=== PATIENT | female | born 1955 | race Caucasian/White ===

== ENCOUNTER 2016-10-17 04:49 | Observation (INO) | payer BC, MEDICAID ==
--- NOTE | 2016-10-17 05:04 | ED ---
Neurological HPI - HPI Summary HPI Summary: Patient presents for delayed evaluation of TIA like symptoms. Patient was dancing at a green party this evening and around 11:30 pm felt lightheaded. Checked her POCT glucose at home and found it to be 42. Ate half a spoonful of peanut butter and boiled some eggs. Having eaten both, her repeat POCT glucose was around 145 at 12:30am. She crawled to her and had some slurred speech and weakness of the left arm and leg. Went to [facility] for evaluation. Has had some intermittent resolution of the symptoms, but new numbness of the left arm and leg. PA at [facility] called for ED evaluation here as well as Neurology consult. - History of Current Complaint Chief Complaint: EDNeurologicalDeficit Stated Complaint: LT ARM NUMBNESS Time Seen by Provider: 10/17/16 04:59 Hx Obtained From: Patient, EMS, Medical Records Onset/Duration: Sudden Onset Timing: Intermittent Episodes Lasting: Pain Intensity: 0 - Allergy/Home Medications Allergies/Adverse Reactions: Allergies Allergy/AdvReac Type Severity Reaction Status Date / Time Aspirin Allergy Hives/Diff. Verified 10/17/16 05:06 Breathing/I tching Penicillins Allergy Hives/Diff. Verified 10/17/16 05:06 Breathing/I tching Tomato Allergy Hives Verified 10/17/16 05:06 PMH/Surg Hx/FS Hx/Imm Hx Infectious Disease History: No Infectious Disease History: Denies: Traveled Outside the [place] in Last 30 Days Review of Systems Negative: Fever, Chills Negative: Diplopia Cardiovascular: Negative Negative: Palpitations, Chest Pain Positive: Weakness, Numbness, Slurred Speech. Negative: Headache, Paresthesia All Other Systems Reviewed And Are Negative: Yes Physical Exam Triage Information Reviewed: Yes Vital Signs On Initial Exam: Initial Vitals Temp Pulse Resp BP Pulse Ox 98.6 F 87 12 166/85 98 10/17/16 04:50 10/17/16 04:50 10/17/16 04:50 10/17/16 04:50 10/17/16 04:50 Vital Signs Reviewed: Yes Appearance: Positive: Well-Appearing, No Pain Distress, Well-Nourished Skin: Positive: Warm, Skin Color Reflects Adequate Perfusion, Dry Head/Face: Positive: Normal Head/Face Inspection Eyes: Positive: Normal, EOMI, JIM ENT: Positive: Normal ENT inspection, Hearing grossly normal, Pharynx normal Neck: Positive: Supple Respiratory/Lung Sounds: Positive: Clear to Auscultation, Breath Sounds Present Cardiovascular: Positive: Normal, RRR, Pulses are Symmetrical in both Upper and Lower Extremities Abdomen Description: Positive: Nontender, No Organomegaly, Soft Musculoskeletal: Positive: Strength/ROM Intact Neurological: Positive: Alert, Oriented to Person Place, Time, CN Intact II-III , Reflexes Intact, Normal Gait, Heel to Toe, Finger to Nose, Facial Symmetry, Speech Normal, Other - L arm from shoulder to fingertip and L leg from hip to toes with diminished sensation.. Negative: Babinski Bilateral, Cerebellar Dysfunction, Facial Droop, Slurred Speech, Dysphagia, Dysarthric Aphasia, Pronator Drift Present Diagnostics - Vital Signs Vital Signs Temp Pulse Resp BP Pulse Ox 10/17/16 04:50 98.6 F 87 12 166/85 98 - Laboratory Lab Statement: Any lab studies that have been ordered have been reviewed, and results considered in the medical decision making process. 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 Non-Paretic Hand: Both Correctly Best Gaze (Only Horizontal Eye Movement): Normal Visual Field Testing: No Visual Loss Facial Paresis-Pt to Smile & Close Eyes or Grimace Symmetry: Normal/Symmetrical Motor Function - Right Arm: No Drift-Holds 10 Seconds Motor Function - Left Arm: No Drift-Holds 10 Seconds Motor Function - Right Leg: No Drift-Holds 10 Seconds Motor Function - Left Leg: No Drift-Holds 10 Seconds Limb Ataxia-Must be out of Proportion to Weakness Present: Absent Sensory (Use Pinprick to Test Arms/Legs/Trunk/Face): Pinprick Less on Affected Best Language (Describe Picture, Name Items): No Aphasia Dysarthria (Read Several Words): Normal Extinction and Inattention: No Abnormality Total Score: 1 Course/Dx - Differential Dx Differential Diagnoses Neuro: Positive: Cerebrovascular Accident, Hypoglycemia, Metabolic Abnormality, Transient Ischemic Attack, Other - Primary concern for stuttering TIA with facial droop, slurred speech, limb weakness, and sensory deficit at different times since around 12:30 to 1:30 am. Needs admission for further evaluation. - Diagnoses Provider Diagnoses: TIA (transient ischemic attack) - Physician Notifications Discussed Care of Patient With: Dr. Booker asked for CTA head and neck with vispaque due to GFR. Discharge - Discharge Plan Condition: Stable Disposition: ADMITTED TO [facility]
[2016-10-17] MEDS ORDERED: Acetaminophen TAB* 325 MG PO ONE (11:48)
[2016-10-17] MEDS ORDERED: Acetaminophen TAB* 325 MG PO PRN (11:48)
[2016-10-17] MEDS ORDERED: Dextrose 50% Syringe 50 ML* 25 GM/50 ML SYRINGE IV PUSH PRN (11:55)
[2016-10-17] MEDS ORDERED: Clopidogrel TAB* 75 MG PO ONE ×2 (11:56)
[2016-10-17] MEDS ORDERED: Docusate CAP* 100 MG PO PRN (12:02)
[2016-10-17] MEDS ORDERED: Polyethylene Glycol 3350* 17 GM PACKET PO ONE ×2 (12:30)
[2016-10-17 13:19] LABS: Hematocrit 39 % (35-47); Hemoglobin 12.8 g/dl (12.0-16.0); Mean Corpuscular HGB Conc 33 g/dl (31-36); Mean Corpuscular Hemoglobin 27 pg (27-31); Mean Corpuscular Volume 80 fL (80-97); Mean Platelet Volume 8 um3 (7.4-10.4); Red Blood Count 4.82 10^6/ul (4.0-5.4); Red Cell Distribution Width 13 % (10.5-15); White Blood Count 6.7 10^3/ul (3.5-10.8)
[2016-10-17 13:33] LABS: BUN/Creatinine Ratio 22.2 (8-20); Calcium 9.5 mg/dL (8.6-10.3); EGFR African American 41.7 (>60); EGFR Non-African American 32.4 (>60); Potassium 5.4 mmol/L (3.5-5.0)
[2016-10-17] MEDS ORDERED: Insulin LISPRO* 1 UNITS UNIT SUBCUT ONE (13:47)
--- NOTE | 2016-10-17 16:34 | RAD ---
HISTORY: Left-sided numbness and weakness COMPARISONS: Same day noncontrast CT of the brain TECHNIQUE: The following sequences were obtained of the head: Sagittal T1-weighted images, axial T2-weighted images, axial FLAIR images, axial susceptibility weighted images, axial T1-weighted images. Additionally, axial diffusion-weighted images were obtained with calculated apparent diffusion coefficients.. FINDINGS: HEMORRHAGE/INFARCT: There is no hemorrhage or acute infarct. MASSES/SHIFT: There is no mass or shift. EXTRA-AXIAL SPACES/MENINGES: There are no extra-axial fluid collections. SULCI AND VENTRICLES: The sulci and ventricles are normal in size and position for the patient's stated age. CEREBRUM: On the T2-weighted images there are multifocal periventricular and subcortical foci of increased intensity, the largest at the left anterior frontal lobe measuring 1 cm in diameter. There is no corresponding increased signal on the diffusion-weighted imaging to indicate that these are acute ischemic foci. The hensley-white matter differentiation and appropriate signal is maintained otherwise. BRAINSTEM: There are no focal parenchymal abnormalities. CEREBELLUM: There are no focal parenchymal abnormalities. The cerebellar tonsils are normal in size and position. SELLA: The sella is normal. PINEAL: There is a 4 mm fluid density cyst located within the pineal gland (sagittal image 14 and axial image 15 of 30). CP ANGLE/TEMPORAL BONES: The labyrinthine structures are grossly normal. VESSELS: Normal flow-voids are noted within the visualized vertebral vasculature. DIFFUSION ABNORMALITIES: There are no diffusion abnormalities. PARANASAL SINUSES/MASTOIDS: The paranasal sinuses are clear. ORBITS: The orbits are unremarkable. BONES AND SOFT TISSUE: No bone or soft tissue abnormalities are noted. IMPRESSION: 1. THESE MRI FINDINGS ARE MOST CONSISTENT WITH CHRONIC MICROVASCULAR DISEASE WITH DEMYELINATING DISEASE CONSIDERED LESS LIKELY. IF THE LATTER IS CLINICALLY SUSPECTED THEN FURTHER CHARACTERIZATION CAN BE MADE WITH CONTRAST ENHANCED MRI OF THE BRAIN. 2. THERE IS A 4 MM PINEAL GLAND CYST OF DOUBTFUL CLINICAL CONCERN.
[2016-10-17] MEDS ORDERED: Atorvastatin* 40 MG TAB PO SCH ×2 (17:00)
--- NOTE | 2016-10-17 17:05 | RAD ---
CPT II Codes: 3100F INDICATION: Cerebrovascular accident COMPARISON: MRI and CT of the brain from the same day TECHNIQUE: Multiple clarke scale, color and doppler tracings of the common, internal and external carotid and vertebral arteries were obtained. Stenosis estimations reflect velocity criteria that have been correlated to angiographic stenosis calculations based on the distal internal carotid diameter. Right carotid: The peak systolic velocity in the proximal right internal carotid artery is 68 cm/s and the maximum end-diastolic velocity is 21 cm/s. The peak systolic velocity in the distal common carotid artery is 79 cm/s and the maximum end-diastolic velocity is 19 cm/s. The internal to common carotid ratio is 1.17. This would be consistent with a 150% stenosis. Left carotid: The peak systolic velocity in the proximal right internal carotid artery is 80 cm/s and the maximum end-diastolic velocity is 20 cm/s. The peak systolic velocity in the distal common carotid artery is 91 cm/s and the maximum end-diastolic velocity is 22 cm/s. The internal to common carotid ratio is 0.87. This would be consistent with a less than 50% stenosis. Vertebrals: There is antegrade flow in both vertebral arteries. IMPRESSION: There is no sonographic evidence of hemodynamically significant stenosis in the bilateral carotid arteries.
--- NOTE | 2016-10-17 17:12 | PN ---
Hospitalist Progress Note HOSPITALIST ADDENDUM Case reviewed and d/w Otis SOLARES. Mrs. Fonseca is a 61yo F with PMH of DM who was transferred from [facility] with c/o left side numbness. Labs and MRI brain reviewed. Agree with current management.
[2016-10-17] MEDS: Insulin LISPRO* 1 UNITS UNIT SUBCUT SCH (17:24)
--- NOTE | 2016-10-17 19:35 | HP ---
ADMISSION HISTORY AND PHYSICAL: DATE OF ADMISSION: 10/16/16 PRIMARY CARE PROVIDER: Dr. Duncan. ADMITTING PROVIDER: BECK Loya SUPERVISING PHYSICIAN: Aga Cobb MD * (DICTATED BY BECK LOYA) CHIEF COMPLAINT: Transferred from [facility] with concern for TIA with slurred speech and left-sided weakness. HISTORY OF PRESENT ILLNESS: This is a 61-year-old female with poorly controlled insulin-dependent diabetes, chronic kidney disease, hyperlipidemia, and diabetic retinopathy and neuropathy who presented to [place] [facility] overnight last night with difficulty speaking and left-sided weakness. The patient states that she was with her earlier in the evening and she felt slightly dizzy, but no acute weakness at that time. She had not been consuming any alcohol and when she returned home, she took her Levemir and then checked her glucose which was noted to be in the 40s. She subsequently fixed herself something to eat, but was feeling worse and noted left-sided weakness and she began to drop things that she was holding in her left hand. She looked in the mirror and noted a notable left- sided facial droop. She was unable to ambulate and tripped and fell and crawled to the bedroom to alert her that she was not feeling well. According to notes from [facility], when she arrived there, she was unable to smile and was having significant difficulty speaking. Seeing as the onset of symptoms were as approximately 6 hours prior to her presentation in the emergency department, TPA was not given and she was subsequently transferred to [facility] for further evaluation and appropriate treatment. The patient states that she has no history of similar symptoms. She feels that her symptoms of difficulty speaking and weakness are coming and going intermittently since she has arrived in our hospital. At this time, there is no notable speech difficulty. She is complaining of some pain in her legs, which she states is chronic and related to her neuropathy. The patient states that her diabetes is very poorly controlled. She has what sounds to be diabetic retinopathy and had a retinal laser procedure completed last week and is receiving injections into her left eye. The patient also notes that she has been significantly constipated recently and believes it has been almost 10 days since she has had a bowel movement. The patient otherwise denies any chest pain. She states that she had some mild difficulty breathing with initial onset of her symptoms but that seems to have since resolved. PAST MEDICAL HISTORY: 1. Insulin-dependent diabetes which is reportedly poorly controlled. 2. Hyperlipidemia. 3. Diabetic neuropathy and retinopathy. 4. Chronic kidney disease. PAST SURGICAL HISTORY: Retinal laser procedure for proliferative retinopathy. HOME MEDICATIONS: (Per patient's recall): 1. Atorvastatin 10 mg p.o. at bedtime. 2. Gabapentin 300 mg p.o. at bedtime. 3. Levemir 50 units subcu at bedtime. 4. Humalog 50 units subcu with each meal. ALLERGIES: ASPIRIN - the patient reports hives and difficulty breathing with aspirin. FAMILY HISTORY: Mother had a history of CVA and of ovarian cancer. Her father had coronary artery disease and CHF. SOCIAL HISTORY: The patient lives at home with her , daughter and grand daughter. She smokes occasionally, unsure of her exact pack year history. Reports occasional alcohol consumption. PHYSICAL EXAMINATION GENERAL: This is a pleasant 61-year-old female who appears older than her stated age, but is in no acute distress. VITAL SIGNS: Most recent vitals; temperature 98 degrees Fahrenheit, pulse 84 beats per minute, respiratory rate 16 per minute, oxygen saturation 97% on room air, and blood pressure 139/71 mmHg. HEENT: Head is normocephalic, atraumatic. Mucous membranes are pink and moist. The patient is edentulous. NECK: Supple and free of lymphadenopathy. RESPIRATORY: Lungs are clear to auscultation without wheezes, crackles or rhonchi. CARDIOVASCULAR: Heart has regular rate and rhythm without murmurs, rubs, or gallops. ABDOMEN: Soft, slightly distended and nontender to palpation. EXTREMITIES: No lower extremity edema. NEUROLOGIC: The patient has a mild strength deficit in the left upper and left lower extremities estimated at 4/5 with the right side being 5/5. The patient describes a difference in sensation between the left and right side. Gait was not specifically assessed. Cranial nerves II through XII are intact. Romberg is negative. [id number] testing is normal. LABORATORY DATA: Review of labs from [facility] shows an essentially normal CBC with white blood cell count of 8000, hemoglobin 13.9 g/dL, and platelet count of 293,000. Comprehensive metabolic panel shows sodium of 138 mmol/L, potassium 4.6 mmol/L, BUN 37, creatinine of 2.1 with an estimated GFR of 26. Random glucose is 208 mg/dL. INR normal at 0.93. No transaminitis or elevated total bilirubin. ASSESSMENT AND PLAN: This is a 61-year-old female with poorly controlled insulin- dependent diabetes, hyperlipidemia, diabetic retinopathy and neuropathy and chronic kidney disease who was transferred from [facility] with concerns for transient ischemic attack versus cerebrovascular accident. 1. Cerebrovascular accident - the patient still has some residual deficits based on presentation, this appears to be consistent with an acute cerebrovascular accident. The patient has a listed allergy to ASPIRIN and has not received any antiplatelet agents. We will give Plavix at this time and initiate statin therapy. Her symptoms do appear to be self resolving but still somewhat persistent. Due to her poor renal function, we will avoid CTA. We will obtain carotid ultrasound to evaluate for stenosis and an MRI of the brain. We will place her on continuous telemetry monitoring to evaluate for dysrhythmia and obtain an echocardiogram with bubble study. 2. Insulin-dependent diabetes - the patient reports this is poorly controlled. We will obtain a hemoglobin A1c. We will start with continuing her insulin glargine at 50 units daily and placed on a sliding scale for mealtime. Unsure if her additional 50 units of Humalog with each meal is accurate and would like to avoid hypoglycemia. 3. Hyperlipidemia - we will increase atorvastatin to 40 mg daily in the setting of acute neurologic deficits and check a fasting lipid panel in the morning. 4. Diabetic complications including retinopathy and neuropathy. 5. Chronic kidney disease - based on labs from [place], she is at stage 4 but unsure of what her past labs represent. We will avoid all nephrotoxic agents and monitor renal function closely. 6. Code status. The patient is full code. 7. Healthcare proxy is her . 8. DVT prophylaxis. The patient will be placed on SCDs. We will avoid chemical prophylaxis in the setting of concern for acute cerebrovascular accident. 9. Disposition: The patient is being admitted to the hospital under observation status for concern of transient ischemic attack versus cerebrovascular accident. Pending Neurology consultation and further workup. BECK LOYA CC: Dr. Duncan* [id number]/[facility] #: [id number] [facility]
--- NOTE | 2016-10-17 20:50 | CONS ---
NEUROLOGY CONSULTATION: DATE OF CONSULT: 10/17/16 REQUESTING PROVIDER: BECK Nelson REASON FOR CONSULT: Possible stroke. HISTORY OF PRESENT ILLNESS: Yue Fonseca is a 61-year-old woman with a history of poorly controlled diabetes as well as hypertension and hyperlipidemia , who was in her usual state of health yesterday evening when she was out dancing and developed some dizziness and lightheadedness. She took her insulin while she was out and upon arriving home 1 to 2 hours later, she took a fingerstick glucose which she reports was 42. Sometime after this, she noticed some weakness of her left hand as she was trying to remove her earrings, but did not think much of it. She ate a spoonful of peanut butter and prepared some eggs for herself, but before she was able to eat the eggs, she fell to the ground due to apparent left-sided weakness. She does mention that she rechecked her blood sugar prior to falling and it was in the 240s. She was able to crawl in to where her was and says that she tried to call the hospital for advice on whether she might be having a stroke and then call a friend or a family member and was advised to go to the hospital, but she had her drive her. She went to [facility] and at that time apparently had a very weak left side and very garbled speech. She was significantly improving while she was in the ER at [place], but arrangements were made for her transfer here to [facility]. At the time of my evaluation, which is approximately 17 hours after the onset of her symptoms, she is essentially back to baseline. She denies any past history of stroke. She does have poorly controlled diabetes and complications including neuropathy and retinal disease. PAST MEDICAL HISTORY: 1. Type 2 diabetes, on insulin. 2. Hypertension. 3. Hyperlipidemia. 4. Complications of diabetes including neuropathy and retinal disease. 5. Single kidney which the patient states is congenital. HOME MEDICATIONS: 1. Humalog at meal time. 2. Gabapentin 300 mg at bedtime. 3. Lipitor 10 mg at bedtime. 4. Levemir 50 units at night. ALLERGIES: 1. ASPIRIN causes hives and difficulty breathing. 2. PENICILLIN caused hive and difficulty breathing. 3. TOMATOES cause hives. FAMILY HISTORY: Extensive history of diabetes in the family and she reports 3 brothers have passed from complications. One brother also had a stroke and cancer of unknown type. Her mother had ovarian cancer. SOCIAL HISTORY: She reports recently taking smoking back up, but says she smokes 1 cigarette per day. She denies significant alcohol use. 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 REVIEW OF SYSTEMS: She had laser surgery on her eye approximately 5 days ago. She has a history of carpal tunnel, status post release and some residual symptoms there. PHYSICAL EXAM: Vital Signs: Temperature 98, blood pressure 139/71, heart rate 84, and oxygen saturation 97% on room air. When she arrived in the ED here this morning at 4:50, her blood pressure was 166/85. On general examination, she appears older than her stated age. She is edentulous. Heart revealed a regular rate and rhythm with no murmurs, rubs, or gallops. Lungs are clear to auscultation bilaterally. There were no carotid bruits. On neurologic examination, she is fully awake, alert, and oriented. Speech is full without dysarthria or aphasia. Pupils were equal, round, and reactive from 3 to 2 mm bilaterally. She winced at the light. Versions were full without nystagmus. Visual lay were full to confrontation. Facial sensation and musculature is full and symmetric. The tongue protrudes in the midline and the palate elevates symmetrically. On motor examination, she has normal bulk and tone in the upper and lower extremities. Strength is full proximally and distally and there is no pronator drift. Sensation is intact in the upper and lower extremities. Reflexes are 2 + in the upper, 2+ at the knees, and 1+ at the ankles. Toes are downgoing. Finger-to- nose was intact without ataxia. Romberg is negative. Her gait is narrow based and stable. DIAGNOSTIC STUDIES/LAB DATA: Reviewed, includes a BMP which is notable for a potassium of 5.4, BUN of 36, and creatinine of 1.62 with a GFR of 32.4. Her glucose was 320 at 1308. Hemoglobin A1c is 9.2%. CBC is unremarkable. CT of the brain was performed at [place] and showed no evidence of a hemorrhage or early signs of ischemic stroke. MRI of the brain was performed here and personally reviewed and shows no evidence of acute ischemic injury. There is evidence of small vessel ischemic disease in the bilateral cerebral hemispheres. Carotid Doppler study has been performed and the report is pending. IMPRESSION: Yue Fonseca is a 61-year-old woman with poorly controlled diabetes, hypertension, and hyperlipidemia, who was transferred to [facility] for a stroke/transient ischemic attack workup after she presented with left- sided weakness and garbled speech. Her symptoms are resolved at this time. She is unable to take aspirin and has been placed on Plavix. Her labs show that her diabetes is very poorly controlled and this was discussed with her as a very important risk factor that she needs to work on bringing under better control in order to help prevent further transient ischemic attacks. She should also have a lipid panel done, should remain on telemetry for detection of any signs of atrial fibrillation and she will undergo echocardiogram with bubble study. Pending the outstanding testing, she will likely be stable for discharge tomorrow. She was counseled that should she experience stroke symptoms in the future, such as sudden weakness, numbness, difficulty speaking, etc, she should call 911 immediately. She was also counseled to quit smoking. Thank you for this consultation. [id number]/[facility] #: [id number] MANDI
[2016-10-17] MEDS ORDERED: Gabapentin CAP(*) 300 MG PO SCH (21:00)
[2016-10-17] MEDS ORDERED: Gabapentin CAP(*) 300 MG PO ONE (21:00)
[2016-10-17] MEDS ORDERED: Insulin GLARGINE(*) 1 UNITS UNIT SUBCUT SCH (21:00)
[2016-10-18 05:53] LABS: Hematocrit 37 % (35-47); Hemoglobin 12.6 g/dl (12.0-16.0); Mean Corpuscular HGB Conc 34 g/dl (31-36); Mean Corpuscular Hemoglobin 27 pg (27-31); Mean Corpuscular Volume 80 fL (80-97); Mean Platelet Volume 8 um3 (7.4-10.4); Red Blood Count 4.64 10^6/ul (4.0-5.4); Red Cell Distribution Width 13 % (10.5-15); White Blood Count 6.2 10^3/ul (3.5-10.8)
[2016-10-18 06:05] LABS: BUN/Creatinine Ratio 27.5 (8-20); Calcium 9.4 mg/dL (8.6-10.3); EGFR African American 50.2 (>60); Potassium 4.6 mmol/L (3.5-5.0)
[2016-10-18] MEDS: Insulin LISPRO* 1 UNITS UNIT SUBCUT SCH ×2 (08:52→12:33)
[2016-10-18] MEDS ORDERED: Clopidogrel TAB* 75 MG PO ONE (09:00)
[2016-10-18] MEDS ORDERED: Clopidogrel TAB* 75 MG PO SCH (09:00)
[2016-10-18 11:28] VITALS: BP 121/62
--- NOTE | 2016-10-18 15:02 | ECHO ---
Patient: NASIR LI [facility] Rec#: [id number] : 1955 Date: 10/18/2016 Age: 61y Height: 154 cm / 60.6 in Weight: 78 kg / 171.9 lbs Sex: F BSA: 1.76 Room#: 443 Admit Date#: 10/17/2016 Type: Inpatient Referring: Otis Braun Reading: Skip Delaney MD Media Relations Coordinator: Toi Kaplan RDCS Transthoracic Echocardiogram Indication: TIA BP: /106 HR: 65 Rhythm: NSR Findings History: TIA DM,HLD,CKD Technical Comments: The study quality is fair. Completed 1435 Left Ventricle: The left ventricular chamber size is normal. Mild concentric left ventricular hypertrophy is observed. Global left ventricular wall motion and contractility are within normal limits. There is normal left ventricular systolic function. The estimated ejection fraction is 55-60%. Abnormal left ventricular diastolic filling is observed, consistent with impaired relaxation. Left Atrium: The left atrial chamber size is normal. Right Ventricle: The right ventricular cavity size is normal. The right ventricular global systolic function is normal. Right Atrium: The right atrial cavity size is normal. Interatrial septum appears intact without evidence of shunting. The bubble study is negative. Aortic Valve: The aortic valve is trileaflet. There is no evidence of aortic regurgitation. There is no evidence of aortic stenosis. Mitral Valve: The mitral valve leaflets appear normal. There is no evidence of mitral regurgitation. There is no evidence of mitral stenosis. Tricuspid Valve: The tricuspid valve appears normal in structure and function. There is no evidence of tricuspid valve regurgitation. Pulmonic Valve: The pulmonic valve appears normal. There is no evidence of pulmonic regurgitation. There is no pulmonic stenosis. Pericardium: There is no pericardial effusion. Aorta: There is no dilatation of the ascending aorta. There is no dilatation of the aortic arch. There is no dilation of the aortic root. Pulmonary Artery: The main pulmonary artery appears normal. Venous: The inferior vena cava appears normal in size. There is a greater than 50% respiratory change in the inferior vena cava dimension. Contrast: Normal saline was used as contrast for the bubble study. Intravenous contrast was used to help determine presence of intracardiac shunting.IMAGE 64 Conclusions Mild concentric left ventricular hypertrophy is observed. Global left ventricular wall motion and contractility are within normal limits. The estimated ejection fraction is 55-60%. There is normal left ventricular systolic function. Interatrial septum appears intact without evidence of shunting. The bubble study is negative. The right ventricular global systolic function is normal. There is no evidence of aortic stenosis. There is no evidence of mitral regurgitation. There is no pericardial effusion. Measurements Name Value Normal Range RVIDd (AP) 2D 11.7 cm (0.9 - 2.6) RVDdMajor (2D) 2.1 cm (2.2 - 4.4) RAd ISD 4CH 3.5 cm (3.4 - 4.9) RA (A4C)W 2.8 cm (2.9 - 4.6) IVSd (2D) 1.2 cm (0.6 - 1) LVPWd (2D) 1.4 cm (0.6 - 1) LVIDd (2D) 3.4 cm (3.6 - 5.4) LVIDs (2D) 2.3 cm - LV FS (2D) 30 % (25 - 45) Aortic Annulus 1.9 cm (1.4 - 2.6) Ao root diameter (2D) 2.1 cm (2.1 - 3.5) Ascending Ao 3 cm (2.1 - 3.4) Aortic arch 2.5 cm (1.8 - 3.4) LA dimension (AP) 2D 2.6 cm (2.3 - 3.8) LAd ISD 4CH 4.9 cm (2.9 - 5.3) LA ISD 4CH W 3 cm (2.5 - 4.5) Name Value Normal Range LA ESV SP 4CH (A/L) 51 ml - LA ESV SP 2CH (A/L) 74 ml - LA ESV BP (A/L) 62 ml - LA ESV BP (A/L) index 34.89 ml/m2 - LA ESV SP 4CH (MOD) 46 ml - LA ESV SP 2CH (MOD) 70 ml - Name Value Normal Range MV E-wave Vmax 0.68 m/sec - MV deceleration time 217 msec - MV A-wave Vmax 0.94 m/sec - MV E:A ratio 0.73 ratio - LV septal e' Vmax 0.04 m/sec - LV lateral e' Vmax 0.03 m/sec - LV E:e' septal ratio 17 ratio - LV E:e' lateral ratio 22.6 ratio - Name Value Normal Range LVOT diameter 1.7 cm - LVOT Vmax 0.8 m/sec - Name Value Normal Range IVC diameter 1.01 cm - Name Value Normal Range PV Vmax 0.83 m/sec -
--- NOTE | 2016-10-19 03:20 | DS ---
DISCHARGE SUMMARY: DATE OF ADMISSION: 10/17/16 DATE OF DISCHARGE: 10/18/16 PRIMARY CARE PHYSICIAN: Dr. Duncan. DISCHARGE DIAGNOSIS: Transient ischemic attack. SECONDARY DIAGNOSES: 1. Insulin-dependent diabetes. 2. Lipidemia. 3. Diabetic neuropathy and retinopathy. 4. History of chronic kidney disease, stage 3 due to diabetes. MEDICATIONS AT DISCHARGE: Include: 1. Plavix 75 mg daily. 2. Lipitor 40 mg daily. 3. Gabapentin 300 mg at bedtime. 4. Insulin detemir 50 units subcutaneously daily at night. 5. Insulin Lispro 17 units with each meal 3 times a day. LABORATORY DATA AND STUDIES PERFORMED DURING THE HOSPITAL STAY: Included: On , lipid profile showed triglycerides of 228, cholesterol of 418, LDL of 131, and HDL of 41. The patient's hemoglobin A1c was 9.2. CBC on 10/18/16, white blood cell count 6.2, hemoglobin 12.6, hematocrit 37, and platelets 228. Transthoracic echocardiogram obtained on 10/17/16 showed a negative bubble study. EF of 55% to 60%. Global left ventricular wall motion contractility within normal limits. Carotid Doppler study, impression: "There is no sonographic evidence of hemodynamically significant stenosis in bilateral carotid arteries." Brain MRI on 10/17/16, impression: "These MRI findings are most consistent with chronic microvascular disease with demyelinating disease considered less likely. If the latter is clinically suspected, then further characterization can be made with contrast-enhanced MRI of the brain. There is a 4 mm pineal gland cyst of doubtful clinical concern." CONSULTATIONS DURING THE HOSPITAL STAY: Included Dr. Poonam Rossi from Neurology. HOSPITALIZATION COURSE: Yue Fonseca is a 61-year-old female with history of diabetes who presented to our hospital as transfer from [facility] with transient slurred speech and left-sided weakness that resolved on the day of admission. The patient was observed on telemetry monitored bed with the diagnosis of TIA. She had no arrhythmias noted. Dr. Rossi saw the patient in consultation. As recommended, MRI studies were obtained and the report is as above. The patient also had a carotid Doppler study that was unremarkable and negative for stenosis. Transthoracic echocardiogram showed a negative bubble study. The patient's lipid profile showed triglycerides of 224 and LDL of 131. Due to that, the patient's Lipitor dose was increased from 10 mg to 40 mg daily. The patient has history of allergy to ASPIRIN that manifest in hives and problems with breathing. For that, the patient was started on Plavix. The patient also was seen by our social security specialist in regards of problems with insurance. She is advised to call insurance navigator, Beba Alonso, to discuss Medicaid eligibility after discharge. PHYSICAL EXAM AT DISCHARGE: Blood pressure of 121/62, heart rate of 82 and regular, respiratory rate 18, oxygen saturation 100% on room air, temperature 98.2. General: The patient is a pleasant 61-year-old female, who is in no acute distress. Alert, awake, and oriented x3. HEENT: Head: Atraumatic, normocephalic. Eyes: Pupils are equal and reactive to light and accommodation. Oropharynx clear. Mucosa moist. Neck: Supple. No JVD. No bruit bilaterally. Cardiovascular: Regular rate and rhythm. No murmur. Respiratory: Clear to auscultation bilaterally. Abdomen: Soft, nontender, bowel sounds present in all 4 quadrants. Extremities: There is no edema. Pulses +2 bilaterally. No clubbing or cyanosis. Neuro Evaluation: Speech clear. Cranial nerves II through XII grossly intact. Motor strength is 5/5 bilaterally. At discharge, the patient is recommended to followup with Dr. Duncan in approximately 4 to 7 days. Please note that this is a short summary of the patient's hospital visit. Please refer to further medical records for details. TIME SPENT: Approximately 35 minutes were spent on the patient's discharge. CC: Dr. Duncan; Dr. Rossi* [id number]/CPS #: [id number] MTDD
== END 2016-10-18 16:45 | disposition home or self-care (01) ==
LOC: ED 04:49 → MEDTELE 06:59
PROVIDERS: ADMIT Internal Medicine; ATTEND Internal Medicine
DX: G45.9 Transient cerebral ischemic attack, unspecified (principal); E11.40 Type 2 diabetes mellitus with diabetic neuropathy, unspecified; E11.319 Type 2 diabetes mellitus with unspecified diabetic retinopathy without macular edema; Z79.4 Long term (current) use of insulin; E78.5 Hyperlipidemia, unspecified; I12.9 Hypertensive chronic kidney disease with stage 1 through stage 4 chronic kidney disease, or unspecified chronic kidney disease; N18.4 Chronic kidney disease, stage 4 (severe); K59.00 Constipation, unspecified; Q60.0 Renal agenesis, unilateral; G93.0 Cerebral cysts; I51.7 Cardiomegaly; Z79.02 Long term (current) use of antithrombotics/antiplatelets; Z79.899 Other long term (current) drug therapy; Z88.6 Allergy status to analgesic agent; Z88.0 Allergy status to penicillin
CPT/HCPCS: 36415; 70551; 80048; 80061; 83036; 85025; 93005; 93306; 93880; 99283; A9270-GY; G0378

== ENCOUNTER 2016-10-26 21:49 | Emergency (ER) | payer MEDICAID ==
[2016-10-26] MEDS ORDERED: Albuterol/Ipratropium NEB.SOL* Albuterol 2.5 MG/Ipratropium 0.5 MG 3 ML INH ONE (22:21)
[2016-10-26] MEDS ORDERED: methylPREDNISolone 125 MG* 2 ML VIAL IV ONE ×2 (22:22)
[2016-10-26] MEDS ORDERED: Albuterol/Ipratropium NEB.SOL* Albuterol 2.5 MG/Ipratropium 0.5 MG 3 ML ONE ×2 (22:24)
[2016-10-26 22:46] LABS: Hematocrit 37 % (35-47); Hemoglobin 12.4 g/dl (12.0-16.0); Mean Corpuscular HGB Conc 33 g/dl (31-36); Mean Corpuscular Hemoglobin 26 pg (27-31); Mean Corpuscular Volume 79 fL (80-97); Mean Platelet Volume 9 um3 (7.4-10.4); Red Blood Count 4.72 10^6/ul (4.0-5.4); Red Cell Distribution Width 13 % (10.5-15); White Blood Count 11.8 10^3/ul (3.5-10.8)
[2016-10-26 23:07] LABS: ALT 16 U/L (7-52); Albumin 3.6 g/dL (3.2-5.2); Alkaline Phosphatase 92 U/L (34-104); BUN/Creatinine Ratio 22.2 (8-20); Blood Urea Nitrogen 39 mg/dL (6-24); C Reactive Protein 86.52 mg/L (< 5.00); CO2 Carbon Dioxide 27 mmol/L (22-32); Calcium 9.6 mg/dL (8.6-10.3); Chloride 102 mmol/L (101-111); EGFR African American 37.9 (>60); EGFR Non-African American 29.5 (>60); Globulin 3.9 g/dL (2-4); Glucose 135 mg/dL (70-100); Lipase < 10 U/L (11.0-82.0); Sodium 134 mmol/L (133-145); Total Protein 7.5 g/dL (6.4-8.9)
[2016-10-26] MEDS ORDERED: Morphine INJ* 4 MG/ML 1 ML CARPUJECT IV ONE ×2 (23:38)
[2016-10-27 01:03] LABS: Urine Bacteria Absent (Absent); Urine Bilirubin Negative (Negative); Urine Glucose Negative (Negative); Urine Nitrite Negative (Negative)
[2016-10-27] MEDS ORDERED: Levofloxacin TAB* 500 MG PO ONE ×2 (01:21)
--- NOTE | 2016-10-27 01:44 | ED ---
hilda Retana Timothy, scribed for Zeinab Brumfielduel on 10/26/16 at 2218 . Shortness of Breath - HPI Summary HPI Summary: Yue Fonseca is a 61 yo female presenting to [facility] with SOB since 10/19/16 and syncope 2x, yesterday and today. She also has non-productive cough She states she has pain from the left side of her chest through the right side of her abdomen for the past 4 days. She states she also has had diarrhea. She had a TIA over 1 week ago. Her MHx includes DM, diabetic ulcer right toe, HLD, HTN, stage 1 kidney disease. She is a former smoker. - History of Current Complaint Chief Complaint: EDGeneral Time Seen by Provider: 10/26/16 21:55 Hx Obtained From: Patient Onset/Duration: Gradual Onset, Lasting Days, Still Present Timing: Constant Current Severity: Moderate Dyspnea At: Rest Associated Signs & Symptoms: Cough (Nonproductive), Chest Pain Unrelated to Cough - Allergy/Home Medications Allergies/Adverse Reactions: Allergies Allergy/AdvReac Type Severity Reaction Status Date / Time Aspirin Allergy Hives/Diff. Verified 10/17/16 05:06 Breathing/I tching Penicillins Allergy Hives/Diff. Verified 10/17/16 05:06 Breathing/I tching Tomato Allergy Hives Verified 10/17/16 05:06 PMH/Surg Hx/FS Hx/Imm Hx Endocrine/Hematology History: Denies: Hx Diabetes Cardiovascular History: Reports: Hx Hypertension Denies: Hx Pacemaker/ICD Sensory History: Reports: Other Sensory Impairments - neuropathy Denies: Hx Hearing Aid Opthamlomology History: Reports: Other Sensory Impairments - neuropathy Psychiatric History: Denies: Hx Panic Disorder - Surgical History Surgery Procedure, Year, and Place: ROTATOR CUFF REPAIR,T&A,CARPAL TUNNEL X 2, C -SECTION,LASER EYE SURGERY - Immunization History Date of Tetanus Vaccine: utd Date of Influenza Vaccine: none Infectious Disease History: No Infectious Disease History: Denies: Traveled Outside the [place] in Last 30 Days - Family History Known Family History: Positive: Hypertension, Diabetes Negative: Cardiac Disease - Social History Alcohol Use: Occasionally Substance Use Type: Reports: None Smoking Status (MU): Former Smoker Review of Systems Constitutional: Negative Eyes: Negative ENT: Negative Positive: Chest Pain Positive: Shortness Of Breath, Cough Positive: Abdominal Pain Genitourinary: Negative Musculoskeletal: Negative Skin: Negative Neurological: Negative Psychological: Normal All Other Systems Reviewed And Are Negative: Yes Physical Exam Triage Information Reviewed: Yes Vital Signs On Initial Exam: Initial Vitals Temp Pulse Resp BP Pulse Ox 99.4 F 88 18 113/49 98 10/26/16 21:53 10/26/16 21:53 10/26/16 21:53 10/26/16 21:53 10/26/16 21:53 Vital Signs Reviewed: Yes Appearance: Positive: No Pain Distress, Ill-Appearing Skin: Positive: Warm, Skin Color Reflects Adequate Perfusion, Dry Head/Face: Positive: Normal Head/Face Inspection Eyes: Positive: EOMI, JIM ENT: Positive: Hearing grossly normal Neck: Positive: Supple, Nontender Respiratory/Lung Sounds: Positive: Breath Sounds Present, Rales, Wheezes - occasional wheeze Cardiovascular: Positive: RRR, Pulses are Symmetrical in both Upper and Lower Extremities Abdomen Description: Positive: Soft. Negative: Nontender - RUQ tenderness Bowel Sounds: Positive: Present Musculoskeletal: Positive: Normal, Strength/ROM Intact Neurological: Positive: Normal, Sensory/Motor Intact, Alert, Oriented to Person Place, Time Psychiatric: Positive: Normal Diagnostics - Vital Signs Vital Signs Temp Pulse Resp BP Pulse Ox 10/26/16 21:53 99.4 F 88 18 113/49 98 - Laboratory Result Diagrams: 10/26/16 22:33 10/26/16 23:34 Lab Statement: Any lab studies that have been ordered have been reviewed, and results considered in the medical decision making process. - Radiology CXR Xray Interpretation: No Acute Changes - No acute disease Radiology Interpretation Completed By: ED Physician - CT A/P CT Interpretation: Positive (See Comments) - 6.7 cm cyst upper pole left kidney. Left renal cortical scarring and small calcifications. Atrophic right kidney with small cortical/capsular calcifications. No ureterolithiasis or obstructive uropathy. No bladder calculi. Unremarkable pancreas and gallbladder. No bowel obstruction, colitis, diverticulitis, free fluid or free air. Normal appendix. Tiny umbilical hernia containing fat. CAD. CT Interpretation Completed By: Radiologist - Ultrasound No standard instances Ultrasound Interpretation: No Acute Changes - Unremarkable gallbladder, liver, and visualized aorta and pancreas. Right kidney not seen. No biliary dilation. Exam limited by patient's shortness of breath, coughing, and inability to hold a deep breath. Ultrasound Interpretation Completed By: Radiologist - Gallbladder - EKG 4616 Cardiac Rate: Tachycardia EKG Interpretation: Sinus tachycardia @ 104 BPM Re-Evaluation - Re-Evaluation First Eval Re-Evaluation Time: 01:21 Change: Unchanged Comment: Pt is informed of imaging and lab results. She is agreeable to being discharged. Course/Dx - Course Assessment/Plan: Yue Fonseca is a 61 yo female presenting to [facility] with SOB and syncope. After review of her imaging and lab studies, she will be discharged with UTI. - Diagnoses Provider Diagnoses: UTI (urinary tract infection) Discharge - Discharge Plan Condition: Stable Disposition: HOME Patient Education Materials: Urinary Tract Infection in Women (ED) Referrals: Jorge Duncan DO [Primary Care Provider] - 2 Days Additional Instructions: Please follow up with your primary care physician regarding your visit to the emergency department today. Return to the emergency department with any new or recurring symptoms. The documentation as recorded by the hilda kuo Timothy accurately reflects the service I personally performed and the decisions made by , Luigi Brumfield.
[2016-10-27 05:53] VITALS: BP 98/60
--- NOTE | 2016-10-27 07:30 | RAD ---
INDICATION: Chest and abdominal pain COMPARISON: None TECHNIQUE: An AP portable view obtained at 20 to 39 hours is submitted. FINDINGS: Bones/Soft Tissues: There are no acute bony findings. Cardiomediastinal: The cardiomediastinal silhouette is normal. Lungs: There are no infiltrates. Pleura: There are no pleural effusions. Other: None IMPRESSION: NO ACTIVE DISEASE.
--- NOTE | 2016-10-27 07:43 | RAD ---
INDICATION: Cholecystitis COMPARISON: October 26, 2016 TECHNIQUE: Longitudinal and transverse scans of the right upper quadrant were obtained. Doppler interrogation of the hepatic and portal venous system was performed. Examination is limited due to shortness of breath FINDINGS: Liver: The liver is echogenic compatible with hepatic steatosis. There are no focal masses. The liver measures 16 cm in cephalocaudal dimension. Vessels: There is normal hepatic and portal venous flow. Bile ducts: There is no evidence of intrahepatic or extrahepatic ductal dilatation. The common duct measures 0.6 cm. Gallbladder: The sonographic appearance of the gallbladder is normal. There is no evidence of cholelithiasis, thickening of the gallbladder wall, or pericholecystic fluid. Pancreas: The visualized pancreas appears normal Right kidney: The right kidney is not identified. Earlier CT imaging shows a markedly atrophic nonfunctioning right kidney. . IVC and aorta: The aorta and superior vena cava appear normal. Fluid: There is no ascites. Other: None. IMPRESSION: MILDLY LIMITED EXAMINATION. HEPATIC STEATOSIS. NORMAL GALLBLADDER
--- NOTE | 2016-10-27 07:47 | RAD ---
CLINICAL HISTORY: Right flank pain COMPARISON: None TECHNIQUE: Multiple contiguous axial CT scans were obtained of the abdomen and pelvis, without intravenous contrast enhancement. Coronal and sagittal multiplanar reformations are submitted for review. Oral contrast was not administered. FINDINGS: The study is limited by the lack of intravenous contrast. This limits evaluation of the solid organs and vasculature. LUNG BASES: There is a calcified granuloma of the right lower lobe LIVER: The liver is normal in shape, size, contour, and attenuation. BILE DUCTS: There is no intrahepatic or extrahepatic biliary dilatation. GALLBLADDER: Multiple gallstones are noted. There is no pericholecystic inflammatory change. PANCREAS: The pancreas is normal, without mass or ductal dilatation. SPLEEN: Normal in size and appearance. UPPER GI TRACT: Evaluation of the gastrointestinal tract is limited by incomplete gastric distention. The upper GI tract is unremarkable. SMALL BOWEL AND MESENTERY: The small bowel is normal in contour, course, and caliber. There is no obstruction or dilatation. COLON: The colon is normal in contour, course, caliber. There is no pericolonic inflammatory change. There is a tubular, vermiform, hollow viscus that is blind ending, and originates from the cecum, consistent with a normal appendix. There is no periappendiceal inflammatory change. This is best seen on axial images 106 through 117 ADRENALS: Normal bilaterally. KIDNEYS: The right kidney is atrophic/hypoplastic. There is compensatory hypertrophy of the left kidney with persistent lobulation. There is a 0.3 cm calculus of the lower pole of left kidney. A simple renal cyst is noted of the upper pole measuring 6 cm. There is no appreciable hydronephrosis BLADDER: The bladder is incompletely distended but is grossly normal. PELVIC ORGANS: The uterus and adnexa are grossly normal for technique. AORTA: The aorta is normal. IVC: Unremarkable LYMPH NODES: There is no lymphadenopathy by size criteria. ABDOMINAL WALL: There is no evidence for abdominal wall hernia. BONES AND SOFT TISSUES: Degenerative changes are noted of the spine OTHER: None IMPRESSION: 1. ATROPHIC/HYPOPLASTIC RIGHT KIDNEY. 2. NONOBSTRUCTING LEFT RENAL STONES. 3. CHOLELITHIASIS. 4. NO ACUTE CT PATHOLOGY OF THE VISUALIZED ABDOMEN AND PELVIS.
== END 2016-10-27 02:40 | disposition home or self-care (01) ==
LOC: ED 21:49
DX: N39.0 Urinary tract infection, site not specified (principal); R05 Cough; R07.9 Chest pain, unspecified; R06.02 Shortness of breath; R10.9 Unspecified abdominal pain
CPT/HCPCS: 36415; 71010; 74176; 76705; 80053; 81003; 81015; 83690; 83880; 84484; 85025; 85610; 86140; 87086; 87502; 93005; 96374; 96375; 99284; A9270-GY; J2270; J2930

== ENCOUNTER 2017-03-31 15:13 | Emergency (ER) | payer OTHER ==
[2017-03-31] MEDS ORDERED: NS 0.9% 1000 ML* 1,000 ML IV ONE (15:32)
--- NOTE | 2017-03-31 15:58 | RAD ---
INDICATION: Code hensley neurologic changes. COMPARISON: Correlation is made with a prior CT and MRI of the brain from October 17, 2016. TECHNIQUE: Contiguous axial sections of the brain were obtained from the skull base to the vertex without contrast. FINDINGS: The ventricles, cisterns and sulci are within normal limits. There are small areas of decreased density in the subcortical and periventricular white matter suggestive of mild chronic small vessel ischemic changes. There is mild increased density within the lentiform nuclei present on both sides which is unchanged from the prior examination most consistent with faint calcification. No other focal abnormalities or mass effect are seen. There is no evidence for hemorrhage. No significant focal osseous abnormality is seen. The visualized portion of the paranasal sinuses and mastoid air cells appear clear. The results of this exam were called to the referring clinicians nurse at 1547 hours. IMPRESSION: 1. NO EVIDENCE FOR GROSS ACUTE INFARCT, MASS EFFECT OR HEMORRHAGE. 2. FINDINGS SUGGESTIVE OF MILD CHRONIC SMALL VESSEL ISCHEMIC CHANGES.
[2017-03-31 16:02] LABS: Hematocrit 39 % (35-47); Hemoglobin 12.8 g/dl (12.0-16.0); Mean Corpuscular HGB Conc 33 g/dl (31-36); Mean Corpuscular Hemoglobin 26 pg (27-31); Mean Corpuscular Volume 79 fL (80-97); Mean Platelet Volume 8 um3 (7.4-10.4); Red Cell Distribution Width 14 % (10.5-15); White Blood Count 7.9 10^3/ul (3.5-10.8)
[2017-03-31] MEDS ORDERED: Dextrose 50% Syringe 50 ML* 25 GM/50 ML SYRINGE IV PUSH ONE (16:07)
[2017-03-31] MEDS ORDERED: Dextrose 50% Syringe 50 ML* 25 GM/50 ML SYRINGE ONE (16:08)
[2017-03-31 16:18] LABS: Albumin 3.7 g/dL (3.2-5.2); BUN/Creatinine Ratio 15.7 (8-20); Calcium 9.6 mg/dL (8.6-10.3); EGFR Non-African American 42.8 (>60); Globulin 3.7 g/dL (2-4); Potassium 4.1 mmol/L (3.5-5.0); Total Bilirubin 0.7 mg/dL (0.2-1.0); Total Protein 7.4 g/dL (6.4-8.9)
--- NOTE | 2017-03-31 16:44 | RAD ---
Indication: Neurologic changes. Code hensley. Former tobacco use. Comparison: October 26, 2016 CT abdomen and chest radiograph. Technique: Upright AP 1620 hours Report: Clear lungs and pleural spaces. Negative for pneumothorax. The heart, pulmonary vasculature, and mediastinal contours are unremarkable. RIGHT humeral head surgical anchors noted. IMPRESSION: No evidence for acute intrathoracic disease.
--- NOTE | 2017-03-31 17:22 | RAD ---
Indication: Loss of vision both eyes earlier today. Additional visual changes. Comparison: March 31, 2017 CT brain and October 17, 2016 MRI. Technique: Noncontrast MRI brain. [email or web address] 1.5 Su [id number] with GEM suite. Report: Diffusion series is negative for acute or subacute ischemia. Susceptibility series is negative for stigmata of hemosiderin deposition to indicate previous hemorrhage. Unremarkable cerebral sulci, ventricles, and basal cisterns. Foci of increased signal in the periventricular and subcortical white matter of the frontal and parietal lobes unchanged compared with the October 17, 2016 exam without associated mass effect. No new intra-axial lesions evident. Preserved major intracranial flow-voids. Unremarkable orbital contents. Clear paranasal sinuses and mastoid air spaces. No suspicious calvarial or skull base lesion evident. IMPRESSION: 1. Unchanged finding of nonspecific bilateral frontal and parietal lobe periventricular and subcortical white matter hyperintensities without mass effect most suspicious for chronic small vessel ischemic disease however the differential includes demyelinating disease as well as sequela of previous inflammation. 2. No evidence for acute or subacute ischemia.
[2017-03-31 19:10] VITALS: BP 147/70
--- NOTE | 2017-03-31 22:04 | CONS ---
CC: Dr. Gonzalez * NEUROLOGY CONSULTATION: DATE OF FOLLOWUP: 03/31/17 - EMERGENCY DEPT REFERRING PHYSICIAN: Dr. Ko. LOCATION: She is in the emergency room. CHIEF COMPLAINT: Blindness. HISTORY OF PRESENT ILLNESS: Yue Fonseca is a 62-year-old right-handed woman who was referred to the emergency room from Dr. Gonzalez's office because of the change in her vision. She says that she was seated at home at about 11 or 11:30 this morning, looking at her electronic pad and then she lost vision. She states she cannot see anything. With additional questions, she states she can see "shadows." She states she can see some movement, but she cannot make out any details of anything. She just had Avastin injection in the right eye yesterday. She saw Dr. Gonzalez in the office and his office note is here. She was noted to have severe constriction of bilateral visual lay consistent with a central nervous system process. She was noted to have attenuation of funduscopic vessels bilaterally and an epiretinal membrane, left eye. She has a history of poorly controlled diabetes, diabetic neuropathy, and was here in the hospital in October with left-sided weakness such that she could not walk and garbled speech. She went to [facility] and was transferred to our hospital and Dr. Poonam Rossi saw her in evaluation. Her symptoms were resolved by the time she was evaluated in [facility]. She had an MRI of the brain, which revealed changes consistent with chronic ischemic disease, but no acute infarctions. She had an echocardiogram, which was fairly unremarkable. MEDICATIONS: Medications at home consist of: 1. Plavix 75 mg p.o. daily. 2. Atorvastatin 40 mg p.o. daily. 3. Gabapentin 300 mg p.o. q.h.s. 4. Insulin. 5. Omeprazole 40 mg p.o. daily. REVIEW OF SYSTEMS: Negative for headaches or eye pain. She has pain in her feet chronically and that is unchanged. She has not had any falls recently. PHYSICAL EXAM: She is obese and well hydrated. Blood pressure 135/75, heart rate 70 and sinus on the monitor, respirations are 16, oxygen saturation 98% on room air. Heart is in a regular rate and rhythm without murmurs heard. Carotid pulses are weakly felt and there are no bruits. Oral mucosa is moist and atraumatic. Neurologic exam, pupils are dilated and react weakly to light from about 8 down to about 7 mm. Funduscopic exam revealed sharp discs bilaterally. There is no ptosis. Eye movements are full. She denies or count figures, but responds to visual threat reliably on both sides from both temporal regions as well as centrally. Facial sensation is symmetric to light touch. Facial musculature is symmetric. Palate and tongue appear normal and speech is clear. Hearing is intact. Motor exam reveals pretty good strength proximally and distally in upper and lower extremities other than ankle dorsiflexion and intrinsic hand muscle weakness. She has stalking loss of sensation to light touch and vibrations. Reflexes are trace at the knees and biceps and otherwise absent. Plantars are flexor bilaterally. She is alert and awake. She was able to provide a fair history, but seems to have poor memory. Fund of knowledge is questionable as well. DIAGNOSTIC STUDIES/LAB DATA: Included the CT of the brain done here today, which I reviewed and which looks normal. There is some hypodensity consistent with chronic ischemic changes, however. Other laboratory data is notable for hemoglobin A1c of 10.7% back on 02/19/17. Fingerstick glucose here in the emergency room was 59, creatinine 1.27. CBC is notable for an MCV of 79 and otherwise unremarkable. IMPRESSION AND PLAN: Impression is that of possible bilateral occipital infarctions or possible psychogenic visual loss. She also has diabetic retinopathy, diabetic neuropathy and poorly controlled diabetes. We will go ahead and arrange for an MRI scan of the brain. If it is normal, then I think we can be confident that this is psychogenic. If she does have bilateral occipital infarctions, then of course she will need admission and further evaluation. She is already on antiplatelet therapy. [id number]/[facility] #: [id number] [facility]
== END 2017-03-31 19:30 | disposition home or self-care (01) ==
LOC: ED 15:13
DX: H54.0 Blindness, both eyes (principal); E11.9 Type 2 diabetes mellitus without complications
CPT/HCPCS: 36415; 70450; 70551; 71010; 80053; 80061; 83605; 84484; 85025; 85610; 85730; 86850; 86900; 86901; 99285

== ENCOUNTER 2017-07-18 12:21 | Day surgery (SDC) | payer OTHER ==
[~2017-07-18 12:21] MED LIST: Acetaminophen TAB* 325 MG PO PRN; Buffered Lidocaine 0.9% SYRIN* 5 ML/SYR SYRINGE INTRADERM ONE
[2017-07-18] MEDS ORDERED: fentaNYL* 50 MCG/ML 2 ML VIAL (100 MCG VIAL) ONE (13:54)
[2017-07-18] MEDS ORDERED: Midazolam* 1 MG/ML 5 ML VIAL (5 MG) ONE (13:59)
[2017-07-18 15:56] VITALS: BP 124/65
--- NOTE | 2017-07-19 05:47 | OP ---
DATE OF OPERATION: 07/18/17 - [facility] DATE OF : 57 SURGEON: Albino Gonzalez MD ANESTHESIOLOGIST: Jaiden Jones MD ANESTHESIA: Monitored anesthesia care. PRE-OP DIAGNOSIS: Cataract, right eye with traction retinal detachment. POST-OP DIAGNOSIS: Cataract, right eye with traction retinal detachment. OPERATIVE PROCEDURE: Cataract surgery, right eye. IMPLANTS: SN60WF 20.0 diopter lens to the right eye. COMPLICATIONS: None. DESCRIPTION OF PROCEDURE: The patient was given phenylephrine 2.5% and cyclopentolate 1% eye drops to the operative eye in the preoperative area. The patient was brought to the operating room where a time-out was taken to identify the correct patient, site, and side of the surgery. The patient's right eye was prepped and draped in the usual sterile fashion with 5% Betadine. A second time- out was taken to verify the correct patient, site and side of the surgery, and correct lens selection. A lid speculum was placed to the right eye. A 1-mm paracentesis blade was used to make a clear corneal incision in the superotemporal position. Preservative-free 1% lidocaine was injected into the anterior chamber. DisCoVisc was then injected into the anterior chamber. A 2.75-mm keratome blade was used to make a triplanar incision at the inferotemporal position. A cystotome initiated a capsulorrhexis, which was completed with Utrata forceps in a continuous and curvilinear manner. Hydrodissection of the lens was performed with BSS on a cannula. The lens could be spun in the capsular bag. The phacoemulsification handpiece was used with a [id number] technique to remove the nucleus in its entirety with 18.77 CDE. The I/A handpiece then removed the residual cortical lens material. DisCoVisc was injected to inflate the capsular bag. The planned SN60WF 20.0 Diopter lens was injected into the capsular bag. The residual DisCoVisc was removed from the eye with the I/A handpiece. The corneal incisions were hydrated and no leaks occurred at physiologic pressure around 20 mmHg per palpation. The lid speculum was removed and drapes removed. Maxitrol ointment was placed to the surface of the operative eye. An adhesive patch and shield was placed on the operative eye. The patient was taken to the postoperative area in stable condition. [id number]/[facility] #: [id number] [facility]
== END 2017-07-18 14:20 | disposition home or self-care (01) ==
LOC: OREAST 12:21
PROVIDERS: ATTEND Student in an Organized Health Care Education/Training Program
DX: H25.11 Age-related nuclear cataract, right eye (principal); E11.3511 Type 2 diabetes mellitus with proliferative diabetic retinopathy with macular edema, right eye; Z79.4 Long term (current) use of insulin; H33.41 Traction detachment of retina, right eye; H53.469 Homonymous bilateral field defects, unspecified side; I10 Essential (primary) hypertension; Z86.73 Personal history of transient ischemic attack (TIA), and cerebral infarction without residual deficits; Z87.891 Personal history of nicotine dependence
CPT/HCPCS: J2250; J3010; V2632

== ENCOUNTER 2017-12-14 06:29 | Day surgery (SDC) | payer OTHER ==
[~2017-12-14 06:29] MED LIST changes: -Acetaminophen TAB* 325 MG PO PRN; +Proparacaine 0.5% OPHTH.SOL* 15 ML BTL ONE
[2017-12-14] MEDS ORDERED: Lidocaine 2% PF* 10 ML AMP ONE (07:06)
[2017-12-14] MEDS ORDERED: Triamcinolone Acetonide* 40 MG/ML 1 ML VIAL ONE (07:06)
[2017-12-14] MEDS ORDERED: Acetylcholine 1:100 OPTH* OPHTH.SOLN ONE (07:07)
[2017-12-14] MEDS ORDERED: BSS OPTH.SOL* BTL ONE (07:07)
[2017-12-14] MEDS ORDERED: Lidocaine 2% EPI 1:200000 MPF*10-20 ML VIAL ONE (07:07)
[2017-12-14] MEDS ORDERED: Neomycin/Polymy/Dex OPTH.SUSP* MAXITROL 0.1% 5 ML ONE (07:08)
[2017-12-14] MEDS ORDERED: Povidone Iodine 5% OPTH* 30 ML BTL ONE (07:08)
[2017-12-14] MEDS ORDERED: Hyaluronidase OVINE* 200 UNIT/ML ML SUBCUT ONE (07:08)
[2017-12-14] MEDS ORDERED: Sodium Bicarbonate 8.4% IV* 50 ML VIAL ONE (07:09)
[2017-12-14] MEDS ORDERED: Atropine 1% OPHTH.SOL* 2 ML BOT - 2 ML ONE (07:10)
[2017-12-14] MEDS ORDERED: Insulin LISPRO* 1 UNITS UNIT SUBCUT ONE (07:27)
[2017-12-14] MEDS ORDERED: Midazolam* 1 MG/ML 2 ML VIAL (2 MG) ONE (07:34)
[2017-12-14] MEDS ORDERED: fentaNYL* 50 MCG/ML 2 ML VIAL (100 MCG VIAL) ONE (07:34)
[2017-12-14] MEDS ORDERED: Naloxone* 0.4 MG/ML 1 ML VIAL IV PRN (08:11)
[2017-12-14 09:15] VITALS: BP 139/65
--- NOTE | 2017-12-14 11:02 | OP ---
OPERATIVE REPORT: DATE OF OPERATION: 12/14/17 DATE OF : 57 SURGEON: Jaiden Haney MD ANESTHESIA: Local with MAC. PRE-OP DIAGNOSIS: Uncontrolled glaucoma, right eye. POST-OP DIAGNOSIS: Uncontrolled glaucoma, right eye. OPERATIVE PROCEDURE: Ahmed valve, right. COMPLICATIONS: None. DESCRIPTION OF PROCEDURE: The patient was given retrobulbar anesthesia in the operating room, 50:50 mixture of 0.75% Marcaine and 2% lidocaine with epinephrine 4 cc was given in the muscle cone without difficulty. The right eye was prepped and draped in the usual sterile fashion. Lid speculum placed . 6-0 silk traction suture placed through superior limbus. The eye rotated inferiorly. A paracente sis was made at the 4 o'clock position with the No. 75 blade. A fornix-based conjunctival peritomy p erformed from the 9 o'clock to 12 o'clock position with the Ericka scissors. 2% lidocaine with epi nephrine infused subconjunctivally. An Ahmed valve FP7 was primed with balanced salt solution and mathews tured to the bare sclera 10 mm posterior to the limbus at the 10 o'clock position. The anterior meghann rosemarie was entered using the 27-gauge needle. Miochol instilled into the anterior chamber, some DisCoVi sc through the needle track. A tube was trimmed to the appropriate length and inserted into the ante rior chamber. Then, it was sutured down to the bare sclera using two 9-0 Prolene sutures. The footp lates of the Ahmed valve plate were sutured with the same Prolene sutures prior to insertion of the t ube. Donor sclera was cut, covered the tube, sutured down with four 10-0 nylon interrupted sutures. Then, the conjunctiva was closed at the limbus using 10-0 nylon running locking suture and the rest of the closure done using a 9-0 Vicryl running locking suture. Topical atropine and Maxitrol were gi renetta. The eye was patched. [id number]/[facility] #: [id number]
== END 2017-12-14 09:26 | disposition home or self-care (01) ==
LOC: OREAST 06:29
PROVIDERS: ATTEND Specialist
DX: H40.51X3 Glaucoma secondary to other eye disorders, right eye, severe stage (principal); B00.52 Herpesviral keratitis; E11.3513 Type 2 diabetes mellitus with proliferative diabetic retinopathy with macular edema, bilateral; G45.8 Other transient cerebral ischemic attacks and related syndromes; Z96.1 Presence of intraocular lens; H44.19 Other endophthalmitis; Z79.4 Long term (current) use of insulin; Z87.891 Personal history of nicotine dependence; Z79.01 Long term (current) use of anticoagulants; E78.5 Hyperlipidemia, unspecified; K21.9 Gastro-esophageal reflux disease without esophagitis; Q60.0 Renal agenesis, unilateral
CPT/HCPCS: A9270-GY; C1783; J2001; J2250; J3010; J3301; J3471

== ENCOUNTER 2018-01-04 09:43 | Day surgery (SDC) | payer OTHER ==
[~2018-01-04 09:43] MED LIST changes: +Acetaminophen TAB* 325 MG PO PRN; +Cyclopentolate 1% OPTH.SOL* 2 ML BTL ONE; +Ketorolac 0.5% OPHTH (NF) 0.5 % 5 ML BTL ONE; +Lidocaine 1% MPF* 2 ML VIAL ONE; +Lidocaine 2% EPI 1:200000 MPF*10-20 ML VIAL ONE; +Neomycin/Polymy/Dex OPTH.SUSP* MAXITROL 0.1% 5 ML ONE; +Phenylephrine 2.5% OPTH.SOL* 2 ML BTL ONE; +Povidone Iodine 5% OPTH* 30 ML BTL ONE; +acetaZOLAMIDE TAB* 250 MG ONE
[2018-01-04] MEDS ORDERED: Midazolam* 1 MG/ML 2 ML VIAL (2 MG) ONE ×2 (11:52→12:12)
--- NOTE | 2018-01-04 12:33 | OP ---
DATE OF OPERATION: 01/04/2018. DATE OF : 1955. SURGEON: Jaiden Haney M.D. PREOPERATIVE DIAGNOSIS: Cataract left eye. POSTOPERATIVE DIAGNOSIS: Cataract left eye. OPERATIVE PROCEDURE: Extracapsular cataract extraction with intraocular lens implant left eye. PROCEDURE: The patient was brought to the operating room after being given 1/2% Alcaine with epineph rine drops in the preoperative area. The eye was prepped and draped in the usual sterile fashion. S terile drape and eyelid speculum were placed. Again, topical 1/2% Alcaine with epinephrine was given . A paracentesis incision was made at the 3 o'clock position with the No.75 blade. Clear cornea inc ision 2.2 x 2.2-mm was created at the 6 o'clock position starting at the anterior limbus using the 2. 2-mm keratome. The anterior chamber was irrigated with 0.4 mL of 1% non-preservative intracameral li docaine and filled with DisCoVisc. A capsulorrhexis was completed using the cystotome and the Utrata forceps. Hydrodissection was performed with balanced salt solution. The lens nucleus was removed wi th the Phacoemulsification handpiece without incident. Cortex was removed with the irrigation-aspira tion handpiece. The capsular bag was re-inflated using DisCoVisc and an SN60WF 20 implant was insert ed with the shooter. The irrigation-aspiration handpiece was used to remove all residual DisCoVisc. The eye was refilled with balanced salt solution and the wound checked and found to be watertight. Topical Maxitrol drops were given. [id number]/[facility] #: [id number]
[2018-01-04 12:52] VITALS: BP 145/79
== END 2018-01-04 13:01 | disposition home or self-care (01) ==
LOC: OREAST 09:43
PROVIDERS: ATTEND Specialist
DX: H25.12 Age-related nuclear cataract, left eye (principal); H40.51X3 Glaucoma secondary to other eye disorders, right eye, severe stage; B00.52 Herpesviral keratitis; H43.13 Vitreous hemorrhage, bilateral; E11.3513 Type 2 diabetes mellitus with proliferative diabetic retinopathy with macular edema, bilateral; Z79.4 Long term (current) use of insulin; I10 Essential (primary) hypertension; E78.5 Hyperlipidemia, unspecified; N18.1 Chronic kidney disease, stage 1; Q60.0 Renal agenesis, unilateral
CPT/HCPCS: A9270-GY; J2250; V2632

== ENCOUNTER 2018-11-17 07:16 | Emergency (ER) | payer OTHER ==
[2018-11-17] MEDS ORDERED: Oseltamivir CAP* 75 MG CAP PO ONE (07:57)
--- NOTE | 2018-11-17 07:57 | ED ---
Influenza-Like Illness - HPI Summary HPI Summary: A 63 y/o female presents to [facility] with a chief complaint of flu like symptoms since one day ago. She reports that her was admitted to [facility] with influenza this week. At triage she rated her pain as a 0/10 in severity. 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 She took 100mg Tylenol POISON INFORMATION SPECIALIST and in the ED her temperature was recorded at 99.2. She denies any congestion. She denies a Hx of COPD. Vital signs while in room HR: 99bpm, O2 Sat: 98, BP: 129/69. - History of Current Complaint Chief Complaint: EDFluSymptoms Time Seen by Provider: 11/17/18 07:19 Hx Obtained From: Patient Onset/Duration: Sudden Onset, Lasting Days, Still Present Severity: Mild Associated Signs & Symptoms: Fever, Sore Throat, Vomiting - Allergy/Home Medications Allergies/Adverse Reactions: Allergies Allergy/AdvReac Type Severity Reaction Status Date / Time aspirin Allergy Severe Hives/Diff. Verified 11/17/18 07:25 Breathing/I tching Penicillins Allergy Severe Hives/Diff. Verified 11/17/18 07:25 Breathing/I tching tomato Allergy Severe Hives/Diff. Verified 11/17/18 07:25 Breathing/I tching PMH/Surg Hx/FS Hx/Imm Hx Endocrine/Hematology History: Reports: Hx Diabetes - type 2 Cardiovascular History: Reports: Hx Hypertension, Other Cardiovascular Problems/ Disorders - dyslipidemia Denies: Hx Pacemaker/ICD Respiratory History: Reports: Hx Sleep Apnea - diagnosed but no machine (pt can' t afford) Denies: Other Respiratory Problems/Disorders GI History: Reports: Hx Gastroesophageal Reflux Disease - no meds Denies: Other GI Disorders History: Reports: Hx Kidney Infection - reports x12 - last one 4 months ago, Hx Renal Disease Denies: Hx Kidney Stones, Other Problems/Disorders Musculoskeletal History: Reports: Hx Arthritis Denies: Other Musculoskeletal History Sensory History: Reports: Hx Cataracts - bilateral, left not fixed yet, Hx Contacts or Glasses - readers, Hx Glaucoma - right eye, Other Sensory Impairments - neuropathy Denies: Hx Hearing Aid Opthamlomology History: Reports: Hx Cataracts - bilateral, left not fixed yet, Hx Contacts or Glasses - readers, Hx Glaucoma - right eye, Other Sensory Impairments - neuropathy Neurological History: Reports: Hx Nerve Disease - DM neuropathy Denies: Other Neuro Impairments/Disorders Psychiatric History: Reports: Hx Anxiety - panic attacks Denies: Hx Panic Disorder - Cancer History Hx Chemotherapy: No - Surgical History Surgery Procedure, Year, and Place: right rotator cuff repair 2012. tonsillectomy and adenoidectomy at age 19 - [facility]. bilateral carpal tunnel release - [facility]. 1977. laser eye surgery x3, 2 on right eye and 2 left eye in [place] [facility]. tubal ligation 1977 Hx Anesthesia Reactions: No - Immunization History Date of Tetanus Vaccine: utd Date of Influenza Vaccine: none Infectious Disease History: No Infectious Disease History: Denies: Traveled Outside the [place] in Last 30 Days - Family History Known Family History: Positive: Hypertension, Diabetes Negative: Cardiac Disease - Social History Alcohol Use: Rare Hx Substance Use: No Substance Use Type: Reports: None Hx Tobacco Use: Yes Smoking Status (MU): Former Smoker Amount Used/How Often: 1 pack every 2 weeks for only 1 year Review of Systems Positive: Fever - 103 POISON INFORMATION SPECIALIST, 99.2 in ED ENT: Negative - congestion Positive: Sore Throat, Ear Ache Positive: Vomiting, Nausea All Other Systems Reviewed And Are Negative: Yes Physical Exam - Summary Physical Exam Summary: Appearance: The patient is well-nourished in no acute distress and in no acute pain. Skin: The skin is warm and dry and skin color reflects adequate perfusion. HEENT: The head is normocephalic and atraumatic. The pupils are equal and reactive. The conjunctivae are clear and without drainage. Nares are patent and without drainage. Mouth reveals moist mucous membranes and the throat is without erythema and exudate. The external ears are intact. The ear canals are patent and without drainage. The tympanic membranes are intact. Neck: The neck is supple with full range of motion and non-tender. There are no carotid bruits. There is no neck vein distension. Respiratory: Chest is non-tender. Lungs are clear to auscultation and breath sounds are symmetrical and equal. Cardiovascular: Heart is regular rate and rhythm. There is no murmur or rub auscultated. There is no peripheral edema and pulses are symmetrical and equal. Abdomen: The abdomen is soft and non-tender. There are normal bowel sounds heard in all four quadrants and there is no organomegaly palpated. Musculoskeletal: There is no back tenderness noted. Extremities are non-tender with full range of motion. There is good capillary refill. There is no peripheral edema or calf tenderness elicited. Neurological: Patient is alert and oriented to person, place and time. The patient has symmetrical motor strength in all four extremities. Cranial nerves are grossly intact. Deep tendon reflexes are symmetrical and equal in all four extremities. Psychiatric: The patient has an appropriate affect and does not exhibit any anxiety or depression. Triage Information Reviewed: Yes Vital Signs On Initial Exam: Initial Vitals Temp Pulse Resp BP Pulse Ox 99.2 F 95 18 117/62 96 11/17/18 07:21 11/17/18 07:21 11/17/18 07:21 11/17/18 07:21 11/17/18 07:21 Vital Signs Reviewed: Yes Diagnostics - Vital Signs Vital Signs Temp Pulse Resp BP Pulse Ox 11/17/18 07:33 99.8 F 18 11/17/18 07:32 94 11/17/18 07:31 129/69 94 11/17/18 07:21 99.2 F 95 18 117/62 96 - Laboratory Lab Statement: Any lab studies that have been ordered have been reviewed, and results considered in the medical decision making process. Flu Symptom Course/Dx - Course Course Of Treatment: Ms. Fonseca presents with flulike symptoms consisting of sore throat, nausea and vomiting and generalized malaise and aches and pains. It started yesterday. Her who has a history of COPD was diagnosed with influenza a and is admitted to the hospital at this point. She was nontoxic in appearance with stable vital signs and given the history I will treat her directly with Tamiflu. - Diagnoses Provider Diagnoses: Influenza A Discharge - Sign-Out/Discharge Documenting (check all that apply): Patient Departure - DC Patient Received Moderate/Deep Sedation with Procedure: No - Discharge Plan Condition: Stable Disposition: HOME Prescriptions: Oseltamivir CAP* [Tamiflu CAP*] 75 mg PO BID #10 cap Patient Education Materials: Influenza (DC) Referrals: Jorge Duncan DO [Primary Care Provider] - (2-3 days) Additional Instructions: Return to the ED if you experience any new or worsening symptoms. - Billing Disposition and Condition Condition: STABLE Disposition: Home - Attestation Statements Document Initiated by Scribe: Yes Documenting Scribe: Chalo Roth Provider For Whom Scribe is Documenting (Include Credential): Gene Braswell MD Scribe Attestation: I, Chalo Roth, scribed for Gene Braswell MD on 11/17/18 at 0810. Scribe Documentation Reviewed: Yes Provider Attestation: The documentation as recorded by the denvereChalo accurately reflects the service I personally performed and the decisions made by me, Gene Braswell MD Status of Scribe Document: Viewed
[2018-11-17 08:05] VITALS: BP 115/76
== END 2018-11-17 08:04 | disposition home or self-care (01) ==
LOC: ED 07:16
DX: J11.1 Influenza due to unidentified influenza virus with other respiratory manifestations (principal); R50.9 Fever, unspecified; J02.9 Acute pharyngitis, unspecified; R11.10 Vomiting, unspecified; Z88.6 Allergy status to analgesic agent; Z88.0 Allergy status to penicillin; Z87.891 Personal history of nicotine dependence; R42 Dizziness and giddiness
CPT/HCPCS: 99282; A9270-GY

== ENCOUNTER 2019-03-09 17:40 | Inpatient (IN) | payer MEDICARE, MEDICAID, OTHER ==
[2019-03-09 19:43] LABS: ABS Basophils 0.1 10^3/ul (0-0.2); ABS Eosinophils 0.2 10^3/ul (0-0.6); ABS Lymphocytes 2.1 10^3/ul (1.0-4.8); ABS Monocytes 0.9 10^3/ul (0-0.8); Eosinophil % 1.5 %; Hematocrit 33 % (35-47); Hemoglobin 10.8 g/dL (12.0-16.0); Lymphocyte % 20.5 %; Mean Corpuscular HGB Conc 33 g/dL (31-36); Mean Corpuscular Hemoglobin 26 pg (27-31); Mean Corpuscular Volume 78 fL (80-97); Mean Platelet Volume 7.8 fL (7.4-10.4); Platelet Count 263 10^3/uL (150-450); Red Blood Count 4.18 10^6 /uL (3.70-4.87); Red Cell Distribution Width 14 % (10-15); White Blood Count 10.3 10^3/uL (3.5-10.8)
[2019-03-09 19:52] LABS: Activated Partial Thrombo Time 36.6 seconds (26.0-38.0); INR 1.03 (0.82-1.09)
[2019-03-09 20:03] LABS: Albumin 3.4 g/dL (3.2-5.2); Albumin/Globulin Ratio 0.9 (1-3); BUN/Creatinine Ratio 16.2 (8-20); Calcium 9.5 mg/dL (8.6-10.3); EGFR African American 24.6 (>60); EGFR Non-African American 20.3 (>60); Globulin 3.6 g/dL (2-4); Magnesium 1.8 mg/dL (1.9-2.7); Total Bilirubin 0.7 mg/dL (0.2-1.0)
[2019-03-09] MEDS ORDERED: NS 0.9% 1000 ML** 1,000 ML IV ONE (21:08)
[2019-03-09 23:31] LABS: Urine Appearance Turbid; Urine Bacteria 1+ (Absent); Urine Bilirubin Negative (Negative); Urine Blood 1+ (Negative); Urine Color Yellow; Urine Glucose Negative (Negative); Urine Ketones Negative (Negative); Urine Nitrite Negative (Negative); Urine Protein 2+(100 mg/dL) (Negative); Urine Red Blood Cell 3+(>10/hpf) (Absent); Urine Specific Gravity 1.009 (1.010-1.030); Urine Squamous Epithelial Cell Present (Absent); Urine Urobilinogen Negative (Negative); Urine White Blood Cell 3+(>20/hpf) (Absent)
--- NOTE | 2019-03-10 00:45 | ED ---
Complex/Multi-Sys Presentation - HPI Summary HPI Summary: Patient with history of blindness and DM complains of right rib pain and right ankle pain after fall out of bed 6 days ago. Also complains of wound to the dorsal surface of bilateral feet first noticed 5 days ago, lightheadedness and dizziness 2 days, burning with urination 1 week. Denies known trauma, fever, cough, sore throat, CP, SOB, N/V/D, abdominal pain, change in BM, vaginal symptoms. Medical history is only 1 kidney, HTN, anemia, CVA 2. Patient on Plavix. Nonsmoker. - History Of Current Complaint Chief Complaint: EDGeneral Time Seen by Provider: 03/09/19 20:54 Hx Obtained From: Patient Onset/Duration: Gradual Onset, Lasting Days Timing: Constant Severity Currently: Moderate Severity Initially: Moderate Character: Dull, Throbbing, Pressure Associated Signs And Symptoms: Positive: Dizziness, Dysuria, Anticoagulation Therapy - Allergies/Home Medications Allergies/Adverse Reactions: Allergies Allergy/AdvReac Type Severity Reaction Status Date / Time aspirin Allergy Severe Hives/Diff. Verified 11/17/18 07:25 Breathing/I tching Penicillins Allergy Severe Hives/Diff. Verified 11/17/18 07:25 Breathing/I tching tomato Allergy Severe Hives/Diff. Verified 11/17/18 07:25 Breathing/I tching Home Medications: Home Medications Brimonidine Tartrate 1 drop RIGHT EYE TID 03/10/19 [History Confirmed 03/10/19] Chlorthalidone 25 mg PO DAILY 03/10/19 [History Confirmed 03/10/19] Dorzolamide HCl/Pf [Dorzolamide 2% Eye Drop] 1 drop RIGHT EYE TID 03/10/19 [ History Confirmed 03/10/19] Insulin Glargine,Hum.rec.anlog [Tyleragldouglas Saleh U-100] 10 units SUBCUT BEDTIME 03/10/19 [History Confirmed 03/10/19] Latanoprost 0.005%* [Xalatan 0.005%*] 1 drop RIGHT EYE 1700 03/10/19 [History Confirmed 03/10/19] Liraglutide (NF) [Victoza (NF)] 1.8 mg SUBCUT DAILY 03/10/19 [History Confirmed 03/10/19] Pantoprazole TAB * [Protonix TAB*] 40 mg PO DAILY 03/10/19 [History Confirmed ] Timolol 0.5% OPTH.LEIA* [Timoptic 0.5% Opth*] 1 drop BOTH EYES BID 03/10/19 [ History Confirmed 03/10/19] PMH/Surg Hx/FS Hx/Imm Hx Endocrine/Hematology History: Reports: Hx Diabetes - type 2 Cardiovascular History: Reports: Hx Hypertension, Other Cardiovascular Problems/ Disorders - dyslipidemia Denies: Hx Pacemaker/ICD Respiratory History: Reports: Hx Sleep Apnea - diagnosed but no machine (pt can' t afford) Denies: Other Respiratory Problems/Disorders GI History: Reports: Hx Gastroesophageal Reflux Disease - no meds Denies: Other GI Disorders History: Reports: Hx Kidney Infection - reports x12 - last one 4 months ago, Hx Renal Disease Denies: Hx Kidney Stones, Other Problems/Disorders Musculoskeletal History: Reports: Hx Arthritis Denies: Other Musculoskeletal History Sensory History: Reports: Hx Cataracts - bilateral, left not fixed yet, Hx Contacts or Glasses - readers, Hx Glaucoma - right eye, Other Sensory Impairments - neuropathy Denies: Hx Hearing Aid Opthamlomology History: Reports: Hx Cataracts - bilateral, left not fixed yet, Hx Contacts or Glasses - readers, Hx Glaucoma - right eye, Other Sensory Impairments - neuropathy Neurological History: Reports: Hx Nerve Disease - DM neuropathy Denies: Other Neuro Impairments/Disorders Psychiatric History: Reports: Hx Anxiety - panic attacks Denies: Hx Panic Disorder - Cancer History Hx Chemotherapy: No - Surgical History Surgery Procedure, Year, and Place: right rotator cuff repair 2012 -[facility]. tonsillectomy and adenoidectomy at age 19 - [facility]. bilateral carpal tunnel release - [facility]. 1977 [facility]. laser eye surgery x3, 2 on right eye and 2 left eye in [facility]. tubal ligation 1977 [facility] Hx Anesthesia Reactions: No - Immunization History Date of Tetanus Vaccine: utd Date of Influenza Vaccine: none Infectious Disease History: No Infectious Disease History: Denies: Traveled Outside the [place] in Last 30 Days - Family History Known Family History: Positive: Hypertension, Diabetes Negative: Cardiac Disease - Social History Alcohol Use: Rare Hx Substance Use: No Substance Use Type: Reports: None Hx Tobacco Use: Yes Smoking Status (MU): Former Smoker Amount Used/How Often: 1 pack every 2 weeks for only 1 year Review of Systems Constitutional: Negative Eyes: Negative ENT: Negative Cardiovascular: Negative Respiratory: Negative Gastrointestinal: Negative Positive: burning Musculoskeletal: Other Skin: Other Neurological: Negative Psychological: Normal All Other Systems Reviewed And Are Negative: Yes Physical Exam - Summary Physical Exam Summary: 5cm by 5 cm wound to dorsal surface of bilateral feet. Localized erythema bilaterally. Pulses intact. Mild swelling to right ankle. Tenderness to palpation with right lateral chest wall. Lung sounds clear to auscultation bilaterally. No ecchymosis, erythema, deformity, swelling noted to right side chest wall, back, mouth, face, head. Full range of motion of jaw and neck. No pain with palpation of chest or abdomen. Mild pain with palpation of right ankle. Neuro exam normal. Triage Information Reviewed: Yes Vital Signs On Initial Exam: Initial Vitals Temp Pulse Resp BP Pulse Ox 99 F 96 18 110/63 96 03/09/19 17:41 03/09/19 17:41 03/09/19 17:41 03/09/19 17:41 03/09/19 17:41 Vital Signs Reviewed: Yes Appearance: Positive: Well-Appearing Skin: Positive: Warm Head/Face: Positive: Normal Head/Face Inspection Eyes: Positive: Normal ENT: Positive: Normal ENT inspection Dental: Negative: Dental Fracture @, Bleeding Neck: Positive: Supple Respiratory/Lung Sounds: Positive: Clear to Auscultation Cardiovascular: Positive: Normal Abdomen Description: Positive: Nontender Musculoskeletal: Positive: Normal Neurological: Positive: Normal Psychiatric: Positive: Normal AVPU Assessment: Alert - [place] Coma Scale Best Eye Response: 4 - Spontaneous Best Motor Response: 6 - Obeys Commands Best Verbal Response: 5 - Oriented Coma Scale Total: 15 Diagnostics - Vital Signs Vital Signs Temp Pulse Resp BP Pulse Ox 03/10/19 00:12 91 127/56 96 03/10/19 00:00 90 95 03/09/19 23:42 90 125/62 94 03/09/19 23:12 101 130/69 98 03/09/19 23:00 95 98 03/09/19 22:42 95 118/62 97 03/09/19 22:12 97 143/76 97 03/09/19 22:00 94 97 03/09/19 21:12 98 127/84 98 07/05/19 19:35 99.2 F 96 16 138/64 98 03/09/19 17:41 99 F 96 18 110/63 96 - Laboratory Lab Results: Lab Results 03/09/19 03/09/19 03/09/19 Range/Units 19:36 19:36 19:36 WBC 10.3 (3.5-10.8) 10^3/uL RBC 4.18 (3.70-4.87) 10^6 /uL Hgb 10.8 L (12.0-16.0) g/dL Hct 33 L (35-47) % MCV 78 L (80-97) fL MCH 26 L (27-31) pg MCHC 33 (31-36) g/dL RDW 14 (10-15) % Plt Count 263 (150-450) 10^3/uL MPV 7.8 (7.4-10.4) fL Neut % (Auto) 68.2 % Lymph % (Auto) 20.5 % Harris % (Auto) 8.9 % Eos % (Auto) 1.5 % Baso % (Auto) 0.9 % Absolute Neuts (auto) 7.0 (1.5-7.7) 10^3/ul Absolute Lymphs (auto) 2.1 (1.0-4.8) 10^3/ul Absolute Monos (auto) 0.9 H (0-0.8) 10^3/ul Absolute Eos (auto) 0.2 (0-0.6) 10^3/ul Absolute Basos (auto) 0.1 (0-0.2) 10^3/ul Absolute Nucleated RBC 0.0 10^3/ul Nucleated RBC % 0.0 INR (Anticoag Therapy) 1.03 (0.82-1.09) APTT 36.6 (26.0-38.0) seconds Sodium 139 (135-145) mmol/L Potassium 5.0 (3.5-5.0) mmol/L Chloride 106 (101-111) mmol/L Carbon Dioxide 25 (22-32) mmol/L Anion Gap 8 (2-11) mmol/L BUN 39 H (6-24) mg/dL Creatinine 2.41 H (0.51-0.95) mg/dL Est GFR ( Amer) 24.6 (>60) Est GFR (Non-Af Amer) 20.3 (>60) BUN/Creatinine Ratio 16.2 (8-20) Glucose 143 H (70-100) mg/dL Lactic Acid (0.5-2.0) mmol/L Calcium 9.5 (8.6-10.3) mg/dL Magnesium 1.8 L (1.9-2.7) mg/dL Total Bilirubin 0.70 (0.2-1.0) mg/dL AST 20 (13-39) U/L ALT 15 (7-52) U/L Alkaline Phosphatase 94 (34-104) U/L Total Creatine Kinase 146 (10-223) U/L Troponin I 0.00 (<0.04) ng/mL B-Natriuretic Peptide (<=100) pg/mL Total Protein 7.0 (6.4-8.9) g/dL Albumin 3.4 (3.2-5.2) g/dL Globulin 3.6 (2-4) g/dL Albumin/Globulin Ratio 0.9 L (1-3) Urine Color Urine Appearance Urine pH (5-9) Ur Specific [place] (1.010-1.030) Urine Protein (Negative) Urine Ketones (Negative) Urine Blood (Negative) Urine Nitrate (Negative) Urine Bilirubin (Negative) Urine Urobilinogen (Negative) Ur Leukocyte Esterase (Negative) Urine WBC (Auto) (Absent) Urine RBC (Auto) (Absent) Ur Squamous Epith Cells (Absent) Urine Bacteria (Absent) Urine Yeast (Absent) Urine Glucose (Negative) 03/09/19 03/09/19 03/09/19 Range/Units 19:36 19:36 23:17 WBC (3.5-10.8) 10^3/uL RBC (3.70-4.87) 10^6 /uL Hgb (12.0-16.0) g/dL Hct (35-47) % MCV (80-97) fL MCH (27-31) pg MCHC (31-36) g/dL RDW (10-15) % Plt Count (150-450) 10^3/uL MPV (7.4-10.4) fL Neut % (Auto) % Lymph % (Auto) % Harris % (Auto) % Eos % (Auto) % Baso % (Auto) % Absolute Neuts (auto) (1.5-7.7) 10^3/ul Absolute Lymphs (auto) (1.0-4.8) 10^3/ul Absolute Monos (auto) (0-0.8) 10^3/ul Absolute Eos (auto) (0-0.6) 10^3/ul Absolute Basos (auto) (0-0.2) 10^3/ul Absolute Nucleated RBC 10^3/ul Nucleated RBC % INR (Anticoag Therapy) (0.82-1.09) APTT (26.0-38.0) seconds Sodium (135-145) mmol/L Potassium (3.5-5.0) mmol/L Chloride (101-111) mmol/L Carbon Dioxide (22-32) mmol/L Anion Gap (2-11) mmol/L BUN (6-24) mg/dL Creatinine (0.51-0.95) mg/dL Est GFR ( Amer) (>60) Est GFR (Non-Af Amer) (>60) BUN/Creatinine Ratio (8-20) Glucose (70-100) mg/dL Lactic Acid 1.1 (0.5-2.0) mmol/L Calcium (8.6-10.3) mg/dL Magnesium (1.9-2.7) mg/dL Total Bilirubin (0.2-1.0) mg/dL AST (13-39) U/L ALT (7-52) U/L Alkaline Phosphatase (34-104) U/L Total Creatine Kinase (10-223) U/L Troponin I (<0.04) ng/mL B-Natriuretic Peptide 26 (<=100) pg/mL Total Protein (6.4-8.9) g/dL Albumin (3.2-5.2) g/dL Globulin (2-4) g/dL Albumin/Globulin Ratio (1-3) Urine Color Yellow Urine Appearance Turbid Urine pH 5.0 (5-9) Ur Specific [place] 1.009 L (1.010-1.030) Urine Protein 2+(100 mg/dl) A (Negative) Urine Ketones Negative (Negative) Urine Blood 1+ A (Negative) Urine Nitrate Negative (Negative) Urine Bilirubin Negative (Negative) Urine Urobilinogen Negative (Negative) Ur Leukocyte Esterase 3+ A (Negative) Urine WBC (Auto) 3+(>20/hpf) A (Absent) Urine RBC (Auto) 3+(>10/hpf) A (Absent) Ur Squamous Epith Cells Present A (Absent) Urine Bacteria 1+ A (Absent) Urine Yeast Present A (Absent) Urine Glucose Negative (Negative) Result Diagrams: 03/09/19 19:36 03/09/19 19:36 Lab Statement: Any lab studies that have been ordered have been reviewed, and results considered in the medical decision making process. Complex Multi-Symp Course/Dx Course Of Treatment: Patient with history of blindness and DM complains of right rib pain and right ankle pain after fall out of bed 6 days ago. Also complains of wound to the dorsal surface of bilateral feet first noticed 5 days ago, lightheadedness and dizziness 2 days, burning with urination 1 week. Denies known trauma, fever, cough, sore throat, CP, SOB, N/V/D, abdominal pain, change in BM, vaginal symptoms. Medical history is only 1 kidney, HTN, anemia, CVA 2. Patient on Plavix. Nonsmoker. Vital signs within normal limits. Labs are patient baseline. Chest x-ray negative for acute process. Rib x-ray negative. Ankle x-ray negative. Feet x-ray negative bilaterally. UA positive for UTI and candiduria. Patient started on vancomycin IV for diabetic foot ulcerations. Given Bactrim for UTI. Admitted to hospitalist. - Diagnoses Provider Diagnoses: Cellulitis, UTI (urinary tract infection), Fall Discharge - Sign-Out/Discharge Documenting (check all that apply): Patient Departure Patient Received Moderate/Deep Sedation with Procedure: No - Discharge Plan Condition: Stable Disposition: ADMITTED TO [facility] Referrals: Jorge Duncan DO [Primary Care Provider] - - Billing Disposition and Condition Condition: STABLE Disposition: Admitted to [facility]
[2019-03-10] MEDS ORDERED: Vancomycin(*) 1,000 MG in NS 0.9% 250 ML* 250 ML IVPB ONE (01:18)
[2019-03-10] MEDS ORDERED: Sulfamethox/Trimethoprim DS 800/160* TAB PO ONE (01:22)
--- NOTE | 2019-03-10 01:57 | ED ---
Progress - Progress Note Progress Note: BECK Ramos, requested that I obtain a physical exam on the patient. PE: Constitutional: Well-developed, Well-nourished, Alert. (-) Distressed Skin: Erythema and warmth on both feet, Ulcers and scars on both feet, the right foot has a few ulcers on the toes. Warm, Dry HENT: Normocephalic; Atraumatic Eyes: Conjunctiva normal Neck: Musculoskeletal ROM normal neck. (-) JVD, (-) Stridor, (-) Tracheal deviation Cardio: Rhythm regular, rate normal, Heart sounds normal; Intact distal pulses; The pedal pulses are 2+ and symmetric. Radial pulses are 2+ and symmetric. (-) Murmur Pulmonary/Chest wall: Effort normal. (-) Respiratory distress, (-) Wheezes, (-) Rales Abd: Soft, (-) tenderness, (-) Distension, (-) Guarding, (-) Rebound Musculoskeletal: Decreased dorsalis pedis pulse on right compared to left but present in both feet. (-) Edema Lymph: (-) Cervical adenopathy Neuro: Alert, Oriented x3 Psych: Mood and affect Normal I agree with admission of the patient. Course/Dx - Course Course Of Treatment: BECK Ramos, requested that I obtain a physical exam on the patient. Upon physical exam, the patient exhibits BECK Ramos, requested that I obtain a physical exam on the patient. Upon physical exam, the patient exhibits erythema and warmth on both feet, ulcers and scars on both feet , the right foot has a few ulcers on the toes, and decreased dorsalis pedalis pulse on right compared to left but present in both feet. I agree with admission of the patient. - Diagnoses Provider Diagnoses: Cellulitis, UTI (urinary tract infection), Fall Is Visit Related: No Discharge - Sign-Out/Discharge Documenting (check all that apply): Patient Departure - Patient will be admitted to [facility]. Patient Received Moderate/Deep Sedation with Procedure: No - Discharge Plan Condition: Stable Disposition: ADMITTED TO [facility] - Billing Disposition and Condition Condition: STABLE Disposition: Admitted to [facility] - Attestation Statements Document Initiated by Scribe: Yes Documenting Scribe: Vita Johnson Provider For Whom Dashawnibe is Documenting (Include Credential): MD Boom Hubbard Attestation: I, Vita Johnson, scribed for Dr. Candida Fischer MD on 03/10/19 at 0929. Scribe Documentation Reviewed: Yes Provider Attestation: The documentation as recorded by the scribe, Vita Johnson accurately reflects the service I personally performed and the decisions made by me, Dr. Candida Fischer MD Status of Scribe Document: Viewed
--- NOTE | 2019-03-10 03:02 | HP ---
History of Present Illness - History of Present Illness Reason for Visit: Foot pain and dizziness. History of Present Illness: This is a 64-year-old female with insulin-dependent diabetes, chronic kidney disease, hyperlipidemia, and diabetic retinopathy w/ legally blind and neuropathy who presented to [facility] due to pain in both feet and dizziness. She fell a week ago Tuesday out of bed. She doesn't know how she fell but she woke once she fell. She had bumped her head on the floor but it was carpeted so it didn't hurt much. But her right arm, leg and ankle were hurting. She said initially it didn't hurt much but it got worse. And also had more dizziness now and has developed some burning with urination. She also has multiple bruising on the dorsal aspect of the feet from running into things. Had chills but no fevers. No Nausae/Vomiting. No other chest pain or shortness of breath. PAST MEDICAL HISTORY: 1. Insulin-dependent diabetes which is reportedly poorly controlled A1c 9.3 in November 2018. 2. Hyperlipidemia. 3. Diabetic neuropathy and proliferative retinopathy now with legal blindness. 4. Chronic kidney disease. 5. HTN 6. Glaucoma-right eye 7. TIA twice once it was vision problem the other was Left arm weakness and numbness that completely resolved in 20 minutes. 8. Allergies 9. Sleep Apnea - diagnosed but no machine (pt can't afford) 10. Hx Arthritis PAST SURGICAL HISTORY: 1. Retinal laser procedure for proliferative retinopathy. 2. Right rotator cuff repair 2012 -lanie. 3. Tonsillectomy and adenoidectomy at age 19 - marcos winter. 4. Bilateral carpal tunnel release - lanie. 5. /Tubal Ligation 1977. 6. Laser eye surgery x4 for proliferative retinopathy, 2 on right eye and 2 left eye. 7. Cataract surgeries both eyes. 8. Glaucoma drain on right eye FAMILY HISTORY: Mother at age 35 of ovarian cancer had a stroke a week before she . Her father at 48 with heart attack, CHF and emphysema with 3pack a day smoker. SOCIAL HISTORY: The patient lives at home with her , daughter and grand daughter. Quit smoking at age 22. Reports occasional alcohol consumption. Denies any drug use. 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 Review of Systems - Measurements Intake and Output: Intake and Output Last 24 Hours 03/07/19 03/08/19 03/09/19 03/10/19 06:59 06:59 06:59 06:59 Intake Total 1000 Balance 1000 Weight 192 lb Intake: IV Fluids 1000 - Review of Systems Constitutional Symptoms: Positive: Unexplained Falls Negative: Fever Dermatology: Positive: Skin Lesions Cardiology: Positive: Faintness Negative: Chest Pain, Shortness of Breath, Palpitations Gastroenterology: Negative: Abdominal Pain, Nausea, Vomiting Genital - Urinary: Positive: Dysuria Neurology: Positive: Dizziness, Numbness\Paresthesiae Objective Vital Signs - 8 hr 03/09/19 03/09/19 03/09/19 19:35 21:12 22:00 Temperature 99.2 F Pulse Rate 96 98 94 Respiratory 16 Rate Blood Pressure 138/64 127/84 (mmHg) O2 Sat by Pulse 98 98 97 Oximetry 03/09/19 03/09/19 03/09/19 22:12 22:42 23:00 Temperature Pulse Rate 97 95 95 Respiratory Rate Blood Pressure 143/76 118/62 (mmHg) O2 Sat by Pulse 97 97 98 Oximetry 03/09/19 03/09/19 03/10/19 23:12 23:42 00:00 Temperature Pulse Rate 101 90 90 Respiratory Rate Blood Pressure 130/69 125/62 (mmHg) O2 Sat by Pulse 98 94 95 Oximetry 03/10/19 00:12 Temperature Pulse Rate 91 Respiratory Rate Blood Pressure 127/56 (mmHg) O2 Sat by Pulse 96 Oximetry Oxygen Devices in Use Now: None Eyes: No Scleral Icterus Ears/Nose/Mouth/Throat: NL Teeth, Lips, Gums, Clear Oropharnyx, Mucous Membranes Moist Neck: NL Appearance and Movements; NL JVP Respiratory: Clear to Auscultation Cardiovascular: NL Sounds; No Murmurs; No JVD, RRR Abdominal: NL Sounds; No Tenderness; No Distention, No Hepatosplenomegaly Extremities: - - Dorsal aspect of both feet had multiple wounds. With erythema surrounding the wound. No purulent discharge noted. Neurological: Alert and Oriented x 3, NL Muscle Strength and Tone Result Diagrams: 03/09/19 19:36 03/09/19 19:36 Additional Lab and Data: Lab Results 03/09/19 03/09/19 03/09/19 Range/Units 19:36 19:36 19:36 WBC 10.3 (3.5-10.8) 10^3/uL RBC 4.18 (3.70-4.87) 10^6 /uL Hgb 10.8 L (12.0-16.0) g/dL Hct 33 L (35-47) % MCV 78 L (80-97) fL MCH 26 L (27-31) pg MCHC 33 (31-36) g/dL RDW 14 (10-15) % Plt Count 263 (150-450) 10^3/uL MPV 7.8 (7.4-10.4) fL Neut % (Auto) 68.2 % Lymph % (Auto) 20.5 % Edmunds % (Auto) 8.9 % Eos % (Auto) 1.5 % Baso % (Auto) 0.9 % Absolute Neuts (auto) 7.0 (1.5-7.7) 10^3/ul Absolute Lymphs (auto) 2.1 (1.0-4.8) 10^3/ul Absolute Monos (auto) 0.9 H (0-0.8) 10^3/ul Absolute Eos (auto) 0.2 (0-0.6) 10^3/ul Absolute Basos (auto) 0.1 (0-0.2) 10^3/ul Absolute Nucleated RBC 0.0 10^3/ul Nucleated RBC % 0.0 INR (Anticoag Therapy) 1.03 (0.82-1.09) APTT 36.6 (26.0-38.0) seconds Sodium 139 (135-145) mmol/L Potassium 5.0 (3.5-5.0) mmol/L Chloride 106 (101-111) mmol/L Carbon Dioxide 25 (22-32) mmol/L Anion Gap 8 (2-11) mmol/L BUN 39 H (6-24) mg/dL Creatinine 2.41 H (0.51-0.95) mg/dL Est GFR ( Amer) 24.6 (>60) Est GFR (Non-Af Amer) 20.3 (>60) BUN/Creatinine Ratio 16.2 (8-20) Glucose 143 H (70-100) mg/dL Lactic Acid (0.5-2.0) mmol/L Calcium 9.5 (8.6-10.3) mg/dL Magnesium 1.8 L (1.9-2.7) mg/dL Total Bilirubin 0.70 (0.2-1.0) mg/dL AST 20 (13-39) U/L ALT 15 (7-52) U/L Alkaline Phosphatase 94 (34-104) U/L Total Creatine Kinase 146 (10-223) U/L Troponin I 0.00 (<0.04) ng/mL B-Natriuretic Peptide (<=100) pg/mL Total Protein 7.0 (6.4-8.9) g/dL Albumin 3.4 (3.2-5.2) g/dL Globulin 3.6 (2-4) g/dL Albumin/Globulin Ratio 0.9 L (1-3) Urine Color Urine Appearance Urine pH (5-9) Ur Specific [place] (1.010-1.030) Urine Protein (Negative) Urine Ketones (Negative) Urine Blood (Negative) Urine Nitrate (Negative) Urine Bilirubin (Negative) Urine Urobilinogen (Negative) Ur Leukocyte Esterase (Negative) Urine WBC (Auto) (Absent) Urine RBC (Auto) (Absent) Ur Squamous Epith Cells (Absent) Urine Bacteria (Absent) Urine Yeast (Absent) Urine Glucose (Negative) 03/09/19 03/09/19 03/09/19 Range/Units 19:36 19:36 23:17 WBC (3.5-10.8) 10^3/uL RBC (3.70-4.87) 10^6 /uL Hgb (12.0-16.0) g/dL Hct (35-47) % MCV (80-97) fL MCH (27-31) pg MCHC (31-36) g/dL RDW (10-15) % Plt Count (150-450) 10^3/uL MPV (7.4-10.4) fL Neut % (Auto) % Lymph % (Auto) % Edmunds % (Auto) % Eos % (Auto) % Baso % (Auto) % Absolute Neuts (auto) (1.5-7.7) 10^3/ul Absolute Lymphs (auto) (1.0-4.8) 10^3/ul Absolute Monos (auto) (0-0.8) 10^3/ul Absolute Eos (auto) (0-0.6) 10^3/ul Absolute Basos (auto) (0-0.2) 10^3/ul Absolute Nucleated RBC 10^3/ul Nucleated RBC % INR (Anticoag Therapy) (0.82-1.09) APTT (26.0-38.0) seconds Sodium (135-145) mmol/L Potassium (3.5-5.0) mmol/L Chloride (101-111) mmol/L Carbon Dioxide (22-32) mmol/L Anion Gap (2-11) mmol/L BUN (6-24) mg/dL Creatinine (0.51-0.95) mg/dL Est GFR ( Amer) (>60) Est GFR (Non-Af Amer) (>60) BUN/Creatinine Ratio (8-20) Glucose (70-100) mg/dL Lactic Acid 1.1 (0.5-2.0) mmol/L Calcium (8.6-10.3) mg/dL Magnesium (1.9-2.7) mg/dL Total Bilirubin (0.2-1.0) mg/dL AST (13-39) U/L ALT (7-52) U/L Alkaline Phosphatase (34-104) U/L Total Creatine Kinase (10-223) U/L Troponin I (<0.04) ng/mL B-Natriuretic Peptide 26 (<=100) pg/mL Total Protein (6.4-8.9) g/dL Albumin (3.2-5.2) g/dL Globulin (2-4) g/dL Albumin/Globulin Ratio (1-3) Urine Color Yellow Urine Appearance Turbid Urine pH 5.0 (5-9) Ur Specific [place] 1.009 L (1.010-1.030) Urine Protein 2+(100 mg/dl) A (Negative) Urine Ketones Negative (Negative) Urine Blood 1+ A (Negative) Urine Nitrate Negative (Negative) Urine Bilirubin Negative (Negative) Urine Urobilinogen Negative (Negative) Ur Leukocyte Esterase 3+ A (Negative) Urine WBC (Auto) 3+(>20/hpf) A (Absent) Urine RBC (Auto) 3+(>10/hpf) A (Absent) Ur Squamous Epith Cells Present A (Absent) Urine Bacteria 1+ A (Absent) Urine Yeast Present A (Absent) Urine Glucose Negative (Negative) Diagnostic Imaging: Official Radiologist read is still pending on all the images. R Ankle X-ray No obvious fractures. R Foot X-ray No obvious fractures. L Foot X-ray No obvious fractures. Ribs/Chest X-ray. No obvious rib fractures. Normal pulmonary vasculature. EKG Data: Normal sinus at 92BPM. Previously noted ST changes from Oct 2016 EKG have resolved. Assess/Plan/Problems-Billing Assessment: 64-year-old female with insulin-dependent diabetes, chronic kidney disease, hyperlipidemia, and diabetic retinopathy w/ legally blind and neuropathy admitted for MILVIA, Possible UTI vs Cellulitis. - Patient Problems (1) MILVIA (acute kidney injury) Current Visit: Yes Status: Acute Code(s): N17.9 - ACUTE KIDNEY FAILURE, UNSPECIFIED SNOMED Code(s): 79596912 Comment: Creatinine worse than baseline. Monitor Labs. Start bernardo hydration. (2) Cellulitis and abscess of foot Current Visit: Yes Status: Acute Code(s): L03.119 - CELLULITIS OF UNSPECIFIED PART OF LIMB; L02.619 - CUTANEOUS ABSCESS OF UNSPECIFIED FOOT SNOMED Code(s): 440394999 Comment: Continue Vanco/aztreonam. Will get input from wound care. Follow up cultures. (3) UTI (urinary tract infection) Current Visit: Yes Status: Acute Comment: Continue aztreonam. (4) Dizziness Current Visit: Yes Status: Acute Code(s): R42 - DIZZINESS AND GIDDINESS SNOMED Code(s): 944992633 Comment: Possible dehydration. Continue with bernardo hydration. Check orthostatic vital signs. (5) Diabetes Current Visit: Yes Status: Acute Code(s): E11.9 - TYPE 2 DIABETES MELLITUS WITHOUT COMPLICATIONS SNOMED Code(s): 20952024 Comment: Restart home meds. Start Insulin sliding scale AC and HS. (6) HTN (hypertension) Current Visit: Yes Status: Acute Code(s): I10 - ESSENTIAL (PRIMARY) HYPERTENSION SNOMED Code(s): 73215252 Comment: Continue lisinopril but hold chlorthalidone given MILVIA. (7) DVT prophylaxis Current Visit: Yes Status: Acute Code(s): Z29.9 - ENCOUNTER FOR PROPHYLACTIC MEASURES, UNSPECIFIED SNOMED Code(s): 343617489 Comment: SQ Heparin. Allergies/Medications Medication: Clopidogrel TAB* [Plavix TAB*] 75 mg PO QAM 03/31/17 [History Confirmed 03/10/19 ] Insulin Lispro [Humalog Kwikpen] 17 unit SUBCUT QAM 03/31/17 [History Confirmed 03/10/19] Lisinopril TAB* [Prinivil TAB*] 40 mg PO QAM 03/31/17 [History Confirmed ] Gabapentin CAP(*) [Neurontin 300 CAP(*)] 300 mg PO BID 05/17/17 [History Confirmed 03/10/19] Acetaminophen TAB* [Tylenol TAB*] 650 mg PO QAM PRN 12/12/17 [History Confirmed 03/10/19] Insulin LISPRO* [HumaLOG*] 17 units SUBCUT 1200 12/12/17 [History Confirmed 02/21] Insulin Lispro [Humalog Kwikpen] 25 unit SUBCUT SEE INSTRUCTIONS 01/02/18 [ History Confirmed 03/10/19] Montelukast Sodium TAB* [Singulair TAB*] 10 mg PO BEDTIME 01/02/18 [History Confirmed 03/10/19] Brimonidine Tartrate 1 drop RIGHT EYE TID 03/10/19 [History Confirmed 03/10/19] Chlorthalidone 25 mg PO DAILY 03/10/19 [History Confirmed 03/10/19] Dorzolamide HCl/Pf [Dorzolamide 2% Eye Drop] 1 drop RIGHT EYE TID 03/10/19 [ History Confirmed 03/10/19] Insulin Glargine,Hum.rec.anlog [Basaglar Kwikpen U-100] 10 units SUBCUT BEDTIME 03/10/19 [History Confirmed 03/10/19] Latanoprost 0.005%* [Xalatan 0.005%*] 1 drop RIGHT EYE 1700 03/10/19 [History Confirmed 03/10/19] Liraglutide (NF) [Victoza (NF)] 1.8 mg SUBCUT DAILY 03/10/19 [History Confirmed 03/10/19] Pantoprazole TAB * [Protonix TAB*] 40 mg PO DAILY 03/10/19 [History Confirmed ] Timolol 0.5% OPTH.LEIA* [Timoptic 0.5% Opth*] 1 drop BOTH EYES BID 03/10/19 [ History Confirmed 03/10/19] Allergies/Adverse Reactions: Allergies Allergy/AdvReac Type Severity Reaction Status Date / Time aspirin Allergy Severe Hives/Diff. Verified 11/17/18 07:25 Breathing/I tching Penicillins Allergy Severe Hives/Diff. Verified 11/17/18 07:25 Breathing/I tching tomato Allergy Severe Hives/Diff. Verified 11/17/18 07:25 Breathing/I tching
[2019-03-10] MEDS ORDERED: NS 0.9% 1000 ML** 1,000 ML IV SCH (03:45)
[2019-03-10] MEDS ORDERED: Vancomycin per Pharmacy* NOTE FOLLOW UP SCH (05:00)
[2019-03-10] MEDS ORDERED: Vancomycin(*) 1,250 MG IV x ONCE IVPB ONE ×2 (05:30)
[2019-03-10] MEDS ORDERED: Vancomycin 1500 MG IV - x ONCE IVPB ONE ×2 (05:30)
[2019-03-10] MEDS: Aztreonam (*) 1 GM in NS 0.9% 50 ML* 50 ML IVPB SCH ×3 (05:40→19:57)
[2019-03-10] MEDS: Heparin VIAL(*) 5000 UNITS/ML VIAL (FIVE THOUSAND) SUBCUT SCH ×3 (05:40→22:25)
[2019-03-10 07:12] LABS: ABS Eosinophils 0.1 10^3/ul (0-0.6); ABS Lymphocytes 2.3 10^3/ul (1.0-4.8); ABS Monocytes 0.7 10^3/ul (0-0.8); ABS Neutrophils 4.7 10^3/ul (1.5-7.7); Eosinophil % 1.9 %; Hematocrit 28 % (35-47); Hemoglobin 9.4 g/dL (12.0-16.0); Lymphocyte % 29.5 %; Mean Corpuscular HGB Conc 34 g/dL (31-36); Mean Corpuscular Hemoglobin 26 pg (27-31); Mean Corpuscular Volume 77 fL (80-97); Mean Platelet Volume 8.2 fL (7.4-10.4); Platelet Count 236 10^3/uL (150-450); Red Blood Count 3.64 10^6 /uL (3.70-4.87); Red Cell Distribution Width 14 % (10-15); White Blood Count 7.8 10^3/uL (3.5-10.8)
[2019-03-10 07:23] LABS: BUN/Creatinine Ratio 20.6 (8-20); Calcium 8.8 mg/dL (8.6-10.3); EGFR African American 36.7 (>60); EGFR Non-African American 30.4 (>60); Potassium 4.5 mmol/L (3.5-5.0)
[2019-03-10] MEDS: Gabapentin CAP(*) 300 MG PO SCH ×2 (08:57→22:19)
[2019-03-10] MEDS: Clopidogrel TAB* 75 MG PO SCH (08:57)
[2019-03-10] MEDS: Lisinopril TAB* 10 MG PO SCH (08:58)
[2019-03-10] MEDS: Insulin LISPRO* 1 UNITS UNIT SUBCUT SCH ×4 (08:58→20:02)
[2019-03-10] MEDS: Timolol 0.5% OPTH.SOL* BTL BOTH EYES SCH ×2 (08:59→22:21)
[2019-03-10] MEDS ORDERED: LIRAGLUTIDE 18 MG/3 ML SUBCUT SCH (09:00)
[2019-03-10] MEDS ORDERED: DORZOLAMIDE 2% RIGHT EYE SCH (09:00)
--- NOTE | 2019-03-10 12:47 | PN ---
Subjective Date of Service: 03/10/19 Interval History: Ms. Fonseca is feeling better today. She denies pain. She reports the wounds on bilat feet appeared on Tuesday and her reports they became erythematous on . She thinks she may have scratched her feet with her toenails while sleeping. No other known injury. Still having some dyuria, but improved. C/o left lower back pain. Reports anaphylaxis to pencillins, confirmed with skin testing in the past. 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 Denies CP, SOB, N/V. No concerns from nursing. Family History: Unchanged from Admission Social History: Unchanged from Admission Past Medical History: Unchanged from Admission Objective Active Medications: Brimonidine Tartrate (Alphagan 0.2%) 1 drop RIGHT EYE TID KIET Clopidogrel Bisulfate (Plavix Tab*) 75 mg PO QAM KIET Dorzolamide HCl (Trusopt 2% Opth (Nf)) 1 drop RIGHT EYE TID KIET Gabapentin (Neurontin Cap(*)) 300 mg PO BID KIET Heparin Sodium (Porcine) (Heparin Vial(*)) 5,000 units SUBCUT Q8HR KIET Sodium Chloride (Ns 0.9% 1000 Ml) 1,000 mls @ 75 mls/hr IV PER RATE KIET Aztreonam 1 gm/ Sodium (Chloride) 50 mls @ 200 mls/hr IVPB Q8H KIET Vancomycin HCl 1,250 mg/ (Sodium Chloride) 250 mls @ 166.667 mls/hr IVPB Q24H KIET Insulin Glargine (Lantus(*)) 8 units SUBCUT BEDTIME KIET Insulin Human Lispro (Humalog*) 0 units SUBCUT ACHS KIET; Protocol Latanoprost (Xalatan 0.005%*) 1 drop RIGHT EYE 1700 KIET Liraglutide (Victoza (Nf)) 1.8 mg SUBCUT DAILY KIET Lisinopril (Prinivil Tab*) 40 mg PO QAM KIET Montelukast Sodium (Singulair Tab*) 10 mg PO BEDTIME KIET Timolol Maleate (Timoptic 0.5% Opth*) 1 drop BOTH EYES BID KIET Vital Signs - 8 hr 03/10/19 03/10/19 03/10/19 04:43 05:00 05:13 Temperature Pulse Rate 89 93 89 Respiratory Rate Blood Pressure 119/89 129/71 (mmHg) O2 Sat by Pulse 96 99 98 Oximetry 03/10/19 03/10/19 03/10/19 05:34 05:56 07:15 Temperature 99.2 F 97.6 F 98 F Pulse Rate 91 89 89 Respiratory 18 18 18 Rate Blood Pressure 130/64 126/88 135/84 (mmHg) O2 Sat by Pulse 98 98 100 Oximetry Oxygen Devices in Use Now: None Appearance: Middle-aged female sitting in bed in NAD Eyes: No Scleral Icterus Ears/Nose/Mouth/Throat: Mucous Membranes Moist Neck: NL Appearance and Movements; NL JVP, Trachea Midline Respiratory: Symmetrical Chest Expansion and Respiratory Effort, Clear to Auscultation Cardiovascular: NL Sounds; No Murmurs; No JVD Abdominal: NL Sounds; No Tenderness; No Distention, - - Postive CVA tenderness Extremities: No Edema Skin: - - Open superficial wounds to bilat dorsal feet with surrounding erythema Neurological: Alert and Oriented x 3 Lines/Tubes/Other Access: Clean, Dry and Intact Peripheral IV Nutrition: Taking PO's Result Diagrams: 03/10/19 06:53 03/10/19 06:53 Assess/Plan/Problems-Billing Assessment: Ms. Fonseca is a 64 yo F with PMH of insulin-dependent DM, CKD, HLD, diabetic retinopathy (legally blind), and peripheral neuropathy; who presented to the ED with c/o new bilateral foot wounds and was found to have cellutlitis and UTI. - Patient Problems (1) Cellulitis of foot Code(s): L03.119 - CELLULITIS OF UNSPECIFIED PART OF LIMB Comment: - Wounds on bilat dorsal feet x5 days - Open superficial wounds with surrounding erythema, demarcated today by nursing - No obvious purulent drainage or site to obtain culture - Appreciate wound care consult - Continue vanco, aztreonam (2) UTI (urinary tract infection) Comment: - Urine culture pending - Suspect mild pyelonephritis d/t left sided CVA tenderness - CT unremarkable for any acute abnormalities - Continue aztreonam (3) MILVIA (acute kidney injury) Code(s): N17.9 - ACUTE KIDNEY FAILURE, UNSPECIFIED Comment: - Resolved, back to baseline CKD stage 3 - Present on admission, secondary to dehydration (4) Diabetes Code(s): E11.9 - TYPE 2 DIABETES MELLITUS WITHOUT COMPLICATIONS Comment: - Poor control, A1c 9.3% in November - Continue Victoza, Lantus, Lispro SS (5) HTN (hypertension) Code(s): I10 - ESSENTIAL (PRIMARY) HYPERTENSION Comment: - Normotensive, SBP 120-130s - Continue lisinopril; resume chlorthalidone (6) Diabetic neuropathy Code(s): E11.40 - TYPE 2 DIABETES MELLITUS WITH DIABETIC NEUROPATHY, UNSP Comment: - Continue gabapentin (7) History of TIA (transient ischemic attack) Code(s): Z86.73 - PRSNL HX OF TIA (TIA), AND CEREB INFRC W/O RESID DEFICITS Comment: - Continue Plavix (8) DVT prophylaxis Code(s): Z29.9 - ENCOUNTER FOR PROPHYLACTIC MEASURES, UNSPECIFIED Comment: - Heparin SQ (9) Full code status Code(s): Z78.9 - OTHER SPECIFIED HEALTH STATUS Comment: Status and Disposition: Inpatient. Anticipate d/c home when medically stable. Attending: Karan Long
[2019-03-10] MEDS: PTO: Dorzolamide 2% OPTH (NF) 10 ML BTL RIGHT EYE SCH ×2 (14:50→22:20)
[2019-03-10] MEDS: Latanoprost 0.005%* 2.5 ml BTL RIGHT EYE SCH (17:24)
[2019-03-10] MEDS: Montelukast Sodium TAB* 10 MG PO SCH (22:20)
[2019-03-10] MEDS: Insulin GLARGINE(*) 1 UNITS UNIT SUBCUT SCH (22:23)
[2019-03-11] MEDS: Aztreonam (*) 1 GM in NS 0.9% 50 ML* 50 ML IVPB SCH ×2 (04:40→17:40)
[2019-03-11] MEDS: Heparin VIAL(*) 5000 UNITS/ML VIAL (FIVE THOUSAND) SUBCUT SCH ×3 (06:14→21:13)
[2019-03-11 06:24] LABS: ABS Eosinophils 0.2 10^3/ul (0-0.6); ABS Lymphocytes 1.8 10^3/ul (1.0-4.8); ABS Monocytes 0.5 10^3/ul (0-0.8); ABS Neutrophils 3.5 10^3/ul (1.5-7.7); Eosinophil % 2.9 %; Hematocrit 29 % (35-47); Hemoglobin 9.4 g/dL (12.0-16.0); Lymphocyte % 29.6 %; Mean Corpuscular HGB Conc 33 g/dL (31-36); Mean Corpuscular Hemoglobin 26 pg (27-31); Mean Corpuscular Volume 78 fL (80-97); Mean Platelet Volume 7.7 fL (7.4-10.4); Platelet Count 234 10^3/uL (150-450); Red Blood Count 3.66 10^6 /uL (3.70-4.87); Red Cell Distribution Width 14 % (10-15)
[2019-03-11 06:37] LABS: BUN/Creatinine Ratio 16.1 (8-20); Blood Urea Nitrogen 31 mg/dL (6-24); CO2 Carbon Dioxide 21 mmol/L (22-32); Calcium 8.9 mg/dL (8.6-10.3); EGFR African American 31.7 (>60); EGFR Non-African American 26.2 (>60); Glucose 140 mg/dL (70-100); Potassium 4.8 mmol/L (3.5-5.0); Sodium 141 mmol/L (135-145)
[2019-03-11] MEDS ORDERED: Acetaminophen TAB* 325 MG ONE (06:46)
[2019-03-11 06:47] LABS: Anion Gap 6 mmol/L (2-11); Chloride 114 mmol/L (101-111)
[2019-03-11] MEDS: Vancomycin(*) 1,250 MG in NS 0.9% 250 ML* 250 ML IVPB SCH (07:01)
[2019-03-11] MEDS: Insulin LISPRO* 1 UNITS UNIT SUBCUT SCH ×4 (08:43→21:03)
[2019-03-11] MEDS: Chlorthalidone TAB* 50 MG PO SCH (10:37)
[2019-03-11] MEDS: Clopidogrel TAB* 75 MG PO SCH (10:38)
[2019-03-11] MEDS: Lisinopril TAB* 10 MG PO SCH (10:38)
[2019-03-11] MEDS: Gabapentin CAP(*) 300 MG PO SCH ×2 (10:39→21:11)
[2019-03-11] MEDS: PTO: Dorzolamide 2% OPTH (NF) 10 ML BTL RIGHT EYE SCH ×3 (10:40→21:15)
[2019-03-11] MEDS: PTO: Liraglutide (NF) 18 MG/3 ML SUBCUT SCH (10:41)
[2019-03-11] MEDS: Timolol 0.5% OPTH.SOL* BTL BOTH EYES SCH ×2 (10:41→21:15)
[2019-03-11] MEDS ORDERED: Levofloxacin 750 MG IVPREMIX(* 750 MG/150 ML BAG IVPB SCH (13:00)
[2019-03-11 13:05] LABS: Magnesium 1.7 mg/dL (1.9-2.7)
--- NOTE | 2019-03-11 13:08 | PN ---
Subjective Date of Service: 03/11/19 Interval History: Ms. Fonseca is feeling okay this morning. Generally, she is feeling better. She is upset that no one work her when her breakfast came and when she realized it was there it was cold. Back pain has resolved. Denies CP, SOB, N/V. No concerns from nursing. Family History: Unchanged from Admission Social History: Unchanged from Admission Past Medical History: Unchanged from Admission Objective Active Medications: Brimonidine Tartrate (Alphagan 0.2%) 1 drop RIGHT EYE TID KIET Chlorthalidone (Hygroton Tab*) 25 mg PO DAILY KIET Clopidogrel Bisulfate (Plavix Tab*) 75 mg PO QAM KIET Dorzolamide HCl (Trusopt 2% Opth (Nf)) 1 drop RIGHT EYE TID KIET Gabapentin (Neurontin Cap(*)) 300 mg PO BID KIET Heparin Sodium (Porcine) (Heparin Vial(*)) 5,000 units SUBCUT Q8HR KIET Vancomycin HCl 1,250 mg/ (Sodium Chloride) 250 mls @ 166.667 mls/hr IVPB Q24H KIET Insulin Glargine (Lantus(*)) 8 units SUBCUT BEDTIME KIET Insulin Human Lispro (Humalog*) 0 units SUBCUT ACHS KIET; Protocol Latanoprost (Xalatan 0.005%*) 1 drop RIGHT EYE 1700 KIET Liraglutide (Victoza (Nf)) 1.8 mg SUBCUT DAILY KIET Lisinopril (Prinivil Tab*) 40 mg PO QAM KIET Montelukast Sodium (Singulair Tab*) 10 mg PO BEDTIME KIET Timolol Maleate (Timoptic 0.5% Opth*) 1 drop BOTH EYES BID KIET Vital Signs - 8 hr 03/11/19 03/11/19 03/11/19 07:30 08:00 10:39 Temperature 98 F Pulse Rate 86 Respiratory 17 18 16 Rate Blood Pressure 115/50 (mmHg) O2 Sat by Pulse 96 Oximetry 03/11/19 11:15 Temperature 97.4 F Pulse Rate 73 Respiratory 16 Rate Blood Pressure 127/68 (mmHg) O2 Sat by Pulse 97 Oximetry Oxygen Devices in Use Now: None Appearance: Middle-aged female sitting in bed in NAD Eyes: No Scleral Icterus Ears/Nose/Mouth/Throat: Mucous Membranes Moist Neck: NL Appearance and Movements; NL JVP, Trachea Midline Respiratory: Symmetrical Chest Expansion and Respiratory Effort, Clear to Auscultation Cardiovascular: NL Sounds; No Murmurs; No JVD, RRR Abdominal: NL Sounds; No Tenderness; No Distention Extremities: - - Open wounds to bilat dorsal feet with surrouding erythema Neurological: Alert and Oriented x 3 Lines/Tubes/Other Access: Clean, Dry and Intact Peripheral IV Nutrition: Taking PO's Result Diagrams: 03/11/19 06:12 03/11/19 06:12 Assess/Plan/Problems-Billing Assessment: Ms. Fonseca is a 64 yo F with PMH of insulin-dependent DM, CKD, HLD, diabetic retinopathy (legally blind), and peripheral neuropathy; who presented to the ED with c/o new bilateral foot wounds and was found to have cellutlitis and UTI. - Patient Problems (1) Cellulitis of foot Code(s): L03.119 - CELLULITIS OF UNSPECIFIED PART OF LIMB Comment: - Wounds on bilat dorsal feet x5 days prior to admission - Open superficial wounds with surrounding erythema; very minimal improvement in erythema - No obvious purulent drainage or site to obtain culture - Right ankle xray shows atherosclerosis of the infrapopliteal arteries, suggestive of arterial insufficiency - Appreciate wound care consult - Continue vanco; change from aztreonam to Levaquin (renal dosing, CrCl 31) (2) UTI (urinary tract infection) Comment: - Urine culture pending - Suspect mild pyelonephritis d/t left sided CVA tenderness - CT unremarkable for any acute abnormalities - Continue Levaquin (3) Anemia Code(s): D64.9 - ANEMIA, UNSPECIFIED Comment: - Unclear etiology, but Hgb has dropped about 2 points since November - Microcytic and hypochromic, suggestive of iron deficiency, but there is likely also some component of kidney disease - Pending iron studies and stool occult (4) MILVIA (acute kidney injury) Code(s): N17.9 - ACUTE KIDNEY FAILURE, UNSPECIFIED Comment: - Resolved, back to baseline CKD stage 3 - Present on admission, secondary to dehydration (5) Diabetes Code(s): E11.9 - TYPE 2 DIABETES MELLITUS WITHOUT COMPLICATIONS Comment: - Poor control, A1c 9.3% in November - Continue Victoza, Lantus, Lispro SS (6) HTN (hypertension) Code(s): I10 - ESSENTIAL (PRIMARY) HYPERTENSION Comment: - Normotensive, SBP 110-120s - Continue lisinopril; resume chlorthalidone (7) Diabetic neuropathy Code(s): E11.40 - TYPE 2 DIABETES MELLITUS WITH DIABETIC NEUROPATHY, UNSP Comment: - Continue gabapentin (8) History of TIA (transient ischemic attack) Code(s): Z86.73 - PRSNL HX OF TIA (TIA), AND CEREB INFRC W/O RESID DEFICITS Comment: - Continue Plavix (9) DVT prophylaxis Code(s): Z29.9 - ENCOUNTER FOR PROPHYLACTIC MEASURES, UNSPECIFIED Comment: - Heparin SQ (10) Full code status Code(s): Z78.9 - OTHER SPECIFIED HEALTH STATUS Comment: Status and Disposition: Inpatient. Anticipate d/c home when medically stable. Attending: Maria Del Carmen Beard
[2019-03-11] MEDS ORDERED: Magnesium Sulfate IV* 3 GM in NS 0.9% 100 ML* 100 ML IVPB ONE (13:09)
[2019-03-11 14:02] LABS: % Iron Saturation 10 % (15-55); Iron 27 ug/dL (50-212); Total Iron Binding Capacity 266 mcg/dL (250-450); Transferrin 190 mg/dL (203-362)
[2019-03-11] MEDS ORDERED: diPHENhydraMINE PO* 25 MG PO PRN (14:16)
[2019-03-11] MEDS ORDERED: diPHENhydraMINE PO* 25 MG ONE (14:18)
[2019-03-11 14:23] LABS: Ferritin 88.4 ng/mL (11-307)
[2019-03-11] MEDS ORDERED: LORazepam INJ* 2 MG/ML 1 ML VIAL IV PUSH ONE (14:48)
[2019-03-11] MEDS ORDERED: Lorazepam PYXIS KEY PRN (14:48)
[2019-03-11] MEDS ORDERED: diPHENhydraMINE IV* 50 MG/ML 1 ml VIAL (BENADRYL) IV ONE (14:49)
[2019-03-11] MEDS ORDERED: Aztreonam (*) 1 GM in NS 0.9% 50 ML* 50 ML IVPB SCH (16:00)
[2019-03-11] MEDS: Latanoprost 0.005%* 2.5 ml BTL RIGHT EYE SCH (17:41)
[2019-03-11] MEDS: Montelukast Sodium TAB* 10 MG PO SCH (21:12)
[2019-03-11] MEDS: Insulin GLARGINE(*) 1 UNITS UNIT SUBCUT SCH (21:14)
[2019-03-12] MEDS: Aztreonam (*) 1 GM in NS 0.9% 50 ML* 50 ML IVPB SCH ×3 (01:59→17:11)
[2019-03-12] MEDS: Heparin VIAL(*) 5000 UNITS/ML VIAL (FIVE THOUSAND) SUBCUT SCH ×3 (06:33→21:41)
[2019-03-12] MEDS: Vancomycin(*) 1,250 MG in NS 0.9% 250 ML* 250 ML IVPB SCH (06:33)
[2019-03-12] MEDS: Insulin LISPRO* 1 UNITS UNIT SUBCUT SCH ×4 (08:22→21:22)
[2019-03-12] MEDS: PTO: Liraglutide (NF) 18 MG/3 ML SUBCUT SCH (08:45)
[2019-03-12] MEDS: Lisinopril TAB* 10 MG PO SCH (08:45)
[2019-03-12] MEDS: Timolol 0.5% OPTH.SOL* BTL BOTH EYES SCH ×2 (08:45→21:37)
[2019-03-12] MEDS: Gabapentin CAP(*) 300 MG PO SCH ×2 (08:46→21:34)
[2019-03-12] MEDS: Clopidogrel TAB* 75 MG PO SCH (08:46)
[2019-03-12] MEDS: PTO: Dorzolamide 2% OPTH (NF) 10 ML BTL RIGHT EYE SCH ×3 (08:50→21:35)
[2019-03-12] MEDS: Chlorthalidone TAB* 50 MG PO SCH (08:50)
[2019-03-12 08:59] LABS: ABS Eosinophils 0.1 10^3/ul (0-0.6); ABS Lymphocytes 1.4 10^3/ul (1.0-4.8); ABS Monocytes 0.5 10^3/ul (0-0.8); ABS Neutrophils 3.4 10^3/ul (1.5-7.7); Eosinophil % 2.6 %; Hematocrit 29 % (35-47); Hemoglobin 9.7 g/dL (12.0-16.0); Lymphocyte % 25.6 %; Mean Corpuscular HGB Conc 33 g/dL (31-36); Mean Corpuscular Hemoglobin 26 pg (27-31); Mean Corpuscular Volume 77 fL (80-97); Mean Platelet Volume 7.6 fL (7.4-10.4); Platelet Count 254 10^3/uL (150-450); Red Blood Count 3.75 10^6 /uL (3.70-4.87); Red Cell Distribution Width 14 % (10-15); White Blood Count 5.5 10^3/uL (3.5-10.8)
[2019-03-12 09:10] LABS: BUN/Creatinine Ratio 13.3 (8-20); Calcium 9.1 mg/dL (8.6-10.3); EGFR African American 31.4 (>60); EGFR Non-African American 25.9 (>60); Magnesium 2.1 mg/dL (1.9-2.7)
[2019-03-12 09:12] LABS: Potassium 5.4 mmol/L (3.5-5.0)
[2019-03-12] MEDS ORDERED: Patiromer POWDER* 8.4 GM PAK PO ONE (09:27)
--- NOTE | 2019-03-12 14:56 | PN ---
Subjective Date of Service: 03/12/19 Interval History: Ms. Fonseca is feeling a little worse today. Her back is bothering her, but she reports this happens occasionally. She thinks her feet "look" better, but it is not clear how she is able to determine this. She denies CP, SOB, N/V. No further allergy symptoms after receiving Benadryl yesterday. No concerns from nursing. Family History: Unchanged from Admission Social History: Unchanged from Admission Past Medical History: Unchanged from Admission Objective Active Medications: Brimonidine Tartrate (Alphagan 0.2%) 1 drop RIGHT EYE TID KIET Chlorthalidone (Hygroton Tab*) 25 mg PO DAILY KIET Clopidogrel Bisulfate (Plavix Tab*) 75 mg PO QAM KIET Diphenhydramine HCl (Benadryl Po*) 25 mg PO Q6H PRN ITCHING Dorzolamide HCl (Trusopt 2% Opth (Nf)) 1 drop RIGHT EYE TID KIET Gabapentin (Neurontin Cap(*)) 300 mg PO BID KIET Heparin Sodium (Porcine) (Heparin Vial(*)) 5,000 units SUBCUT Q8HR KIET Vancomycin HCl 1,250 mg/ (Sodium Chloride) 250 mls @ 166.667 mls/hr IVPB Q24H KIET Aztreonam 1 gm/ Sodium (Chloride) 50 mls @ 200 mls/hr IVPB Q8H KIET Insulin Glargine (Lantus(*)) 8 units SUBCUT BEDTIME KIET Insulin Human Lispro (Humalog*) 0 units SUBCUT ACHS KIET; Protocol Latanoprost (Xalatan 0.005%*) 1 drop RIGHT EYE 1700 KIET Liraglutide (Victoza (Nf)) 1.8 mg SUBCUT DAILY KIET Lisinopril (Prinivil Tab*) 40 mg PO QAM KIET Montelukast Sodium (Singulair Tab*) 10 mg PO BEDTIME KIET Timolol Maleate (Timoptic 0.5% Opth*) 1 drop BOTH EYES BID KIET Vital Signs - 8 hr 03/12/19 03/12/19 03/12/19 07:15 08:00 08:46 Temperature 98.3 F Pulse Rate 81 Respiratory 18 18 18 Rate Blood Pressure 145/65 (mmHg) O2 Sat by Pulse 100 Oximetry 03/12/19 03/12/19 11:15 11:54 Temperature 97.7 F Pulse Rate 83 Respiratory 18 18 Rate Blood Pressure 141/82 (mmHg) O2 Sat by Pulse 100 Oximetry Oxygen Devices in Use Now: None Appearance: Middle-aged female laying in bed in NAD Eyes: No Scleral Icterus Ears/Nose/Mouth/Throat: Mucous Membranes Moist Neck: NL Appearance and Movements; NL JVP, Trachea Midline Respiratory: Symmetrical Chest Expansion and Respiratory Effort, Clear to Auscultation Cardiovascular: NL Sounds; No Murmurs; No JVD, RRR Abdominal: NL Sounds; No Tenderness; No Distention Extremities: - - No significant improvement in erythema on bilat feet Neurological: Alert and Oriented x 3 Lines/Tubes/Other Access: Clean, Dry and Intact Peripheral IV Nutrition: Taking PO's Result Diagrams: 03/12/19 08:30 03/12/19 08:30 Assess/Plan/Problems-Billing Assessment: Ms. Fonseca is a 64 yo F with PMH of insulin-dependent DM, CKD, HLD, diabetic retinopathy (legally blind), and peripheral neuropathy; who presented to the ED with c/o new bilateral foot wounds and was found to have cellutlitis and UTI. - Patient Problems (1) Cellulitis of foot Code(s): L03.119 - CELLULITIS OF UNSPECIFIED PART OF LIMB Comment: - Wounds on bilat dorsal feet x5 days prior to admission - Open superficial wounds with surrounding erythema; very minimal improvement in erythema since admission - No obvious purulent drainage or site to obtain culture - Right ankle xray shows atherosclerosis of the infrapopliteal arteries, suggestive of arterial insufficiency - Wound care consult tomorrow - Continue vanco, aztreonam (2) UTI (urinary tract infection) Comment: - Urine culture pending, but verbal report from micro lab was that culture was growing Gardnerella - Suspect mild pyelonephritis d/t left sided CVA tenderness - CT unremarkable for any acute abnormalities - Start Flagyl (day 09/11) (3) Anemia Code(s): D64.9 - ANEMIA, UNSPECIFIED Comment: - Unclear etiology, but Hgb has dropped about 2 points since November - Microcytic and hypochromic, suggestive of iron deficiency, but there is likely also some component of kidney disease - Pending stool occult - No evidence of iron deficiency (4) MILVIA (acute kidney injury) Code(s): N17.9 - ACUTE KIDNEY FAILURE, UNSPECIFIED Comment: - Resolved, back to baseline CKD stage 3 - Present on admission, secondary to dehydration (5) Diabetes Code(s): E11.9 - TYPE 2 DIABETES MELLITUS WITHOUT COMPLICATIONS Comment: - Poor control, A1c 9.3% in November - Continue Victoza, Lantus, Lispro SS (6) HTN (hypertension) Code(s): I10 - ESSENTIAL (PRIMARY) HYPERTENSION Comment: - Slightly hypertensive, SBP 140s - Continue lisinopril, chlorthalidone (7) Diabetic neuropathy Code(s): E11.40 - TYPE 2 DIABETES MELLITUS WITH DIABETIC NEUROPATHY, UNSP Comment: - Continue gabapentin (8) History of TIA (transient ischemic attack) Code(s): Z86.73 - PRSNL HX OF TIA (TIA), AND CEREB INFRC W/O RESID DEFICITS Comment: - Continue Plavix (9) DVT prophylaxis Code(s): Z29.9 - ENCOUNTER FOR PROPHYLACTIC MEASURES, UNSPECIFIED Comment: - Heparin SQ (10) Full code status Code(s): Z78.9 - OTHER SPECIFIED HEALTH STATUS Comment: Status and Disposition: Inpatient. Anticipate d/c home when medically stable. Attending: Maria Del Carmen Beard
[2019-03-12 16:41] LABS: Calcium 9.7 mg/dL (8.6-10.3); EGFR African American 28.9 (>60); EGFR Non-African American 23.9 (>60)
[2019-03-12 16:44] LABS: Potassium 5.4 mmol/L (3.5-5.0)
[2019-03-12] MEDS: Latanoprost 0.005%* 2.5 ml BTL RIGHT EYE SCH (17:12)
[2019-03-12] MEDS ORDERED: NS 0.9% 1000 ML** 1,000 ML IV SCH (17:30)
[2019-03-12] MEDS ORDERED: Calcium Carbonate CHEW TAB* 500 MG (TUMS) PO PRN (17:56)
[2019-03-12] MEDS: metroNIDAZOLE TAB* 250 MG PO SCH (21:34)
[2019-03-12] MEDS: Insulin GLARGINE(*) 1 UNITS UNIT SUBCUT SCH (21:40)
[2019-03-12] MEDS: Montelukast Sodium TAB* 10 MG PO SCH (21:46)
[2019-03-13] MEDS: Aztreonam (*) 1 GM in NS 0.9% 50 ML* 50 ML IVPB SCH ×2 (01:26→10:11)
[2019-03-13] MEDS ORDERED: Vancomycin Trough Check NOTE FOLLOW UP ONE (06:00)
[2019-03-13 06:44] LABS: BUN/Creatinine Ratio 16.4 (8-20); Calcium 9.4 mg/dL (8.6-10.3); EGFR African American 36.5 (>60); EGFR Non-African American 30.2 (>60)
[2019-03-13 06:49] LABS: Potassium 5.1 mmol/L (3.5-5.0)
[2019-03-13 07:03] LABS: Vancomycin Trough 18.9 mcg/mL
[2019-03-13] MEDS: Heparin VIAL(*) 5000 UNITS/ML VIAL (FIVE THOUSAND) SUBCUT SCH ×2 (08:31→14:08)
[2019-03-13] MEDS: Vancomycin(*) 1,250 MG in NS 0.9% 250 ML* 250 ML IVPB SCH (08:31)
[2019-03-13] MEDS: Insulin LISPRO* 1 UNITS UNIT SUBCUT SCH ×3 (08:56→13:06)
[2019-03-13] MEDS: metroNIDAZOLE TAB* 250 MG PO SCH (09:12)
[2019-03-13] MEDS: Gabapentin CAP(*) 300 MG PO SCH (09:12)
[2019-03-13] MEDS: Lisinopril TAB* 10 MG PO SCH (09:13)
[2019-03-13] MEDS: Clopidogrel TAB* 75 MG PO SCH (09:13)
[2019-03-13] MEDS: PTO: Dorzolamide 2% OPTH (NF) 10 ML BTL RIGHT EYE SCH ×2 (09:14→14:08)
[2019-03-13] MEDS: PTO: Liraglutide (NF) 18 MG/3 ML SUBCUT SCH (09:14)
[2019-03-13] MEDS: Timolol 0.5% OPTH.SOL* BTL BOTH EYES SCH (09:15)
[2019-03-13] MEDS: Chlorthalidone TAB* 50 MG PO SCH (09:19)
[2019-03-13] MEDS ORDERED: Patiromer POWDER* 8.4 GM PAK PO ONE ×2 (09:54→17:29)
[2019-03-13] MEDS ORDERED: Collagenase 250 UNITS/GM OINT* 1 APPLIC OINT TOPICAL SCH (14:30)
[2019-03-13 15:29] VITALS: BP 157/70
--- NOTE | 2019-03-13 17:41 | CONSULT ---
Subjective Date of Service: 03/13/19 Family History: Unchanged from Admission Social History: Unchanged from Admission Past Medical History: Unchanged from Admission Review of Systems - Measurements Intake and Output: Intake and Output Last 24 Hours 03/11/19 03/12/19 03/13/19 03/14/19 06:59 06:59 06:59 06:59 Intake Total 4278 233 5736 1540 Balance 1507 399 6438 1540 Intake: IV Fluids 775 93 80 400 ABX - AZTREONAM 50 200 NS (0.9%) 775 93 30 200 IVPB 50 381 128 200 ABX - AZTREONAM 50 116 108 200 NS (0.9%) 265 20 Oral 1020 240 860 940 Other: Estimated Void Large Medium Large Date of Last Bowel unknown Movement # Bowel Movements 1 0 0 1 Estimated Stool Amount Medium Medium # Voids 0 0 2 Objective Vital Signs - 8 hr 03/13/19 03/13/19 03/13/19 11:15 11:41 15:15 Temperature 98.8 F 97.4 F Pulse Rate 78 79 Respiratory 18 18 Rate Blood Pressure 136/55 157/70 (mmHg) O2 Sat by Pulse 99 99 Oximetry Oxygen Devices in Use Now: None Result Diagrams: 03/12/19 08:30 03/13/19 06:16 Additional Lab and Data: Lab Results 03/09/19 03/09/19 03/09/19 Range/Units 19:36 19:36 19:36 WBC 10.3 (3.5-10.8) 10^3/uL RBC 4.18 (3.70-4.87) 10^6 /uL Hgb 10.8 L (12.0-16.0) g/dL Hct 33 L (35-47) % MCV 78 L (80-97) fL MCH 26 L (27-31) pg MCHC 33 (31-36) g/dL RDW 14 (10-15) % Plt Count 263 (150-450) 10^3/uL MPV 7.8 (7.4-10.4) fL Neut % (Auto) 68.2 % Lymph % (Auto) 20.5 % Morton % (Auto) 8.9 % Eos % (Auto) 1.5 % Baso % (Auto) 0.9 % Absolute Neuts (auto) 7.0 (1.5-7.7) 10^3/ul Absolute Lymphs (auto) 2.1 (1.0-4.8) 10^3/ul Absolute Monos (auto) 0.9 H (0-0.8) 10^3/ul Absolute Eos (auto) 0.2 (0-0.6) 10^3/ul Absolute Basos (auto) 0.1 (0-0.2) 10^3/ul Absolute Nucleated RBC 0.0 10^3/ul Nucleated RBC % 0.0 INR (Anticoag Therapy) 1.03 (0.82-1.09) APTT 36.6 (26.0-38.0) seconds Sodium 139 (135-145) mmol/L Potassium 5.0 (3.5-5.0) mmol/L Chloride 106 (101-111) mmol/L Carbon Dioxide 25 (22-32) mmol/L Anion Gap 8 (2-11) mmol/L BUN 39 H (6-24) mg/dL Creatinine 2.41 H (0.51-0.95) mg/dL Est GFR ( Amer) 24.6 (>60) Est GFR (Non-Af Amer) 20.3 (>60) BUN/Creatinine Ratio 16.2 (8-20) Glucose 143 H (70-100) mg/dL Lactic Acid (0.5-2.0) mmol/L Calcium 9.5 (8.6-10.3) mg/dL Magnesium 1.8 L (1.9-2.7) mg/dL Total Bilirubin 0.70 (0.2-1.0) mg/dL AST 20 (13-39) U/L ALT 15 (7-52) U/L Alkaline Phosphatase 94 (34-104) U/L Total Creatine Kinase 146 (10-223) U/L Troponin I 0.00 (<0.04) ng/mL B-Natriuretic Peptide (<=100) pg/mL Total Protein 7.0 (6.4-8.9) g/dL Albumin 3.4 (3.2-5.2) g/dL Globulin 3.6 (2-4) g/dL Albumin/Globulin Ratio 0.9 L (1-3) Urine Color Urine Appearance Urine pH (5-9) Ur Specific [address] (1.010-1.030) Urine Protein (Negative) Urine Ketones (Negative) Urine Blood (Negative) Urine Nitrate (Negative) Urine Bilirubin (Negative) Urine Urobilinogen (Negative) Ur Leukocyte Esterase (Negative) Urine WBC (Auto) (Absent) Urine RBC (Auto) (Absent) Ur Squamous Epith Cells (Absent) Urine Bacteria (Absent) Urine Yeast (Absent) Urine Glucose (Negative) 03/09/19 03/09/19 03/09/19 Range/Units 19:36 19:36 23:17 WBC (3.5-10.8) 10^3/uL RBC (3.70-4.87) 10^6 /uL Hgb (12.0-16.0) g/dL Hct (35-47) % MCV (80-97) fL MCH (27-31) pg MCHC (31-36) g/dL RDW (10-15) % Plt Count (150-450) 10^3/uL MPV (7.4-10.4) fL Neut % (Auto) % Lymph % (Auto) % Morton % (Auto) % Eos % (Auto) % Baso % (Auto) % Absolute Neuts (auto) (1.5-7.7) 10^3/ul Absolute Lymphs (auto) (1.0-4.8) 10^3/ul Absolute Monos (auto) (0-0.8) 10^3/ul Absolute Eos (auto) (0-0.6) 10^3/ul Absolute Basos (auto) (0-0.2) 10^3/ul Absolute Nucleated RBC 10^3/ul Nucleated RBC % INR (Anticoag Therapy) (0.82-1.09) APTT (26.0-38.0) seconds Sodium (135-145) mmol/L Potassium (3.5-5.0) mmol/L Chloride (101-111) mmol/L Carbon Dioxide (22-32) mmol/L Anion Gap (2-11) mmol/L BUN (6-24) mg/dL Creatinine (0.51-0.95) mg/dL Est GFR ( Amer) (>60) Est GFR (Non-Af Amer) (>60) BUN/Creatinine Ratio (8-20) Glucose (70-100) mg/dL Lactic Acid 1.1 (0.5-2.0) mmol/L Calcium (8.6-10.3) mg/dL Magnesium (1.9-2.7) mg/dL Total Bilirubin (0.2-1.0) mg/dL AST (13-39) U/L ALT (7-52) U/L Alkaline Phosphatase (34-104) U/L Total Creatine Kinase (10-223) U/L Troponin I (<0.04) ng/mL B-Natriuretic Peptide 26 (<=100) pg/mL Total Protein (6.4-8.9) g/dL Albumin (3.2-5.2) g/dL Globulin (2-4) g/dL Albumin/Globulin Ratio (1-3) Urine Color Yellow Urine Appearance Turbid Urine pH 5.0 (5-9) Ur Specific [address] 1.009 L (1.010-1.030) Urine Protein 2+(100 mg/dl) A (Negative) Urine Ketones Negative (Negative) Urine Blood 1+ A (Negative) Urine Nitrate Negative (Negative) Urine Bilirubin Negative (Negative) Urine Urobilinogen Negative (Negative) Ur Leukocyte Esterase 3+ A (Negative) Urine WBC (Auto) 3+(>20/hpf) A (Absent) Urine RBC (Auto) 3+(>10/hpf) A (Absent) Ur Squamous Epith Cells Present A (Absent) Urine Bacteria 1+ A (Absent) Urine Yeast Present A (Absent) Urine Glucose Negative (Negative) Microbiology and Other Data: Microbiology 03/10/19 06:53 Aerobic Blood Culture - Preliminary Blood Venous No Growth Day 2 Anaerobic Blood Culture - Preliminary No Growth Day 2 03/10/19 06:53 Aerobic Blood Culture - Preliminary Blood Venous No Growth Day 2 Diagnostic Imaging: Official Radiologist read is still pending on all the images. R Ankle X-ray No obvious fractures. R Foot X-ray No obvious fractures. L Foot X-ray No obvious fractures. Ribs/Chest X-ray. No obvious rib fractures. Normal pulmonary vasculature. EKG Data: Normal sinus at 92BPM. Previously noted ST changes from Oct 2016 EKG have resolved. Skin Deviation Note - Skin Deviation Findings Left dorsal foot - Right dorsal foot - Recommend apply Santyl to the wounds, and changing the dressing daily. Referral to wound clinic at discharge. Wound Problem/Plan Assessment: Status and Disposition: Inpatient. Anticipate d/c home when medically stable.
--- NOTE | 2019-03-13 20:03 | DS ---
CC: Dr. Jorge Duncan * DISCHARGE SUMMARY: DATE OF ADMISSION: 03/10/19 DATE OF DISCHARGE: 03/13/19 PRIMARY CARE PROVIDER: Dr. Jorge Duncan. ATTENDING PHYSICIAN: Dr. Jasmyn Bolivar * (dictated by Kyleigh Arteaga NP). PRIMARY DIAGNOSES: 1. Bilateral foot cellulitis. 2. Urinary tract infection, Gardnerella. 3. Acute kidney injury superimposed on chronic kidney disease stage 3. 4. Hyperkalemia. 5. Microcytic anemia. SECONDARY DIAGNOSES: 1. Diabetes mellitus type 2. 2. Hypertension. 3. Diabetic neuropathy. 4. Diabetic retinopathy. 5. Glaucoma. 6. History of transient ischemic attack. STUDIES WHILE IN THE HOSPITAL: 1. EKG on 03/09/19 shows normal sinus rhythm with a rate of 92, QTc 416, very small Q waves in the inferior leads. This EKG is consistent with previous EKG on file. 2. Right ankle x-ray on 03/09/19 reads as no radiographically apparent acute fracture or dislocation involving the right foot or ankle. Incidentally noted is coarsely calcified atherosclerosis of the visualized infrapopliteal arteries. Please correlate to signs or symptoms of lower extremity arterial insufficiency. 3. Left foot x-ray on 03/09/19 reads as no radiographically apparent acute fracture or dislocation. 4. Right foot x-ray on 03/09/19 reads as no radiographically apparent acute fracture or dislocation involving the right foot or ankle. Incidentally noted is coarsely calcified atherosclerosis of the visualized infrapopliteal arteries. Please correlate to signs or symptoms of lower extremity arterial insufficiency. 5. Bilateral rib x-ray on 03/09/19 reads as no radiographically apparent displaced rib fracture or pneumothorax. 6. Abdomen and pelvis CT on 03/10/19 reads as congenitally atrophic right kidney, unchanged from the prior CT examination. There are no acute abnormalities or acute changes of the left kidney relative to the prior CT examination. Additional chronic and degenerative changes are noted in the body of the report. HISTORY OF PRESENT ILLNESS AND HOSPITAL COURSE: Ms. Fonseca is a 64-year-old female with past medical history of uncontrolled diabetes, chronic kidney disease, TIA, and diabetic neuropathy who presented to the emergency room on 02/21 with complaints of foot pain and dizziness. Please see the history and physical by Dr. Bolivar for a complete summary of the events leading up to this hospitalization. In short, the patient reportedly fell out of bed approximately 1 week prior to presenting to the emergency room. Subsequently, she had some right arm and leg pain. She did note some dizziness and dysuria. In the emergency room, she had lab work which was remarkable for a microcytic hypochromic anemia with an H and H of 10.8 and 33, acute kidney injury with a creatinine of 2.41, and a urinalysis suggestive of a urinary tract infection. The patient has had normal vital signs, not meeting sepsis criteria. She had imaging as noted above, which was unremarkable. On exam, she was noted to have bilateral dorsal foot wounds with concern for cellulitis and because of all these findings, she was admitted by the hospitalist service. The patient was started on vancomycin and aztreonam as she does have an allergy to PENICILLINS, which is reportedly hives and difficulty breathing. She was given gentle IV hydration, which did resolve her acute kidney injury and at this point, her creatinine is back to baseline. The bilateral foot wounds were nonpurulent, so we were unable to obtain any cultures of the wounds, though there was significant erythema surrounding both wounds. The patient was not sure how she got those wounds, though noted that they had only been present for 1 week prior to admission. This is somewhat difficult to believe due to the size of the wounds, though they do appear pretty superficial. Ultimately, urine culture grew greater than 100,000 colonies of Gardnerella vaginalis and the patient was started on Flagyl. There was some concern for pyelonephritis due to the presence of left CVA tenderness, though it is unclear if this left CVA tenderness was truly CVA tenderness or simply related to back pain as the CT did not show any findings of pyelonephritis and the patient's presentation was not particularly convincing for pyelo. On 03/11/19, I did take the patient off aztreonam and I put her on Levaquin. During the patient's first infusion of Levaquin, she was noted to have full body itching as well as a rash on her palm. Subsequently, Levaquin was added as an allergy and the patient was placed back on aztreonam. I did discuss the case with infectious disease, though a consultation was not necessary at this point, though because of her allergies, I felt that a discussion was warranted to determine outpatient antibiotic choices. At this point, the patient's urinary symptoms have resolved. The bilateral foot wounds do not appear to be significantly improved, though the erythema is improved to some degree. The patient was seen by Monica Porter NP, from wound care today who felt as though these wounds were highly suggestive of arterial insufficiency and made dressing change recommendations. Regarding the patient's anemia, again, on admission her H and H were 10.8 and 33. 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 The patient did have a hemoglobin of 11 back in 2018, so it is not clear why she has dropped since that time. I did check iron studies and they are not particularly convincing for an iron deficiency anemia as ferritin was 88, though she did have a low serum iron and a low transferrin. At this point, she is asymptomatic. She was noted to have some hyperkalemia while here in the hospital beginning on 03/12/19; potassium was noted to be 5.4. She did receive 2 doses of patiromer and as of this morning, 03/13/19, potassium was 5.1. She did receive an additional dose of patiromer this morning. As of today, the patient reports feeling well. She offers no complaints and is anxious to return home. On exam, she has no focal neurological deficits, though is legally blind at baseline. Her heart has a regular rate and rhythm without murmurs, rubs, or gallops. Her lungs are clear to auscultation without any rhonchi, wheezes, or rubs. There is no peripheral edema. Wounds to bilateral dorsal feet have surrounding erythema, which is somewhat receded from the demarcated line. Again, the patient was seen by wound care today and so exact measurements and pictures of these wounds will be documented in her chart, though as of the time of this dictation are not available to me. Ms. Fonseca is stable for discharge today. Vital signs are as follows: Temp 97.4 , heart rate 79, respiratory rate 18, oxygen saturation 99% on room air, blood pressure 157/70. DISCHARGE MEDICATIONS: New Medications: 1. Santyl 1 application topically daily. 2. Doxycycline 100 mg p.o. b.i.d. x6 days. 3. Metronidazole 500 mg p.o. b.i.d. x4 days. Continued Medications: 1. Brimonidine 1 drop to right eye t.i.d. 2. Chlorthalidone 25 mg p.o. daily. 3. Clopidogrel 75 mg p.o. daily. 4. Dorzolamide 1 drop to right eye t.i.d. 5. Gabapentin 300 mg p.o. b.i.d. 6. Insulin glargine 10 units subcu at bedtime. 7. Latanoprost 1 drop to right eye daily. 8. Victoza 1.8 mg subcu daily. 9. Lisinopril 40 mg p.o. daily. 10. Singulair 10 mg p.o. at bedtime. 11. Timolol 1 drop to both eyes b.i.d. 12. Acetaminophen 650 mg p.o. daily p.r.n. for pain. 13. Insulin lispro 17 units subcu at breakfast and lunch. 14. Insulin lispro 25 units subcu at dinner. 15. Pantoprazole 40 mg p.o. daily. DISCHARGE PLAN: Ms. Fonseca will be discharged home. Activity will be as tolerated. Diet will be diabetic. Medications are noted above. The patient has been prescribed 6 days of doxycycline to complete a total of 10 days of antibiotic therapy for her bilateral foot cellulitis. She has been prescribed 4 days of Flagyl to complete a total of 5 days of antibiotic therapy for her Gardnerella urinary tract infection. There is some concern that this Gardnerella may have been a contaminant, though in any case that would indicate that the patient had bacterial vaginosis and the same treatment would be appropriate. She can continue her other usual medications. Per the wound care nurse practitioner, the patient will need daily dressing changes to bilateral feet with Santyl, Telfa, and rolled gauze. I did send in a prescription for Santyl for the patient. She has been referred to [facility], who can perform dressing changes and further teaching. She will need a followup BMP to recheck her potassium and I have ordered a repeat BMP to be done in 3 days with results to go to her PCP. The patient additionally has been referred to the [facility] per instructions from our wound care [employer]. She will need to follow up with her primary care provider in the next 4 to 7 days. Due to the concern for arterial insufficiency and the findings of calcification of the infrapopliteal arteries, I would recommend that the patient have a further workup for arterial insufficiency as she may ultimately need intervention if these wounds become chronic. The patient has been advised to return to the emergency room or nearest hospital for any worsening of symptoms, shortness of breath, lightheadedness, dizziness, chest discomfort, high fevers, chills, night sweats, loss of consciousness, or any other worrisome signs or symptoms. DISCHARGE CONDITION: Stable. DISCHARGE DISPOSITION: Home. This is a summarized report of a complex medical history and hospital stay. For further details, please see the entire medical record. TIME SPENT: Approximately 50 minutes were spent on this discharge. KYLEIGH ARTEAGA NP [id number]/CPS #: [id number] MANDI
[2019-03-16] MEDS ORDERED: Vancomycin Trough Check NOTE FOLLOW UP ONE (06:00)
== END 2019-03-13 16:00 | disposition home health service (06) | DRG 603 ==
LOC: ED 17:40 → MED 03-10 03:35
PROVIDERS: ADMIT Internal Medicine; ATTEND Internal Medicine
DX: L03.116 Cellulitis of left lower limb (principal); N17.9 Acute kidney failure, unspecified; N39.0 Urinary tract infection, site not specified; L02.612 Cutaneous abscess of left foot; L02.611 Cutaneous abscess of right foot; L03.115 Cellulitis of right lower limb; E11.42 Type 2 diabetes mellitus with diabetic polyneuropathy; E11.22 Type 2 diabetes mellitus with diabetic chronic kidney disease; E11.319 Type 2 diabetes mellitus with unspecified diabetic retinopathy without macular edema; E87.5 Hyperkalemia; N18.3 Chronic kidney disease, stage 3 (moderate); B96.89 Other specified bacterial agents as the cause of diseases classified elsewhere; E86.0 Dehydration; L29.8 Other pruritus; T36.8X5A Adverse effect of other systemic antibiotics, initial encounter; Y92.230 Patient room in hospital as the place of occurrence of the external cause; I12.9 Hypertensive chronic kidney disease with stage 1 through stage 4 chronic kidney disease, or unspecified chronic kidney disease; D50.9 Iron deficiency anemia, unspecified; H40.9 Unspecified glaucoma; H54.8 Legal blindness, as defined in USA; G47.30 Sleep apnea, unspecified; K21.9 Gastro-esophageal reflux disease without esophagitis; Z86.73 Personal history of transient ischemic attack (TIA), and cerebral infarction without residual deficits; Z82.3 Family history of stroke; Z80.41 Family history of malignant neoplasm of ovary; Z82.49 Family history of ischemic heart disease and other diseases of the circulatory system; Z82.5 Family history of asthma and other chronic lower respiratory diseases; Z87.891 Personal history of nicotine dependence; Z79.1 Long term (current) use of non-steroidal anti-inflammatories (NSAID); Z79.4 Long term (current) use of insulin; Z79.899 Other long term (current) drug therapy; Z88.6 Allergy status to analgesic agent; Z88.0 Allergy status to penicillin; Z91.018 Allergy to other foods
CPT/HCPCS: 36415; 71111; 74176; 80048; 80053; 80202; 81003; 81015; 82550; 82728; 83540; 83550; 83605; 83735; 83880; 84484; 85025; 85610; 85730; 87040; 87086; 93005; 99285; A9270-GY; J1200; J1644; J3370; J3475

== ENCOUNTER 2019-03-17 11:09 | Emergency (ER) | payer MEDICARE, MEDICAID, OTHER ==
--- NOTE | 2019-03-17 11:42 | ED ---
Lower Extremity - HPI Summary HPI Summary: Patient is a 64-year-old female who presents emergency department for reevaluation of diabetic ulcers to bilateral feet. [place] [facility] [place] ulcers and cellulitis. Patient states she is taking doxycycline for infection and Flagyl for UTI, urine culture grew out Gardnerella. Patient states that a new home health nurse saw her today and thought she should be reevaluated. Patient states that she has macular degeneration and does not see well this was unsure of how wounds are looking. Symptoms are moderate in severity. No current modifying factors. Patient denies fever, chills, nausea, vomiting. Pt. also notes she has developed pain and whiteness to her tongue since antibiotics. - History of Current Complaint Chief Complaint: EDExtremityLower Stated Complaint: "BILATERAL FOOT INFECTION PER PT" Time Seen by Provider: 03/17/19 11:28 Hx Obtained From: Patient Hx Last Menstrual Period: N/A Pain Intensity: 0 - Allergies/Home Medications Allergies/Adverse Reactions: Allergies Allergy/AdvReac Type Severity Reaction Status Date / Time aspirin Allergy Severe Hives/Diff. Verified 03/17/19 11:24 Breathing/I tching Penicillins Allergy Severe Hives/Diff. Verified 03/17/19 11:24 Breathing/I tching tomato Allergy Severe Hives/Diff. Verified 03/17/19 11:24 Breathing/I tching levofloxacin [From Levaquin] Allergy Intermediate Itching Verified 03/17/19 11: 24 PMH/Surg Hx/FS Hx/Imm Hx Previously Healthy: Yes Endocrine/Hematology History: Reports: Hx Diabetes - type 2 Cardiovascular History: Reports: Hx Hypertension, Other Cardiovascular Problems/ Disorders - dyslipidemia Denies: Hx Pacemaker/ICD Respiratory History: Reports: Hx Sleep Apnea - diagnosed but no machine (pt can' t afford) Denies: Other Respiratory Problems/Disorders GI History: Reports: Hx Gastroesophageal Reflux Disease - no meds Denies: Other GI Disorders History: Reports: Hx Kidney Infection - reports x12 - last one 4 months ago, Hx Renal Disease Denies: Hx Kidney Stones, Other Problems/Disorders Musculoskeletal History: Reports: Hx Arthritis Denies: Other Musculoskeletal History Sensory History: Reports: Hx Cataracts - bilateral, left not fixed yet, Hx Contacts or Glasses - tinted f/protection, Hx Glaucoma - right eye, Hx Legally Blind, Other Sensory Impairments - neuropathy Denies: Hx Hearing Aid Opthamlomology History: Reports: Hx Cataracts - bilateral, left not fixed yet, Hx Contacts or Glasses - tinted f/protection, Hx Glaucoma - right eye, Hx Legally Blind, Other Sensory Impairments - neuropathy Neurological History: Reports: Hx Nerve Disease - DM neuropathy Denies: Other Neuro Impairments/Disorders Psychiatric History: Reports: Hx Anxiety - panic attacks Denies: Hx Panic Disorder - Cancer History Hx Chemotherapy: No - Surgical History Surgery Procedure, Year, and Place: right rotator cuff repair 2012 -[facility]. tonsillectomy and adenoidectomy at age 19 - [facility]. bilateral carpal tunnel release - [facility]. 1977 [facility]. laser eye surgery x3, 2 on right eye and 2 left eye in [facility]. tubal ligation 1977 [facility] Hx Anesthesia Reactions: No - Immunization History Date of Tetanus Vaccine: utd Date of Influenza Vaccine: none Infectious Disease History: No Infectious Disease History: Denies: Traveled Outside the [place] in Last 30 Days - Family History Known Family History: Positive: Hypertension, Diabetes, Non-Contributory Negative: Cardiac Disease - Social History Occupation: Retired Lives: With Family Alcohol Use: Rare Hx Substance Use: No Substance Use Type: Reports: None Hx Tobacco Use: Yes Smoking Status (MU): Former Smoker Amount Used/How Often: 1 pack every 2 weeks for only 1 year Review of Systems Constitutional: Negative Negative: Fever, Chills Positive: Other - Pain and whiteness to tongue Cardiovascular: Negative Negative: Chest Pain Respiratory: Negative Negative: Shortness Of Breath Gastrointestinal: Negative Negative: Abdominal Pain, Vomiting, Nausea Positive: Other - Wounds to bilateral feet All Other Systems Reviewed And Are Negative: Yes Physical Exam Triage Information Reviewed: Yes Vital Signs On Initial Exam: Initial Vitals Temp Pulse Resp BP Pulse Ox 97.2 F 71 16 109/72 99 03/17/19 11:18 03/17/19 11:18 03/17/19 11:18 03/17/19 11:18 03/17/19 11:18 Vital Signs Reviewed: Yes Appearance: Positive: Well-Appearing - Pt. sitting up in bed in NAD. present. Skin: Positive: Warm, Dry Head/Face: Positive: Normal Head/Face Inspection Eyes: Positive: Normal, EOMI ENT: Positive: Other - Faint white coating on tongue. Neck: Positive: Supple Musculoskeletal: Positive: Other - Ulceration with small areas of necrosis noted to dorsum of bilateral feet. Mild surrounding erythema bilaterally. Old skin marker on feet and redness is not near lines. Neurological: Positive: Normal, CN Intact II-III Psychiatric: Positive: Affect/Mood Appropriate Diagnostics - Vital Signs Vital Signs Temp Pulse Resp BP Pulse Ox 03/17/19 11:18 97.2 F 71 16 109/72 99 - Laboratory Result Diagrams: 03/17/19 12:22 03/17/19 12:22 Lab Statement: Any lab studies that have been ordered have been reviewed, and results considered in the medical decision making process. Lower Extremity Course/Dx - Course Course Of Treatment: Pt. presenting for re-evaluation of diabetic foot ulcers. Pt. afebrile and well appearing. On recent admission wound consult note included pictures of pt.'s wounds to feet last week. When comparing pt.'s exam today vs last week redness is significantly less today. Basic labs and xrays obtained. Normal WBC. CRP minimally elevated at 10. Xrays negative for osteo per radiology. Will dc pt. home. She has an apt. with wound clinic on Tuesday. Will extend her doxycycline x 1 week. Will treat thrush with nystatin. Pt will return to ER for increased redness, fever, or if concerned. Pt. and understand and agree wiht plan. - Diagnoses Differential Diagnosis/HQI/PQRI: Positive: Cellulitis, Infection Provider Diagnoses: Diabetic foot ulcers Discharge - Sign-Out/Discharge Documenting (check all that apply): Patient Departure Patient Received Moderate/Deep Sedation with Procedure: No - Discharge Plan Condition: Good Disposition: HOME Prescriptions: DOXYcycline CAP(*) [DOXYcycline 100MG CAP(*)] 100 mg PO BID #14 cap Nystatin SUSPENSION ORAL SYR* 100,000 units PO QID 10 Days #160 ml Patient Education Materials: Oral Candidiasis (ED), Diabetic Foot Ulcers (ED) Referrals: Jorge Duncan DO [Primary Care Provider] - Additional Instructions: Follow up with the wound clinic on Tuesday as scheduled Continue wound care as directed Medication as directed Return to ER for fever, increased redness, or if concerned - Billing Disposition and Condition Condition: GOOD Disposition: Home
[2019-03-17 12:37] LABS: ABS Basophils 0.1 10^3/ul (0-0.2); ABS Eosinophils 0.3 10^3/ul (0-0.6); ABS Lymphocytes 2.1 10^3/ul (1.0-4.8); ABS Monocytes 0.8 10^3/ul (0-0.8); ABS Neutrophils 4.9 10^3/ul (1.5-7.7); Hematocrit 35 % (35-47); Hemoglobin 11.5 g/dL (12.0-16.0); Lymphocyte % 25.5 %; Mean Corpuscular HGB Conc 33 g/dL (31-36); Mean Corpuscular Hemoglobin 26 pg (27-31); Mean Corpuscular Volume 78 fL (80-97); Mean Platelet Volume 7.7 fL (7.4-10.4); Platelet Count 292 10^3/uL (150-450); Red Cell Distribution Width 15 % (10-15); White Blood Count 8.1 10^3/uL (3.5-10.8)
[2019-03-17 12:57] LABS: Albumin 3.8 g/dL (3.2-5.2); Albumin/Globulin Ratio 0.9 (1-3); BUN/Creatinine Ratio 20.7 (8-20); C Reactive Protein 12.27 mg/L (<8.01); Calcium 10.7 mg/dL (8.6-10.3); EGFR African American 35.8 (>60); EGFR Non-African American 29.6 (>60); Globulin 4.1 g/dL (2-4); Potassium 4.6 mmol/L (3.5-5.0); Total Bilirubin 0.4 mg/dL (0.2-1.0); Total Protein 7.9 g/dL (6.4-8.9)
[2019-03-17 14:29] VITALS: BP 110/79
== END 2019-03-17 14:29 | disposition home or self-care (01) ==
LOC: ED 11:09
DX: E11.621 Type 2 diabetes mellitus with foot ulcer (principal); L97.529 Non-pressure chronic ulcer of other part of left foot with unspecified severity; L97.519 Non-pressure chronic ulcer of other part of right foot with unspecified severity; I10 Essential (primary) hypertension; Z88.0 Allergy status to penicillin; Z88.8 Allergy status to other drugs, medicaments and biological substances; Z87.891 Personal history of nicotine dependence
CPT/HCPCS: 36415; 80053; 83605; 85025; 86140; 87040; 99283

== ENCOUNTER 2019-06-04 10:07 | Emergency (ER) | payer MEDICARE, OTHER ==
[2019-06-04 11:22] VITALS: BP 133/85
--- NOTE | 2019-06-04 13:20 | ED ---
Lower Extremity - HPI Summary HPI Summary: Patient is a 64-year-old type II diabetic with chronic lower extremity wounds to the dorsum of the right foot presenting to the ED with worsening pain to the right small toe with discoloration. Patient is blind but states she could tell the area was more swollen. She denies any known injury, however she does have neuropathy. She states symptoms have been present times approximately one week. She has since seen Dr. Dejesus for routine bandage changes as she does every Tuesday. Chronic wound continues to weep despite multiple dressings. She has not seen an ortho regarding her wounds but has had a MRI 6 weeks ago to r/o osteomyelitis. Sxs began 6 mos ago when she injured the top of the R foot and since then has had this chronic wound. She denies any fevers, sweats, chills. Denies any worsening erythema to the area. She does endorse some warmth of the area, however this is at her baseline. She does however feel the symptoms of her cellulitis has been worsening due to the swelling, erythema and pain. She is also endorsing pain to the lateral portion of the plantar surface of the foot. - History of Current Complaint Chief Complaint: EDExtremityLower Stated Complaint: WOUND ON FOOT PER EMS Time Seen by Provider: 06/04/19 10:15 Hx Obtained From: Patient Hx Last Menstrual Period: N/A Mechanism Of Injury: Blunt Trauma Onset of Pain: Hours Severity Initially: Mild Severity Currently: Mild Pain Intensity: 8 Pain Scale Used: 0-10 Numeric Timing: Constant Location: Is Discrete @ - right little toe ecchymosis Associated Signs And Symptoms: Positive: Negative Aggravating Factor(s): Standing Alleviating Factor(s): Rest Able to Bear Weight: No - Risk Factors Gout Risk Factors: Negative DVT Risk Factors: Negative Septic Arthritis Risk Factor: Negative - Allergies/Home Medications Allergies/Adverse Reactions: Allergies Allergy/AdvReac Type Severity Reaction Status Date / Time aspirin Allergy Severe Hives/Diff. Verified 03/17/19 11:24 Breathing/I tching Penicillins Allergy Severe Hives/Diff. Verified 03/17/19 11:24 Breathing/I tching tomato Allergy Severe Hives/Diff. Verified 03/17/19 11:24 Breathing/I tching levofloxacin [From Levaquin] Allergy Intermediate Itching Verified 03/17/19 11: 24 PMH/Surg Hx/FS Hx/Imm Hx Previously Healthy: Yes Endocrine/Hematology History: Reports: Hx Diabetes - type 2 Cardiovascular History: Reports: Hx Hypertension, Other Cardiovascular Problems/ Disorders - dyslipidemia Denies: Hx Pacemaker/ICD Respiratory History: Reports: Hx Sleep Apnea - diagnosed but no machine (pt can' t afford) Denies: Other Respiratory Problems/Disorders GI History: Reports: Hx Gastroesophageal Reflux Disease - no meds Denies: Other GI Disorders History: Reports: Hx Kidney Infection - reports x12 - last one 4 months ago, Hx Renal Disease Denies: Hx Kidney Stones, Other Problems/Disorders Musculoskeletal History: Reports: Hx Arthritis Denies: Other Musculoskeletal History Sensory History: Reports: Hx Cataracts - bilateral, left not fixed yet, Hx Contacts or Glasses - tinted f/protection, Hx Glaucoma - right eye, Hx Legally Blind, Other Sensory Impairments - neuropathy Denies: Hx Hearing Aid Opthamlomology History: Reports: Hx Cataracts - bilateral, left not fixed yet, Hx Contacts or Glasses - tinted f/protection, Hx Glaucoma - right eye, Hx Legally Blind, Other Sensory Impairments - neuropathy Neurological History: Reports: Hx Nerve Disease - DM neuropathy Denies: Other Neuro Impairments/Disorders Psychiatric History: Reports: Hx Anxiety - panic attacks Denies: Hx Panic Disorder - Cancer History Hx Chemotherapy: No - Surgical History Surgery Procedure, Year, and Place: right rotator cuff repair 2012 -[facility]. tonsillectomy and adenoidectomy at age 19 - [facility]. bilateral carpal tunnel release - [facility]. 1977 - [facility]. laser eye surgery x3, 2 on right eye and 2 left eye in [facility]. tubal ligation 1977 - [facility] Hx Anesthesia Reactions: No - Immunization History Date of Tetanus Vaccine: utd Date of Influenza Vaccine: none Hx Pertussis Vaccination: No Immunizations Up to Date: Yes Infectious Disease History: No Infectious Disease History: Denies: Traveled Outside the [place] in Last 30 Days - Family History Known Family History: Positive: Hypertension, Diabetes, Non-Contributory Negative: Cardiac Disease - Social History Occupation: Unemployed Lives: With Family Alcohol Use: Rare Hx Substance Use: No Substance Use Type: Reports: None Hx Tobacco Use: Yes Smoking Status (MU): Former Smoker Amount Used/How Often: 1 pack every 2 weeks for only 1 year Review of Systems Negative: Fever, Chills, Fatigue, Skin Diaphoresis Negative: Palpitations, Chest Pain Negative: Shortness Of Breath, Cough Genitourinary: Negative Positive: no symptoms reported, see HPI Negative: Arthralgia, Myalgia Positive: Other - ecchymosis to the right little toe Neurological: Negative All Other Systems Reviewed And Are Negative: Yes Physical Exam Triage Information Reviewed: Yes Vital Signs On Initial Exam: Initial Vitals Temp Pulse Resp BP Pulse Ox 98.8 F 89 20 152/82 99 06/04/19 10:09 06/04/19 10:06/04/19 10:06/04/19 10:06/04/19 10:09 Vital Signs Reviewed: Yes Appearance: Positive: Well-Appearing, Well-Nourished Skin: Positive: Warm, Skin Color Reflects Adequate Perfusion, Other - ecchymosis to the little toe with erythema to the R dorsum of the foot Head/Face: Positive: Normal Head/Face Inspection Eyes: Positive: EOMI, JIM, Conjunctiva Clear Neck: Positive: Supple, No Lymphadenopathy Respiratory/Lung Sounds: Positive: Clear to Auscultation, Breath Sounds Present Cardiovascular: Positive: RRR, Pulses are Symmetrical in both Upper and Lower Extremities Musculoskeletal: Positive: Pain @ - right plantar surface of the foot/lateral side Neurological: Positive: Sensory/Motor Intact, Alert, Oriented to Person Place, Time, Speech Normal Psychiatric: Positive: Affect/Mood Appropriate Diagnostics - Vital Signs Vital Signs Temp Pulse Resp BP Pulse Ox 06/04/19 11:00 86 99 06/04/19 10:34 89 133/85 98 06/04/19 10:15 88 99 06/04/19 10:09 98.8 F 89 20 152/82 99 - Laboratory Lab Statement: Any lab studies that have been ordered have been reviewed, and results considered in the medical decision making process. Lower Extremity Course/Dx - Course Course Of Treatment: During this course of treatment, the patient is evaluated for discoloration of the right fifth toe. She also has a large portion of epithelializing tissue to the dorsum of the right foot which appears to be healing per photos. business strategy manager, ARMANI Cifuentes is at bedside with patient. He has been following up with Dr. Dejesus as scheduled every Tuesday for dressing changes. She states the dressing continues to weep, however she feels the area is worsening with swelling and erythema and warmth. Per photos, the area does seem to be improving, however the little toe with ecchymosis is new as of last week. She has since been to Dr. Dejesus since that time. She was found to have a "fourth right toe fracture" on MRI 6 weeks ago, however I was unable to find evidence of MRI in our network. Xray of the R foot and little toe obtained which shows fracture to the fifth toe - angulated. Pedal pulses intact. Patient has no discomfort to the dorsum of the foot or toe, however she states is at her baseline she has neuropathy. She does have discomfort to the plantar surface of the lateral portion of the right foot in which she states this is new. There is no findings on x-ray, however it is tender to the touch. No erythema or signs of trauma to this area. Doppler duplex 2 mos ago demonstrated no impaired flow to the arteries. Occlusive gauze with abx applied , gauze wrapped. Pt has f/u with Dr. Dejesus on Tuesday. No splint/boot as placed as patient remains fairly non-ambulatory and its important to continue for dressing change. - Diagnoses Differential Diagnosis/HQI/PQRI: Positive: Sprain, Strain Provider Diagnoses: Fracture of toe Discharge ED - Sign-Out/Discharge Documenting (check all that apply): Patient Departure Patient Received Moderate/Deep Sedation with Procedure: No - Discharge Plan Condition: Stable Disposition: HOME Prescriptions: Cephalexin CAP* [Keflex CAP*] 500 mg PO QID #28 cap MDD 4 Patient Education Materials: Toe Fracture (ED) Referrals: Jorge Duncan DO [Primary Care Provider] - Malick Watkins MD [Medical Doctor] - Additional Instructions: As disucssed you have fracture of the fifth toe - this is why is is discolored No evidence of infection otherwise, however due to the redness and swelling, we will prophylactically place you on antibiotics Keep changing dressings frequently Bear weight only as tolerated Follow up with ortho - Billing Disposition and Condition Condition: STABLE Disposition: Home
== END 2019-06-04 13:38 | disposition home or self-care (01) ==
LOC: ED 10:07
DX: S92.514A Nondisplaced fracture of proximal phalanx of right lesser toe(s), initial encounter for closed fracture (principal); X58.XXXA Exposure to other specified factors, initial encounter; Y92.9 Unspecified place or not applicable; E11.40 Type 2 diabetes mellitus with diabetic neuropathy, unspecified; I10 Essential (primary) hypertension; Z79.4 Long term (current) use of insulin; H54.8 Legal blindness, as defined in USA; Z88.6 Allergy status to analgesic agent; Z88.1 Allergy status to other antibiotic agents; Z88.0 Allergy status to penicillin; Z91.018 Allergy to other foods; Z87.891 Personal history of nicotine dependence
CPT/HCPCS: 99282

== ENCOUNTER 2019-06-08 17:43 | Inpatient (IN) | payer MEDICARE, OTHER ==
--- OUTSIDE RECORDS SUMMARY | 2019-06-08 18:11 | XMS REPORT | Continuity of Care Document ---
:1955 External Reference #:[id number] Author Name Covert, [facility] Care Team Providers Name Role Phone Jorge Duncan D.O. Primary Care Physician Unavailable Payers Date Identification Numbers Payment Provider Subscriber Policy Number: [id number] Medicare Yue Fonseca PayID: [id number] [address] [place] [address] Expires: 2019 Policy Number: [id number] Medicaid Yue Fonseca Group Name: 1 1 [address] PayID: [id number] [place] [address] Effective: 2016 Policy Number: [id number] Medicaid Yue Fonseca Expires: 2016 Group Name: 1 1 [address] PayID: [id number] [place] [address] Effective: 2015 Policy Number: 80% [facility] Yue Fonseca Expires: 2017 PayID: [id number] [address] Effective: 2017 Policy Number: [id number] [facility] Yue Fonseca Expires: 2019 Group Number: 80% [address] [facility] PayID: [id number] [address] Problems Active Problems Provider Date Ulcer of foot Jorge Taylor M.D. Onset: 04/04/2019 Family History Date Family Member(s) Observation Comments Father due to Emphysema () Mother due to Cancer () Siblings 2 Social History Type Date Description Comments Sex Unknown Marital Status Cigarette Use Quit - Age 22 ETOH Use Denies alcohol use Recreational Drug Use Denies Drug Use Exercise Type/Frequency Exercises sporadically Allergies, Adverse Reactions, Alerts Active Allergies Reaction Severity Comments Date Penicillin 12/20/2017 Aspirin 12/20/2017 Tomatoes 12/20/2017 Levaquin Hives 04/04/2019 Medications Active Medications SIG Qnty Indications Ordering Provider Date Humalog Kwikpen 17 units at Unknown breakfast as 100Unit/ML Solution needed sliding Pen-Inject scale, 17 units at lunch, as needed sliding scale, 25 units dinner as needed sliding scale Omeprazole 1 by mouth every Unknown 20mg Capsules day DR Plavix 1 by mouth every Unknown 75mg Tablets day Atorvastatin Calcium 1 by mouth every Unknown 40mg day Tablets Gabapentin 1 by mouth twice Unknown 300mg Capsules per day Basaglar Kwikpen 20 units at Unknown bedtime 100Unit/ML Solution Pen-Inject Lisinopril 1 by mouth every Unknown 20mg Tablets day Nystatin topically twice a Unknown [id number]/GM day as needed Cream Vital Signs Date Vital Result Comment 04/04/2019 11:24am Height 63 inches 5'3" Weight 178.00 lb with shoes Heart Rate 84 /min right radial BP Systolic Sitting 112 mmHg ule BP Diastolic Sitting 74 mmHg ule BMI (Body Mass Index) 31.5 kg/m2 Procedures Date Code Description Status 04/11/2019 39770 Removal Devitalization Tissue Wound Less Than Equal 20 Completed Square CM 04/11/2019 20980 Debridement Muscle/Fascia,Epidermis/Dermis/Tissue,1St 20 Completed SQ CM 04/11/2019 99948 Debridement Skin,& sq Tissue Completed 02/13/2018 60919 ECHO Transthoracic, Real-Time 2D With Doppler And Color Completed Flow 02/13/2018 81822 ECHO Transthoracic, Real-Time 2D With Doppler And Color Completed Flow 10/18/2016 68794 ECHO Transthorasic Realtime 2D W Doppler & Color Flow Hosp Completed 10/18/2016 68981 EKG, Interpretation Only Completed Encounters Type Date Location Provider Dx Diagnosis Office Visit 03/21/2019 Wound Care Mo Dejesus, L97.519 Non-prs chronic 8:00a Andrés Pan ulcer oth prt Anjelica right foot w unsp severity L97.529 Non-pressure chronic ulcer oth prt left foot w unsp severity E11.621 Type 2 diabetes mellitus with foot ulcer R09.89 Oth symptoms and signs involving the circ and resp systems E78.5 Hyperlipidemia, unspecified I10 Essential (primary) hypertension Office Visit 03/13/2019 10:00a Wound Care Monica Cheung S91.301A Unspecified open Center AT [facility], [employer] wound, right [facility] foot, initial encounter S91.302A Unspecified open wound, left foot, initial encounter Office Visit 03/13/2019 9:23a [facility] Kyleigh Chandler, N17.9 Acute kidney Assoc,pc [employer] failure, Hospitalists unspecified N39.0 Urinary tract infection, site not specified L03.116 Cellulitis of left lower limb L03.115 Cellulitis of right lower limb E11.40 Type 2 diabetes mellitus with diabetic neuropathy, unsp N18.3 Chronic kidney disease, stage 3 (moderate) Office Visit 03/12/2019 9:23a [facility] Kyleigh Chandler, N17.9 Acute kidney Assoc,pc [employer] failure, Hospitalists unspecified N39.0 Urinary tract infection, site not specified E11.40 Type 2 diabetes mellitus with diabetic neuropathy, unsp L03.115 Cellulitis of right lower limb L03.116 Cellulitis of left lower limb Office Visit 03/11/2019 9:22a [facility] Kyleigh Chandler, N17.9 Acute kidney Assoc,pc [employer]ATING [employer] failure, Hospitalists unspecified N39.0 Urinary tract infection, site not specified D64.9 Anemia, unspecified Office Visit 03/10/2019 [facility] Reshma Adame, N17.9 Acute kidney 9:22a juan Pollard M.D. failure, Hospitalists unspecified N39.0 Urinary tract infection, site not specified E11.9 Type 2 diabetes mellitus without complications Office Visit 03/31/2017 Neurohospitalist Mo Mcbride H53.133 Sudden visual 3:13p Albina Kulkarni M.D. loss, bilateral E11.319 Type 2 diabetes w unsp diabetic rtnop w/o macular edema Office Visit 10/18/2016 [facility] Reshma Adame, I63.9 Cerebral 1:45p juan Pollard M.D. infarction, Hospitalists unspecified N18.4 Chronic kidney disease, stage 4 (severe) E11.65 Type 2 diabetes mellitus with hyperglycemia E78.5 Hyperlipidemia, unspecified Office Visit 10/17/2016 Neurohospitalist Poonam Rossi, G45.9 Transient 1:56p Clinic MD cerebral ischemic attack, unspecified I10 Essential (primary) hypertension E11.65 Type 2 diabetes mellitus with hyperglycemia E78.5 Hyperlipidemia, unspecified Z71.6 Tobacco abuse counseling Z79.4 skilled nursing (current) use of insulin Office 10/17/2016 [facility] I63.9 Cerebral Visit 1:44p [facility]oc,[facility] infarction, Hospitalists unspecified N18.4 Chronic kidney disease, stage 4 (severe) E11.65 Type 2 diabetes mellitus with hyperglycemia E78.5 Hyperlipidemia, unspecified Plan of Treatment 04/04/2019 - Jorge Taylor M.D.L97.529 Non-pressure chronic ulcer of other part of left foot with unspecified severityComments:The following was discussed with Yue, her and the [facility] nurse coordinator Vane Flores RN at the time of consultation:On physical examination most of the lower extremity pulses are easily palpable and there is no suspicious high-grade stenosis or occlusion identified on lower extremity arterial sonography acquired shortly after her clinic visit. Furthermore, prior to these wounds the patient does not appear to have been suffering from any claudication or rest pain. 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 Since microvascular disease is not amenable to endovascular therapy.The patient has gauze wrapping the mid feet bilaterally that appeared soiled during this clinic visit. There is a wound on the dorsal left second toe. The patient was observed to put on soiled slippers at the end of her visit.I advised the patient that she likely does not need arteriography (this was confirmed after a clinic visit with arterial sonography) and that her best chance of healing her wounds and avoiding amputation is to adhere to strict diabetes control and to adhere to proper wound care.L97.519 Non-pressure chronic ulcer of other part of right foot with unspecified severity
--- OUTSIDE RECORDS SUMMARY | 2019-06-08 18:11 | XMS REPORT | Continuity of Care Document ---
:1955 External Reference #:[id number] Author Name Albino Gonzalez M.D. Address [address] [place] [address] Care Team Providers Name Role Phone Nacho Duncan D.O. - Internal Medicine Care Team Information Shirt Line Operator Kareem Johnston M.D. - Ophthalmology Care Team Information Shirt Line Operator [phone] Mo Dejesus M.D. - Family Medicine Care Team Information Shirt Line Operator Problems Active Problems Provider Date Type 2 diabetes mellitus Onset: Nuclear senile cataract Albino Gonzalez M.D. Onset: 06/03/2016 Type 2 diabetes mellitus with proliferative Albino Gonzalez M.D. Onset: diabetic retinopathy with macular edema Retinal edema Albino Gonzalez M.D. Onset: 06/29/2016 Type 2 diabetes mellitus with proliferative Albino Gonzalez M.D. Onset: diabetic retinopathy with macular edema, left eye Precordial pain Albino Gonzalez M.D. Onset: 06/29/2016 Type 2 diabetes mellitus with proliferative Albino Gonzalez M.D. Onset: diabetic retinopathy with macular edema, right eye Other transient cerebral ischemic attacks Albino Gonzalez M.D. Onset: 10/21 and related syndromes Bronchitis Onset: Traction detachment of retina Albino Gonzalez M.D. Onset: 01/25/2017 Homonymous hemianopia Albino Gonzalez M.D. Onset: 03/31/2017 Presence of intraocular lens Albino Gonzalez M.D. Onset: 07/19/2017 Primary iridocyclitis Albino Gonzalez M.D. Onset: 09/07/2017 Retinal detachment Albino Gonzalez M.D. Onset: 09/07/2017 Other endophthalmitis Jaiden Haney M.D. Onset: 09/09/2017 Vitreous hemorrhage Albino Gonzalez M.D. 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 Onset: 11/08/2017 Herpesviral keratitis Albino Gonzalez M.D. 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 Onset: 11/10/2017 Type 2 diabetes mellitus with proliferative Albino Gonzalez M.D. Onset: diabetic retinopathy with macular edema, bilateral Social History Type Date Description Comments Sex Unknown ETOH Use Occasionally consumes alcohol Tobacco Use Start: Unknown End: Patient is a former smoker Unknown Recreational Drug Use Denies Drug Use Smoking Status Reviewed: 04/12/19 Patient is a former smoker Allergies, Adverse Reactions, Alerts Active Allergies Reaction Severity Comments Date Penicillin Anaphylaxis 06/03/2016 Aspirin Anaphylaxis 06/03/2016 Tomatoes 10/13/2016 Levaquin 04/12/2019 Medications Active Medications SIG Qnty Indications Ordering Date Provider Erythromycin Apply To Both Eyes 1Tube H04.123 Albino 04/12/2019 5mg/GM AT Night Viviane Gonzalez Ointment Latanoprost 1 drop both eyes 7.5ml Albino 09/27/2018 0.005% every night Viviane Gonzalez Solution Warm Compresses as needed Albino 11/30/2016 Viviane Gonzalez Plavix 1 by mouth every Unknown 75mg Tablets day @hs Lipitor 1 by mouth every Unknown 40mg Tablets day for high cholesterol Humalog Unknown 100Unit/ML Solution Cartridge Lisinopril Unknown 40mg Tablets Gabapentin Unknown 100mg Capsules Artificial Tears as needed Unknown 0.1-0.3% Solution Basaglar Kwikpen Roodhouse, Nacho D.O 100Unit/ML Solution Pen-Inject Victoza 2 units daily Unknown 18mg/3ML Solution Pen-Inject Montelukast Sodium Dakota, Nacho D.O 10mg Tablets Dorzolamide HCL 1 drop right eye 10units Albino 2% twice a day Viviane Gonzalez Solution Timolol Maleate Instill 1 Drop Into Unknown 0.5% Each Eye Twice Solution Daily as Directed History Medications Carteolol HCL Use One Drop 10ml H40.51x3 Albino Gonzalez, 12/29/2018 - 1% To The Right M.D. 04/12/2019 Solution Eye Twice A Day Timolol Maleate use 1 drop in 15units H40.51x3 Albino Gonzalez, 2018 - Right eyes M.D. 12/29/2018 0.5% (Daily) twice daily Solution Medications Administered in Office Medication SIG Qnty Indications Ordering Provider Date Avastin Bevacizumab Albino Gonzalez M.D. 11/10/2017 Injection Avastin Bevacizumab Albino Gonzalez M.D. 03/30/2017 Injection Avastin Bevacizumab Albino Gonzalez M.D. 03/09/2017 Injection Avastin Pat Gonzalez M.D. 02/23/2017 Injection Avastin Bevacizumab Albino Gonzalez M.D. 02/16/2017 Injection Avastin Bevacizumab Albino Gonzalez M.D. 02/02/2017 Injection Avastin Bevacizumab Albino Gonzalez M.D. 12/01/2016 Injection Avastin Bevacizumab Albino Gonzalez M.D. 11/03/2016 Injection Avastin Bevacizumab Albino Gonzalez M.D. 09/22/2016 Injection Avastin Bevacizumab Albino Gonzalez M.D. 08/18/2016 Injection Avastin Pta Gonzalez M.D. 08/11/2016 Injection Avastin Bevacizumab Albino Gonzalez M.D. 07/21/2016 Injection Avastin Pat Gonzalez M.D. 07/14/2016 Injection Avastin Bevacizumab Albino Gonzalez M.D. 06/16/2016 Injection Avastin Bevacizumab Albino Gonzalez M.D. 06/09/2016 Injection Immunizations Description No Information Available Vital Signs Date Vital Result Comment 11/10/2017 8:01am BP Systolic 132 mmHg BP Diastolic 70 mmHg Heart Rate 65 /min Respiratory Rate 15 /min 03/30/2017 1:59pm BP Systolic 120 mmHg BP Diastolic 70 mmHg Heart Rate 64 /min Respiratory Rate 14 /min Results Description No Information Available Procedures Date Code Description Status 12/28/2018 42356 Est Patient Comprehensive Exam Completed Medical Devices Description No Information Available Encounters Description No Information Available Assessments Date Code Description Provider 04/12/2019 H04.123 Dry eye syndrome of bilateral lacrimal Albino Gonzalez M.D. glands 04/12/2019 E11.3513 Type 2 diabetes mellitus with Albino Gonzalez M.D. 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 right eye, severe Plan of Treatment Future Appointment(s):07/03/2019 10:30 am - Albino Gonzalez M.D. at Jaiden Haney MD, 04/12/2019 - Albino Gonzalez M.D.H04.123 Dry eye syndrome of bilateral lacrimal glandsNew Medication:Erythromycin 5 mg/GM - Apply To Both Eyes AT NightComments:Smoking can increase the risk of developing or worsening any eye related disease, as well as affect your overall health. If you are a smoker, we strongly recommend that you quit.If you are not a smoker, we strongly recommend that you do not start. Both of your eyes appear to be dry. Use artificial tears as directed. You can use the tears more often if you are reading a book or are on the computer,as we tend to blink less, making our eyes dry out more.[facility] offers a few items in our optical department to help alleviate dry eye symptoms. I WILL PRESCRIBE AN OINTMENT, ERYTHROMYCIN. USE AT NIGHT TO BOTH EYES BEFORE BED.E11.3513 Type 2 diabetes mellitus with proliferative diabetic retinopathy with macular edema, bilateralComments:I can detect diabetic changes in your eyes. Proper control of your diabetes is important for the health of your eyes. It is important that you keep all of your follow up appointments.H40.51x3 Glaucoma secondary to other eye disorders, right eye, severe stageComments:CONTINUE USING YOUR DROPS DIRECTED.Follow up: SCHEDULED At your next visit, we are not planning to dilate your eyes. However, if you have anychanges in your vision or new symptoms , there are certain situations that require us to dilate your eyes. If Dr. Gonzalez requests any additional testing, that may require extra time. If you have any questions before your next appointment, please call our office at . Functional Status Description No Information Available Mental Status Description No Information Available Referrals Description No Information Available
--- NOTE | 2019-06-08 19:07 | ED ---
Lower Extremity - HPI Summary HPI Summary: The patient is a 64 y/o F presenting to [facility] with a chief complaint of pain in the right fifth toe starting five days ago. She reports that she had imaging on 06/04/19 to show that the fifth toe is broken and had been purple in color. Since then, the toe has become black in appearance, seemingly gangrenous. There is also increased swelling, and she has had intermittent fevers. The pain radiates into the right calf. She denies any chills, erythema of eyes, sore throat, CP, SOB, cough, abdominal pain, N/V, dysuria, hematuria, myalgia, edema , rash, or dizziness. Currently, the pain is rated 5/10 in severity. The pain is aggravated by touch, movement, and ambulation. She notes that she receives wound care at home for a previous injury to the bilateral feet, and the right foot was wrapped by the home nurse this morning. PMHx: DM (most recent glucose readings in 130s-140s), HTN, HLD, arthritis, glaucoma, legally blind, laser eye surgery. Former smoker, rare EtOH, no substance use. Medications reviewed, currently on Keflex. Allergies noted. - History of Current Complaint Chief Complaint: EDExtremityLower Stated Complaint: BROKEN TOE IS BLACK PER PT Time Seen by Provider: 06/08/19 18:58 Hx Obtained From: Patient Hx Last Menstrual Period: N/A Mechanism Of Injury: Other - known broken fifth toe Onset of Pain: Days - 5 days ago Onset/Duration: Still Present - gradual worsening since onset 5 days ago Severity Initially: Mild Severity Currently: Moderate Pain Intensity: 5 Pain Scale Used: 0-10 Numeric Location: Other - right fifth toe that radiates up right calf Character Of Pain: Sharp Associated Signs And Symptoms: Positive: Swelling, Redness, Other - Positive: blackened fifth toe, fever. Negative: chills, erythema of eyes, sore throat, CP , SOB, cough, abdominal pain, N/V, dysuria, hematuria, myalgia, edema, rash, dizziness - Allergies/Home Medications Allergies/Adverse Reactions: Allergies Allergy/AdvReac Type Severity Reaction Status Date / Time aspirin Allergy Severe Hives/Diff. Verified 03/17/19 11:24 Breathing/I tching Penicillins Allergy Severe Hives/Diff. Verified 03/17/19 11:24 Breathing/I tching tomato Allergy Severe Hives/Diff. Verified 03/17/19 11:24 Breathing/I tching levofloxacin [From Levaquin] Allergy Intermediate Itching Verified 03/17/19 11: 24 Sulfa (Sulfonamide Allergy See Comment Verified 06/08/19 17:53 Antibiotics) Home Medications: Home Medications Brimonidine P 0.1%(NF) [Alphagan P 0.1% (NF)] 1 drop RIGHT EYE TID 06/08/19 [ History Confirmed 06/08/19] Chlorthalidone TAB* [Hygroton TAB*] 25 mg PO DAILY 06/08/19 [History Confirmed 06/08/19] Dorzolamide 2% OPTH (NF) [Trusopt 2% OPTH (NF)] 1 drop RIGHT EYE TID 06/08/19 [ History Confirmed 06/08/19] PMH/Surg Hx/FS Hx/Imm Hx Endocrine/Hematology History: Reports: Hx Diabetes - type 2 Cardiovascular History: Reports: Hx Hypercholesterolemia, Hx Hypertension, Other Cardiovascular Problems/Disorders - dyslipidemia Denies: Hx Pacemaker/ICD Respiratory History: Reports: Hx Sleep Apnea - diagnosed but no machine (pt can' t afford) Denies: Other Respiratory Problems/Disorders GI History: Reports: Hx Gastroesophageal Reflux Disease - no meds Denies: Other GI Disorders History: Reports: Hx Kidney Infection - reports x12 - last one 4 months ago, Hx Renal Disease Denies: Hx Kidney Stones, Other Problems/Disorders Musculoskeletal History: Reports: Hx Arthritis Denies: Other Musculoskeletal History Sensory History: Reports: Hx Cataracts - bilateral, left not fixed yet, Hx Contacts or Glasses - tinted f/protection, Hx Glaucoma - right eye, Hx Legally Blind, Other Sensory Impairments - neuropathy Denies: Hx Hearing Aid Opthamlomology History: Reports: Hx Cataracts - bilateral, left not fixed yet, Hx Contacts or Glasses - tinted f/protection, Hx Glaucoma - right eye, Hx Legally Blind, Other Sensory Impairments - neuropathy Neurological History: Reports: Hx Nerve Disease - DM neuropathy Denies: Other Neuro Impairments/Disorders Psychiatric History: Reports: Hx Anxiety - panic attacks Denies: Hx Panic Disorder - Cancer History Hx Chemotherapy: No - Surgical History Surgical History: Yes Surgery Procedure, Year, and Place: right rotator cuff repair 2012 -[facility]. tonsillectomy and adenoidectomy at age 19 - [facility]. bilateral carpal tunnel release - [facility]. [facility] - [facility]. laser eye surgery x3, 2 on right eye and 2 left eye in [facility]. tubal ligation 1977 - [facility] Hx Anesthesia Reactions: No - Immunization History Date of Tetanus Vaccine: utd Date of Influenza Vaccine: none Infectious Disease History: No Infectious Disease History: Denies: Traveled Outside the [place] in Last 30 Days - Family History Known Family History: Positive: Hypertension, Diabetes Negative: Cardiac Disease - Social History Alcohol Use: Rare Hx Substance Use: No Substance Use Type: Reports: None Hx Tobacco Use: Yes Smoking Status (MU): Former Smoker Amount Used/How Often: 1 pack every 2 weeks for only 1 year Review of Systems Positive: Fever. Negative: Chills Negative: Erythema Negative: Sore Throat Negative: Chest Pain Negative: Shortness Of Breath, Cough Negative: Abdominal Pain, Vomiting, Nausea Negative: dysuria, hematuria Positive: Other - pain extending from right foot into calf. Negative: Myalgia, Edema Positive: Other - blackened right fifth toe with erythema and swelling. Negative: Rash Neurological: Other - Negative: dizziness All Other Systems Reviewed And Are Negative: Yes Physical Exam - Summary Physical Exam Summary: Constitutional: Well-developed, Well-nourished, Alert. (-) Distressed Skin: Right fifth toe is gangrenous, completely blacked, Dorsum of the foot up to the midfoot is erythematous, Ulceration along the metatarsal phalangeal joint , Erythema extends senior care up the calf, Otherwise skin is warm and dry HENT: Normocephalic; Atraumatic Eyes: Conjunctiva normal Neck: Musculoskeletal ROM normal neck. (-) JVD, (-) Stridor, (-) Tracheal deviation Cardio: Rhythm regular, rate normal, Heart sounds normal; Intact distal pulses; The pedal pulses are 2+ and symmetric. Radial pulses are 2+ and symmetric. (-) Murmur Pulmonary/Chest wall: Effort normal. (-) Respiratory distress, (-) Wheezes, (-) Rales Abd: Soft, (-) tenderness, (-) Distension, (-) Guarding, (-) Rebound Musculoskeletal: (-) Edema Lymph: (-) Cervical adenopathy Neuro: Alert, Oriented x3 Psych: Mood and affect Normal Triage Information Reviewed: Yes Vital Signs On Initial Exam: Initial Vitals Temp Pulse Resp BP Pulse Ox 97.3 F 98 19 117/77 99 06/08/19 17:44 06/08/19 17:44 06/08/19 17:44 06/08/19 17:44 06/08/19 17:44 Vital Signs Reviewed: Yes Procedures - Sedation Patient Received Moderate/Deep Sedation with Procedure: No Diagnostics - Vital Signs Vital Signs Temp Pulse Resp BP Pulse Ox 06/08/19 17:44 97.3 F 98 19 117/77 99 - Laboratory Result Diagrams: 06/15/19 05:28 06/15/19 05:28 Lab Statement: Any lab studies that have been ordered have been reviewed, and results considered in the medical decision making process. - Radiology Right Foot XR Radiology Interpretation Completed By: ED Physician Summary of Radiographic Findings: No free air. ED physician has interpreted this report. Pending official read. Re-Evaluation - Re-Evaluation First Eval Re-Evaluation Time: 20:45 Change: Unchanged Comment: Pt aware of plan for admission. Lower Extremity Course/Dx - Course Course Of Treatment: 64 y/o F with cc of worsening pain in the right fifth toe following known fracture five days ago with worsening as appearance has changed from purple to black, and pain now radiates up the right calf with erythema and swelling in the foot. Upon physical exam, the pt exhibits gangrenous fifth right toe that is completely blackened, erythema extending from the dorsum of the foot up to the midfoot, an ulceration along the metatarsal phalangeal joint , and erythema extending senior care up the calf. Blood work reveals hgb of 9.3, hct of 29, MCV of 77, MCH of 25, INR of 1.11, BUN of 40, creatinine of 1.91, BUN /Creatinine ratio of 20.9, glucose of 196, and albumin/globulin ratio of 0.8. In the ED course, the pt was administered Vancomycin and Percocet. Right foot x- ray is negative for free air. Right foot ultrasound ordered. I discussed findings with Dr. Bolivar, hospitalist, and he accepts pt for admission. He will review and follow up with imaging results. She understands and agrees with this plan. Dx of toe gangrene, osteomyelitis. - Diagnoses Provider Diagnoses: Toe gangrene, Osteomyelitis - Physician Notifications Discussed Care Of Patient With: Solomon Bolivar - hospitalist Time Discussed With Above Provider: 20:40 Instructed by Provider To: Admit As Inpatient - I discussed the pt's case with Dr. Bolivar, and he accepts pt for admission. Discharge ED - Sign-Out/Discharge Documenting (check all that apply): Patient Departure - Patient accepted for admission by Dr. Bolivar. - Discharge Plan Condition: Fair Disposition: ADMITTED TO [facility] - Billing Disposition and Condition Condition: FAIR Disposition: Admitted to [facility] - Attestation Statements Document Initiated by Dashawnibe: Yes Documenting Scribe: Vita Johnson Provider For Whom Boom is Documenting (Include Credential): Dr. Jose Ko MD Scribe Attestation: Vita Retana scribed for Dr. Jose Ko MD on 06/19/19 at 2129. Scribe Documentation Reviewed: Yes Provider Attestation: The documentation as recorded by the Vita kuo accurately reflects the service I personally performed and the decisions made by me, Dr. Jose Ko MD Status of Scribe Document: Viewed
[2019-06-08] MEDS ORDERED: Vancomycin(*) 1,000 MG in NS 0.9% 250 ML* 250 ML IVPB ONE (19:26)
[2019-06-08] MEDS ORDERED: oxyCODONE/Acetamin 5/325 MG* TAB PO ONE (19:40)
[2019-06-08 19:51] LABS: ABS Eosinophils 0.2 10^3/ul (0-0.6); ABS Lymphocytes 1.9 10^3/ul (1.0-4.8); ABS Monocytes 0.8 10^3/ul (0-0.8); ABS Neutrophils 6.8 10^3/ul (1.5-7.7); Eosinophil % 1.6 %; Hematocrit 29 % (35-47); Hemoglobin 9.3 g/dL (12.0-16.0); Lymphocyte % 19.4 %; Mean Corpuscular HGB Conc 33 g/dL (31-36); Mean Corpuscular Hemoglobin 25 pg (27-31); Mean Corpuscular Volume 77 fL (80-97); Mean Platelet Volume 7.7 fL (7.4-10.4); Platelet Count 386 10^3/uL (150-450); Red Cell Distribution Width 15 % (10-15); White Blood Count 9.7 10^3/uL (3.5-10.8)
[2019-06-08 20:04] LABS: Albumin 3.3 g/dL (3.2-5.2); Albumin/Globulin Ratio 0.8 (1-3); BUN/Creatinine Ratio 20.9 (8-20); Calcium 8.9 mg/dL (8.6-10.3); EGFR African American 32.1 (>60); EGFR Non-African American 26.5 (>60); Potassium 4.4 mmol/L (3.5-5.0); Total Bilirubin 0.4 mg/dL (0.2-1.0); Total Protein 7.3 g/dL (6.4-8.9)
[2019-06-08 20:06] LABS: Activated Partial Thrombo Time 35.2 seconds (26.0-38.0); INR 1.11 (0.82-1.09)
[2019-06-08] MEDS ORDERED: Morphine INJ* 2 MG/ML 1 ML SYRINGE (TWO MG - NEW SYRINGE VERSION) IV PRN (23:40)
[2019-06-08] MEDS ORDERED: Vancomycin per Pharmacy* NOTE FOLLOW UP SCH (23:45)
[2019-06-08] MEDS ORDERED: Acetaminophen TAB* 325 MG PO PRN (23:54)
[2019-06-09] MEDS ORDERED: Dextrose 50% VIAL 50 ml IV PUSH PRN (00:14)
[2019-06-09] MEDS: NS 0.9% 1000 ML** 1,000 ML IV SCH ×2 (01:48→23:34)
[2019-06-09] MEDS: Aztreonam (*) 1 GM in NS 0.9% 50 ML* 50 ML IVPB SCH ×3 (01:50→16:03)
--- NOTE | 2019-06-09 02:14 | HP ---
CC: Dr. Jorge Duncan; Dr. Malick Watkins * ADMISSION HISTORY AND PHYSICAL: DATE OF ADMISSION: 06/08/19 CHIEF COMPLAINT: Color change on her right small toe and severe pain on the foot. HISTORY OF PRESENT ILLNESS: This is a 64-year-old female with past medical history of insulin dependent diabetes with her last A1c to be 7.5% on 05/02/19; history of chronic kidney disease, stage 3; hyperlipidemia; diabetic retinopathy with legal blindness and neuropathy. She came in initially on Tuesday due to her right 5th toe becoming more purple. She has a history of cellulitis on her both feet and has had a chronic wound on the right side, which she had a trauma and was diagnosed with right 4th toe fracture, which was healing and she follows up at the wound care clinic. However, since Tuesday she noticed a color change, so she came to the ER. At which point, an x-ray was performed and she was told that she just has a small fracture of that 5th toe and she was recommended to follow up with Ortho and sent home. Just prophylactically, she was given some antibiotics on her way home. Since Tuesday, her toe has gotten progressively more and more dark and now it is completely black. So, her told her to come to the ER for reevaluation. The toe is soft at this point, looks necrotic. She denies any fever or chills. She just states that it is very difficult for her to ambulate at home as there is severe pain with even a gentle palpation. Her entire right foot also feels a little swollen and the ankle and thigh area is also very sensitive to any touch. She does have neuropathy on her feet, but this pain is very severe and as mentioned , she denies any fever or chills. PAST MEDICAL HISTORY: As mentioned insulin dependent diabetes with the last A1c controlled at 7.5 as of 05/02/19; hyperlipidemia; diabetic neuropathy and peripheral retinopathy, now considered legally blind; history of chronic kidney disease, stage 3/4 with her GFR hovering anywhere from low 30s to high 20s; history of hypertension; history of glaucoma of the right eye; history of TIA twice, first one was a vision problem and the other was a left arm weakness and numbness that resolved in 20 minutes. She has multiple allergies. Obstructive sleep apnea, but could not afford machines and history of arthritis. PAST SURGICAL HISTORY: She has had retinal laser procedure for peripheral retinopathy, right rotator cuff repair in 2012, tonsillectomy, adenoidectomy at age19, bilateral carpal tunnel release, and tubal ligation in 1977, laser eye surgery x4 for peripheral retinopathy with 2 on the right eye and 2 on the left eye, cataract surgery of both eye and a glaucoma drain on the right eye. HOME MEDICATIONS: The patient is on, 1. Nystatin suspension oral 4 times a day: 2. Doxycycline 100 mg p.o. b.i.d. 3. Collagenase application topically. 4. Alphagan 1 drop right eye t.i.d. 5. Protonix 40 mg oral daily. 6. Victoza 1.8 mg subcutaneous daily. 7. Basaglar 10 units subcutaneous at bedtime. 8. Chlorthalidone 25 mg oral daily. 9. Timolol 1 drop ophthalmic both eyes twice a day. 10. Trusopt 2% 1 drop right eye t.i.d. 11. Singulair 10 mg oral daily at bedtime. 12. Xalatan 1 drop right eye at 5 p.m. 13. Humalog KwikPen 25 units subcutaneous every evening and 17 units in the morning. 14. Lisinopril 40 mg oral daily every morning. 15. Neurontin 300 mg oral twice a day. 16. Clopidogrel 75 mg oral daily every morning. 17. Tylenol 650 mg daily every morning as needed. 18. Keflex 500 mg 4 times a day. ALLERGIES: The patient is documented to have allergies to ASPIRIN, PENICILLIN and TOMATO, all 3 gives hives, difficulty breathing and itching. LEVAQUIN causes itching and SULFA ANTIBIOTICS due to her renal dysfunction. FAMILY HISTORY: Mother at age 35 due to ovarian cancer and had stroke before she . Her father at age 48 with heart attack, CHF, emphysema with a history of 3 packs a day smoker. SOCIAL HISTORY: She lives at home with her , daughter and granddaughter , Quit smoking at age 22. Reports occasional alcohol use. Denies any drug use. 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 She is full code and with her being the healthcare proxy. REVIEW OF SYSTEMS: A 14-point review of systems did not reveal any new information. PHYSICAL EXAMINATION GENERAL: The patient is awake, alert, oriented x3. VITAL SIGNS: In the ER, temperature max was noted to be 99.2, BP was noted to be at 94/63, heart rate 84, respiration rate 17, saturating 95% on room air. HEAD AND NECK: Bilateral pupils were slightly unequal with the right eye being dilated, it could be due to postsurgical changes. Neck supple. No jugular venous distention. LUNGS: Clear to auscultation bilaterally. No wheezing, rhonchi, or rales. HEART: S1, S2. Regular rate and rhythm. ABDOMEN: Soft, nontender, nondistended. EXTREMITIES: The patient had swelling on the right lower extremity extending up to the mid ortiz. She has severe tenderness and there is an open wound with some purulent material around the border between the dorsal aspect of right foot and the toes. The right 5th toe was completely dark black, could not move the foot as the patient was having even severe tenderness to even gentle palpation. DIAGNOSTIC STUDIES/LAB DATA: CBC shows normal white count, hemoglobin and hematocrit stable at 9.3 and 29, platelet count was noted to be 386. Coagulation profiles with minimal elevated INR at 1.11. Comprehensive metabolic panel shows stable creatinine at 1.91, random glucose minimally elevated at 196. LFTs were within normal limits. X-ray of the foot, official read is still pending, but does show some changes on the 5th toe. When compared to her older chest x-ray from 3 days ago, it is essentially unchanged in my opinion, but I am not an orthopedic or radiology, so I will wait for their official read. IMPRESSION: This is a 64-year-old female with history of diabetes and multiple diabetic complications here due to a nonhealing wound now noted to have change in her 5th toe, likely necrotic. 1. Left toe necrotic changes with possible cellulitis versus osteomyelitis underneath this. We will start the patient on broad-spectrum antibiotics of vancomycin and aztreonam given her allergies and I have already consulted Dr. Watkins, the orthopedist, who will evaluate the patient in the morning for possible amputation. In the meantime, we will keep the patient n.p.o. 2. History of diabetes. We will start the patient on fingerstick monitoring and only start her long-acting insulin and place the patient on insulin sliding scale again q.6 hours until the patient is evaluated for possible amputation and surgery is scheduled. 3. History of hypertension. She was noted to have low normal blood pressures. We will restart home medications, but with holding parameters. 4. History of glaucoma. Restart her eye drops. 5. History of chronic kidney disease. Monitor creatinine. 6. DVT prophylaxis, on subcu heparin. 7. Code status is full code with being healthcare proxy. [id number]/[facility] #: [id number] MANDI
[2019-06-09] MEDS: Insulin GLARGINE(*) 1 UNITS UNIT SUBCUT SCH ×2 (02:35→21:52)
[2019-06-09 06:30] LABS: ABS Eosinophils 0.2 10^3/ul (0-0.6); ABS Lymphocytes 1.1 10^3/ul (1.0-4.8); ABS Monocytes 0.6 10^3/ul (0-0.8); ABS Neutrophils 6.6 10^3/ul (1.5-7.7); Eosinophil % 2.5 %; Hematocrit 27 % (35-47); Hemoglobin 8.8 g/dL (12.0-16.0); Lymphocyte % 12.4 %; Mean Corpuscular HGB Conc 33 g/dL (31-36); Mean Corpuscular Hemoglobin 25 pg (27-31); Mean Corpuscular Volume 77 fL (80-97); Mean Platelet Volume 7.5 fL (7.4-10.4); Nucleated Red Blood Cells % 0.1; Platelet Count 339 10^3/uL (150-450); Red Blood Count 3.48 10^6 /uL (3.70-4.87); Red Cell Distribution Width 15 % (10-15); White Blood Count 8.6 10^3/uL (3.5-10.8)
[2019-06-09] MEDS: Insulin LISPRO* 1 UNITS UNIT SUBCUT SCH ×3 (06:31→17:26)
[2019-06-09] MEDS: Heparin VIAL(*) 5000 UNITS/ML VIAL (FIVE THOUSAND) SUBCUT SCH ×3 (06:32→22:47)
[2019-06-09 06:48] LABS: Anion Gap 9 mmol/L (2-11); BUN/Creatinine Ratio 21.8 (8-20); Blood Urea Nitrogen 39 mg/dL (6-24); CO2 Carbon Dioxide 21 mmol/L (22-32); Calcium 8.6 mg/dL (8.6-10.3); Chloride 108 mmol/L (101-111); EGFR African American 34.6 (>60); EGFR Non-African American 28.6 (>60); Glucose 139 mg/dL (70-100); Potassium 4.8 mmol/L (3.5-5.0); Sodium 138 mmol/L (135-145)
[2019-06-09] MEDS: Vancomycin(*) 500 MG in NS 0.9% 250 ML* 250 ML IVPB SCH ×2 (06:53→18:15)
[2019-06-09] MEDS ORDERED: Clopidogrel TAB* 75 MG PO SCH (09:00)
[2019-06-09] MEDS ORDERED: Dorzolamide 2% OPTH (NF) 10 ML BTL RIGHT EYE SCH (09:00)
[2019-06-09] MEDS ORDERED: Lisinopril TAB* 10 MG PO SCH ×2 (09:00)
[2019-06-09] MEDS: Acetaminophen TAB* 325 MG PO PRN (09:33)
[2019-06-09] MEDS: Gabapentin CAP(*) 300 MG PO SCH ×2 (09:33→21:47)
[2019-06-09] MEDS: Pantoprazole TAB * 40 MG TAB PO SCH (09:33)
[2019-06-09] MEDS: Timolol 0.5% OPTH.SOL* BTL BOTH EYES SCH ×2 (09:36→21:51)
[2019-06-09] MEDS: CMC:Brimonidine P 0.1%(NF) 1 DROP BTL RIGHT EYE SCH ×3 (09:36→21:49)
[2019-06-09] MEDS: Collagenase 250 UNITS/GM OINT* 1 APPLIC OINT TOPICAL SCH (09:38)
[2019-06-09] MEDS ORDERED: NS 0.9% 1000 ML** 1,000 ML IV ONE (10:10)
--- NOTE | 2019-06-09 10:15 | PN ---
Subjective Date of Service: 06/09/19 Interval History: No acute events overnight. Just spiked temp 100.9 with HR 103 meeting Sepsis criteria. Pain in right 5th toe 05/15 Went out from [place] to dusk looking for her lost cat earlier this week. Developed a productive cough and some slight SOB. Occasional wheeze no burning with urination or increased frequency of urination. No abdominal pain. Occasional central chest discomfort from the coughing. blood sugars in 200s at home while sick. Had acute renal failure 05/02 with CHEESE TESTER 4.5, K 8.1 after taking bactrim as outpatient. Seemed to be tolerating keflex recently. smoked for "2 years" remotely. Objective Active Medications: Acetaminophen (Tylenol Tab*) 650 mg PO Q4H PRN PRN Reason: PAIN - MILD Last Admin: 06/09/19 09:33 Dose: 650 mg Acetaminophen (Tylenol Tab*) 650 mg PO QAM PRN PRN Reason: PAIN Brimonidine Tartrate (Alphagan P 0.1% (Nf)) 1 drop RIGHT EYE TID [facility] Last Admin: 06/09/19 09:36 Dose: Not Given Clopidogrel Bisulfate (Plavix Tab*) 75 mg PO QAM [facility] Last Admin: 06/09/19 09:10 Dose: Not Given Collagenase (Santyl 250 Units/Gm Oint*) 1 applic TOPICAL DAILY [facility] Last Admin: 06/09/19 09:38 Dose: 1 applic Dextrose (Dextrose 50% Vial 50 Ml*) 25 ml IV PUSH .FOR FS < 60 - SS PRN PRN Reason: FS < 60 Dorzolamide HCl (Trusopt 2% Opth (Nf)) 1 drop RIGHT EYE TID [facility]; Protocol Last Admin: 06/09/19 09:53 Dose: Not Given Gabapentin (Neurontin Cap(*)) 300 mg PO BID [facility] Last Admin: 06/09/19 09:33 Dose: 300 mg Heparin Sodium (Porcine) (Heparin Vial(*)) 5,000 units SUBCUT Q8HR [facility] Last Admin: 06/09/19 06:32 Dose: 5,000 units Sodium Chloride (Ns 0.9% 1000 Ml) 1,000 mls @ 75 mls/hr IV PER RATE [facility] Last Admin: 06/09/19 01:48 Dose: 75 mls/hr Aztreonam 1 gm/ Sodium (Chloride) 50 mls @ 200 mls/hr IVPB 0000,0800,1600 [facility] Last Admin: 06/09/19 09:35 Dose: 200 mls/hr Vancomycin HCl 500 mg/ Sodium (Chloride) 250 mls @ 166.667 mls/hr IVPB Q12H [facility] Last Admin: 06/09/19 06:53 Dose: 166.667 mls/hr Insulin Glargine (Lantus(*)) 10 units SUBCUT BEDTIME [facility] Last Admin: 06/09/19 02:35 Dose: 10 units Insulin Human Lispro (Humalog*) 0 units SUBCUT Q6HR [facility]; Protocol Last Admin: 06/09/19 06:31 Dose: 3 units Latanoprost (Xalatan 0.005%*) 1 drop RIGHT EYE 1700 [facility] Lisinopril (Prinivil Tab*) 40 mg PO QAM [facility] Last Admin: 06/09/19 09:11 Dose: Not Given Montelukast Sodium (Singulair Tab*) 10 mg PO BEDTIME [facility] Morphine Sulfate (Morphine Inj (Syringe))*) 2 mg IV Q4H PRN PRN Reason: PAIN - SEVERE Pantoprazole Sodium (Protonix Tab*) 40 mg PO DAILY [facility] Last Admin: 06/09/19 09:33 Dose: 40 mg Pharmacy Consult (Vancomycin Per Pharmacy*) 1 note FOLLOW UP .VANC PER PHARMACY [facility]; Protocol Pharmacy Profile Note (Vancomycin Trough Check) 1 note FOLLOW UP 0600 ONE Stop: 06/10/19 06:01 Timolol Maleate (Timoptic 0.5% Opth*) 1 drop BOTH EYES BID [facility] Last Admin: 06/09/19 09:36 Dose: 1 drop Vital Signs - 8 hr 06/09/19 06/09/19 06/09/19 04:26 07:53 09:33 Temperature 98.8 F 98.7 F Pulse Rate 94 102 Respiratory 18 18 16 Rate Blood Pressure 126/63 134/63 (mmHg) O2 Sat by Pulse 98 95 Oximetry 06/09/19 09:53 Temperature 100.9 F Pulse Rate Respiratory Rate Blood Pressure (mmHg) O2 Sat by Pulse Oximetry Oxygen Devices in Use Now: None Appearance: NAD, ambulating back to bed. Ears/Nose/Mouth/Throat: NL Teeth, Lips, Gums Neck: NL Appearance and Movements; NL JVP Respiratory: Symmetrical Chest Expansion and Respiratory Effort, Clear to Auscultation Cardiovascular: - - tachycardic regular, no m/r/g Abdominal: NL Sounds; No Tenderness; No Distention, No Hepatosplenomegaly Skin: - - right 5th toe necrotic appering with extension of wound to metatarsal base. wrapped in gauze. tender in anterior calf w/o erythema. Neurological: Alert and Oriented x 3 Nutrition: Taking PO's Result Diagrams: 06/09/19 05:56 06/09/19 05:56 Additional Lab and Data: Laboratory Results - last 24 hr 06/08/19 06/08/19 06/08/19 19:27 19:27 19:27 WBC 9.7 RBC 3.70 Hgb 9.3 L Hct 29 L MCV 77 L MCH 25 L MCHC 33 RDW 15 Plt Count 386 MPV 7.7 Neut % (Auto) 70.5 Lymph % (Auto) 19.4 Moore % (Auto) 8.1 Eos % (Auto) 1.6 Baso % (Auto) 0.4 Absolute Neuts (auto) 6.8 Absolute Lymphs (auto) 1.9 Absolute Monos (auto) 0.8 Absolute Eos (auto) 0.2 Absolute Basos (auto) 0.0 Absolute Nucleated RBC 0.0 Nucleated RBC % 0.0 INR (Anticoag Therapy) 1.11 H APTT 35.2 Sodium 136 Potassium 4.4 Chloride 105 Carbon Dioxide 24 Anion Gap 7 BUN 40 H Creatinine 1.91 H Est GFR ( Amer) 32.1 Est GFR (Non-Af Amer) 26.5 BUN/Creatinine Ratio 20.9 H Glucose 196 H POC Glucose (mg/dL) Lactic Acid Calcium 8.9 Total Bilirubin 0.40 AST 15 ALT 10 Alkaline Phosphatase 104 Troponin I 0.00 Total Protein 7.3 Albumin 3.3 Globulin 4.0 Albumin/Globulin Ratio 0.8 L 06/08/19 06/09/19 06/09/19 19:28 05:56 05:56 WBC 8.6 RBC 3.48 L Hgb 8.8 L Hct 27 L MCV 77 L MCH 25 L MCHC 33 RDW 15 Plt Count 339 MPV 7.5 Neut % (Auto) 77.4 Lymph % (Auto) 12.4 Moore % (Auto) 7.2 Eos % (Auto) 2.5 Baso % (Auto) 0.5 Absolute Neuts (auto) 6.6 Absolute Lymphs (auto) 1.1 Absolute Monos (auto) 0.6 Absolute Eos (auto) 0.2 Absolute Basos (auto) 0.0 Absolute Nucleated RBC 0.0 Nucleated RBC % 0.1 INR (Anticoag Therapy) APTT Sodium 138 Potassium 4.8 Chloride 108 Carbon Dioxide 21 L Anion Gap 9 BUN 39 H Creatinine 1.79 H Est GFR ( Amer) 34.6 Est GFR (Non-Af Amer) 28.6 BUN/Creatinine Ratio 21.8 H Glucose 139 H POC Glucose (mg/dL) Lactic Acid 1.5 Calcium 8.6 Total Bilirubin AST ALT Alkaline Phosphatase Troponin I Total Protein Albumin Globulin Albumin/Globulin Ratio 06/09/19 06:19 WBC RBC Hgb Hct MCV MCH MCHC RDW Plt Count MPV Neut % (Auto) Lymph % (Auto) Moore % (Auto) Eos % (Auto) Baso % (Auto) Absolute Neuts (auto) Absolute Lymphs (auto) Absolute Monos (auto) Absolute Eos (auto) Absolute Basos (auto) Absolute Nucleated RBC Nucleated RBC % INR (Anticoag Therapy) APTT Sodium Potassium Chloride Carbon Dioxide Anion Gap BUN Creatinine Est GFR ( Amer) Est GFR (Non-Af Amer) BUN/Creatinine Ratio Glucose POC Glucose (mg/dL) 153 H Lactic Acid Calcium Total Bilirubin AST ALT Alkaline Phosphatase Troponin I Total Protein Albumin Globulin Albumin/Globulin Ratio Assess/Plan/Problems-Billing Assessment: 64 yo female PMH IDDM (A1c 7.5), HTN, CKD IV, TIAs, HLD, right foot wounds following with wound clinic p/w necrotic right 5th toe with osteomyelitis. Sepsis (fever, tachycardia). PCN allergy, on vanc, aztreonam. - Patient Problems (1) Necrosis of toe Current Visit: Yes Status: Acute Code(s): I96 - GANGRENE, NOT ELSEWHERE CLASSIFIED SNOMED Code(s): 797886360 Comment: Appreciate Ortho recs of Dr. Watkins who is requesting an MRI given her risk factors and chronic wounds I am ordering an YSABEL to evaluate for PVD some wet gangrene proximal 4-5th superior metatarsals Continue vancomycin and aztreonam Add on CRP -> 118 today. Xray with concern for osteomyelitis Add on CXR given sepsis + cough repeat EKG (was NSR in March) to help risk stratify. RCRI is at least 2 given Hx of TIAs, and IDDDM. Her CHEESE TESTER is 1.8-1.9 since admission nearly earning another point. Her ECHO from 2017 showed preserved ejection fraction but some diastolic dysfunction. RCRI of 2 would put her at a 10.1% 30 day risk or [place], cardiac arrest or . If CHEESE TESTER were to bump to 2.0 her RCRI of 3 and would increase up to 15.0%. npo midnight for likely surgery. pain control, IV morphine for severe, po percoset q6 for moderate. (2) Chronic kidney disease, stage IV (severe) Current Visit: Yes Status: Acute Code(s): N18.4 - CHRONIC KIDNEY DISEASE, STAGE 4 (SEVERE) SNOMED Code(s): 610898809 Comment: CHEESE TESTER 1.8 from 1.9 , recent low of 1.6 holding ACEI given now sepsis. had acute renal failure in April after bactrim with CHEESE TESTER up to 4.5, K8.1 (3) Anemia Current Visit: No Status: Acute Code(s): D64.9 - ANEMIA, UNSPECIFIED SNOMED Code(s): 992904327 Comment: Hgb 8.8, microcytic. iron was 27 and Sat 10% with wnl ferrtitin in March. will repeat (was not on iron supplements) also has CKD Stage IV with recent Acute renal failure from bactrim in April. (4) Cellulitis of foot Current Visit: No Status: Acute Code(s): L03.119 - CELLULITIS OF UNSPECIFIED PART OF LIMB SNOMED Code(s): 107466059 Comment: - Wounds on bilat dorsal feet x5 days prior to admission - Open superficial wounds with surrounding erythema; very minimal improvement in erythema since admission - No obvious purulent drainage or site to obtain culture - Right ankle xray shows atherosclerosis of the infrapopliteal arteries, suggestive of arterial insufficiency - Wound care consult tomorrow - Continue vanco, aztreonam (5) Diabetes Current Visit: No Status: Acute Code(s): E11.9 - TYPE 2 DIABETES MELLITUS WITHOUT COMPLICATIONS SNOMED Code(s): 76578887 Comment: - A1c 7.5% in March Continue Lantus Lispro SS (6) Diabetic neuropathy Current Visit: No Status: Acute Code(s): E11.40 - TYPE 2 DIABETES MELLITUS WITH DIABETIC NEUROPATHY, UNSP SNOMED Code(s): 830915266 Comment: - Continue gabapentin (7) Full code status Current Visit: No Status: Acute Code(s): Z78.9 - OTHER SPECIFIED HEALTH STATUS SNOMED Code(s): 265641430 Comment: (8) HTN (hypertension) Current Visit: No Status: Acute Code(s): I10 - ESSENTIAL (PRIMARY) HYPERTENSION SNOMED Code(s): 51957843 Comment: - hold lisinopril given sepsis (9) History of TIA (transient ischemic attack) Current Visit: No Status: Acute Code(s): Z86.73 - PRSNL HX OF TIA (TIA), AND CEREB INFRC W/O RESID DEFICITS SNOMED Code(s): 465541553 Comment: - hold plavix for now pending ortho recs. (10) Sepsis Current Visit: Yes Status: Acute Comment: febrile and tachy this AM. bolus 1L NS. no lactic acidosis in ED. continue abx. f/u Bcx f/u CXR. add UA (11) Cough Current Visit: Yes Status: Acute Code(s): R05 - COUGH SNOMED Code(s): 51799997 Comment: lungs CTAB, await CXR given sepsis. (12) DVT prophylaxis Current Visit: No Status: Acute Code(s): Z29.9 - ENCOUNTER FOR PROPHYLACTIC MEASURES, UNSPECIFIED SNOMED Code(s): 630627147 Comment: - Heparin SQ Status and Disposition: medicine inpatient.
[2019-06-09] MEDS ORDERED: oxyCODONE/Acetamin 5/325 MG* TAB PO PRN (10:19)
[2019-06-09 10:31] LABS: C Reactive Protein 117.95 mg/L (<8.01)
[2019-06-09 11:06] LABS: Total Iron Binding Capacity 232 mcg/dL (250-450); Transferrin 166 mg/dL (203-362)
[2019-06-09 11:08] LABS: % Iron Saturation 9 % (15-55); Iron < 20 ug/dL (50-212)
--- NOTE | 2019-06-09 11:36 | CONS ---
CONSULTATION REPORT: DATE OF CONSULT: 06/09/19 HISTORY OF PRESENT ILLNESS: Ms. Fonseca is a 64-year-old woman who was seen on the short-stay surgical service. She was admitted last night with progressive gangrene and wet infection of the right foref oot. She is a 64-year-old lady with insulin-dependent diabetes, chronic kidney disease, and diabetic retin opathy. She has significant peripheral neuropathy and has been treated off and on for cellulitis of the 4th and 5th toes with some off and on care in the wound care clinic. However, the patient claims that for the last few days she has had a color change, but in the emergency room, she was noted to h ave a completely black necrotic toe, which obviously has been chronic and some wet gangrene and open areas of necrosis proximal to the 5th toe. She is admitted to the medical service with some IV antib iotics for the medical care, evaluation of her blood chemistries and the orthopedic consult. Ms. Fonseca is lying on her left side in bed. She has her foot wrapped and it is gently uncovered, whi ch has caused her significant pain. Her pain is certainly at least hyperesthetic, not typical for a neuropathic foot, at least more typical for subset of peripheral neuropathy. Most of the foot is kristi ewhat erythematous and warm except for the right 5th ray and the base of the 4th toe where she has a 3 x 4 cm open area through the dermis with a fibrinous, somewhat gelatinous, and foul- smelling base that is some draining a fair amount of fluid. The 5th toe itself is black and desiccated. She has a marking on the dorsum of the foot where she was felt previously to have palpable pulse. I am not ab le to feel a pulse, but she certainly has a warm foot down to the mid transmetatarsal level. Radiographs show complete destruction of the 5th toe, certainly chronic and some early lytic change o f the 5th metatarsal head. Ms. Fonseca appears to be fairly stable metabolically, although she certainly has an active acute on ch ronic osteomyelitis of the right forefoot. She is going to need surgical debridement at least at a t ransmetatarsal level. It will be helpful if an MRI were available and this would help us guide our t reatment, particularly in terms proximal spread in the foot soft tissues. We hope to be able to arra nge that and surgical debridement as soon as we are able to review her studies. [id number]/[facility] #: [id number]
[2019-06-09] MEDS: Ferrous Gluconate TAB* 324 MG TAB PO SCH ×2 (12:48→21:47)
[2019-06-09] MEDS: CMC:Dorzolamide 2% OPTH (NF) 10 ML BTL RIGHT EYE SCH ×2 (13:49→21:50)
[2019-06-09 13:59] LABS: Ferritin 161.3 ng/mL (11-307)
[2019-06-09 15:57] LABS: Urine Appearance Cloudy; Urine Bacteria Absent (Absent); Urine Bilirubin Negative (Negative); Urine Blood 1+ (Negative); Urine Color Yellow; Urine Glucose Negative (Negative); Urine Ketones Negative (Negative); Urine Nitrite Negative (Negative); Urine Protein 2+(100 mg/dL) (Negative); Urine Red Blood Cell Trace(0-2/hpf) (Absent); Urine Squamous Epithelial Cell Present (Absent); Urine Urobilinogen Negative (Negative); Urine White Blood Cell Trace(0-5/hpf) (Absent)
[2019-06-09] MEDS: Latanoprost 0.005%* 2.5 ml BTL RIGHT EYE SCH (17:01)
[2019-06-09] MEDS: oxyCODONE/Acetamin 5/325 MG* TAB PO PRN (17:10)
[2019-06-09] MEDS: Montelukast Sodium TAB* 10 MG PO SCH (21:47)
[2019-06-10] MEDS: Insulin LISPRO* 1 UNITS UNIT SUBCUT SCH ×5 (00:15→21:59)
[2019-06-10] MEDS: Aztreonam (*) 1 GM in NS 0.9% 50 ML* 50 ML IVPB SCH ×3 (00:16→16:36)
[2019-06-10] MEDS ORDERED: Vancomycin Trough Check NOTE FOLLOW UP ONE (06:00)
[2019-06-10] MEDS: Vancomycin(*) 500 MG in NS 0.9% 250 ML* 250 ML IVPB SCH ×2 (06:41→18:32)
[2019-06-10] MEDS: Heparin VIAL(*) 5000 UNITS/ML VIAL (FIVE THOUSAND) SUBCUT SCH ×3 (06:48→22:00)
[2019-06-10] MEDS: Ferrous Gluconate TAB* 324 MG TAB PO SCH ×2 (08:29→21:56)
[2019-06-10] MEDS: Timolol 0.5% OPTH.SOL* BTL BOTH EYES SCH ×2 (09:15→22:00)
[2019-06-10] MEDS: CMC:Brimonidine P 0.1%(NF) 1 DROP BTL RIGHT EYE SCH ×3 (09:16→22:00)
[2019-06-10] MEDS: CMC:Dorzolamide 2% OPTH (NF) 10 ML BTL RIGHT EYE SCH ×3 (09:17→22:00)
[2019-06-10] MEDS: Gabapentin CAP(*) 300 MG PO SCH ×2 (09:18→21:56)
[2019-06-10] MEDS ORDERED: Midazolam* 1 MG/ML 2 ML VIAL (2 MG) ONE ×2 (09:42→11:31)
[2019-06-10] MEDS ORDERED: Propofol* 10 MG/ML 20 ML BTL ONE (09:42)
[2019-06-10] MEDS ORDERED: Lidocaine 2% PF * 5 ML VIAL ONE ×4 (09:43→11:46)
[2019-06-10] MEDS ORDERED: Bupivacaine 0.5%* 50 ML MDV VIAL ONE (09:50)
[2019-06-10] MEDS: Collagenase 250 UNITS/GM OINT* 1 APPLIC OINT TOPICAL SCH (10:41)
[2019-06-10] MEDS: Pantoprazole TAB * 40 MG TAB PO SCH (10:42)
[2019-06-10] MEDS ORDERED: Lidocaine 2% (CARDIAC)* 20 MG/ML 5 ML SYRINGE (100 MG) ONE (11:37)
[2019-06-10] MEDS ORDERED: fentaNYL* 50 MCG/ML 2 ML VIAL (100 MCG VIAL) ONE (11:44)
[2019-06-10] MEDS ORDERED: fentaNYL* 50 MCG/ML 2 ML VIAL (100 MCG VIAL) IV PRN (12:07)
[2019-06-10] MEDS ORDERED: Acetaminophen TAB* 325 MG PO PRN (12:07)
[2019-06-10] MEDS ORDERED: Naloxone* 0.4 MG/ML 1 ML VIAL IV PRN (12:07)
[2019-06-10] MEDS: oxyCODONE/Acetamin 5/325 MG* TAB PO PRN (13:47)
--- NOTE | 2019-06-10 15:28 | OP ---
DATE OF OPERATION: 06/10/19 - ROOM #333 DATE OF : 57 SURGEON: Malick Watkins MD. UX RESEARCH ASSOCIATE: HORTENCIA Funez. PRE-OP DIAGNOSIS: Necrotic grade 5 ulceration with osteomyelitis, right forefoot. POST-OP DIAGNOSIS: Necrotic grade 5 ulceration with osteomyelitis, right forefoot. OPERATIVE PROCEDURE: Partial right forefoot amputation. DESCRIPTION OF PROCEDURE: The patient was taken to the operating room where a tennis racquet type incision was made from the base of the fifth metatarsal down and around the bases of the fourth and fifth phalanges. We incised directly down to the metatarsals #4 and #5 tracing them proximally. The base of the fourth metatarsal was transected, the fifth dissected out and then we removed the entire fourth and fifth rays with the dissection. The remaining bed was relatively clean. Cultures were sent. Local hemostasis obtained. We irrigated with 2 L of saline. We then placed a VAC dressing into the wound, sealing this with a Ioban dressing. Compression dressings applied in the outside after the machine appeared to be functioning properly. [id number]/[facility] #: [id number] MTDD
--- NOTE | 2019-06-10 15:39 | PN ---
Subjective Date of Service: 06/10/19 Interval History: No acute events overnight, afebrile s/p OR with Dr. Watkins today for right partial forefoot amputation. Uneventful but did get a right IJ as her pIV had blown. asleep in room now. Got percoset for pain. Objective Active Medications: Acetaminophen (Tylenol Tab*) 650 mg PO Q4H PRN PRN Reason: PAIN - MILD Last Admin: 06/09/19 09:33 Dose: 650 mg Acetaminophen (Tylenol Tab*) 650 mg PO QAM PRN PRN Reason: PAIN Brimonidine Tartrate (Alphagan P 0.1% (Nf)) 1 drop RIGHT EYE TID [facility] Last Admin: 06/10/19 14:54 Dose: 1 drop Collagenase (Santyl 250 Units/Gm Oint*) 1 applic TOPICAL DAILY [facility] Last Admin: 06/10/19 10:41 Dose: Not Given Dextrose (Dextrose 50% Vial 50 Ml*) 25 ml IV PUSH .FOR FS < 60 - SS PRN PRN Reason: FS < 60 Dorzolamide HCl (Trusopt 2% Opth (Nf)) 1 drop RIGHT EYE TID [facility]; Protocol Last Admin: 06/10/19 14:55 Dose: 1 drop Ferrous Gluconate (Fergon Tab*) 324 mg PO BID [facility] Last Admin: 06/10/19 08:29 Dose: Not Given Gabapentin (Neurontin Cap(*)) 300 mg PO BID [facility] Last Admin: 06/10/19 09:18 Dose: Not Given Heparin Sodium (Porcine) (Heparin Vial(*)) 5,000 units SUBCUT Q8HR [facility] Last Admin: 06/10/19 14:54 Dose: 5,000 units Sodium Chloride (Ns 0.9% 1000 Ml) 1,000 mls @ 75 mls/hr IV PER RATE [facility] Last Admin: 06/09/19 23:34 Dose: 75 mls/hr Aztreonam 1 gm/ Sodium (Chloride) 50 mls @ 200 mls/hr IVPB 0000,0800,1600 [facility] Last Admin: 06/10/19 08:28 Dose: Not Given Vancomycin HCl 500 mg/ Sodium (Chloride) 250 mls @ 166.667 mls/hr IVPB Q12H [facility] Last Admin: 06/10/19 06:41 Dose: 166.667 mls/hr Insulin Glargine (Lantus(*)) 10 units SUBCUT BEDTIME [facility] Last Admin: 06/09/19 21:52 Dose: 10 units Insulin Human Lispro (Humalog*) 0 units SUBCUT Q6HR [facility]; Protocol Last Admin: 06/10/19 11:57 Dose: Not Given Latanoprost (Xalatan 0.005%*) 1 drop RIGHT EYE 1700 [facility] Last Admin: 06/09/19 17:01 Dose: 1 drop Montelukast Sodium (Singulair Tab*) 10 mg PO BEDTIME [facility] Last Admin: 06/09/19 21:47 Dose: 10 mg Morphine Sulfate (Morphine Inj (Syringe))*) 2 mg IV Q4H PRN PRN Reason: PAIN - SEVERE Oxycodone/Acetaminophen (Percocet 5/325 Tab*) 1 tab PO Q6H PRN PRN Reason: PAIN - MODERATE Last Admin: 06/10/19 13:47 Dose: 1 tab Pantoprazole Sodium (Protonix Tab*) 40 mg PO DAILY [facility] Last Admin: 06/10/19 10:42 Dose: Not Given Pharmacy Consult (Vancomycin Per Pharmacy*) 1 note FOLLOW UP .VANC PER PHARMACY [facility]; Protocol Pharmacy Profile Note (Vancomycin Trough Check) 1 note FOLLOW UP 0600 ONE Stop: 06/13/19 06:01 Timolol Maleate (Timoptic 0.5% Opth*) 1 drop BOTH EYES BID [facility] Last Admin: 06/10/19 09:15 Dose: 1 drop Vital Signs - 8 hr 06/10/19 06/10/19 06/10/19 07:53 08:00 12:28 Temperature 98.3 F 98.1 F Pulse Rate 79 69 Respiratory 18 18 16 Rate Blood Pressure 116/78 103/67 (mmHg) O2 Sat by Pulse 97 98 Oximetry 06/10/19 06/10/19 06/10/19 12:29 12:30 12:31 Temperature Pulse Rate 73 73 73 Respiratory Rate Blood Pressure 112/67 103/67 (mmHg) O2 Sat by Pulse 99 100 99 Oximetry 06/10/19 06/10/19 06/10/19 12:35 12:40 12:45 Temperature Pulse Rate 75 74 Respiratory Rate Blood Pressure 124/67 111/68 121/84 (mmHg) O2 Sat by Pulse 100 93 Oximetry 06/10/19 06/10/1919 13:00 13:01 13:25 Temperature 97.5 F Pulse Rate 74 77 76 Respiratory 14 Rate Blood Pressure 136/82 137/66 (mmHg) O2 Sat by Pulse 98 96 98 Oximetry 06/10/19 06/10/19 13:47 14:40 Temperature Pulse Rate 71 Respiratory 16 14 Rate Blood Pressure 135/61 (mmHg) O2 Sat by Pulse 100 Oximetry Oxygen Devices in Use Now: None Appearance: sound asleep in left lateral decubitus Respiratory: Symmetrical Chest Expansion and Respiratory Effort, Clear to Auscultation Extremities: - - wound vac with bloody drainage. right foot wrapped in CRISPIN bandage. Nutrition: Taking PO's Result Diagrams: 06/09/19 05:56 06/09/19 05:56 Additional Lab and Data: Laboratory Results - last 24 hr 06/09/19 06/09/19 06/10/19 15:40 17:03 00:00 POC Glucose (mg/dL) 128 H 158 H Urine Color Yellow Urine Appearance Cloudy Urine pH 5.0 Ur Specific [place] 1.010 Urine Protein 2+(100 mg/dl) A Urine Ketones Negative Urine Blood 1+ A Urine Nitrate Negative Urine Bilirubin Negative Urine Urobilinogen Negative Ur Leukocyte Esterase Negative Urine WBC (Auto) Trace(0-5/hpf) Urine RBC (Auto) Trace(0-2/hpf) Ur Squamous Epith Cells Present A Urine Bacteria Absent Urine Glucose Negative Vancomycin Trough 06/10/19 06/10/19 05:58 06:33 POC Glucose (mg/dL) 130 H Urine Color Urine Appearance Urine pH Ur Specific [place] Urine Protein Urine Ketones Urine Blood Urine Nitrate Urine Bilirubin Urine Urobilinogen Ur Leukocyte Esterase Urine WBC (Auto) Urine RBC (Auto) Ur Squamous Epith Cells Urine Bacteria Urine Glucose Vancomycin Trough 15.8 Microbiology and Other Data: Microbiology 06/08/19 19:39 Blood Venous Blood Culture - Preliminary No Growth Day 1 06/08/19 19:27 Blood Venous Blood Culture - Preliminary No Growth Day 1 Assess/Plan/Problems-Billing Assessment: 64 yo female PMH IDDM (A1c 7.5), HTN, CKD IV, TIAs, HLD, right foot wounds following with wound clinic p/w necrotic right 5th toe with osteomyelitis. Sepsis (fever, tachycardia). PCN allergy, on vanc, aztreonam. - Patient Problems (1) Necrosis of toe Current Visit: Yes Status: Acute Code(s): I96 - GANGRENE, NOT ELSEWHERE CLASSIFIED SNOMED Code(s): 060667579 Comment: s/p right partial forefoot amputation with Dr. Watkins 06/10. f/u YSABEL to evaluate for PVD Continue vancomycin and aztreonam f/u cultures. pain control, IV morphine for severe, po percoset q6 for moderate. non weight bearing on right foot. PT ordered. (2) Chronic kidney disease, stage IV (severe) Current Visit: Yes Status: Acute Code(s): N18.4 - CHRONIC KIDNEY DISEASE, STAGE 4 (SEVERE) SNOMED Code(s): 771511187 Comment: [employer] 1.8 from 1.9 , recent low of 1.6 holding ACEI given now sepsis. had acute renal failure in April after bactrim with [employer] up to 4.5, K8.1 f/u BMP daily (3) Anemia Current Visit: No Status: Acute Code(s): D64.9 - ANEMIA, UNSPECIFIED SNOMED Code(s): 375924938 Comment: Hgb 8.8, microcytic. iron was 27 and Sat 10% with wnl ferrtitin in March. Iron was <20, Iron Sat 9%, Ferritin 161. was started on ferrous gluconate 325mg po BID. also has CKD Stage IV with recent Acute renal failure from bactrim in April. (4) Diabetes Current Visit: No Status: Acute Code(s): E11.9 - TYPE 2 DIABETES MELLITUS WITHOUT COMPLICATIONS SNOMED Code(s): 18525837 Comment: - A1c 7.5% in March Continue Lantus, Lispro SS (5) Diabetic neuropathy Current Visit: No Status: Acute Code(s): E11.40 - TYPE 2 DIABETES MELLITUS WITH DIABETIC NEUROPATHY, UNSP SNOMED Code(s): 285225949 Comment: - Continue gabapentin (6) Full code status Current Visit: No Status: Acute Code(s): Z78.9 - OTHER SPECIFIED HEALTH STATUS SNOMED Code(s): 498362968 Comment: (7) HTN (hypertension) Current Visit: No Status: Acute Code(s): I10 - ESSENTIAL (PRIMARY) HYPERTENSION SNOMED Code(s): 16564057 Comment: - hold lisinopril given sepsis, consider restart tomorrow. well controlled. (8) History of TIA (transient ischemic attack) Current Visit: No Status: Acute Code(s): Z86.73 - PRSNL HX OF TIA (TIA), AND CEREB INFRC W/O RESID DEFICITS SNOMED Code(s): 792996203 Comment: - hold plavix for now until cleared by ortho. has aspirin allergy (9) Sepsis Current Visit: Yes Status: Acute Comment: resolving (had been febrile and tachy this 10/5 AM). no lactic acidosis in ED. continue abx. f/u Bcx, NGTDx 1 day f/u wound Cx. UA no e/o infection. (10) Cough Current Visit: Yes Status: Acute Code(s): R05 - COUGH SNOMED Code(s): 61130936 Comment: CXR no acute process 06/09 but some increased pulm interstial edema 06/10. (11) DVT prophylaxis Current Visit: No Status: Acute Code(s): Z29.9 - ENCOUNTER FOR PROPHYLACTIC MEASURES, UNSPECIFIED SNOMED Code(s): 252133237 Comment: - Heparin SQ Status and Disposition: medicine inpatient.
[2019-06-10] MEDS: Latanoprost 0.005%* 2.5 ml BTL RIGHT EYE SCH (16:36)
[2019-06-10] MEDS: NS 0.9% 1000 ML** 1,000 ML IV SCH (21:54)
[2019-06-10] MEDS: Montelukast Sodium TAB* 10 MG PO SCH (21:56)
[2019-06-10] MEDS: Insulin GLARGINE(*) 1 UNITS UNIT SUBCUT SCH (21:59)
[2019-06-11] MEDS: Aztreonam (*) 1 GM in NS 0.9% 50 ML* 50 ML IVPB SCH ×3 (00:50→16:08)
[2019-06-11] MEDS: Vancomycin(*) 500 MG in NS 0.9% 250 ML* 250 ML IVPB SCH ×2 (05:39→18:07)
[2019-06-11] MEDS: Heparin VIAL(*) 5000 UNITS/ML VIAL (FIVE THOUSAND) SUBCUT SCH ×3 (05:39→21:49)
[2019-06-11 05:52] LABS: ABS Basophils 0.1 10^3/ul (0-0.2); ABS Eosinophils 0.1 10^3/ul (0-0.6); ABS Monocytes 0.7 10^3/ul (0-0.8); ABS Neutrophils 5.2 10^3/ul (1.5-7.7); Hematocrit 23 % (35-47); Hemoglobin 7.4 g/dL (12.0-16.0); Lymphocyte % 24.8 %; Mean Corpuscular HGB Conc 33 g/dL (31-36); Mean Corpuscular Hemoglobin 25 pg (27-31); Mean Corpuscular Volume 76 fL (80-97); Mean Platelet Volume 7.2 fL (7.4-10.4); Platelet Count 293 10^3/uL (150-450); Red Cell Distribution Width 15 % (10-15); White Blood Count 8.1 10^3/uL (3.5-10.8)
[2019-06-11 06:45] LABS: BUN/Creatinine Ratio 18.3 (8-20); Calcium 8.3 mg/dL (8.6-10.3); EGFR African American 45.2 (>60); EGFR Non-African American 37.4 (>60); Magnesium 1.4 mg/dL (1.9-2.7); Potassium 4.5 mmol/L (3.5-5.0)
[2019-06-11] MEDS: Collagenase 250 UNITS/GM OINT* 1 APPLIC OINT TOPICAL SCH (07:18)
[2019-06-11] MEDS: oxyCODONE/Acetamin 5/325 MG* TAB PO PRN ×2 (07:34→21:24)
[2019-06-11] MEDS ORDERED: Magnesium Sulfate IV* 3 GM in NS 0.9% 100 ML* 100 ML IVPB ONE (08:23)
[2019-06-11] MEDS: Pantoprazole TAB * 40 MG TAB PO SCH (08:50)
[2019-06-11] MEDS: Ferrous Gluconate TAB* 324 MG TAB PO SCH ×2 (08:50→21:07)
[2019-06-11] MEDS: Gabapentin CAP(*) 300 MG PO SCH ×2 (08:51→21:08)
[2019-06-11] MEDS: CMC:Brimonidine P 0.1%(NF) 1 DROP BTL RIGHT EYE SCH ×3 (08:54→21:25)
[2019-06-11] MEDS: Timolol 0.5% OPTH.SOL* BTL BOTH EYES SCH ×2 (08:54→21:49)
[2019-06-11] MEDS: CMC:Dorzolamide 2% OPTH (NF) 10 ML BTL RIGHT EYE SCH ×3 (08:55→21:17)
[2019-06-11] MEDS ORDERED: Lorazepam PYXIS KEY ONE (08:55)
[2019-06-11] MEDS: Insulin LISPRO* 1 UNITS UNIT SUBCUT SCH ×4 (08:59→21:09)
--- NOTE | 2019-06-11 10:38 | PN ---
Progress Note - Progress Note Date of Service: 06/11/19 SOAP: Subjective: []Pt seen at bedside. She denies feeling of fever, chills, CP, SOB, dizziness or nausea. RLE Pain is well controlled. Objective: []Gen: Appears well, NAD RLE: Vac functioning well, dressing CDI, no erythema proximally or distally. Able to wiggle remaining toes, cap refill less than two seconds distally. Calves supple and nontender Assessment: [] Necrotic grade 5 ulceration with osteomyelitis, right forefoot. S/P Partial right forefoot amputation. Plan: []On vanco and aztreonam, ID consulted for ABX mgmt heparin for DVT prophy in house needs vac change q 3 days - OR vs bedside to be discussed with Dr Watkins Vital Signs Temp 99.3 F 06/11/19 07:53 Pulse 81 06/11/19 07:53 Resp 16 06/11/19 09:30 BP 126/57 06/11/19 07:53 Pulse Ox 96 06/11/19 07:53 Intake & Output 06/10/19 06/11/19 06/11/19 18:59 06:59 18:59 Intake Total 1578 305 120 Output Total 500 450 150 Balance 1078 -145 -30 Intake: IV Fluids 1369 255 LR 300 NS (0.9%) 1069 255 IVPB 209 50 ABX - AZTREONAM 50 ABX - VANCOMYCIN 209 Oral 0 0 120 Output: Urine 500 450 150 Other: Estimated Void Medium Laboratory Last Values WBC 8.1 10^3/uL (3.5-10.8) 06/11/19 05:39 RBC 3.00 10^6 /uL (3.70-4.87) L 06/11/19 05:39 Hgb 7.4 g/dL (12.0-16.0) L 06/11/19 05:39 Hct 23 % (35-47) L 06/11/19 05:39 MCV 76 fL (80-97) L 06/11/19 05:39 MCH 25 pg (27-31) L 06/11/19 05:39 MCHC 33 g/dL (31-36) 06/11/19 05:39 RDW 15 % (10-15) 06/11/19 05:39 Plt Count 293 10^3/uL (150-450) 06/11/19 05:39 MPV 7.2 fL (7.4-10.4) L 06/11/19 05:39 Neut % (Auto) 64.4 % 06/11/19 05:39 Lymph % (Auto) 24.8 % 06/11/19 05:39 [place] % (Auto) 8.7 % 06/11/19 05:39 Eos % (Auto) 1.0 % 06/11/19 05:39 Baso % (Auto) 1.1 % 06/11/19 05:39 Absolute Neuts (auto) 5.2 10^3/ul (1.5-7.7) 06/11/19 05:39 Absolute Lymphs (auto) 2.0 10^3/ul (1.0-4.8) 06/11/19 05:39 Absolute Monos (auto) 0.7 10^3/ul (0-0.8) 06/11/19 05:39 Absolute Eos (auto) 0.1 10^3/ul (0-0.6) 06/11/19 05:39 Absolute Basos (auto) 0.1 10^3/ul (0-0.2) 06/11/19 05:39 Absolute Nucleated RBC 0.0 10^3/ul 06/11/19 05:39 Nucleated RBC % 0.0 06/11/19 05:39 INR (Anticoag Therapy) 1.11 (0.82-1.09) H 06/08/19 19:27 APTT 35.2 seconds (26.0-38.0) 06/08/19 19:27 Sodium 139 mmol/L (135-145) 06/11/19 05:39 Potassium 4.5 mmol/L (3.5-5.0) 06/11/19 05:39 Chloride 111 mmol/L (101-111) 06/11/19 05:39 Carbon Dioxide 22 mmol/L (22-32) 06/11/19 05:39 Anion Gap 6 mmol/L (2-11) 06/11/19 05:39 BUN 26 mg/dL (6-24) H 06/11/19 05:39 Creatinine 1.42 mg/dL (0.51-0.95) H 06/11/19 05:39 Est GFR ( Amer) 45.2 (>60) 06/11/19 05:39 Est GFR (Non-Af Amer) 37.4 (>60) 06/11/19 05:39 BUN/Creatinine Ratio 18.3 (8-20) 06/11/19 05:39 Glucose 145 mg/dL (70-100) H 06/11/19 05:39 POC Glucose (mg/dL) 149 mg/dL (70-100) H 06/11/19 07:35 Lactic Acid 1.5 mmol/L (0.5-2.0) 06/08/19 19:28 Calcium 8.3 mg/dL (8.6-10.3) L 06/11/19 05:39 Magnesium 1.4 mg/dL (1.9-2.7) L 06/11/19 05:39 Iron < 20 ug/dL (50-212) L 06/09/19 05:56 TIBC 232 mcg/dL (250-450) L 06/09/19 05:56 % Saturation 9 % (15-55) L 06/09/19 05:56 Unsat Iron Binding < 217 ug/dL 06/09/19 05:56 Transferrin 166 mg/dL (203-362) L 06/09/19 05:56 Ferritin 161.3 ng/mL (11-307) 06/09/19 05:56 Total Bilirubin 0.40 mg/dL (0.2-1.0) 06/08/19 19:27 AST 15 U/L (13-39) 06/08/19 19:27 ALT 10 U/L (7-52) 06/08/19 19:27 Alkaline Phosphatase 104 U/L (34-104) 06/08/19 19:27 Troponin I 0.00 ng/mL (<0.04) 06/08/19 19:27 C-Reactive Protein 117.95 mg/L (<8.01) H 06/09/19 05:56 Total Protein 7.3 g/dL (6.4-8.9) 06/08/19 19:27 Albumin 3.3 g/dL (3.2-5.2) 06/08/19 19:27 Globulin 4.0 g/dL (2-4) 06/08/19 19:27 Albumin/Globulin Ratio 0.8 (1-3) L 06/08/19 19:27 Urine Color Yellow 06/09/19 15:40 Urine Appearance Cloudy 06/09/19 15:40 Urine pH 5.0 (5-9) 06/09/19 15:40 Ur Specific [place] 1.010 (1.010-1.030) 06/09/19 15:40 Urine Protein 2+(100 mg/dl) (Negative) A 06/09/19 15:40 Urine Ketones Negative (Negative) 06/09/19 15:40 Urine Blood 1+ (Negative) A 06/09/19 15:40 Urine Nitrate Negative (Negative) 06/09/19 15:40 Urine Bilirubin Negative (Negative) 06/09/19 15:40 Urine Urobilinogen Negative (Negative) 06/09/19 15:40 Ur Leukocyte Esterase Negative (Negative) 06/09/19 15:40 Urine WBC (Auto) Trace(0-5/hpf) (Absent) 06/09/19 15:40 Urine RBC (Auto) Trace(0-2/hpf) (Absent) 06/09/19 15:40 Ur Squamous Epith Cells Present (Absent) A 06/09/19 15:40 Urine Bacteria Absent (Absent) 06/09/19 15:40 Urine Glucose Negative (Negative) 06/09/19 15:40 Vancomycin Trough 15.8 mcg/mL 06/10/19 05:58 Microbiology 06/08/19 19:39 Blood Venous Blood Culture - Preliminary No Growth Day 2 06/08/19 19:27 Blood Venous Blood Culture - Preliminary No Growth Day 2 06/10/19 11:50 Foot Right Gram Stain - Final Gram + cocci and gram + bacilli
--- NOTE | 2019-06-11 14:00 | CONS ---
CONSULTATION REPORT: DATE OF ADMISSION: 06/09/19 DATE OF CONSULT: 06/11/19 PRIMARY CARE PROVIDER: Dr. Jorge Duncan. PROVIDER REQUESTING CONSULTATION: BECK Figueroa CONSULTING SERVICE: Infectious Disease. PROVIDER: Rodolfo Porter NP ATTENDING PROVIDER: Dr. Carlos Hand.* (DICTATED BY RODOLFO PORTER NP) REASON FOR CONSULTATION: Right foot osteomyelitis. IMPRESSION: 1. Right fifth metatarsal chronic osteomyelitis. The patient has decreased ABIs as mentioned below. Right foot x-ray on admission with signs of osteomyelitis in the fifth toe extending into the head of the metatarsal MRI with findings consistent with cellulitis, osteomyelitis involving the fifth ray with distal metaphysis of the metatarsal extending distal with soft tissue edema. No loculated soft tissue plain abscess collection visualized. CRP on admission 117.95 with no leukocytosis and afebrile with the exception of low- grade fever of 100.9 on 06/09/19 in the morning. She underwent a partial right forefoot amputation with Dr. Watkins, postop day 1. Blood cultures with no growth. Wound culture from the OR with 2+ epithelial cells, 1+ nucleated cells. No neutrophils observed. 1+ gram-positive bacilli, 1+ gram- positive cocci. She has been on aztreonam and vancomycin while in the hospital. 2. Diabetes mellitus type 2 with associated chronic kidney disease stage 3, diabetic retinopathy and peripheral neuropathy. 3. Obstructive sleep apnea. 4. Obesity. BMI 31.9. 5. PENICILLIN, LEVAQUIN, and SULFA allergies. PLAN/RECOMMENDATIONS: Recommend continuing aztreonam and vancomycin while we await culture results. She will likely need 6 weeks of IV antibiotics to treat the underlying osteomyelitis. Further recommendations will be based on the patient's clinical course and culture results. HISTORY OF PRESENT ILLNESS: Ms. Fonseca is a 64-year-old female with past medical history significant for diabetes mellitus type 2, chronic kidney disease stage 3, hyperlipidemia, diabetic retinopathy, peripheral neuropathy, glaucoma, obstructive sleep apnea, and arthritis, who initially presented to [facility] in March for bilateral lower extremity cellulitis in the setting of diabetic foot ulcers on the dorsal aspect of her feet. While in the hospital, she had bilateral lower extremity arterial Duplexes showing findings exhibiting widely patent arteries from the bilateral femoral artery to the bilateral dorsal pedalis and planter arteries up to the mid foot. She was discharged from the hospital on a course of antibiotics. She started seeing Dr. Dejesus at the [facility] in mid March. She continued to follow him, having debridement as needed. Her tissue culture is growing MSSA and Serratia and was placed on some Bactrim. The left foot continued to do well and improved and healed in by mid May. She continued to have wounds on the right foot with eschar that was debrided as needed. She had a traumatic injury around 06/06/19 to her right fifth toe that was bruised and purple. She had x-ray showing a fracture. She had debridement and was continued on Santyl. Prophylactically, she was given antibiotics. The area continued to get progressively worse with dark discoloration and turned completely back. She presented to the ER for reevaluation. She was having significant difficulty ambulating at home due to severe pain. While in the emergency room, she had labs showing normal white blood cell count , stable anemia, elevated creatinine but the patient has chronic kidney disease at baseline. She had an x-ray of her right foot showing evidence of osteomyelitis of the fifth toe and a pathologic fracture at the proximal phalanx. She was referred to the hospitalist service for admission. While in the hospital, she had ABIs with the right digit 0.21 and the left digit 0.73. She had an MRI showing cellulitis and osteomyelitis of the fifth ray from the distal metaphysis of the metatarsal extending distal. She was seen in consultation by Dr. Watkins with Orthopedic Surgery, who felt that the patient needed to undergo partial right foot amputation. On 06/10/19, she underwent a right partial forefoot amputation with Dr. Watkins. She has been receiving aztreonam and vancomycin while in the hospital. She denies any fevers , chills, nausea, vomiting, diarrhea, constipation, urinary symptoms, rash, recent travel. She does have pain with palpation of the right foot. PAST MEDICAL HISTORY: 1. Diabetes mellitus type 2. 2. Chronic kidney disease stage 3. 3. Hyperlipidemia. 4. Diabetic neuropathy. 5. Peripheral neuropathy. 6. Glaucoma. 7. Obstructive sleep apnea. 8. Arthritis. PAST SURGICAL HISTORY: 1. Status post retinal laser surgery x2 to bilateral eyes. 2. Status post right rotator cuff repair. 3. Status post tonsillectomy and adenoidectomy. 4. Status post bilateral carpal tunnel release. 5. Status post section. 6. Status post tubal ligation. 7. Status post bilateral cataract extraction. MEDICATIONS: Home Medications: 1. Nystatin 100,000 units by mouth 4 times daily. 2. Santyl apply topically daily. 3. Alphagan P 0.1% apply 1 drop to the right eye 3 times daily. 4. Protonix 40 mg by mouth daily. 5. Victoza 1.8 mg subcutaneous daily. 6. Glargine insulin 10 units subcutaneous at bedtime. 7. Chlorthalidone 25 mg by mouth daily. 8. Timolol 0.5% 1 drop to both eyes twice daily. 9. Trusopt 2% 1 drop to the right eye 3 times daily. 10. Singulair 10 mg by mouth daily at bedtime. 11. Latanoprost 0.005% 1 drop to the right eye. 12. Humalog insulin 25 units subcutaneous every evening. 13. Lisinopril 40 mg by mouth every morning. 14. Humalog insulin 17 g subcutaneous every morning. 15. Neurontin 300 mg by mouth oral twice daily. 16. Plavix 75 mg by mouth every morning. 17. Acetaminophen 650 mg by mouth every morning as needed for pain. 18. Keflex 500 mg by mouth 4 times daily. ALLERGIES: ASPIRIN, PENICILLIN caused hives, difficulty breathing. TOMATO. LEVAQUIN caused itching. SULFA caused renal failure. FAMILY HISTORY: Denies family history of recurrent or resistant infections. Father passed at age 48 from an VT with a history of emphysema, CHF. Mother passed at age 35 from ovarian cancer with a history of stroke. Denies family history of diabetes. SOCIAL HISTORY: She occasionally drinks alcohol. Denies recreational drug use. She is a former smoking, quitting at age 22. REVIEW OF SYSTEMS: I performed a 10-point review of systems. All the pertinent positives and negatives are mentioned in the history of present illness. Remaining review of systems is negative. She denies any recent travel. PHYSICAL EXAM: Vital Signs: Temperature 99.3, heart rate 81, respiratory rate 16, O2 sat 96% on room air, blood pressure 126/57. General Appearance: She is drowsy but responds to voice, in no acute distress, lying in bed. Head: Normocephalic and atraumatic. ENT: Extraocular movements are intact. No subconjunctival hemorrhage. Moist mucous membranes. Neck: Supple. Neurological: Drowsy, oriented x4. Cranial nerves II through XII are grossly intact. Cardiovascular: Regular rate and rhythm. S1, S2 present. No murmurs, rubs, or gallops heard. Respiratory: Lung sounds clear to auscultation bilateral. No no accessory muscle use. Abdomen: Bowel sounds present. Abdomen: Large, soft, nontender, nondistended. Extremities: No lower extremity edema. DP pulse on the right is 2+, unable to palpate the right pulse as it is covered in a dressing. Musculoskeletal: No clubbing or cyanosis noted. Exhibits good strength in all extremities. Psychological: Calm and cooperative. Skin: No rashes or abnormalities seen to the exposed skin. She has a dressing with a wound VAC to the right foot. She has a healed ulcer to the left dorsal foot. DIAGNOSTIC STUDIES/LAB DATA: Sodium 139, potassium 4.5, chloride 111, CO2 22, BUN 26, creatinine 1.42, glucose 145. White blood cell count 8.1, hemoglobin 7.4, hematocrit 23, platelet count 293. CRP from admission 117.95. Please see impression and recommendations outlined above, recommendations have been discussed with BECK Figueroa. Thank you for asking us to see Ms. Fonseca in consultation. The case has been reviewed with my attending, Dr. Carlos Hand, who agrees with the plan of care. Reviewed by MARJORIE PRATT 06/13/19 0934 [id number]/[facility] #: [id number] MANDI
--- NOTE | 2019-06-11 17:42 | PN ---
Subjective Date of Service: 06/11/19 Interval History: no acute events. afebrile. eating okay, pain controlled. Staph Aureous from OR culture. NEWSPAPER DELIVERY COUNSELOR improved to 1.4. Hgb to 7.4 from 8.8. Mag 1.3 Got to chair Objective Active Medications: Acetaminophen (Tylenol Tab*) 650 mg PO Q4H PRN PRN Reason: PAIN - MILD Last Admin: 06/09/19 09:33 Dose: 650 mg Acetaminophen (Tylenol Tab*) 650 mg PO QAM PRN PRN Reason: PAIN Brimonidine Tartrate (Alphagan P 0.1% (Nf)) 1 drop RIGHT EYE TID [facility] [place] Last Admin: 06/11/19 14:51 Dose: 1 drop Collagenase (Santyl 250 Units/Gm Oint*) 1 applic TOPICAL DAILY [facility] [place] Last Admin: 06/11/19 07:18 Dose: Not Given Dextrose (Dextrose 50% Vial 50 Ml*) 25 ml IV PUSH .FOR FS < 60 - SS PRN PRN Reason: FS < 60 Dorzolamide HCl (Trusopt 2% Opth (Nf)) 1 drop RIGHT EYE TID [facility] [place]; Protocol Last Admin: 06/11/19 14:52 Dose: 1 drop Ferrous Gluconate (Fergon Tab*) 324 mg PO BID [facility] Last Admin: 06/11/19 08:50 Dose: 324 mg Gabapentin (Neurontin Cap(*)) 300 mg PO BID [facility] [place] Last Admin: 06/11/19 08:51 Dose: 300 mg Heparin Sodium (Porcine) (Heparin Vial(*)) 5,000 units SUBCUT Q8HR [facility] [place] Last Admin: 06/11/19 14:52 Dose: 5,000 units Heparin Sodium (Porcine) (Heparin Flush Picc/Ml/Cvc(*)) 1 ml FLUSH 0600,1800 [facility] [place]; Protocol Sodium Chloride (Ns 0.9% 1000 Ml) 1,000 mls @ 75 mls/hr IV PER RATE [facility] Last Admin: 06/10/19 21:54 Dose: 75 mls/hr Aztreonam 1 gm/ Sodium (Chloride) 50 mls @ 200 mls/hr IVPB 0000,0800,1600 [facility] [place] Last Admin: 06/11/19 16:08 Dose: 200 mls/hr Vancomycin HCl 500 mg/ Sodium (Chloride) 250 mls @ 166.667 mls/hr IVPB Q12H [facility] Last Admin: 06/11/19 05:39 Dose: 166.667 mls/hr Insulin Glargine (Lantus(*)) 10 units SUBCUT BEDTIME [facility] Last Admin: 06/10/19 21:59 Dose: 10 units Insulin Human Lispro (Humalog*) 0 units SUBCUT ACHS [facility]; Protocol Last Admin: 06/11/19 14:51 Dose: 3 units Latanoprost (Xalatan 0.005%*) 1 drop RIGHT EYE 1700 [facility] [place] Last Admin: 06/10/19 16:36 Dose: 1 drop Montelukast Sodium (Singulair Tab*) 10 mg PO BEDTIME [facility] Last Admin: 06/10/19 21:56 Dose: 10 mg Morphine Sulfate (Morphine Inj (Syringe))*) 2 mg IV Q4H PRN PRN Reason: PAIN - SEVERE Oxycodone/Acetaminophen (Percocet 5/325 Tab*) 1 tab PO Q6H PRN PRN Reason: PAIN - MODERATE Last Admin: 06/11/19 07:34 Dose: 1 tab Pantoprazole Sodium (Protonix Tab*) 40 mg PO DAILY [facility] Last Admin: 06/11/19 08:50 Dose: 40 mg Pharmacy Consult (Vancomycin Per Pharmacy*) 1 note FOLLOW UP .VANC PER PHARMACY [facility] [place]; Protocol Pharmacy Profile Note (Vancomycin Trough Check) 1 note FOLLOW UP 0600 ONE Stop: 06/13/19 06:01 Timolol Maleate (Timoptic 0.5% Opth*) 1 drop BOTH EYES BID [facility] Last Admin: 06/11/19 08:54 Dose: 1 drop Vital Signs - 8 hr 06/11/19 06/11/19 06/11/19 11:00 11:42 15:22 Temperature 98.6 F Pulse Rate 61 71 Respiratory 16 16 18 Rate Blood Pressure 97/50 115/50 (mmHg) O2 Sat by Pulse 96 100 Oximetry Oxygen Devices in Use Now: None Appearance: NAD, initially asleep Eyes: No Scleral Icterus Ears/Nose/Mouth/Throat: NL Teeth, Lips, Gums Respiratory: Symmetrical Chest Expansion and Respiratory Effort, Clear to Auscultation Cardiovascular: NL Sounds; No Murmurs; No JVD, RRR Abdominal: NL Sounds; No Tenderness; No Distention Extremities: No Edema Skin: - - wound vac on right lateral fore foot amputation. Neurological: Alert and Oriented x 3 Nutrition: Taking PO's Result Diagrams: 06/11/19 05:39 06/11/19 05:39 Additional Lab and Data: Laboratory Results - last 24 hr 06/10/19 06/11/19 06/11/19 21:24 05:39 05:39 WBC 8.1 RBC 3.00 L Hgb 7.4 L Hct 23 L MCV 76 L MCH 25 L MCHC 33 RDW 15 Plt Count 293 MPV 7.2 L Neut % (Auto) 64.4 Lymph % (Auto) 24.8 [place] % (Auto) 8.7 Eos % (Auto) 1.0 Baso % (Auto) 1.1 Absolute Neuts (auto) 5.2 Absolute Lymphs (auto) 2.0 Absolute Monos (auto) 0.7 Absolute Eos (auto) 0.1 Absolute Basos (auto) 0.1 Absolute Nucleated RBC 0.0 Nucleated RBC % 0.0 Sodium 139 Potassium 4.5 Chloride 111 Carbon Dioxide 22 Anion Gap 6 BUN 26 H Creatinine 1.42 H Est GFR ( Amer) 45.2 Est GFR (Non-Af Amer) 37.4 BUN/Creatinine Ratio 18.3 Glucose 145 H POC Glucose (mg/dL) 133 H Calcium 8.3 L Magnesium 1.4 L 06/11/19 06/11/19 06/11/19 07:35 12:39 17:50 WBC RBC Hgb Hct MCV MCH MCHC RDW Plt Count MPV Neut % (Auto) Lymph % (Auto) [place] % (Auto) Eos % (Auto) Baso % (Auto) Absolute Neuts (auto) Absolute Lymphs (auto) Absolute Monos (auto) Absolute Eos (auto) Absolute Basos (auto) Absolute Nucleated RBC Nucleated RBC % Sodium Potassium Chloride Carbon Dioxide Anion Gap BUN Creatinine Est GFR ( Amer) Est GFR (Non-Af Amer) BUN/Creatinine Ratio Glucose POC Glucose (mg/dL) 149 H 200 H 169 H Calcium Magnesium 06/11/19 20:52 WBC RBC Hgb Hct MCV MCH MCHC RDW Plt Count MPV Neut % (Auto) Lymph % (Auto) [place] % (Auto) Eos % (Auto) Baso % (Auto) Absolute Neuts (auto) Absolute Lymphs (auto) Absolute Monos (auto) Absolute Eos (auto) Absolute Basos (auto) Absolute Nucleated RBC Nucleated RBC % Sodium Potassium Chloride Carbon Dioxide Anion Gap BUN Creatinine Est GFR ( Amer) Est GFR (Non-Af Amer) BUN/Creatinine Ratio Glucose POC Glucose (mg/dL) 163 H Calcium Magnesium Microbiology and Other Data: Microbiology 06/08/19 19:39 Blood Venous Blood Culture - Preliminary No Growth Day 3 06/08/19 19:27 Blood Venous Blood Culture - Preliminary No Growth Day 3 06/09/19 15:40 Urine Urine Culture - Final Kristine Krusei 06/10/19 11:50 Foot Right Gram Stain - Final 06/10/19 11:50 Foot Right Wound Culture - Preliminary Staphylococcus Aureus 06/10/19 11:50 Wound Anaerobic Culture - Preliminary Assess/Plan/Problems-Billing Assessment: 64 yo female PMH IDDM (A1c 7.5), HTN, CKD IV, TIAs, HLD, right foot wounds following with wound clinic p/w necrotic right 5th toe with osteomyelitis and wet gangrene. Sepsis (fever, tachycardia). PCN allergy, on vanc, aztreonam. POD# 1 partial forefoot amputation. - Patient Problems (1) Necrosis of toe Current Visit: Yes Status: Acute Code(s): I96 - GANGRENE, NOT ELSEWHERE CLASSIFIED SNOMED Code(s): 351567630 Comment: s/p right partial forefoot amputation with Dr. Watkins 06/10. YSABEL showed right digit 0.21 and left 0.73 Continue vancomycin and aztreonam appreaciate ID recs. f/u cultures. Prelim with Staph Aureous from OR Cx. pain control, IV morphine for severe, po percoset q6 for moderate. non weight bearing on right foot. continue PT (2) Chronic kidney disease, stage IV (severe) Current Visit: Yes Status: Acute Code(s): N18.4 - CHRONIC KIDNEY DISEASE, STAGE 4 (SEVERE) SNOMED Code(s): 890492182 Comment: NEWSPAPER DELIVERY COUNSELOR improved to 1.4 from admission 1.9 ACEI held given sepsis. had acute renal failure in April after bactrim with NEWSPAPER DELIVERY COUNSELOR up to 4.5, K8.1 f/u BMP daily (3) Anemia Current Visit: No Status: Acute Code(s): D64.9 - ANEMIA, UNSPECIFIED SNOMED Code(s): 738622193 Comment: Hgb 8.8, microcytic. iron was 27 and Sat 10% with wnl ferrtitin in March. Iron was <20, Iron Sat 9%, Ferritin 161. was started on ferrous gluconate 325mg po BID. also has CKD Stage IV with recent Acute renal failure from bactrim in April. (4) Diabetes Current Visit: No Status: Acute Code(s): E11.9 - TYPE 2 DIABETES MELLITUS WITHOUT COMPLICATIONS SNOMED Code(s): 53956563 Comment: - A1c 7.5% in March Continue Lantus, Lispro SS (5) Diabetic neuropathy Current Visit: No Status: Acute Code(s): E11.40 - TYPE 2 DIABETES MELLITUS WITH DIABETIC NEUROPATHY, UNSP SNOMED Code(s): 741304129 Comment: - Continue gabapentin (6) Full code status Current Visit: No Status: Acute Code(s): Z78.9 - OTHER SPECIFIED HEALTH STATUS SNOMED Code(s): 385645137 Comment: (7) HTN (hypertension) Current Visit: No Status: Acute Code(s): I10 - ESSENTIAL (PRIMARY) HYPERTENSION SNOMED Code(s): 20940494 Comment: - hold lisinopril given sepsis/hypotension,. 95-110 (8) History of TIA (transient ischemic attack) Current Visit: No Status: Acute Code(s): Z86.73 - PRSNL HX OF TIA (TIA), AND CEREB INFRC W/O RESID DEFICITS SNOMED Code(s): 777809015 Comment: - hold plavix for now until cleared by ortho (unclear if will need further debridement, this was for secondary prevention of CVAs). has aspirin allergy (9) Sepsis Current Visit: Yes Status: Acute Comment: resolving (had been febrile and tachy this 10/5 AM). no lactic acidosis in ED. continue abx. f/u Bcx, NGTDx 1 day f/u wound Cx. UA no e/o infection. (10) Cough Current Visit: Yes Status: Acute Code(s): R05 - COUGH SNOMED Code(s): 34312434 Comment: CXR no acute process 06/09 but some increased pulm interstial edema 06/10. (11) DVT prophylaxis Current Visit: No Status: Acute Code(s): Z29.9 - ENCOUNTER FOR PROPHYLACTIC MEASURES, UNSPECIFIED SNOMED Code(s): 990447574 Comment: - Heparin SQ Status and Disposition: medicine inpatient. f/u PT, ortho and ID recs.
[2019-06-11] MEDS: Latanoprost 0.005%* 2.5 ml BTL RIGHT EYE SCH (18:07)
[2019-06-11] MEDS: Montelukast Sodium TAB* 10 MG PO SCH (21:08)
[2019-06-11] MEDS: Insulin GLARGINE(*) 1 UNITS UNIT SUBCUT SCH (21:09)
[2019-06-12] MEDS: Aztreonam (*) 1 GM in NS 0.9% 50 ML* 50 ML IVPB SCH ×2 (00:07→09:26)
[2019-06-12] MEDS: oxyCODONE/Acetamin 5/325 MG* TAB PO PRN (05:39)
[2019-06-12] MEDS: Heparin VIAL(*) 5000 UNITS/ML VIAL (FIVE THOUSAND) SUBCUT SCH ×3 (05:41→22:15)
[2019-06-12] MEDS: Vancomycin(*) 500 MG in NS 0.9% 250 ML* 250 ML IVPB SCH ×2 (05:43→18:55)
[2019-06-12] MEDS: CMC:Brimonidine P 0.1%(NF) 1 DROP BTL RIGHT EYE SCH ×3 (08:53→22:15)
[2019-06-12] MEDS: CMC:Dorzolamide 2% OPTH (NF) 10 ML BTL RIGHT EYE SCH ×2 (08:54→13:49)
[2019-06-12] MEDS: Timolol 0.5% OPTH.SOL* BTL BOTH EYES SCH ×2 (08:55→22:15)
[2019-06-12] MEDS: Ferrous Gluconate TAB* 324 MG TAB PO SCH ×2 (08:58→22:11)
[2019-06-12] MEDS: Gabapentin CAP(*) 300 MG PO SCH ×2 (08:58→22:09)
[2019-06-12] MEDS: Insulin LISPRO* 1 UNITS UNIT SUBCUT SCH ×4 (09:00→22:14)
[2019-06-12] MEDS: Pantoprazole TAB * 40 MG TAB PO SCH (09:00)
[2019-06-12] MEDS: Collagenase 250 UNITS/GM OINT* 1 APPLIC OINT TOPICAL SCH (09:13)
[2019-06-12] MEDS ORDERED: Magnesium Hydroxide LIQ* 30 ML UDC PO PRN (09:15)
[2019-06-12] MEDS ORDERED: Senna TAB 8.6 mg* TAB PO PRN (09:15)
[2019-06-12] MEDS ORDERED: Polyethylene Glycol 3350* 17 GM PACKET PO PRN (09:15)
[2019-06-12 09:17] LABS: Hematocrit 25 % (35-47); Hemoglobin 8.1 g/dL (12.0-16.0)
[2019-06-12 09:35] LABS: BUN/Creatinine Ratio 15.6 (8-20); Calcium 8.7 mg/dL (8.6-10.3); EGFR African American 41.2 (>60); Potassium 4.4 mmol/L (3.5-5.0)
--- NOTE | 2019-06-12 11:54 | PN ---
Progress Note - Progress Note Date of Service: 06/12/19 SOAP: Subjective: CC: Right foot osteomyelitis HPI: Ms. Fonseca is a 64 yo female with PMH significant for DM2, CKD-3, HLS, diabetic neuropathy, peripheral neuropathy, glaucoma, GLENDY, and arthritis; presented to the hospital with right foot infection and is S/P partial right foot amputation. Denies fever, chills, nausea, vomiting, or diarrhea. Objective: Vital Signs 06/12/19 06/12/19 06/12/19 08:58 10:58 11:40 Temperature 98.4 F Pulse Rate 98 Respiratory 16 16 17 Rate Blood Pressure 112/59 (mmHg) O2 Sat by Pulse 98 Oximetry Physical Exam: General: NAD, laying in bed Neurological: Alert and Oriented x4 HEENT: Moist MM, no thrush Cardiovascular: Heart rate regular Respiratory: Lung sounds clear Abdominal: Bowel sounds present; ABD soft, non tender and non distended Skin: No rash. CRISPIN wrap dressing to the right LE with wound vac intact Laboratory Results - last 24 hr 06/12/19 06/12/19 09:08 09:08 Hgb 8.1 L Hct 25 L Sodium 139 Potassium 4.4 Chloride 111 Carbon Dioxide 21 L Anion Gap 7 BUN 24 Creatinine 1.54 H Est GFR ( Amer) 41.2 Est GFR (Non-Af Amer) 34.0 BUN/Creatinine Ratio 15.6 Glucose 104 H POC Glucose (mg/dL) Calcium 8.7 Magnesium 2.0 Microbiology 06/10/19 11:50 Gram Stain - Final Foot Right Wound Culture - Final MRSA Normal Irena 06/10/19 11:50 Anaerobic Culture - Preliminary Wound 06/08/19 19:39 Blood Culture - Preliminary Blood Venous No Growth Day 3 06/08/19 19:27 Blood Culture - Preliminary Blood Venous No Growth Day 3 06/09/19 15:40 Urine Culture - Final Urine Kristine Krusei Assessment: 1. Right 5th metatarsal chronic osteomyelitis. S/P right partial foot amputation , POD #2. Wound culture with MRSA. Afebrile, low grade fever overnight, T max 100.4. no leukocytosis. Blood cultures with no growth on day 3. 2. DM2 with CKD, diabetic retinopathy, and peripheral neuropathy. 3. GLENDY. 4. Obesity. BMI 31.9. Plan: Discontinue aztreonam. Continue vancomycin, trough goal 15-20, day . She will need to have 6 weeks of IV ABX. Will need to have a PICC line placed. Weekly labs while on IV ABX: CBC, CMP, CRP, and Vanco trough. 25 minutes floor time: > 50% was spent with the patient and daughter discussing IV ABX, need for weekly labs, and possible side effects.
--- NOTE | 2019-06-12 14:06 | PN ---
Subjective Date of Service: 06/12/19 Interval History: Pt feels well, no new event overnight. Post op pain controlled, L foot with wound vac in place Objective Active Medications: Acetaminophen (Tylenol Tab*) 650 mg PO Q4H PRN PRN Reason: PAIN - MILD Last Admin: 06/09/19 09:33 Dose: 650 mg Acetaminophen (Tylenol Tab*) 650 mg PO QAM PRN PRN Reason: PAIN Brimonidine Tartrate (Alphagan P 0.1% (Nf)) 1 drop RIGHT EYE TID [facility] Last Admin: 06/12/19 13:49 Dose: 1 drop Collagenase (Santyl 250 Units/Gm Oint*) 1 applic TOPICAL DAILY [facility] Last Admin: 06/12/19 09:13 Dose: Not Given Dextrose (Dextrose 50% Vial 50 Ml*) 25 ml IV PUSH .FOR FS < 60 - SS PRN PRN Reason: FS < 60 Docusate Sodium (Colace Cap*) 100 mg PO BID [facility] Dorzolamide HCl (Trusopt 2% Opth (Nf)) 1 drop RIGHT EYE TID [facility]; Protocol Last Admin: 06/12/19 13:49 Dose: 1 drop Ferrous Gluconate (Fergon Tab*) 324 mg PO BID [facility] Last Admin: 06/12/19 08:58 Dose: 324 mg Gabapentin (Neurontin Cap(*)) 300 mg PO BID [facility] Last Admin: 06/12/19 08:58 Dose: 300 mg Heparin Sodium (Porcine) (Heparin Vial(*)) 5,000 units SUBCUT Q8HR [facility] Last Admin: 06/12/19 13:50 Dose: 5,000 units Heparin Sodium (Porcine) (Heparin Flush Picc/Ml/Cvc(*)) 1 ml FLUSH 0600,1800 [facility]; Protocol Last Admin: 06/12/19 09:55 Dose: 1 ml Vancomycin HCl 500 mg/ Sodium (Chloride) 250 mls @ 166.667 mls/hr IVPB Q12H [facility] Last Admin: 06/12/19 05:43 Dose: 166.667 mls/hr Insulin Glargine (Lantus(*)) 10 units SUBCUT BEDTIME [facility] Last Admin: 06/11/19 21:09 Dose: 10 units Insulin Human Lispro (Humalog*) 0 units SUBCUT ACHS [facility]; Protocol Last Admin: 06/12/19 13:53 Dose: 6 units Latanoprost (Xalatan 0.005%*) 1 drop RIGHT EYE 1700 [facility] Last Admin: 06/11/19 18:07 Dose: 1 drop Magnesium Hydroxide (Milk Of Magnesia Liq*) 30 ml PO BID [facility] Magnesium Hydroxide (Milk Of Magnesia Liq*) 30 ml PO BID PRN PRN Reason: CONSTIPATION Last Admin: 06/12/19 09:26 Dose: 30 ml Montelukast Sodium (Singulair Tab*) 10 mg PO BEDTIME [facility] Last Admin: 06/11/19 21:08 Dose: 10 mg Morphine Sulfate (Morphine Inj (Syringe))*) 2 mg IV Q4H PRN PRN Reason: PAIN - SEVERE Oxycodone/Acetaminophen (Percocet 5/325 Tab*) 1 tab PO Q6H PRN PRN Reason: PAIN - MODERATE Last Admin: 06/12/19 05:39 Dose: 1 tab Pantoprazole Sodium (Protonix Tab*) 40 mg PO DAILY [facility] Last Admin: 06/12/19 09:00 Dose: 40 mg Pharmacy Consult (Vancomycin Per Pharmacy*) 1 note FOLLOW UP .VANC PER PHARMACY [facility]; Protocol Pharmacy Profile Note (Vancomycin Trough Check) 1 note FOLLOW UP 0600 ONE Stop: 06/13/19 06:01 Polyethylene Glycol/Electrolytes (Miralax*) 17 gm PO DAILY PRN PRN Reason: CONSTIPATION Senna (Senokot 8.6 Mg Tab*) 1 tab PO BEDTIME PRN PRN Reason: CONSTIPATION Timolol Maleate (Timoptic 0.5% Opth*) 1 drop BOTH EYES BID [facility] Last Admin: 06/12/19 08:55 Dose: 1 drop Vital Signs - 8 hr 06/12/19 06/12/19 06/12/19 07:15 07:39 08:58 Temperature 98.5 F Pulse Rate 65 Respiratory 17 16 16 Rate Blood Pressure 111/55 (mmHg) O2 Sat by Pulse 97 Oximetry 06/12/19 06/12/19 10:58 11:40 Temperature 98.4 F Pulse Rate 98 Respiratory 16 17 Rate Blood Pressure 112/59 (mmHg) O2 Sat by Pulse 98 Oximetry Oxygen Devices in Use Now: None Appearance: 64 yo F in nAD, AAOx3 Eyes: No Scleral Icterus, PERRLA Ears/Nose/Mouth/Throat: NL Teeth, Lips, Gums, Mucous Membranes Moist Neck: NL Appearance and Movements; NL JVP, Trachea Midline Respiratory: Symmetrical Chest Expansion and Respiratory Effort, Clear to Auscultation Cardiovascular: NL Sounds; No Murmurs; No JVD, No Edema Abdominal: NL Sounds; No Tenderness; No Distention, No Hepatosplenomegaly Lymphatic: No Cervical Adenopathy Extremities: No Edema, No Clubbing, Cyanosis, - - L foot in post op dressings and wound vac in place Skin: No Nodules or Sclerosis Neurological: Alert and Oriented x 3, NL Muscle Strength and Tone Result Diagrams: 06/12/19 09:08 06/12/19 09:08 Additional Lab and Data: Laboratory Results - last 24 hr 06/10/19 06/11/19 06/11/19 21:24 05:39 05:39 WBC 8.1 RBC 3.00 L Hgb 7.4 L Hct 23 L MCV 76 L MCH 25 L MCHC 33 RDW 15 Plt Count 293 MPV 7.2 L Neut % (Auto) 64.4 Lymph % (Auto) 24.8 [place] % (Auto) 8.7 Eos % (Auto) 1.0 Baso % (Auto) 1.1 Absolute Neuts (auto) 5.2 Absolute Lymphs (auto) 2.0 Absolute Monos (auto) 0.7 Absolute Eos (auto) 0.1 Absolute Basos (auto) 0.1 Absolute Nucleated RBC 0.0 Nucleated RBC % 0.0 Sodium 139 Potassium 4.5 Chloride 111 Carbon Dioxide 22 Anion Gap 6 BUN 26 H Creatinine 1.42 H Est GFR ( Amer) 45.2 Est GFR (Non-Af Amer) 37.4 BUN/Creatinine Ratio 18.3 Glucose 145 H POC Glucose (mg/dL) 133 H Calcium 8.3 L Magnesium 1.4 L 06/11/19 06/11/19 06/11/19 07:35 12:39 17:50 WBC RBC Hgb Hct MCV MCH MCHC RDW Plt Count MPV Neut % (Auto) Lymph % (Auto) [place] % (Auto) Eos % (Auto) Baso % (Auto) Absolute Neuts (auto) Absolute Lymphs (auto) Absolute Monos (auto) Absolute Eos (auto) Absolute Basos (auto) Absolute Nucleated RBC Nucleated RBC % Sodium Potassium Chloride Carbon Dioxide Anion Gap BUN Creatinine Est GFR ( Amer) Est GFR (Non-Af Amer) BUN/Creatinine Ratio Glucose POC Glucose (mg/dL) 149 H 200 H 169 H Calcium Magnesium 06/11/19 20:52 WBC RBC Hgb Hct MCV MCH MCHC RDW Plt Count MPV Neut % (Auto) Lymph % (Auto) [place] % (Auto) Eos % (Auto) Baso % (Auto) Absolute Neuts (auto) Absolute Lymphs (auto) Absolute Monos (auto) Absolute Eos (auto) Absolute Basos (auto) Absolute Nucleated RBC Nucleated RBC % Sodium Potassium Chloride Carbon Dioxide Anion Gap BUN Creatinine Est GFR ( Amer) Est GFR (Non-Af Amer) BUN/Creatinine Ratio Glucose POC Glucose (mg/dL) 163 H Calcium Magnesium Microbiology and Other Data: Microbiology 06/08/19 19:39 Blood Venous Blood Culture - Preliminary No Growth Day 3 06/08/19 19:27 Blood Venous Blood Culture - Preliminary No Growth Day 3 06/09/19 15:40 Urine Urine Culture - Final Kristine Krusei 06/10/19 11:50 Foot Right Gram Stain - Final 06/10/19 11:50 Foot Right Wound Culture - Preliminary Staphylococcus Aureus 06/10/19 11:50 Wound Anaerobic Culture - Preliminary Assess/Plan/Problems-Billing Assessment: 64 yo female PMH IDDM (A1c 7.5), HTN, CKD IV, TIAs, HLD, right foot wounds following with wound clinic p/w necrotic right 5th toe with osteomyelitis and wet gangrene. Sepsis (fever, tachycardia). PCN allergy, on vanc, aztreonam. s/p partial forefoot amputation on 06/10/19. - Patient Problems (1) Necrosis of toe Comment: s/p right partial forefoot amputation with Dr. Watkins 06/10. YSABEL showed right digit 0.21 and left 0.73 Continue vancomycin. Aztreonam d/c'd by ID on 06/12/19 f/u cultures. Prelim with Staph Aureous from OR Cx. non weight bearing on right foot. continue PT PICC order placed (2) Chronic kidney disease, stage IV (severe) Comment: SENIOR DIRECTOR OF STRATEGY improved from admission ACEI held given sepsis. had acute renal failure in April after bactrim with SENIOR DIRECTOR OF STRATEGY up to 4.5, K8.1 f/u BMP daily (3) Diabetes Comment: - A1c 7.5% in March Continue Lantus, Lispro SS (4) Diabetic neuropathy Comment: - Continue gabapentin (5) History of TIA (transient ischemic attack) Current Visit: No Comment: - hold plavix for now until cleared by ortho (unclear if will need further debridement, this was for secondary prevention of CVAs). has aspirin allergy (6) DVT prophylaxis Comment: - Heparin SQ Status and Disposition: medicine inpatient. f/u PT, ortho and ID recs.
--- NOTE | 2019-06-12 16:53 | PN ---
Progress Note - Progress Note Date of Service: 06/12/19 SOAP: Subjective: []Pt seen at bedside. She is comfortable without complaints. denies fever, chills, CP, SOB, dizziness. Objective: []Gen: Appears well, NAD RLE: Vac functioning well, dressing CDI, no erythema proximally or distally. Able to wiggle remaining toes, sensation intact to light touch distally. Calves supple and nontender Assessment: [] Necrotic grade 5 ulceration with osteomyelitis, right forefoot. S/P Partial right forefoot amputation. Plan: []ABX per ID heparin for DVT prophy in house needs vac change q 3 days - plan for OR Vital Signs Temp 98.4 F 06/12/19 11:40 Pulse 98 06/12/19 11:40 Resp 17 06/12/19 11:40 BP 112/59 06/12/19 11:40 Pulse Ox 98 06/12/19 11:40 Intake & Output 06/11/19 06/12/19 06/12/19 18:59 06:59 18:59 Intake Total 480 1666 440 Output Total 1150 900 600 Balance -670 766 -160 Intake: IV Fluids 1066 ABX - AZTREONAM 55 ABX - VANCOMYCIN 273 NS (0.9%) 738 Oral 480 600 440 Output: Urine 1150 900 600 Laboratory Last Values WBC 8.1 10^3/uL (3.5-10.8) 06/11/19 05:39 RBC 3.00 10^6 /uL (3.70-4.87) L 06/11/19 05:39 Hgb 8.1 g/dL (12.0-16.0) L 06/12/19 09:08 Hct 25 % (35-47) L 06/12/19 09:08 MCV 76 fL (80-97) L 06/11/19 05:39 MCH 25 pg (27-31) L 06/11/19 05:39 MCHC 33 g/dL (31-36) 06/11/19 05:39 RDW 15 % (10-15) 06/11/19 05:39 Plt Count 293 10^3/uL (150-450) 06/11/19 05:39 MPV 7.2 fL (7.4-10.4) L 06/11/19 05:39 Neut % (Auto) 64.4 % 06/11/19 05:39 Lymph % (Auto) 24.8 % 06/11/19 05:39 [place] % (Auto) 8.7 % 06/11/19 05:39 Eos % (Auto) 1.0 % 06/11/19 05:39 Baso % (Auto) 1.1 % 06/11/19 05:39 Absolute Neuts (auto) 5.2 10^3/ul (1.5-7.7) 06/11/19 05:39 Absolute Lymphs (auto) 2.0 10^3/ul (1.0-4.8) 06/11/19 05:39 Absolute Monos (auto) 0.7 10^3/ul (0-0.8) 06/11/19 05:39 Absolute Eos (auto) 0.1 10^3/ul (0-0.6) 06/11/19 05:39 Absolute Basos (auto) 0.1 10^3/ul (0-0.2) 06/11/19 05:39 Absolute Nucleated RBC 0.0 10^3/ul 06/11/19 05:39 Nucleated RBC % 0.0 06/11/19 05:39 INR (Anticoag Therapy) 1.11 (0.82-1.09) H 06/08/19 19:27 APTT 35.2 seconds (26.0-38.0) 06/08/19 19:27 Sodium 139 mmol/L (135-145) 06/12/19 09:08 Potassium 4.4 mmol/L (3.5-5.0) 06/12/19 09:08 Chloride 111 mmol/L (101-111) 06/12/19 09:08 Carbon Dioxide 21 mmol/L (22-32) L 06/12/19 09:08 Anion Gap 7 mmol/L (2-11) 06/12/19 09:08 BUN 24 mg/dL (6-24) 06/12/19 09:08 Creatinine 1.54 mg/dL (0.51-0.95) H 06/12/19 09:08 Est GFR ( Amer) 41.2 (>60) 06/12/19 09:08 Est GFR (Non-Af Amer) 34.0 (>60) 06/12/19 09:08 BUN/Creatinine Ratio 15.6 (8-20) 06/12/19 09:08 Glucose 104 mg/dL (70-100) H 06/12/19 09:08 POC Glucose (mg/dL) 210 mg/dL (70-100) H 06/12/19 12:28 Lactic Acid 1.5 mmol/L (0.5-2.0) 06/08/19 19:28 Calcium 8.7 mg/dL (8.6-10.3) 06/12/19 09:08 Magnesium 2.0 mg/dL (1.9-2.7) 06/12/19 09:08 Iron < 20 ug/dL (50-212) L 06/09/19 05:56 TIBC 232 mcg/dL (250-450) L 06/09/19 05:56 % Saturation 9 % (15-55) L 06/09/19 05:56 Unsat Iron Binding < 217 ug/dL 06/09/19 05:56 Transferrin 166 mg/dL (203-362) L 06/09/19 05:56 Ferritin 161.3 ng/mL (11-307) 06/09/19 05:56 Total Bilirubin 0.40 mg/dL (0.2-1.0) 06/08/19 19:27 AST 15 U/L (13-39) 06/08/19 19:27 ALT 10 U/L (7-52) 06/08/19 19:27 Alkaline Phosphatase 104 U/L (34-104) 06/08/19 19:27 Troponin I 0.00 ng/mL (<0.04) 06/08/19 19:27 C-Reactive Protein 117.95 mg/L (<8.01) H 06/09/19 05:56 Total Protein 7.3 g/dL (6.4-8.9) 06/08/19 19:27 Albumin 3.3 g/dL (3.2-5.2) 06/08/19 19:27 Globulin 4.0 g/dL (2-4) 06/08/19 19:27 Albumin/Globulin Ratio 0.8 (1-3) L 06/08/19 19:27 Urine Color Yellow 06/09/19 15:40 Urine Appearance Cloudy 06/09/19 15:40 Urine pH 5.0 (5-9) 06/09/19 15:40 Ur Specific [place] 1.010 (1.010-1.030) 06/09/19 15:40 Urine Protein 2+(100 mg/dl) (Negative) A 06/09/19 15:40 Urine Ketones Negative (Negative) 06/09/19 15:40 Urine Blood 1+ (Negative) A 06/09/19 15:40 Urine Nitrate Negative (Negative) 06/09/19 15:40 Urine Bilirubin Negative (Negative) 06/09/19 15:40 Urine Urobilinogen Negative (Negative) 06/09/19 15:40 Ur Leukocyte Esterase Negative (Negative) 06/09/19 15:40 Urine WBC (Auto) Trace(0-5/hpf) (Absent) 06/09/19 15:40 Urine RBC (Auto) Trace(0-2/hpf) (Absent) 06/09/19 15:40 Ur Squamous Epith Cells Present (Absent) A 06/09/19 15:40 Urine Bacteria Absent (Absent) 06/09/19 15:40 Urine Glucose Negative (Negative) 06/09/19 15:40 Vancomycin Trough 15.8 mcg/mL 06/10/19 05:58
[2019-06-12] MEDS: Latanoprost 0.005%* 2.5 ml BTL RIGHT EYE SCH (18:59)
[2019-06-12] MEDS: Magnesium Hydroxide LIQ* 30 ML UDC PO SCH (22:09)
[2019-06-12] MEDS: Docusate CAP* 100 MG PO SCH (22:09)
[2019-06-12] MEDS: Montelukast Sodium TAB* 10 MG PO SCH (22:10)
[2019-06-12] MEDS: Insulin GLARGINE(*) 1 UNITS UNIT SUBCUT SCH (22:12)
[2019-06-13] MEDS: CMC:Dorzolamide 2% OPTH (NF) 10 ML BTL RIGHT EYE SCH ×4 (03:40→22:54)
[2019-06-13] MEDS ORDERED: Vancomycin Trough Check NOTE FOLLOW UP ONE (06:00)
[2019-06-13] MEDS: Heparin VIAL(*) 5000 UNITS/ML VIAL (FIVE THOUSAND) SUBCUT SCH ×3 (06:13→22:08)
[2019-06-13 06:18] LABS: ABS Basophils 0.1 10^3/ul (0-0.2); ABS Eosinophils 0.2 10^3/ul (0-0.6); ABS Monocytes 0.5 10^3/ul (0-0.8); ABS Neutrophils 3.3 10^3/ul (1.5-7.7); Eosinophil % 3.2 %; Hematocrit 23 % (35-47); Hemoglobin 7.5 g/dL (12.0-16.0); Mean Corpuscular HGB Conc 33 g/dL (31-36); Mean Corpuscular Hemoglobin 25 pg (27-31); Mean Corpuscular Volume 76 fL (80-97); Mean Platelet Volume 6.9 fL (7.4-10.4); Nucleated Red Blood Cells % 0.1; Platelet Count 296 10^3/uL (150-450); Red Blood Count 2.99 10^6 /uL (3.70-4.87); Red Cell Distribution Width 15 % (10-15); White Blood Count 6.1 10^3/uL (3.5-10.8)
[2019-06-13 06:34] LABS: BUN/Creatinine Ratio 14.5 (8-20); Calcium 8.5 mg/dL (8.6-10.3); EGFR African American 44.1 (>60); EGFR Non-African American 36.5 (>60); Potassium 4.5 mmol/L (3.5-5.0)
[2019-06-13 06:55] LABS: Vancomycin Trough 18.3 mcg/mL
[2019-06-13] MEDS: Acetaminophen TAB* 325 MG PO PRN ×2 (07:47→12:44)
[2019-06-13] MEDS ORDERED: Senna TAB 8.6 mg* TAB PO PRN (08:27)
[2019-06-13] MEDS ORDERED: Magnesium Hydroxide LIQ* 30 ML UDC PO PRN (08:27)
[2019-06-13] MEDS ORDERED: Polyethylene Glycol 3350* 17 GM PACKET PO PRN (08:27)
[2019-06-13] MEDS ORDERED: Bisacodyl SUPP* 10 MG SUPP PR ONE (08:28)
[2019-06-13] MEDS: Vancomycin(*) 500 MG in NS 0.9% 250 ML* 250 ML IVPB SCH ×2 (08:59→18:31)
[2019-06-13] MEDS: CMC:Brimonidine P 0.1%(NF) 1 DROP BTL RIGHT EYE SCH ×3 (09:00→22:55)
[2019-06-13] MEDS: Collagenase 250 UNITS/GM OINT* 1 APPLIC OINT TOPICAL SCH (09:00)
[2019-06-13] MEDS ORDERED: Magnesium Hydroxide LIQ* 30 ML UDC PO SCH (09:00)
[2019-06-13] MEDS: Magnesium Hydroxide LIQ* 30 ML UDC PO SCH ×2 (09:00→23:13)
[2019-06-13] MEDS ORDERED: Docusate CAP* 100 MG PO SCH (09:00)
[2019-06-13] MEDS: Gabapentin CAP(*) 300 MG PO SCH ×2 (09:00→22:04)
[2019-06-13] MEDS: Ferrous Gluconate TAB* 324 MG TAB PO SCH ×2 (09:03→22:03)
[2019-06-13] MEDS: Docusate CAP* 100 MG PO SCH ×2 (09:03→22:59)
[2019-06-13] MEDS: Timolol 0.5% OPTH.SOL* BTL BOTH EYES SCH ×2 (09:04→22:55)
[2019-06-13] MEDS: Pantoprazole TAB * 40 MG TAB PO SCH (09:04)
[2019-06-13] MEDS: Insulin LISPRO* 1 UNITS UNIT SUBCUT SCH ×4 (10:03→22:06)
[2019-06-13] MEDS ORDERED: Buffered Lidocaine 1% SYRIN* 1 ML/SYRINGE INTRADERM ONE (11:43)
[2019-06-13] MEDS: oxyCODONE/Acetamin 5/325 MG* TAB PO PRN ×2 (12:45→18:31)
--- NOTE | 2019-06-13 14:43 | PN ---
Progress Note - Progress Note Date of Service: 06/13/19 SOAP: Subjective: []Patient seen and examined at bedside. Left foot pain is well controlled, was bothersome this morning but improved this afternoon. Denies feeling of fever or chills. Denies CP, SOB, dizziness, nausea. Objective: []Gen: Appears well, NAD RLE: Vac functioning well, dressing CDI, no erythema proximally or distally. Able to wiggle remaining toes, sensation intact to light touch distally. Calves supple and nontender Assessment: [] Necrotic grade 5 ulceration with osteomyelitis, right forefoot. S/P Partial right forefoot amputation. Plan: []ABX per ID heparin for DVT prophy in house. NPO at midnight and hold heparin OR Discussed H&H with Dr Adame, no action at this time will recheck H&H tomorrow Vital Signs Temp 98.7 F 06/13/19 08:35 Pulse 72 06/13/19 08:35 Resp 18 06/13/19 12:45 BP 137/58 06/13/19 08:35 Pulse Ox 95 06/13/19 08:35 Intake & Output 06/12/19 06/13/19 06/13/19 18:59 06:59 18:59 Intake Total 440 1260 720 Output Total 600 620 400 Balance -160 640 320 Intake: IV Fluids 20 NS (0.9%) 20 IVPB 280 ABX - VANCOMYCIN 280 Oral 440 960 720 Output: Urine 600 620 400 Other: Estimated Void Medium Date of Last Bowel 06/13/19 Movement # Bowel Movements 1 3 Estimated Stool Amount Medium Large # Voids 1 Laboratory Last Values WBC 6.1 10^3/uL (3.5-10.8) 06/13/19 06:09 RBC 2.99 10^6 /uL (3.70-4.87) L 06/13/19 06:09 Hgb 7.5 g/dL (12.0-16.0) L 06/13/19 06:09 Hct 23 % (35-47) L 06/13/19 06:09 MCV 76 fL (80-97) L 06/13/19 06:09 MCH 25 pg (27-31) L 06/13/19 06:09 MCHC 33 g/dL (31-36) 06/13/19 06:09 RDW 15 % (10-15) 06/13/19 06:09 Plt Count 296 10^3/uL (150-450) 06/13/19 06:09 MPV 6.9 fL (7.4-10.4) L 06/13/19 06:09 Neut % (Auto) 54.2 % 06/13/19 06:09 Lymph % (Auto) 33.0 % 06/13/19 06:09 [place] % (Auto) 8.6 % 06/13/19 06:09 Eos % (Auto) 3.2 % 06/13/19 06:09 Baso % (Auto) 1.0 % 06/13/19 06:09 Absolute Neuts (auto) 3.3 10^3/ul (1.5-7.7) 06/13/19 06:09 Absolute Lymphs (auto) 2.0 10^3/ul (1.0-4.8) 06/13/19 06:09 Absolute Monos (auto) 0.5 10^3/ul (0-0.8) 06/13/19 06:09 Absolute Eos (auto) 0.2 10^3/ul (0-0.6) 06/13/19 06:09 Absolute Basos (auto) 0.1 10^3/ul (0-0.2) 06/13/19 06:09 Absolute Nucleated RBC 0.0 10^3/ul 06/13/19 06:09 Nucleated RBC % 0.1 06/13/19 06:09 INR (Anticoag Therapy) 1.11 (0.82-1.09) H 06/08/19 19:27 APTT 35.2 seconds (26.0-38.0) 06/08/19 19:27 Sodium 142 mmol/L (135-145) 06/13/19 06:09 Potassium 4.5 mmol/L (3.5-5.0) 06/13/19 06:09 Chloride 113 mmol/L (101-111) H 06/13/19 06:09 Carbon Dioxide 25 mmol/L (22-32) 06/13/19 06:09 Anion Gap 4 mmol/L (2-11) 06/13/19 06:09 BUN 21 mg/dL (6-24) 06/13/19 06:09 Creatinine 1.45 mg/dL (0.51-0.95) H 06/13/19 06:09 Est GFR ( Amer) 44.1 (>60) 06/13/19 06:09 Est GFR (Non-Af Amer) 36.5 (>60) 06/13/19 06:09 BUN/Creatinine Ratio 14.5 (8-20) 06/13/19 06:09 Glucose 117 mg/dL (70-100) H 06/13/19 06:09 POC Glucose (mg/dL) 175 mg/dL (70-100) H 06/13/19 12:49 Lactic Acid 1.5 mmol/L (0.5-2.0) 06/08/19 19:28 Calcium 8.5 mg/dL (8.6-10.3) L 06/13/19 06:09 Magnesium 2.0 mg/dL (1.9-2.7) 06/12/19 09:08 Iron < 20 ug/dL (50-212) L 06/09/19 05:56 TIBC 232 mcg/dL (250-450) L 06/09/19 05:56 % Saturation 9 % (15-55) L 06/09/19 05:56 Unsat Iron Binding < 217 ug/dL 06/09/19 05:56 Transferrin 166 mg/dL (203-362) L 06/09/19 05:56 Ferritin 161.3 ng/mL (11-307) 06/09/19 05:56 Total Bilirubin 0.40 mg/dL (0.2-1.0) 06/08/19 19:27 AST 15 U/L (13-39) 06/08/19 19:27 ALT 10 U/L (7-52) 06/08/19 19:27 Alkaline Phosphatase 104 U/L (34-104) 06/08/19 19:27 Troponin I 0.00 ng/mL (<0.04) 06/08/19 19:27 C-Reactive Protein 117.95 mg/L (<8.01) H 06/09/19 05:56 Total Protein 7.3 g/dL (6.4-8.9) 06/08/19 19:27 Albumin 3.3 g/dL (3.2-5.2) 06/08/19 19:27 Globulin 4.0 g/dL (2-4) 06/08/19 19:27 Albumin/Globulin Ratio 0.8 (1-3) L 06/08/19 19:27 Urine Color Yellow 06/09/19 15:40 Urine Appearance Cloudy 06/09/19 15:40 Urine pH 5.0 (5-9) 06/09/19 15:40 Ur Specific [place] 1.010 (1.010-1.030) 06/09/19 15:40 Urine Protein 2+(100 mg/dl) (Negative) A 06/09/19 15:40 Urine Ketones Negative (Negative) 06/09/19 15:40 Urine Blood 1+ (Negative) A 06/09/19 15:40 Urine Nitrate Negative (Negative) 06/09/19 15:40 Urine Bilirubin Negative (Negative) 06/09/19 15:40 Urine Urobilinogen Negative (Negative) 06/09/19 15:40 Ur Leukocyte Esterase Negative (Negative) 06/09/19 15:40 Urine WBC (Auto) Trace(0-5/hpf) (Absent) 06/09/19 15:40 Urine RBC (Auto) Trace(0-2/hpf) (Absent) 06/09/19 15:40 Ur Squamous Epith Cells Present (Absent) A 06/09/19 15:40 Urine Bacteria Absent (Absent) 06/09/19 15:40 Urine Glucose Negative (Negative) 06/09/19 15:40 Vancomycin Trough 18.3 mcg/mL 06/13/19 06:09
--- NOTE | 2019-06-13 15:42 | PN ---
Subjective Date of Service: 06/13/19 Interval History: Pt had significant R foot pain last night, now controlled Objective Active Medications: Acetaminophen (Tylenol Tab*) 650 mg PO Q4H PRN PRN Reason: PAIN - MILD Last Admin: 06/13/19 12:44 Dose: 650 mg Acetaminophen (Tylenol Tab*) 650 mg PO QAM PRN PRN Reason: PAIN Brimonidine Tartrate (Alphagan P 0.1% (Nf)) 1 drop RIGHT EYE TID [facility] Last Admin: 06/13/19 14:31 Dose: 1 drop Collagenase (Santyl 250 Units/Gm Oint*) 1 applic TOPICAL DAILY [facility] Last Admin: 06/13/19 09:00 Dose: Not Given Dextrose (Dextrose 50% Vial 50 Ml*) 25 ml IV PUSH .FOR FS < 60 - SS PRN PRN Reason: FS < 60 Docusate Sodium (Colace Cap*) 100 mg PO BID [facility] Last Admin: 06/13/19 09:03 Dose: 100 mg Dorzolamide HCl (Trusopt 2% Opth (Nf)) 1 drop RIGHT EYE TID [facility]; Protocol Last Admin: 06/13/19 14:31 Dose: 1 drop Ferrous Gluconate (Fergon Tab*) 324 mg PO BID [facility] Last Admin: 06/13/19 09:03 Dose: 324 mg Gabapentin (Neurontin Cap(*)) 300 mg PO BID [facility] Last Admin: 06/13/19 09:00 Dose: 300 mg Heparin Sodium (Porcine) (Heparin Vial(*)) 5,000 units SUBCUT Q8HR [facility] Stop: 06/13/19 23:59 Last Admin: 06/13/19 14:27 Dose: 5,000 units Heparin Sodium (Porcine) (Heparin Flush Picc/Ml/Cvc(*)) 1 ml FLUSH 0600,1800 [facility]; Protocol Last Admin: 06/13/19 06:17 Dose: 1 ml Vancomycin HCl 500 mg/ Sodium (Chloride) 250 mls @ 166.667 mls/hr IVPB Q12H [facility] Last Admin: 06/13/19 08:59 Dose: 166.667 mls/hr Lactated Ringer's (Lactated Ringers 1000 Ml Bag*) 1,000 mls @ 125 mls/hr IV PER RATE [facility] Insulin Glargine (Lantus(*)) 10 units SUBCUT BEDTIME [facility] Last Admin: 06/12/19 22:12 Dose: 10 units Insulin Human Lispro (Humalog*) 0 units SUBCUT ACHS [facility]; Protocol Last Admin: 06/13/19 13:09 Dose: 3 units Latanoprost (Xalatan 0.005%*) 1 drop RIGHT EYE 1700 [facility] Last Admin: 06/12/19 18:59 Dose: 1 drop Magnesium Hydroxide (Milk Of Magnesia Liq*) 30 ml PO BID [facility] Last Admin: 06/13/19 09:00 Dose: 30 ml Magnesium Hydroxide (Milk Of Magnesia Liq*) 30 ml PO BID PRN PRN Reason: CONSTIPATION Last Admin: 06/12/19 09:26 Dose: 30 ml Montelukast Sodium (Singulair Tab*) 10 mg PO BEDTIME [facility] Last Admin: 06/12/19 22:10 Dose: 10 mg Morphine Sulfate (Morphine Inj (Syringe))*) 2 mg IV Q4H PRN PRN Reason: PAIN - SEVERE Oxycodone/Acetaminophen (Percocet 5/325 Tab*) 1 tab PO Q6H PRN PRN Reason: PAIN - MODERATE Last Admin: 06/13/19 12:45 Dose: 1 tab Pantoprazole Sodium (Protonix Tab*) 40 mg PO DAILY [facility] Last Admin: 06/13/19 09:04 Dose: 40 mg Pharmacy Consult (Vancomycin Per Pharmacy*) 1 note FOLLOW UP .VANC PER PHARMACY [facility]; Protocol Polyethylene Glycol/Electrolytes (Miralax*) 17 gm PO DAILY PRN PRN Reason: CONSTIPATION Last Admin: 06/12/19 22:09 Dose: 17 gm Senna (Senokot 8.6 Mg Tab*) 1 tab PO BEDTIME PRN PRN Reason: CONSTIPATION Last Admin: 06/12/19 22:11 Dose: 1 tab Timolol Maleate (Timoptic 0.5% Opth*) 1 drop BOTH EYES BID [facility] Last Admin: 06/13/19 09:04 Dose: 1 drop Vital Signs - 8 hr 06/13/19 06/13/19 06/13/19 08:00 08:35 09:00 Temperature 98.7 F Pulse Rate 72 Respiratory 18 17 18 Rate Blood Pressure 137/58 (mmHg) O2 Sat by Pulse 95 Oximetry 06/13/19 12:45 Temperature Pulse Rate Respiratory 18 Rate Blood Pressure (mmHg) O2 Sat by Pulse Oximetry Oxygen Devices in Use Now: None Appearance: 64 yo F in NAD, AAOx3 Eyes: No Scleral Icterus, PERRLA Ears/Nose/Mouth/Throat: NL Teeth, Lips, Gums, Mucous Membranes Moist Neck: NL Appearance and Movements; NL JVP, Trachea Midline Respiratory: Symmetrical Chest Expansion and Respiratory Effort, Clear to Auscultation Cardiovascular: NL Sounds; No Murmurs; No JVD Abdominal: NL Sounds; No Tenderness; No Distention, No Hepatosplenomegaly Lymphatic: No Cervical Adenopathy Extremities: No Edema, No Clubbing, Cyanosis Skin: No Nodules or Sclerosis, - - R foot in post op dressings and wound vac in place Neurological: Alert and Oriented x 3, NL Muscle Strength and Tone Result Diagrams: 06/13/19 06:09 06/13/19 06:09 Additional Lab and Data: Laboratory Results - last 24 hr 06/10/19 06/11/19 06/11/19 21:24 05:39 05:39 WBC 8.1 RBC 3.00 L Hgb 7.4 L Hct 23 L MCV 76 L MCH 25 L MCHC 33 RDW 15 Plt Count 293 MPV 7.2 L Neut % (Auto) 64.4 Lymph % (Auto) 24.8 [place] % (Auto) 8.7 Eos % (Auto) 1.0 Baso % (Auto) 1.1 Absolute Neuts (auto) 5.2 Absolute Lymphs (auto) 2.0 Absolute Monos (auto) 0.7 Absolute Eos (auto) 0.1 Absolute Basos (auto) 0.1 Absolute Nucleated RBC 0.0 Nucleated RBC % 0.0 Sodium 139 Potassium 4.5 Chloride 111 Carbon Dioxide 22 Anion Gap 6 BUN 26 H Creatinine 1.42 H Est GFR ( Amer) 45.2 Est GFR (Non-Af Amer) 37.4 BUN/Creatinine Ratio 18.3 Glucose 145 H POC Glucose (mg/dL) 133 H Calcium 8.3 L Magnesium 1.4 L 06/11/19 06/11/19 06/11/19 07:35 12:39 17:50 WBC RBC Hgb Hct MCV MCH MCHC RDW Plt Count MPV Neut % (Auto) Lymph % (Auto) [place] % (Auto) Eos % (Auto) Baso % (Auto) Absolute Neuts (auto) Absolute Lymphs (auto) Absolute Monos (auto) Absolute Eos (auto) Absolute Basos (auto) Absolute Nucleated RBC Nucleated RBC % Sodium Potassium Chloride Carbon Dioxide Anion Gap BUN Creatinine Est GFR ( Amer) Est GFR (Non-Af Amer) BUN/Creatinine Ratio Glucose POC Glucose (mg/dL) 149 H 200 H 169 H Calcium Magnesium 06/11/19 20:52 WBC RBC Hgb Hct MCV MCH MCHC RDW Plt Count MPV Neut % (Auto) Lymph % (Auto) [place] % (Auto) Eos % (Auto) Baso % (Auto) Absolute Neuts (auto) Absolute Lymphs (auto) Absolute Monos (auto) Absolute Eos (auto) Absolute Basos (auto) Absolute Nucleated RBC Nucleated RBC % Sodium Potassium Chloride Carbon Dioxide Anion Gap BUN Creatinine Est GFR ( Amer) Est GFR (Non-Af Amer) BUN/Creatinine Ratio Glucose POC Glucose (mg/dL) 163 H Calcium Magnesium Microbiology and Other Data: Microbiology 06/08/19 19:39 Blood Venous Blood Culture - Preliminary No Growth Day 3 06/08/19 19:27 Blood Venous Blood Culture - Preliminary No Growth Day 3 06/09/19 15:40 Urine Urine Culture - Final Kristine Krusei 06/10/19 11:50 Foot Right Gram Stain - Final 06/10/19 11:50 Foot Right Wound Culture - Preliminary Staphylococcus Aureus 06/10/19 11:50 Wound Anaerobic Culture - Preliminary Assess/Plan/Problems-Billing Assessment: 64 yo female PMH IDDM (A1c 7.5), HTN, CKD IV, TIAs, HLD, right foot wounds following with wound clinic p/w necrotic right 5th toe with osteomyelitis and wet gangrene. Sepsis (fever, tachycardia). PCN allergy, on vanc, aztreonam. s/p partial forefoot amputation on 06/10/19. - Patient Problems (1) Necrosis of toe Comment: s/p right partial forefoot amputation with Dr. Watkins 06/10. YSABEL showed right digit 0.21 and left 0.73 Continue vancomycin. Aztreonam d/c'd by ID on 06/12/19 f/u cultures MRSA + non weight bearing on right foot. continue PT PICC order placed (2) Chronic kidney disease, stage IV (severe) Comment: [employer] improved from admission ACEI held given sepsis. had acute renal failure in April after bactrim with [employer] up to 4.5, K8.1 f/u BMP daily (3) Diabetes Comment: - A1c 7.5% in March Continue Lantus, Lispro SS (4) Diabetic neuropathy Comment: - Continue gabapentin (5) History of TIA (transient ischemic attack) Current Visit: No Comment: - hold plavix for now until cleared by ortho (unclear if will need further debridement, this was for secondary prevention of CVAs). has aspirin allergy (6) Anemia Comment: microcytic with iron defficiency and ACD started on ferrous gluconate 325mg po BID. cont to monitor no signs or symptoms of acute bleed (7) DVT prophylaxis Comment: - Heparin SQ Status and Disposition: medicine inpatient
[2019-06-13] MEDS: Latanoprost 0.005%* 2.5 ml BTL RIGHT EYE SCH (18:11)
[2019-06-13] MEDS: Montelukast Sodium TAB* 10 MG PO SCH (22:03)
[2019-06-13] MEDS: Insulin GLARGINE(*) 1 UNITS UNIT SUBCUT SCH (22:07)
[2019-06-14] MEDS: Vancomycin(*) 500 MG in NS 0.9% 250 ML* 250 ML IVPB SCH ×2 (05:41→17:53)
[2019-06-14] MEDS: Lactated Ringers 1000 ML Bag* 1,000 ML IV SCH ×2 (05:41→21:13)
[2019-06-14 05:42] LABS: ABS Basophils 0.1 10^3/ul (0-0.2); ABS Eosinophils 0.2 10^3/ul (0-0.6); ABS Lymphocytes 1.8 10^3/ul (1.0-4.8); ABS Monocytes 0.5 10^3/ul (0-0.8); ABS Neutrophils 3.5 10^3/ul (1.5-7.7); Eosinophil % 3.8 %; Hematocrit 23 % (35-47); Hemoglobin 7.5 g/dL (12.0-16.0); Lymphocyte % 29.1 %; Mean Corpuscular HGB Conc 32 g/dL (31-36); Mean Corpuscular Hemoglobin 25 pg (27-31); Mean Corpuscular Volume 77 fL (80-97); Mean Platelet Volume 6.8 fL (7.4-10.4); Nucleated Red Blood Cells % 0.2; Platelet Count 315 10^3/uL (150-450); Red Blood Count 3.04 10^6 /uL (3.70-4.87); Red Cell Distribution Width 15 % (10-15)
[2019-06-14] MEDS: Docusate CAP* 100 MG PO SCH ×2 (09:10→21:12)
[2019-06-14] MEDS: Collagenase 250 UNITS/GM OINT* 1 APPLIC OINT TOPICAL SCH (09:10)
[2019-06-14] MEDS: Magnesium Hydroxide LIQ* 30 ML UDC PO SCH ×3 (09:11→21:23)
[2019-06-14] MEDS: Timolol 0.5% OPTH.SOL* BTL BOTH EYES SCH ×2 (09:33→21:13)
[2019-06-14] MEDS: Ferrous Gluconate TAB* 324 MG TAB PO SCH ×2 (09:33→21:12)
[2019-06-14] MEDS: Gabapentin CAP(*) 300 MG PO SCH ×2 (09:33→21:12)
[2019-06-14] MEDS: Pantoprazole TAB * 40 MG TAB PO SCH (09:33)
[2019-06-14] MEDS: Insulin LISPRO* 1 UNITS UNIT SUBCUT SCH ×5 (09:54→21:13)
[2019-06-14] MEDS: CMC:Dorzolamide 2% OPTH (NF) 10 ML BTL RIGHT EYE SCH ×3 (10:00→21:14)
[2019-06-14] MEDS: CMC:Brimonidine P 0.1%(NF) 1 DROP BTL RIGHT EYE SCH ×3 (10:00→21:14)
--- NOTE | 2019-06-14 10:04 | PN ---
Subjective Date of Service: 06/14/19 Interval History: Pt feels well, but is hungry and awaiting OR that is planned to happen at 2PM Objective Active Medications: Acetaminophen (Tylenol Tab*) 650 mg PO Q4H PRN PRN Reason: PAIN - MILD Last Admin: 06/13/19 12:44 Dose: 650 mg Acetaminophen (Tylenol Tab*) 650 mg PO QAM PRN PRN Reason: PAIN Brimonidine Tartrate (Alphagan P 0.1% (Nf)) 1 drop RIGHT EYE TID [facility] Last Admin: 06/14/19 10:00 Dose: 1 drop Collagenase (Santyl 250 Units/Gm Oint*) 1 applic TOPICAL DAILY [facility] Last Admin: 06/14/19 09:10 Dose: Not Given Dextrose (Dextrose 50% Vial 50 Ml*) 25 ml IV PUSH .FOR FS < 60 - SS PRN PRN Reason: FS < 60 Docusate Sodium (Colace Cap*) 100 mg PO BID [facility] Last Admin: 06/14/19 09:10 Dose: Not Given Dorzolamide HCl (Trusopt 2% Opth (Nf)) 1 drop RIGHT EYE TID [facility]; Protocol Last Admin: 06/14/19 10:00 Dose: 1 drop Ferrous Gluconate (Fergon Tab*) 324 mg PO BID [facility] Last Admin: 06/14/19 09:33 Dose: 324 mg Gabapentin (Neurontin Cap(*)) 300 mg PO BID [facility] Last Admin: 06/14/19 09:33 Dose: 300 mg Heparin Sodium (Porcine) (Heparin Flush Picc/Ml/Cvc(*)) 1 ml FLUSH 0600,1800 [facility]; Protocol Last Admin: 06/13/19 18:11 Dose: 1 ml Heparin Sodium (Porcine) (Heparin Flush Picc/Ml/Cvc(*)) 0 ml FLUSH 0600,1800 [facility] Vancomycin HCl 500 mg/ Sodium (Chloride) 250 mls @ 166.667 mls/hr IVPB Q12H [facility] Last Admin: 06/14/19 05:41 Dose: 166.667 mls/hr Lactated Ringer's (Lactated Ringers 1000 Ml Bag*) 1,000 mls @ 125 mls/hr IV PER RATE [facility] Last Admin: 06/14/19 05:41 Dose: 125 mls/hr Insulin Glargine (Lantus(*)) 10 units SUBCUT BEDTIME [facility] Last Admin: 06/13/19 22:07 Dose: 10 units Insulin Human Lispro (Humalog*) 0 units SUBCUT ACHS [facility]; Protocol Last Admin: 06/14/19 09:56 Dose: Not Given Latanoprost (Xalatan 0.005%*) 1 drop RIGHT EYE 1700 [facility] Last Admin: 06/13/19 18:11 Dose: 1 drop Magnesium Hydroxide (Milk Of Magnesia Liq*) 30 ml PO BID [facility] Last Admin: 06/14/19 09:11 Dose: Not Given Magnesium Hydroxide (Milk Of Magnesia Liq*) 30 ml PO BID PRN PRN Reason: CONSTIPATION Last Admin: 06/12/19 09:26 Dose: 30 ml Montelukast Sodium (Singulair Tab*) 10 mg PO BEDTIME [facility] Last Admin: 06/13/19 22:03 Dose: 10 mg Morphine Sulfate (Morphine Inj (Syringe))*) 2 mg IV Q4H PRN PRN Reason: PAIN - SEVERE Oxycodone/Acetaminophen (Percocet 5/325 Tab*) 1 tab PO Q6H PRN PRN Reason: PAIN - MODERATE Last Admin: 06/13/19 18:31 Dose: 1 tab Pantoprazole Sodium (Protonix Tab*) 40 mg PO DAILY [facility] Last Admin: 06/14/19 09:33 Dose: 40 mg Pharmacy Consult (Vancomycin Per Pharmacy*) 1 note FOLLOW UP .VANC PER PHARMACY [facility]; Protocol Pharmacy Profile Note (Vancomycin Trough Check) 1 note FOLLOW UP 0530 [facility] Stop: 06/16/19 05:31 Polyethylene Glycol/Electrolytes (Miralax*) 17 gm PO DAILY PRN PRN Reason: CONSTIPATION Last Admin: 06/12/19 22:09 Dose: 17 gm Senna (Senokot 8.6 Mg Tab*) 1 tab PO BEDTIME PRN PRN Reason: CONSTIPATION Last Admin: 06/12/19 22:11 Dose: 1 tab Timolol Maleate (Timoptic 0.5% Opth*) 1 drop BOTH EYES BID [facility] Last Admin: 06/14/19 09:33 Dose: 1 drop Vital Signs - 8 hr 06/14/19 06/14/19 06/14/19 03:52 08:11 09:33 Temperature 98.4 F 98.5 F Pulse Rate 70 68 Respiratory 19 14 12 Rate Blood Pressure 129/55 142/58 (mmHg) O2 Sat by Pulse 97 Oximetry Oxygen Devices in Use Now: None Appearance: 64 yo F in nAD, aAOx3 Eyes: No Scleral Icterus, PERRLA Ears/Nose/Mouth/Throat: NL Teeth, Lips, Gums, Mucous Membranes Moist Neck: NL Appearance and Movements; NL JVP, Trachea Midline Respiratory: Symmetrical Chest Expansion and Respiratory Effort, Clear to Auscultation Cardiovascular: NL Sounds; No Murmurs; No JVD, RRR Abdominal: NL Sounds; No Tenderness; No Distention Lymphatic: No Cervical Adenopathy Extremities: No Edema, No Clubbing, Cyanosis Skin: No Rash or Ulcers, No Nodules or Sclerosis Neurological: Alert and Oriented x 3, NL Muscle Strength and Tone Result Diagrams: 06/14/19 05:32 06/13/19 06:09 Additional Lab and Data: Laboratory Results - last 24 hr 06/10/19 06/11/19 06/11/19 21:24 05:39 05:39 WBC 8.1 RBC 3.00 L Hgb 7.4 L Hct 23 L MCV 76 L MCH 25 L MCHC 33 RDW 15 Plt Count 293 MPV 7.2 L Neut % (Auto) 64.4 Lymph % (Auto) 24.8 [place] % (Auto) 8.7 Eos % (Auto) 1.0 Baso % (Auto) 1.1 Absolute Neuts (auto) 5.2 Absolute Lymphs (auto) 2.0 Absolute Monos (auto) 0.7 Absolute Eos (auto) 0.1 Absolute Basos (auto) 0.1 Absolute Nucleated RBC 0.0 Nucleated RBC % 0.0 Sodium 139 Potassium 4.5 Chloride 111 Carbon Dioxide 22 Anion Gap 6 BUN 26 H Creatinine 1.42 H Est GFR ( Amer) 45.2 Est GFR (Non-Af Amer) 37.4 BUN/Creatinine Ratio 18.3 Glucose 145 H POC Glucose (mg/dL) 133 H Calcium 8.3 L Magnesium 1.4 L 06/11/19 06/11/19 06/11/19 07:35 12:39 17:50 WBC RBC Hgb Hct MCV MCH MCHC RDW Plt Count MPV Neut % (Auto) Lymph % (Auto) [place] % (Auto) Eos % (Auto) Baso % (Auto) Absolute Neuts (auto) Absolute Lymphs (auto) Absolute Monos (auto) Absolute Eos (auto) Absolute Basos (auto) Absolute Nucleated RBC Nucleated RBC % Sodium Potassium Chloride Carbon Dioxide Anion Gap BUN Creatinine Est GFR ( Amer) Est GFR (Non-Af Amer) BUN/Creatinine Ratio Glucose POC Glucose (mg/dL) 149 H 200 H 169 H Calcium Magnesium 06/11/19 20:52 WBC RBC Hgb Hct MCV MCH MCHC RDW Plt Count MPV Neut % (Auto) Lymph % (Auto) [place] % (Auto) Eos % (Auto) Baso % (Auto) Absolute Neuts (auto) Absolute Lymphs (auto) Absolute Monos (auto) Absolute Eos (auto) Absolute Basos (auto) Absolute Nucleated RBC Nucleated RBC % Sodium Potassium Chloride Carbon Dioxide Anion Gap BUN Creatinine Est GFR ( Amer) Est GFR (Non-Af Amer) BUN/Creatinine Ratio Glucose POC Glucose (mg/dL) 163 H Calcium Magnesium Microbiology and Other Data: Microbiology 06/08/19 19:39 Blood Venous Blood Culture - Preliminary No Growth Day 3 06/08/19 19:27 Blood Venous Blood Culture - Preliminary No Growth Day 3 06/09/19 15:40 Urine Urine Culture - Final Kristine Krusei 06/10/19 11:50 Foot Right Gram Stain - Final 06/10/19 11:50 Foot Right Wound Culture - Preliminary Staphylococcus Aureus 06/10/19 11:50 Wound Anaerobic Culture - Preliminary Assess/Plan/Problems-Billing Assessment: 64 yo female PMH IDDM (A1c 7.5), HTN, CKD IV, TIAs, HLD, right foot wounds following with wound clinic p/w necrotic right 5th toe with osteomyelitis and wet gangrene. Sepsis (fever, tachycardia). PCN allergy, on vanc, aztreonam. s/p partial forefoot amputation on 06/10/19. - Patient Problems (1) Necrosis of toe Comment: s/p right partial forefoot amputation with Dr. Watkins 06/10. YSABEL showed right digit 0.21 and left 0.73 Continue vancomycin. Aztreonam d/c'd by ID on 06/12/19 f/u cultures MRSA + non weight bearing on right foot. Back to OR to possibly remove wound vac today PICC placed, will remove cntreal line tonight (2) Chronic kidney disease, stage IV (severe) Comment: [employer] improved from admission ACEI held given sepsis. had acute renal failure in April after bactrim with [employer] up to 4.5, K8.1 cont to monitor (3) Diabetes Comment: - A1c 7.5% in March Continue Lantus, Lispro SS (4) Diabetic neuropathy Comment: - Continue gabapentin (5) History of TIA (transient ischemic attack) Current Visit: No Comment: - hold plavix for now until cleared by ortho (unclear if will need further debridement, this was for secondary prevention of CVAs). has aspirin allergy (6) Anemia Comment: microcytic with iron defficiency and ACD started on ferrous gluconate 325mg po BID. cont to monitor no signs or symptoms of acute bleed (7) DVT prophylaxis Comment: - Heparin SQ Status and Disposition: medicine inpatient. Possible placement to STR on 06/15/19 with PICC and plan for 6 weeks of Vanco to be confirmed with ID
--- NOTE | 2019-06-14 12:59 | CONSULT ---
Consult Consult: Date of Service: 06/14/19 Requesting Service: Hospitalists Reason for consultation: Gangrenous right great toe (Focused) HPI: The patient is a 64 y/o F that presented to [facility] on 06/08/19 with a chief complaint of pain in the right fifth toe that started five days earlier. I met Yue for consultation in the interventional radiology clinic on 04/04/2019 and determine at that time that there was no indication for angiography. At the time of the consultation she reported walking up to 7 miles continuously without pain. She reports that she had imaging on 06/04/19 to show that the fifth toe is broken and had been purple in color. Since then, the toe has become black in appearance, seemingly gangrenous. There is also increased swelling, and she has had intermittent fevers. The pain radiates into the right calf. She denies any chills, erythema of eyes, sore throat, CP, SOB, cough, abdominal pain, N/V, dysuria, hematuria, myalgia, edema, rash, or dizziness. She denies any symptoms characteristic of claudication or nighttime rest pain. Allergies/Adverse Reactions: Allergies Allergy/AdvReac Type Severity Reaction Status Date / Time aspirin Allergy Severe Hives/Diff. Verified 03/17/19 11:24 Breathing/I tching Penicillins Allergy Severe Hives/Diff. Verified 03/17/19 11:24 Breathing/I tching tomato Allergy Severe Hives/Diff. Verified 03/17/19 11:24 Breathing/I tching levofloxacin [From Levaquin] Allergy Intermediate Itching Verified 03/17/19 11: 24 Sulfa (Sulfonamide Allergy See Comment Verified 06/08/19 17:53 Antibiotics) Home Medications: Home Medications Brimonidine P 0.1%(NF) [Alphagan P 0.1% (NF)] 1 drop RIGHT EYE TID 06/08/19 [ History Confirmed 06/08/19] Chlorthalidone TAB* [Hygroton TAB*] 25 mg PO DAILY 06/08/19 [History Confirmed 06/08/19] Dorzolamide 2% OPTH (NF) [Trusopt 2% OPTH (NF)] 1 drop RIGHT EYE TID 06/08/19 [ History Confirmed 06/08/19] PMH/Surg Hx/FS Hx/Imm Hx Endocrine/Hematology History: Reports: Hx Diabetes - type 2 Cardiovascular History: Reports: Hx Hypercholesterolemia, Hx Hypertension, Other Cardiovascular Problems/Disorders - dyslipidemia Denies: Hx Pacemaker/ICD Respiratory History: Reports: Hx Sleep Apnea - diagnosed but no machine (pt can' t afford) Denies: Other Respiratory Problems/Disorders GI History: Reports: Hx Gastroesophageal Reflux Disease - no meds Denies: Other GI Disorders History: Reports: Hx Kidney Infection - reports x12 - last one 4 months ago, Hx Renal Disease Denies: Hx Kidney Stones, Other Problems/Disorders Musculoskeletal History: Reports: Hx Arthritis Denies: Other Musculoskeletal History Sensory History: Reports: Hx Cataracts - bilateral, left not fixed yet, Hx Contacts or Glasses - tinted f/protection, Hx Glaucoma - right eye, Hx Legally Blind, Other Sensory Impairments - neuropathy Denies: Hx Hearing Aid Opthamlomology History: Reports: Hx Cataracts - bilateral, left not fixed yet, Hx Contacts or Glasses - tinted f/protection, Hx Glaucoma - right eye, Hx Legally Blind, Other Sensory Impairments - neuropathy Neurological History: Reports: Hx Nerve Disease - DM neuropathy Denies: Other Neuro Impairments/Disorders Psychiatric History: Reports: Hx Anxiety - panic attacks Denies: Hx Panic Disorder Surgical History: Surgery Procedure, Year, and Place: right rotator cuff repair 2012 -[facility]. tonsillectomy and adenoidectomy at age 19 - [facility]. bilateral carpal tunnel release - [facility]. 1977 [facility]. laser eye surgery x3, 2 on right eye and 2 left eye in [facility]. tubal ligation 1977 - [facility] Hx Anesthesia Reactions: No Family History: NC Social Hx: Alcohol Use: Rare Hx Substance Use: No Substance Use Type: Reports: None Hx Tobacco Use: Yes Smoking Status (MU): Former Smoker Amount Used/How Often: 1 pack every 2 weeks for only 1 year ROS: Positive: Fever. Negative: Chills Negative: Erythema Negative: Sore Throat Negative: Chest Pain Negative: Shortness Of Breath, Cough Negative: Abdominal Pain, Vomiting, Nausea Negative: dysuria, hematuria Positive: Other - pain extending from right foot into calf. Negative: Myalgia, Edema Positive: Other - blackened right fifth toe with erythema and swelling. Negative: Rash Neurological: Other - Negative: dizziness All Other Systems Reviewed And Are Negative: Yes Relevant Imaging: Patient Name: YUE LI Medical Record#: [id number] Ordering Physician: Franklin Arreola MD Acct.#: [id number] : 1955 Age: 64 Sex: F Location: SURGICAL STAY UNIT Exam Date: 06/09/19 1016 ADM Status: ADM IN Order Information: VL ANK/BRACHIAL INDICES Accession Number: [id number] CPT: 45963 PROCEDURE INFORMATION: Exam: US Bilateral Noninvasive Physiologic Study of the Upper or Lower Extremity Arteries, Limited Exam date and time: 06/09/2019 7:58 PM Clinical history: 64 years old, female; Other: RT black 5th digit; Additional info: Rule out pvd TECHNIQUE: Imaging protocol: Bilateral Bilateral noninvasive physiologic studies of upper or lower extremity arteries. Ankle/brachial indices at distal posterior tibial and anterior tibial/dorsalis pedis arteries plus bidirectional, doppler waveform recording and analysis at 1-2 levels, or ankle/brachial indices at distal posterior tibial and anterior tibial/dorsalis pedis arteries plus volume plethysmography at 1-2 levels, or ankle/brachial indices at distal posterior tibial and anterior tibial/dorsalis pedis arteries with, transcutaneous oxygen tension measurement at 1-2 levels. Images were documented and archived. Limited. COMPARISON: US LE ARTDUPB VL LOWER EXT ART DUPLEX BILAT 04/04/2019 1:42 PM FINDINGS: Segmental BP: Right: Brachial: 107 mmHg Ankle (PT): 149 mmHg (index = 1.33). Ankle (DP): 100 mmHg (index = 0.89). Digit: 24 mmHg (index = 0.21). Left: Brachial: 112 mmHg Ankle (PT): 122 mmHg (index = 1.09). Ankle (DP): 133 mmHg (index = 1.19). Digit: 82 mmHg (index = 0.73). Doppler: Right: Posterior tibial: Biphasic Dorsalis pedis: Monophasic Digit: Monophasic Left: Posterior tibial: Triphasic Dorsalis pedis: Triphasic Digit: Biphasic IMPRESSION: 1. Severe atherosclerotic right digit. Referral to vascular surgery recommended. 2. Some atherosclerosis right ankle and left digit. Labs: Laboratory Tests 06/08/19 06/13/19 06/14/19 19:27 06:09 05:32 WBC 6.0 RBC 3.04 L Hgb 7.5 L Hct 23 L INR (Anticoag Therapy) 1.11 H APTT 35.2 BUN 21 Creatinine 1.45 H Est GFR ( Amer) 44.1 Est GFR (Non-Af Amer) 36.5 Physical Exam: Selected Entries 06/14/19 12:00 Temperature 98.1 F Temperature Temporal Artery Source Scan Pulse Rate 69 Respiratory 18 Rate Blood Pressure 159/71 (mmHg) Blood Pressure 100 Mean O2 Sat by Pulse 98 Oximetry Patient on Room Yes Air NAD, AAO x 3 RRR CTAB Abdomen is soft and nontender 1+ pulses are palpated the bilateral common femoral arteries, 2+ pulses are palpated the bilateral popliteal arteries. The left pedal pulses are nonpalpable The right foot is wrapped in sterile gauze and Arturo wrap. A wound VAC appears to be in place. Summary: 64 -year-old woman with history of poor diabetes control with a gangrenous right foot. Similar to my impression after meeting Yue in the interventional radiology clinic 04/04/2019, she does not exhibit any signs of significant arterial insufficiency above the infrapopliteal arteries. 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 Plan/recommendation: 1. CTA aorta with runoff will confirm adequate arterial flow to the feet. 2. An indication for angiography will be determined with CTA with runoff, but currently I am doubtful the patient will benefit from angiography/endovascular intervention.
[2019-06-14] MEDS ORDERED: Labetalol IV* 5 MG/ML 20 ML VIAL ONE ×2 (14:33→17:09)
[2019-06-14] MEDS ORDERED: Midazolam* 1 MG/ML 2 ML VIAL (2 MG) ONE (14:37)
[2019-06-14] MEDS ORDERED: fentaNYL* 50 MCG/ML 2 ML VIAL (100 MCG VIAL) ONE ×2 (14:37→16:34)
[2019-06-14] MEDS ORDERED: Propofol* 10 MG/ML 20 ML BTL ONE (14:59)
[2019-06-14] MEDS ORDERED: Lidocaine 2% PF * 5 ML VIAL ONE (14:59)
[2019-06-14] MEDS ORDERED: Bupivacaine 0.5%* 50 ML MDV VIAL ONE (15:28)
[2019-06-14] MEDS ORDERED: Lidocaine 2% PF* 10 ML AMP ONE (15:28)
[2019-06-14] MEDS ORDERED: Acetaminophen TAB* 325 MG PO PRN (16:03)
[2019-06-14] MEDS ORDERED: Naloxone* 0.4 MG/ML 1 ML VIAL IV PRN (16:03)
[2019-06-14] MEDS ORDERED: Ondansetron INJ* 2 MG/ML VIAL IV PRN (16:03)
[2019-06-14] MEDS ORDERED: fentaNYL* 50 MCG/ML 2 ML VIAL (100 MCG VIAL) IV PRN (16:03)
--- NOTE | 2019-06-14 17:33 | OP ---
Operative Report - Blank - Operative Report Date of Operation: 06/14/19 Note: PATIENT: Yue Fonseca DATE OF : 1955 DATE OF SURGERY: 06/14/2019 SURGEON: Good Hunt MD NEUROPHYSIOLOGY TECH: BECK Guerrero, whos assistance was necessary for positioning, retraction, help with instrumentation, and closure. ANESTHESIOLOGIST: Dr. Gonzalez PREOPERATIVE DIAGNOSIS: Right foot infection status post prior prior I&D and 4th and 5th ray excisions POSTOPERATIVE DIAGNOSIS: Right foot infection status post prior prior I&D and 4 th and 5th ray excisions OPERATION: 1. Right foot irrigation and debridement 2. Right foot complex secondary wound closure ANESTHESIA: MAC IMPLANTS: none TOURNIQUET TIME: none SPECIMENS: none ESTIMATED BLOOD LOSS: minimal COMPLICATIONS: none STATUS: Stable from the operating room to the recovery room and then back to the hospital floor. INDICATIONS FOR PROCEDURE: Ms. Fonseca has a right foot infection and underwent a prior I&D and 4th and 5th ray amputations and placement of a wound VAC. Both operative and non-operative treatment alternatives were reviewed. Further, the nature and risks of surgery were reviewed in careful detail. Our discussions regarding the risks of surgery included, but were not limited to, persistent or worsening infection, wound problems, nerve injury, neuroma, RSD, persistent symptoms, blood clot, need for further surgery, need for further amputation, failure of the surgery, and even the remote chance of catastrophic complication. DESCRIPTION OF PROCEDURE: The patient was seen in the preoperative holding unit and informed written consent was obtained. The appropriate extremity was marked. The patient was then brought to the operating room and carefully positioned on the operating room table. Anesthesia was induced. All bony prominences were padded with great care. A chlorhexidine based pre-scrub was performed followed by a betadine prep and drape in standard sterile fashion. A surgical safety pause was then conducted in which we confirmed the appropriate patient, extremity, planned procedure, availability of equipment, indication and administration of prophylactic antibiotics, and DVT prophylaxis in the form of a compression boot on the non-surgical extremity. I began by examining the wound at the right lateral foot. It measured 10 cm in length by 3 cm in width by 3 cm in depth. It involved the skin, subcutaneous, fascial, muscular layers, down to bone at the third metatarsal. There was some undermining plantarly. At the plantar aspect of the wound there is some remaining necrotic tissue which was sharply excised with a 15 blade scalpel. This included the muscle, fascial and subcutaneous layers. Once all nonviable- appearing tissue was excised, the wound was copiously irrigated with sterile saline. I then planned out my wound closure. I was able to flap up to the plantar soft tissue and skin to fill the forefoot defect. The wound was closed in a layered fashion utilizing 0 PDS for the deep layer and 2-0 Prolene on the skin. A sterile dressing was then applied. The patient was then awakened from anesthesia and transferred to the recovery room in stable condition. There were no complications. All needle and sponge counts were correct at the end of the case. ATTESTATION: I attest I was present and scrubbed and performed the critical portions of the procedure myself. POSTOPERATIVE PLAN: Antibiotics per infectious disease. Nonweightbearing, right lower extremity. Follow up in one week for a wound check.
[2019-06-14] MEDS: Latanoprost 0.005%* 2.5 ml BTL RIGHT EYE SCH (17:53)
[2019-06-14] MEDS: oxyCODONE/Acetamin 5/325 MG* TAB PO PRN (18:37)
[2019-06-14] MEDS: Montelukast Sodium TAB* 10 MG PO SCH (21:12)
[2019-06-14] MEDS: Insulin GLARGINE(*) 1 UNITS UNIT SUBCUT SCH (21:12)
[2019-06-14] MEDS: Heparin VIAL(*) 5000 UNITS/ML VIAL (FIVE THOUSAND) SUBCUT SCH (21:13)
[2019-06-15] MEDS: Vancomycin(*) 500 MG in NS 0.9% 250 ML* 250 ML IVPB SCH (05:31)
[2019-06-15] MEDS: Lactated Ringers 1000 ML Bag* 1,000 ML IV SCH (05:31)
[2019-06-15] MEDS: Heparin VIAL(*) 5000 UNITS/ML VIAL (FIVE THOUSAND) SUBCUT SCH (05:44)
[2019-06-15 06:24] LABS: ABS Eosinophils 0.2 10^3/ul (0-0.6); ABS Lymphocytes 1.9 10^3/ul (1.0-4.8); ABS Monocytes 0.6 10^3/ul (0-0.8); ABS Neutrophils 4.6 10^3/ul (1.5-7.7); Eosinophil % 3.1 %; Hematocrit 23 % (35-47); Hemoglobin 7.6 g/dL (12.0-16.0); Lymphocyte % 25.8 %; Mean Corpuscular HGB Conc 33 g/dL (31-36); Mean Corpuscular Hemoglobin 25 pg (27-31); Mean Corpuscular Volume 77 fL (80-97); Mean Platelet Volume 7.1 fL (7.4-10.4); Nucleated Red Blood Cells % 0.2; Platelet Count 317 10^3/uL (150-450); Red Blood Count 3.02 10^6 /uL (3.70-4.87); Red Cell Distribution Width 15 % (10-15); White Blood Count 7.4 10^3/uL (3.5-10.8)
[2019-06-15 06:49] LABS: BUN/Creatinine Ratio 11.5 (8-20); Calcium 8.4 mg/dL (8.6-10.3); EGFR African American 46.3 (>60); EGFR Non-African American 38.3 (>60)
--- NOTE | 2019-06-15 07:36 | PN ---
Subjective Date of Service: 06/15/19 Interval History: HOSPITALIST PROGRESS NOTE Patient seen and examined at bedside. Care reviewed and d/w Objective Active Medications: Acetaminophen (Tylenol Tab*) 650 mg PO Q4H PRN PRN Reason: PAIN - MILD Last Admin: 06/13/19 12:44 Dose: 650 mg Acetaminophen (Tylenol Tab*) 650 mg PO QAM PRN PRN Reason: PAIN Brimonidine Tartrate (Alphagan P 0.1% (Nf)) 1 drop RIGHT EYE TID [facility] Last Admin: 06/14/19 21:14 Dose: Not Given Collagenase (Santyl 250 Units/Gm Oint*) 1 applic TOPICAL DAILY [facility] Last Admin: 06/14/19 09:10 Dose: Not Given Dextrose (Dextrose 50% Vial 50 Ml*) 25 ml IV PUSH .FOR FS < 60 - SS PRN PRN Reason: FS < 60 Docusate Sodium (Colace Cap*) 100 mg PO BID [facility] Last Admin: 06/14/19 21:12 Dose: 100 mg Dorzolamide HCl (Trusopt 2% Opth (Nf)) 1 drop RIGHT EYE TID [facility]; Protocol Last Admin: 06/14/19 21:14 Dose: Not Given Ferrous Gluconate (Fergon Tab*) 324 mg PO BID [facility] Last Admin: 06/14/19 21:12 Dose: 324 mg Gabapentin (Neurontin Cap(*)) 300 mg PO BID [facility] Last Admin: 06/14/19 21:12 Dose: 300 mg Heparin Sodium (Porcine) (Heparin Flush Picc/Ml/Cvc(*)) 0 ml FLUSH 0600,1800 [facility] Last Admin: 06/15/19 06:10 Dose: Not Given Heparin Sodium (Porcine) (Heparin Vial(*)) 5,000 units SUBCUT Q8HR [facility] Last Admin: 06/15/19 05:44 Dose: 5,000 units Vancomycin HCl 500 mg/ Sodium (Chloride) 250 mls @ 166.667 mls/hr IVPB Q12H [facility] Last Admin: 06/15/19 05:31 Dose: 166.667 mls/hr Lactated Ringer's (Lactated Ringers 1000 Ml Bag*) 1,000 mls @ 125 mls/hr IV PER RATE [facility] Last Admin: 06/15/19 05:31 Dose: 125 mls/hr Insulin Glargine (Lantus(*)) 10 units SUBCUT BEDTIME [facility] Last Admin: 06/14/19 21:12 Dose: 10 units Insulin Human Lispro (Humalog*) 0 units SUBCUT ACHS [facility]; Protocol Last Admin: 06/14/19 21:13 Dose: 3 units Latanoprost (Xalatan 0.005%*) 1 drop RIGHT EYE 1700 [facility] Last Admin: 06/14/19 17:53 Dose: Not Given Magnesium Hydroxide (Milk Of Magnesia Liq*) 30 ml PO BID [facility] Last Admin: 06/14/19 21:23 Dose: Not Given Magnesium Hydroxide (Milk Of Magnesia Liq*) 30 ml PO BID PRN PRN Reason: CONSTIPATION Last Admin: 06/12/19 09:26 Dose: 30 ml Montelukast Sodium (Singulair Tab*) 10 mg PO BEDTIME [facility] Last Admin: 06/14/19 21:12 Dose: 10 mg Morphine Sulfate (Morphine Inj (Syringe))*) 2 mg IV Q4H PRN PRN Reason: PAIN - SEVERE Oxycodone/Acetaminophen (Percocet 5/325 Tab*) 1 tab PO Q6H PRN PRN Reason: PAIN - MODERATE Last Admin: 06/14/19 18:37 Dose: 1 tab Pantoprazole Sodium (Protonix Tab*) 40 mg PO DAILY [facility] Last Admin: 06/14/19 09:33 Dose: 40 mg Pharmacy Consult (Vancomycin Per Pharmacy*) 1 note FOLLOW UP .VANC PER PHARMACY [facility]; Protocol Pharmacy Profile Note (Vancomycin Trough Check) 1 note FOLLOW UP 0530 ONE Stop: 06/16/19 05:31 Polyethylene Glycol/Electrolytes (Miralax*) 17 gm PO DAILY PRN PRN Reason: CONSTIPATION Last Admin: 06/12/19 22:09 Dose: 17 gm Senna (Senokot 8.6 Mg Tab*) 1 tab PO BEDTIME PRN PRN Reason: CONSTIPATION Last Admin: 06/12/19 22:11 Dose: 1 tab Timolol Maleate (Timoptic 0.5% Opth*) 1 drop BOTH EYES BID [facility] Last Admin: 06/14/19 21:13 Dose: Not Given Vital Signs - 8 hr 06/15/19 06/15/19 00:15 04:00 Temperature 98 F 98.6 F Pulse Rate 67 72 Respiratory 17 17 Rate Blood Pressure 120/80 128/63 (mmHg) O2 Sat by Pulse 98 98 Oximetry Oxygen Devices in Use Now: None Result Diagrams: 06/15/19 05:28 06/15/19 05:28 Additional Lab and Data: Laboratory Results - last 24 hr 06/10/19 06/11/19 06/11/19 21:24 05:39 05:39 WBC 8.1 RBC 3.00 L Hgb 7.4 L Hct 23 L MCV 76 L MCH 25 L MCHC 33 RDW 15 Plt Count 293 MPV 7.2 L Neut % (Auto) 64.4 Lymph % (Auto) 24.8 Mcleod % (Auto) 8.7 Eos % (Auto) 1.0 Baso % (Auto) 1.1 Absolute Neuts (auto) 5.2 Absolute Lymphs (auto) 2.0 Absolute Monos (auto) 0.7 Absolute Eos (auto) 0.1 Absolute Basos (auto) 0.1 Absolute Nucleated RBC 0.0 Nucleated RBC % 0.0 Sodium 139 Potassium 4.5 Chloride 111 Carbon Dioxide 22 Anion Gap 6 BUN 26 H Creatinine 1.42 H Est GFR ( Amer) 45.2 Est GFR (Non-Af Amer) 37.4 BUN/Creatinine Ratio 18.3 Glucose 145 H POC Glucose (mg/dL) 133 H Calcium 8.3 L Magnesium 1.4 L 06/11/19 06/11/19 06/11/19 07:35 12:39 17:50 WBC RBC Hgb Hct MCV MCH MCHC RDW Plt Count MPV Neut % (Auto) Lymph % (Auto) Mcleod % (Auto) Eos % (Auto) Baso % (Auto) Absolute Neuts (auto) Absolute Lymphs (auto) Absolute Monos (auto) Absolute Eos (auto) Absolute Basos (auto) Absolute Nucleated RBC Nucleated RBC % Sodium Potassium Chloride Carbon Dioxide Anion Gap BUN Creatinine Est GFR ( Amer) Est GFR (Non-Af Amer) BUN/Creatinine Ratio Glucose POC Glucose (mg/dL) 149 H 200 H 169 H Calcium Magnesium 06/11/19 20:52 WBC RBC Hgb Hct MCV MCH MCHC RDW Plt Count MPV Neut % (Auto) Lymph % (Auto) Mcleod % (Auto) Eos % (Auto) Baso % (Auto) Absolute Neuts (auto) Absolute Lymphs (auto) Absolute Monos (auto) Absolute Eos (auto) Absolute Basos (auto) Absolute Nucleated RBC Nucleated RBC % Sodium Potassium Chloride Carbon Dioxide Anion Gap BUN Creatinine Est GFR ( Amer) Est GFR (Non-Af Amer) BUN/Creatinine Ratio Glucose POC Glucose (mg/dL) 163 H Calcium Magnesium Microbiology and Other Data: Microbiology 06/08/19 19:39 Blood Venous Blood Culture - Preliminary No Growth Day 3 06/08/19 19:27 Blood Venous Blood Culture - Preliminary No Growth Day 3 06/09/19 15:40 Urine Urine Culture - Final Kristine Krusei 06/10/19 11:50 Foot Right Gram Stain - Final 06/10/19 11:50 Foot Right Wound Culture - Preliminary Staphylococcus Aureus 06/10/19 11:50 Wound Anaerobic Culture - Preliminary Assess/Plan/Problems-Billing Assessment: 64 yo female PMH IDDM (A1c 7.5), HTN, CKD IV, TIAs, HLD, right foot wounds following with wound clinic p/w necrotic right 5th toe with osteomyelitis and wet gangrene. Sepsis (fever, tachycardia). PCN allergy, on vanc, aztreonam. s/p partial forefoot amputation on 06/10/19. - Patient Problems (1) Chronic kidney disease, stage IV (severe) Current Visit: Yes Status: Acute Code(s): N18.4 - CHRONIC KIDNEY DISEASE, STAGE 4 (SEVERE) SNOMED Code(s): 957975951 Comment: [employer] improved from admission ACEI held given sepsis. had acute renal failure in April after bactrim with [employer] up to 4.5, K8.1 cont to monitor (2) Necrosis of toe Current Visit: Yes Status: Acute Code(s): I96 - GANGRENE, NOT ELSEWHERE CLASSIFIED SNOMED Code(s): 743808841 Comment: s/p right partial forefoot amputation with Dr. Watkins 06/10. YSABEL showed right digit 0.21 and left 0.73 Continue vancomycin. Aztreonam d/c'd by ID on 06/12/19 f/u cultures MRSA + non weight bearing on right foot. Back to OR to possibly remove wound vac today PICC placed, will remove cntreal line tonight (3) Anemia Current Visit: No Status: Acute Code(s): D64.9 - ANEMIA, UNSPECIFIED SNOMED Code(s): 872699662 Comment: microcytic with iron defficiency and ACD started on ferrous gluconate 325mg po BID. cont to monitor no signs or symptoms of acute bleed (4) DVT prophylaxis Current Visit: No Status: Acute Code(s): Z29.9 - ENCOUNTER FOR PROPHYLACTIC MEASURES, UNSPECIFIED SNOMED Code(s): 049550626 Comment: - Heparin SQ (5) Diabetes Current Visit: No Status: Acute Code(s): E11.9 - TYPE 2 DIABETES MELLITUS WITHOUT COMPLICATIONS SNOMED Code(s): 37891181 Comment: - A1c 7.5% in March Continue Lantus, Lispro SS (6) Diabetic neuropathy Current Visit: No Status: Acute Code(s): E11.40 - TYPE 2 DIABETES MELLITUS WITH DIABETIC NEUROPATHY, UNSP SNOMED Code(s): 403469152 Comment: - Continue gabapentin (7) Full code status Current Visit: No Status: Acute Code(s): Z78.9 - OTHER SPECIFIED HEALTH STATUS SNOMED Code(s): 137649010 Comment: (8) History of TIA (transient ischemic attack) Current Visit: No Status: Acute Code(s): Z86.73 - PRSNL HX OF TIA (TIA), AND CEREB INFRC W/O RESID DEFICITS SNOMED Code(s): 533520071 Comment: - hold plavix for now until cleared by ortho (unclear if will need further debridement, this was for secondary prevention of CVAs). has aspirin allergy Status and Disposition: medicine inpatient. Possible placement to STR on 06/15/19 with PICC and plan for 6 weeks of Vanco to be confirmed with ID
[2019-06-15] MEDS: Insulin LISPRO* 1 UNITS UNIT SUBCUT SCH (08:05)
[2019-06-15] MEDS: Collagenase 250 UNITS/GM OINT* 1 APPLIC OINT TOPICAL SCH (08:06)
[2019-06-15] MEDS: Magnesium Hydroxide LIQ* 30 ML UDC PO SCH (08:06)
[2019-06-15] MEDS: Docusate CAP* 100 MG PO SCH (08:06)
[2019-06-15] MEDS: CMC:Brimonidine P 0.1%(NF) 1 DROP BTL RIGHT EYE SCH (09:39)
[2019-06-15] MEDS: Gabapentin CAP(*) 300 MG PO SCH (09:40)
[2019-06-15] MEDS: CMC:Dorzolamide 2% OPTH (NF) 10 ML BTL RIGHT EYE SCH (09:42)
[2019-06-15] MEDS: oxyCODONE/Acetamin 5/325 MG* TAB PO PRN (09:43)
[2019-06-15] MEDS: Ferrous Gluconate TAB* 324 MG TAB PO SCH (09:43)
[2019-06-15] MEDS: Pantoprazole TAB * 40 MG TAB PO SCH (09:43)
[2019-06-15] MEDS: Timolol 0.5% OPTH.SOL* BTL BOTH EYES SCH (09:45)
[2019-06-15] MEDS: Acetaminophen TAB* 325 MG PO PRN (12:23)
[2019-06-15 12:35] VITALS: BP 147/65
--- NOTE | 2019-06-15 13:11 | DS ---
CC: Dr. Jorge Duncan; Dr. Hunt; Dr. Watkins; Dr. Hand * DISCHARGE SUMMARY: DATE OF ADMISSION: 06/09/19 DATE OF DISCHARGE: 06/15/19 PRIMARY CARE PROVIDER: Dr. Jorge Duncan. DISCHARGE DIAGNOSES: 1. Diabetic foot infection with right fifth metatarsal chronic osteomyelitis, status post right partial foot amputation with wound culture positive for methicillin-resistant Staphylococcus aureus. 2. Cvakw-zv-taeswyf kidney injury. 3. Iron deficiency anemia/anemia of chronic disease. SECONDARY DIAGNOSES: 1. Insulin-dependent diabetes. 2. Hyperlipidemia. 3. Diabetic neuropathy. 4. Diabetic nephropathy. 5. Diabetic retinopathy, now considered legally blind. 6. Chronic kidney disease stage 3 to 4. 7. Hypertension. 8. Right eye glaucoma. 9. Transient ischemic attack. 10. Obstructive sleep apnea, not on CPAP. 11. Osteoarthritis. MEDICATION LIST: 1. Brimonidine 0.1% one drop to right eye t.i.d. 2. Chlorthalidone 25 mg p.o. daily. 3. Plavix 75 mg p.o. daily. 4. Dorzolamide 2% one drop to right eye 3 times a day. 5. Gabapentin 300 mg p.o. b.i.d. 6. Lantus 10 units subcutaneous at bedtime. 7. Latanoprost 0.005% one drop to the right eye at 5 p.m. 8. Victoza 1.8 mg subcutaneously daily. 9. Montelukast 10 mg p.o. at bedtime. 10. Pantoprazole 40 mg p.o. daily. 11. Timolol 0.5% one drop to both eyes b.i.d. New Medications: 1. Acetaminophen 650 mg p.o. q.4 hours p.r.n. for pain or fever. 2. Colace 100 mg p.o. b.i.d. 3. Ferrous gluconate 324 mg p.o. b.i.d. 4. Heparin flush 1 mL at 6 a.m. and 6 p.m. 5. Lispro sliding scale as follows: Glucose 131 to 150 two units, 151 to 200 three units, 201 to 250 six units, 251 to 300 nine units, 301 to 350 twelve units, 351 to 400 fifteen units, and for greater than 400 eighteen units and call MD. 6. Milk of Magnesia 30 mL p.o. b.i.d. as needed for constipation. 7. Oxycodone/acetaminophen 5 mg/325 mg one tablet p.o. q.6 hours p.r.n. for pain. 8. MiraLAX 17 g p.o. daily p.r.n. for constipation. 9. Senna 1 tablet p.o. at bedtime as needed for constipation. 10. Vancomycin 500 mg IV piggyback q.12 hours for 37 more days. Medication Changed: 1. Lisinopril dose was decreased from 40 to 10 mg p.o. daily due to her acute kidney injury. HOSPITAL COURSE: Mrs. Fonseca is a 64-year-old female with a past medical history as above who presented to the emergency room on 06/08/19 with complaints of color change on her right fifth toe and severe pain. It was noted that her toe was becoming more purple and with worsening of her pain, she was sent to the emergency room. For more details about her presentation, I refer you to her history and physical. The patient had a foot x-ray that showed evidence of osteomyelitis on the fifth toe extending as far proximal as the head of the metatarsal with interval progression with a pathologic fracture at the proximal phalanx. Arterial study of extremities showed severe atherosclerotic right digit and some atherosclerosis in the right ankle and left digit. The patient also had a lower extremity MRI that revealed findings consistent with cellulitis and osteomyelitis involving the fifth ray from the distal metaphysis of the metatarsal with extensive soft tissue edema. The patient was seen in consultation by orthopedics (Dr. Watkins), who recommended surgical debridement of her infection. He took her to the OR on 06/10/19, where he performed partial right forefoot amputation due to necrotic grade 5 ulceration with osteomyelitis of the right forefoot. The patient's wound culture grew MRSA and she was seen by infectious disease, who recommended treatment with vancomycin for 6 weeks. After surgery, the patient initially had a wound VAC and she was taken to the OR for further review. She went back to the OR on 06/14/19 where she had right foot irrigation and debridement with secondary wound closure. The patient had remained afebrile with no leukocytosis and she was felt to be medically stable for discharge today to follow up with Dr. Duncan, Dr. Hand, and Dr. Hunt/Dr. Watkins as an outpatient. She also has skill needs, so [facility]. On admission, the patient had a chest x-ray that showed no evidence for acute intrathoracic disease. She was also seen in consultation by interventional radiology (Dr. Taylor) and his impression is that according to his initial evaluation of Mrs. Fonseca in March 2019, she does not exhibit any signs of significant arterial insufficiency above the infrapopliteal arteries. 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 He had recommended a CTA of the aorta with runoff to confirm adequate arterial flow to the feet, but the patient had concerns of having a contrasted study with her kidney problems. At this point, she is being discharged to [facility] and she will need further discussion and conversation about having the CTA with runoff as an outpatient to then decide about angiography. The patient will need weekly CBCs, CMP, CRP and vanco troughs, and those results will be sent to Dr. Duncan and Dr. Hand. Dressing changes will be dry sterile dressings as per ortho recommendations. The patient's Plavix had been discontinued initially in the setting of multiple surgical procedures, but I discussed with Dr. Hunt and he states it is okay to resume the medications as there is no plan for further surgical procedures at this time. The patient's creatinine on admission was 1.91. She did have acute kidney injury in April with creatinine up to 4.5 and hyperkalemia in the setting of Bactrim use. Her creatinine seems to be returning to baseline, but as she is going to be on vancomycin and lisinopril, her renal function and electrolytes need to be monitored. The patient's blood culture yielded no growth and the patient's urine culture showed Kristine, but only 1 to 10,000 colonies suggestive of colonization. The patient is medically stable to be discharged to [facility] today. PHYSICAL EXAMINATION: Vital Signs: Temperature 98.6, heart rate is 72, respiratory rate is 18, oxygen saturation is 98% on room air, blood pressure is 128/63. General: The patient is an elderly lady who appears older than stated age, sitting up in bed, in no acute distress. CVS: Normal S1, S2. Regular rate and rhythm. Chest: Breath sounds present bilaterally with no added sounds. Abdomen is soft. Bowel sounds are present. Extremities: The patient has a clean dressing intact to her right foot. Neuro: She is alert, awake, and oriented x3. Able to move all 4 extremities. DIET: Consistent carb diet. ACTIVITIES: As tolerated. DISPOSITION: To [facility]. STATUS WHILE IN THE HOSPITAL: Inpatient. Please keep in mind that this is a summarized version of this patient's complex and prolonged hospital stay. If you need more information, please feel free to call me at [phone] or please obtain full medical records. TIME SPENT: Approximately 60 minutes were spent to complete this discharge. [id number]/CPS #: [id number] MTDD
[2019-06-16] MEDS ORDERED: Vancomycin Trough Check NOTE FOLLOW UP ONE (05:30)
== END 2019-06-15 13:00 | DRG 854 ==
LOC: ED 17:43 → SSU 23:40
PROVIDERS: ADMIT Internal Medicine; ATTEND Internal Medicine
PROC: 0Y6M0ZF Detachment at Right Foot, Partial 5th Ray, Open Approach (ICD-10-PCS; 2019-06-10)
PROC: 0Y6M0ZD Detachment at Right Foot, Partial 4th Ray, Open Approach (ICD-10-PCS; principal; 2019-06-10 10:00)
PROC: 0KBV0ZZ Excision of Right Foot Muscle, Open Approach (ICD-10-PCS; 2019-06-14)
PROC: 02HV33Z Insertion of Infusion Device into Superior Vena Cava, Percutaneous Approach (ICD-10-PCS; 2019-06-14)
DX: A41.9 Sepsis, unspecified organism (principal); E11.52 Type 2 diabetes mellitus with diabetic peripheral angiopathy with gangrene; I96 Gangrene, not elsewhere classified; M86.171 Other acute osteomyelitis, right ankle and foot; M86.671 Other chronic osteomyelitis, right ankle and foot; N18.4 Chronic kidney disease, stage 4 (severe); N17.9 Acute kidney failure, unspecified; L03.031 Cellulitis of right toe; E11.69 Type 2 diabetes mellitus with other specified complication; E11.36 Type 2 diabetes mellitus with diabetic cataract; E11.39 Type 2 diabetes mellitus with other diabetic ophthalmic complication; E11.42 Type 2 diabetes mellitus with diabetic polyneuropathy; E11.22 Type 2 diabetes mellitus with diabetic chronic kidney disease; E78.00 Pure hypercholesterolemia, unspecified; I12.9 Hypertensive chronic kidney disease with stage 1 through stage 4 chronic kidney disease, or unspecified chronic kidney disease; E78.5 Hyperlipidemia, unspecified; G47.33 Obstructive sleep apnea (adult) (pediatric); K21.9 Gastro-esophageal reflux disease without esophagitis; M19.90 Unspecified osteoarthritis, unspecified site; H54.8 Legal blindness, as defined in USA; E11.65 Type 2 diabetes mellitus with hyperglycemia; E11.319 Type 2 diabetes mellitus with unspecified diabetic retinopathy without macular edema; D63.1 Anemia in chronic kidney disease; R05 Cough; E11.21 Type 2 diabetes mellitus with diabetic nephropathy; B95.62 Methicillin resistant Staphylococcus aureus infection as the cause of diseases classified elsewhere; E66.9 Obesity, unspecified; H42 Glaucoma in diseases classified elsewhere; D50.9 Iron deficiency anemia, unspecified; F41.9 Anxiety disorder, unspecified; Z88.1 Allergy status to other antibiotic agents; Z98.51 Tubal ligation status; Z88.0 Allergy status to penicillin; Z88.2 Allergy status to sulfonamides; Z88.8 Allergy status to other drugs, medicaments and biological substances; Z91.018 Allergy to other foods; Z87.891 Personal history of nicotine dependence; Z86.73 Personal history of transient ischemic attack (TIA), and cerebral infarction without residual deficits; Z82.5 Family history of asthma and other chronic lower respiratory diseases; Z80.41 Family history of malignant neoplasm of ovary; Z72.89 Other problems related to lifestyle; Z68.31 Body mass index [BMI] 31.0-31.9, adult; Z79.02 Long term (current) use of antithrombotics/antiplatelets; Z79.4 Long term (current) use of insulin
CPT/HCPCS: 36415; 71045; 80048; 80053; 80202; 81003; 81015; 82728; 83540; 83550; 83605; 83735; 84484; 85014; 85018; 85025; 85610; 85730; 86140; 87040; 87070; 87073; 87076; 87077; 87086; 87106; 87186; 87205; 88305; 88311; 93005; 93922; 96365; 96372; 99283; A9270-GY; G8978-GP-CK; G8979-GP-CI; J1644; J2001; J2250; J2270; J2704; J3010; J3370; J3475; J3490

== ENCOUNTER 2019-08-04 22:31 | Emergency (ER) | payer MEDICARE, OTHER ==
--- NOTE | 2019-08-04 22:44 | ED ---
Complex/Multi-Sys Presentation - HPI Summary HPI Summary: Patient is a 64 y/o F presenting to [facility] via EMS with complaints of N/V/D, LUCIO, throat closing, ear pain, neck pain, weight loss, and dizziness. She states that she has experienced weight loss of around 50 lbs and diarrhea for the past few weeks after having been discharged from [facility] in June 2019. Patient had been admitted at the time for osteomyelitis with debridement of foot. After having dinner Thanksgiving evening, she states that she had onset of nausea and vomiting. Other Sx subsequently followed. Abdominal pain is denied. Patient notes Hx of diabetes and states that she has one kidney. Patient is missing two toes to left foot. She is blind. Home medications and allergies are reviewed. - History Of Current Complaint Time Seen by Provider: 08/04/19 22:36 Hx Obtained From: Patient Onset/Duration: Lasting Days, Lasting Weeks, Still Present Timing: Constant, Days, Weeks Location: Pain At: - head, neck, ears Associated Signs And Symptoms: Positive: Dizziness, Headache, Nausea, Vomiting, Diarrhea, Other - positive - throat closing, neck pain, weight loss. Negative: Abdominal Pain - Allergies/Home Medications Allergies/Adverse Reactions: Allergies Allergy/AdvReac Type Severity Reaction Status Date / Time aspirin Allergy Severe Hives/Diff. Verified 03/17/19 11:24 Breathing/I tching Penicillins Allergy Severe Hives/Diff. Verified 03/17/19 11:24 Breathing/I tching tomato Allergy Severe Hives/Diff. Verified 03/17/19 11:24 Breathing/I tching levofloxacin [From Levaquin] Allergy Intermediate Itching Verified 03/17/19 11: 24 Sulfa (Sulfonamide Allergy See Comment Verified 06/08/19 17:53 Antibiotics) Home Medications: Home Medications Atorvastatin Calcium [Lipitor] 40 mg PO DAILY 08/04/19 [History Confirmed ] Insulin Aspart Prot/Insuln Asp [Novolog Mix 70/30 Prefill] 1 inj SC TID [History Confirmed 08/04/19] Lisinopril 20 mg PO QPM 08/04/19 [History Confirmed 08/04/19] Lisinopril TAB* [Prinivil TAB 10 MG*] 40 mg PO QAM 08/04/19 [History Confirmed 08/04/19] Tamsulosin HCl [Flomax] 0.4 mg PO DAILY 08/04/19 [History Confirmed 08/04/19] PMH/Surg Hx/FS Hx/Imm Hx Endocrine/Hematology History: Reports: Hx Diabetes - type 2 Cardiovascular History: Reports: Hx Hypercholesterolemia, Hx Hypertension, Other Cardiovascular Problems/Disorders - dyslipidemia Denies: Hx Pacemaker/ICD Respiratory History: Reports: Hx Sleep Apnea - diagnosed but no machine (pt can' t afford) Denies: Other Respiratory Problems/Disorders GI History: Reports: Hx Gastroesophageal Reflux Disease - no meds Denies: Other GI Disorders History: Reports: Hx Kidney Infection - reports x12 - last one 4 months ago, Hx Renal Disease Denies: Hx Kidney Stones, Other Problems/Disorders Musculoskeletal History: Reports: Hx Arthritis Denies: Other Musculoskeletal History Sensory History: Reports: Hx Cataracts - bilateral, left not fixed yet, Hx Contacts or Glasses - tinted f/protection, Hx Glaucoma - right eye, Hx Legally Blind, Other Sensory Impairments - neuropathy Denies: Hx Hearing Aid Opthamlomology History: Reports: Hx Cataracts - bilateral, left not fixed yet, Hx Contacts or Glasses - tinted f/protection, Hx Glaucoma - right eye, Hx Legally Blind, Other Sensory Impairments - neuropathy Neurological History: Reports: Hx Nerve Disease - DM neuropathy Denies: Hx Migraine, Other Neuro Impairments/Disorders Psychiatric History: Reports: Hx Anxiety - panic attacks Denies: Hx Panic Disorder - Cancer History Hx Chemotherapy: No - Surgical History Surgery Procedure, Year, and Place: right rotator cuff repair 2012 -[facility]. tonsillectomy and adenoidectomy at age 19 - [facility]. bilateral carpal tunnel release - [facility]. [facility] eye surgery x3, 2 on right eye and 2 left eye in [facility]. tubal ligation 1977 - [facility] Hx Anesthesia Reactions: No - Immunization History Date of Tetanus Vaccine: utd Date of Influenza Vaccine: none Infectious Disease History: Yes Infectious Disease History: Denies: Traveled Outside the [place] in Last 30 Days - Family History Known Family History: Positive: Hypertension, Diabetes Negative: Cardiac Disease - Social History Alcohol Use: None Hx Substance Use: No Substance Use Type: Reports: None Hx Tobacco Use: Yes Smoking Status (MU): Former Smoker Amount Used/How Often: 1 pack every 2 weeks for only 1 year Review of Systems Constitutional: Other - positive - weight loss ENT: Other - positive - throat closing sensation Positive: Ear Ache Positive: Vomiting, Diarrhea, Nausea Musculoskeletal: Other - positive - neck pain Neurological: Other - positive - dizziness Positive: Headache All Other Systems Reviewed And Are Negative: Yes Physical Exam - Summary Physical Exam Summary: Appearance: Well-appearing, Well-nourished, lying in bed comfortably Skin: Sclaing and flaking of dorsum of the feet Eyes: sclera anicteric, no conjunctival pallor ENT: mucous membranes moist, pharynx appears normal Neck: Supple, nontender Respiratory: Clear to auscultation, no signs of respiratory distress Cardiovascular: Normal S1, S2. No murmurs. Normal distal pulses in tibial and radial bilaterally. Abdomen: Soft, nontender, normal active bowel sounds present Musculoskeletal: Patient is missing two toes of left foot, otherwise normal, Strength/ROM Intact Neurological: A&Ox3, awake and alert, mentation is normal, speech is fluent and appropriate Psychiatric: affect is normal, does not appear anxious or depressed Triage Information Reviewed: Yes Vital Signs On Initial Exam: Initial Vitals Temp Pulse Resp BP Pulse Ox 97.6 F 94 20 193/107 97 08/04/19 22:32 08/04/19 22:32 08/04/19 22:32 08/04/19 22:32 08/04/19 22:32 Vital Signs Reviewed: Yes Procedures - Sedation Patient Received Moderate/Deep Sedation with Procedure: No Diagnostics - Vital Signs Vital Signs Temp Pulse Resp BP Pulse Ox 08/04/19 22:32 97.6 F 94 20 193/107 97 - Laboratory Result Diagrams: 08/05/19 00:00 08/05/19 00:00 Lab Statement: Any lab studies that have been ordered have been reviewed, and results considered in the medical decision making process. Complex Multi-Symp Course/Dx Course Of Treatment: Patient is a 64 y/o F presenting to [facility] via EMS with complaints of N/V/D, LUCIO, throat closing, ear pain, neck pain, weight loss, and dizziness. She states that she has experienced weight loss of around 50 lbs and diarrhea for the past few weeks after having been discharged from [facility] in June 2019. Patient had been admitted at the time for osteomyelitis with debridement of foot. After having dinner Thanksgi evening, she states that she had onset of nausea and vomiting. Other Sx subsequently followed. Abdominal pain is denied. Patient notes Hx of diabetes and states that she has one kidney. On exam, there is scaling and flaking of dorsum of feet noted. Patient is missing two toes to left foot. During ED course, patient received fluids, Zofran 8 mg IV, and Prinivil 10 mg PO. Bloodwork was obtained. Abnormal values include RBC 4.91, MCV 76, MCH 25, RDW 16, chloride 97, carbon dioxide 39, BUN 40 , creatinine 2.17, glucose 210, alk phos 115, total protein 6.3. UA showed 3+ protein, 3+ leukocyte esterase, 3+ WBC, present squamous epith cells, present hyaline casts, and 2+ urine glucose. Pt has not had any diarrhea since arrival here, and nausea is controlled with zofran. She has been able to drink. Lab studies are notable for a chronically elevated creatinine that is within the range of her recent prior labs. She is non toxic and has a benign abdomen. Consideration was given to c. diff infection but given she has not had any diarrhea here we have nothing to test; she can followup with her regular doctor if the diarrhea continues. Patient was discharged to home and will follow up with PCP. - Diagnoses Provider Diagnoses: Gastroenteritis, UTI (urinary tract infection) Discharge ED - Sign-Out/Discharge Documenting (check all that apply): Patient Departure - discharge - Discharge Plan Condition: Stable Disposition: HOME Prescriptions: Nitrofurantoin Macrocrystal [Nitrofurantoin] 100 mg PO BID #14 capsule Ondansetron ODT TAB* [Zofran 4 MG Odt TAB*] 8 mg PO Q6H PRN #12 tab.odt PRN Reason: Nausea Patient Education Materials: Acute Diarrhea (ED), Urinary Tract Infection in Older Adults (ED) Referrals: Jorge Duncan DO [Primary Care Provider] - - Attestation Statements Document Initiated by Scribe: Yes Documenting Scribe: IDANIA BENNETT Provider For Whom Boom is Documenting (Include Credential): ABHILASH LANDAVERDE MD Scribe Attestation: IDANIA Retana, scribed for ABHILASH LANDAVERDE MD on 08/05/19 at 0154. Status of Scribe Document: Ready
[2019-08-04] MEDS ORDERED: NS 0.9% 1000 ML** 1,000 ML IV ONE (22:45)
[2019-08-04] MEDS ORDERED: Ondansetron INJ* 2 MG/ML VIAL IV ONE (22:48)
[2019-08-04] MEDS ORDERED: Lisinopril TAB* 10 MG PO ONE (22:49)
[2019-08-04 23:19] LABS: Urine Appearance Cloudy; Urine Bilirubin Negative (Negative); Urine Blood Negative (Negative); Urine Color Yellow; Urine Glucose 2+(150 mg/dL) (Negative); Urine Ketones Negative (Negative); Urine Nitrite Negative (Negative); Urine Protein 3+(>=500 mg/dL) (Negative); Urine Specific Gravity 1.014 (1.010-1.030); Urine Urobilinogen Negative (Negative)
[2019-08-04 23:23] LABS: Urine Bacteria Absent (Absent); Urine Red Blood Cell Absent (Absent); Urine Squamous Epithelial Cell Present (Absent); Urine White Blood Cell 3+(>20/hpf) (Absent)
[2019-08-05 00:23] LABS: ABS Eosinophils 0.2 10^3/ul (0-0.6); ABS Lymphocytes 1.7 10^3/ul (1.0-4.8); ABS Monocytes 0.6 10^3/ul (0-0.8); ABS Neutrophils 6.5 10^3/ul (1.5-7.7); Eosinophil % 1.9 %; Hematocrit 37 % (35-47); Hemoglobin 12.3 g/dL (12.0-16.0); Lymphocyte % 18.9 %; Mean Corpuscular HGB Conc 33 g/dL (31-36); Mean Corpuscular Hemoglobin 25 pg (27-31); Mean Corpuscular Volume 76 fL (80-97); Mean Platelet Volume 7.9 fL (7.4-10.4); Platelet Count 247 10^3/uL (150-450); Red Blood Count 4.91 10^6 /uL (3.70-4.87); Red Cell Distribution Width 16 % (10-15); White Blood Count 8.9 10^3/uL (3.5-10.8)
[2019-08-05 01:06] LABS: Albumin 3.4 g/dL (3.2-5.2); Albumin/Globulin Ratio 1.2 (1-3); BUN/Creatinine Ratio 18.4 (8-20); EGFR African American 27.7 (>60); EGFR Non-African American 22.9 (>60); Globulin 2.9 g/dL (2-4); Potassium 3.8 mmol/L (3.5-5.0); Total Bilirubin 0.8 mg/dL (0.2-1.0); Total Protein 6.3 g/dL (6.4-8.9)
[2019-08-05] MEDS ORDERED: Nitrofurantoin Macrocrystals* 100 MG CAP PO ONE (01:49)
[2019-08-05 02:05] VITALS: BP 186/91
--- OUTSIDE RECORDS SUMMARY | 2019-08-07 15:52 | XMS REPORT | Continuity of Care Document ---
:1955 External Reference #:[id number] Author Name Monica Porter NP (transmitted by agent of provider Cori Franklin) Address [address] [place] [id number] Care Team Providers Name Role Phone Jorge Duncan D.O. - Internal Care Team Information Social Service Technician Medicine Problems Active Problems Provider Date Ulcer of foot Jorge Taylor M.D. Onset: 04/04/2019 Chronic osteomyelitis of ankle and/or foot Good Hunt MD Onset: 2018 Social History Type Date Description Comments Sex Unknown Cigarette Use Quit - Age 22 ETOH Use Denies alcohol use Recreational Drug Use Denies Drug Use Tobacco Use Start: Unknown End: Patient is a former smoker Unknown Smoking Status Reviewed: 07/11/19 Patient is a former smoker Exercise Type/Frequency Exercises sporadically Allergies, Adverse Reactions, Alerts Active Allergies Reaction Severity Comments Date Penicillin 12/20/2017 Aspirin 12/20/2017 Tomatoes 12/20/2017 Levaquin Hives 04/04/2019 Bactrim RENAL FAILURE PER PT 07/11/2019 Medications Active Medications SIG Qnty Indications Ordering Date Provider Plavix 1 by mouth every day Unknown 75mg Tablets Atorvastatin Calcium 1 by mouth every day Unknown 40mg Tablets Gabapentin 1 by mouth twice per Unknown 300mg day Capsules Basaglar Kwikpen 10 units at bedtime Unknown 100Unit/ML Solution Pen-Inject Lisinopril 1 by mouth every day Unknown 20mg Tablets Novolog Flexpen Inject 10 Units Unknown Subcutaneously With 100Unit/ML Solution Meals Pen-Inject Chlorthalidone Take 1 Tablet By Unknown 25mg Mouth Once Daily In Tablets The Morning With Food For 90 Days Montelukast Sodium Take 1 Tablet By Unknown 10mg Mouth Once Daily In Tablets The Evening Victoza Inject 1.8MG Unknown 18mg/3ML Subcutaneously Once Solution Pen-Inject Daily Immunizations Description No Information Available Vital Signs Date Vital Result Comment 07/11/2019 2:21pm Height 63 inches 5'3" Weight 188.00 lb Heart Rate 84 /min BP Systolic Sitting 134 mmHg BP Diastolic Sitting 80 mmHg Respiratory Rate 14 /min Body Temperature 98.1 F BMI (Body Mass Index) 33.3 kg/m2 07/09/2019 8:48am Height 63 inches 5'3" Weight 180.00 lb Heart Rate 84 /min BP Systolic 138 mmHg BP Diastolic 84 mmHg Respiratory Rate 16 /min Body Temperature 97.4 F Pain Level 0 BMI (Body Mass Index) 31.9 kg/m2 Results Description No Information Available Procedures Date Code Description Status 06/14/2019 69576 Secondary Closure Of Surgical Wound Or Dehiscence Completed Extensive Or Co 06/14/2019 81062 Secondary Closure Of Surgical Wound Or Dehiscence Completed Extensive Or Co 06/06/2019 86574 Debridement Skin,& sq Tissue Completed 05/30/2019 93476 Debridement Skin, Subcutaneous Tissue & Muscle Completed 05/23/2019 34709 Debridement Skin, Subcutaneous Tissue & Muscle Completed 05/16/2019 97985 Debridement Muscle/Fascia,Epidermis/Dermis/Tissue, Completed SQ CM 05/16/2019 58038 Debridement Skin,& sq Tissue Completed 05/09/2019 90847 Debridement Skin,& sq Tissue Completed 05/09/2019 22752 Debridement Muscle/Fascia,Epidermis/Dermis/Tissue, 20 Completed SQ CM 05/02/2019 90398 Debridement Muscle/Fascia,Epidermis/Dermis/Tissue, 20 Completed SQ CM 05/02/2019 97419 Debridement Skin,& sq Tissue Completed 04/25/2019 12457 Removal Devitalized Tissue Wound Greater Than 20 Square CM Completed 04/25/2019 80238 Removal Devitalization Tissue Wound Less Than Equal 20 Completed Square CM 04/18/2019 20915 Debridement Muscle/Fascia,Epidermis/Dermis/Tissue, 20 Completed SQ CM 04/18/2019 63270 Debridement Skin,& sq Tissue Completed 04/11/2019 24596 Debridement Muscle/Fascia,Epidermis/Dermis/Tissue, 20 Completed SQ CM 04/11/2019 01471 Debridement Skin,& sq Tissue Completed Medical Devices Description No Information Available Encounters Type Date Location Provider Dx Diagnosis Office Visit 06/20/2019 [facility] Mo MadeleineSascha Dejesus, L97.511 Non-prs chronic 11:00a Andrés Pan ulcer oth prt r Anjelica foot limited to brkdwn skin E11.621 Type 2 diabetes mellitus with foot ulcer B95.61 Methicillin suscep staph infct causing dis classd elswhr E11.40 Type 2 diabetes mellitus with diabetic neuropathy, unsp R09.89 Oth symptoms and signs involving the circ and resp systems Office Visit 06/15/2019 10:43a [facility] Aga N17.9 Acute kidney Assoc,juan Hopson M.D. failure, Hospitalists unspecified M86.671 Other chronic osteomyelitis, right ankle and foot B95.62 Methicillin resis staph infct causing diseases classd elswhr E11.69 Type 2 diabetes mellitus with other specified complication N18.3 Chronic kidney disease, stage 3 (moderate) D63.1 Anemia in chronic kidney disease E11.21 Type 2 diabetes mellitus with diabetic nephropathy Office Visit 06/14/2019 [facility] Jorge G. I70.261 [facility] [place] 12:24p [facility] Taylor M.D. arteries of extremities w gangrene, right leg Office Visit 06/14/2019 [facility] Reshma Adame, I96 Gangrene, not 10:43a juan Pollard M.D. elsewhere Hospitalists classified N18.4 Chronic kidney disease, stage 4 (severe) E11.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 E11.40 Type 2 diabetes mellitus with diabetic neuropathy, unsp Office Visit 06/13/2019 10:43a [facility] Reshma Adame, I96 Gangrene , not juan Pollard M.D. elsewhere Hospitalists classified E11.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 E11.40 Type 2 diabetes mellitus with diabetic neuropathy, unsp Office Visit 06/12/2019 [facility] Monica Cheung E11.69 Type 2 diabetes 12:45p For Infectious Porter, COAL PIPELINE OPERATOR mellitus with Diseases other specified complication M86.671 Other chronic osteomyelitis, right ankle and foot B95.62 Methicillin resis staph infct causing diseases classd elswhr Office Visit 06/12/2019 10:42a [facility] Reshma Adaem, I96 Gangrene , not Assoc,pc Viviane 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 Office Visit 06/11/2019 [facility] Ed E11.69 Type 2 diabetes 12:43p For Infectious Porter, COAL PIPELINE OPERATOR mellitus with Diseases other specified complication M86.671 Other chronic osteomyelitis, right ankle and foot E11.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 N18.3 Chronic kidney disease, stage 3 (moderate) E11.40 Type 2 diabetes mellitus with diabetic neuropathy, unsp R94.39 Abnormal result of other cardiovascular function study Office Visit 06/11/2019 10:42a [facility] Franklin Arreola MD I96 Gangrene, not Assoc,pc elsewhere Hospitalists classified I12.9 Hypertensive chronic kidney disease w stg 1-4/unsp chr kdny N18.4 Chronic kidney disease, stage 4 (severe) E11.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 E11.40 Type 2 diabetes mellitus with diabetic neuropathy, unsp Office Visit 06/10/2019 10:42a [facility] Franklin Arreola MD I96 Gangrene, not Assoc,pc elsewhere Hospitalists classified N18.4 Chronic kidney disease, stage 4 (severe) D64.9 Anemia, unspecified E11.40 Type 2 diabetes mellitus with diabetic neuropathy, unsp A41.9 Sepsis, unspecified organism E11.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 Office Visit 06/09/2019 10:41a [facility] Franklin Arreola MD I96 Gangrene, not Assoc,pc elsewhere Hospitalists classified I12.9 Hypertensive chronic kidney disease w stg 1-4/unsp chr kdny N18.4 Chronic kidney disease, stage 4 (severe) A41.9 Sepsis, unspecified organism E11.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 E11.40 Type 2 diabetes mellitus with diabetic neuropathy, unsp Office Visit 06/09/2019 11:23a [facility] Malick E11.621 Type 2 diabetes at Andrea Watkins M.D. 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) Office Visit 06/08/2019 10:38a [facility] Reshma Adame, I96 Gangrene , not Assoc,juan Pan elsewhere Hospitalists classified M79.672 Pain in left foot E11.40 Type 2 diabetes mellitus with diabetic neuropathy, unsp Office Visit 05/03/2019 12:30p Surgical YousifSepulveda E11.621 Type 2 [facility] diabetes AT [place] mellitus with foot ulcer Office Visit 04/04/2019 11:00a [facility] Jorge Taylor, E11.621 Type 2 [facility] Pan diabetes mellitus with foot ulcer L97.529 Non-pressure chronic ulcer oth prt left foot w unsp severity L97.519 Non-prs chronic ulcer oth prt right foot w unsp severity Office Visit 03/28/2019 Wound Care Mo Katz E11.621 Type 2 10:00a Andrés Dejesus M.D. diabetes [place] mellitus with foot ulcer L97.519 Non-prs chronic ulcer oth prt right foot w unsp severity E11.40 Type 2 diabetes mellitus with diabetic neuropathy, unsp Office Visit 03/21/2019 Wound Care Mo Katz L97.519 Non-prs 8:00a Andrés Dejesus M.D. chronic ulcer Anjelica oth prt right foot w unsp severity L97.529 Non-pressure chronic ulcer oth prt left foot w unsp severity E11.621 Type 2 diabetes mellitus with foot ulcer R09.89 Oth symptoms and signs involving the circ and resp systems E78.5 Hyperlipidemia, unspecified I10 Essential (primary) hypertension Office Visit 03/13/2019 10:00a Wound Care Monica Cheung S91.301A Unspecified open [facility] Porter wound, right [facility] foot, initial encounter S91.302A Unspecified open wound, left foot, initial encounter Office Visit 03/13/2019 9:23a [facility] Kyleigh Chandler, N17.9 Acute kidney Assoc,pc COAL PIPELINE OPERATOR failure, Hospitalists unspecified N39.0 Urinary tract infection, site not specified L03.116 Cellulitis of left lower limb L03.115 Cellulitis of right lower limb E11.40 Type 2 diabetes mellitus with diabetic neuropathy, unsp N18.3 Chronic kidney disease, stage 3 (moderate) Office Visit 03/12/2019 9:23a [facility] Kyleigh Chandler, N17.9 Acute kidney Assoc,pc COAL PIPELINE OPERATOR failure, Hospitalists unspecified N39.0 Urinary tract infection, site not specified E11.40 Type 2 diabetes mellitus with diabetic neuropathy, unsp L03.115 Cellulitis of right lower limb L03.116 Cellulitis of left lower limb Office Visit 03/11/2019 9:22a [facility] Kyleigh Chandler, N17.9 Acute kidney Assoc,pc COAL PIPELINE OPERATOR failure, Hospitalists unspecified N39.0 Urinary tract infection, site not specified D64.9 Anemia, unspecified Office Visit 03/10/2019 [facility] Reshma Shirleyhn, N17.9 Acute kidney 9:22a Assoc,pc M.D. failure, Hospitalists unspecified N39.0 Urinary tract infection, site not specified E11.9 Type 2 diabetes mellitus without complications Assessments Date Code Description Provider 07/11/2019 M86.671 Other chronic osteomyelitis, right Monica Porter NP ankle and foot 07/11/2019 E11.621 Type 2 diabetes mellitus with foot Monica Porter NP ulcer 07/09/2019 M86.671 Other chronic osteomyelitis, right Good Hunt MD ankle and foot 06/25/2019 M86.671 Other chronic osteomyelitis, right Good Hunt MD ankle and foot 06/20/2019 L97.511 Non-pressure chronic ulcer of other Mo Dejesus M.D. part of right foot limited to breakdown of skin 06/20/2019 E11.621 Type 2 diabetes mellitus with foot Mo Dejesus M.D. ulcer 06/20/2019 B95.61 Methicillin susceptible Mo Dejesus M.D. Staphylococcus aureus infection as the cause of diseases classified elsewhere 06/20/2019 E11.40 Type 2 diabetes mellitus with Mo Dejesus M.D. diabetic neuropathy, unspecified 06/20/2019 R09.89 Other specified symptoms and signs Mo F. Anjelica, M.D. involving the circulatory and respiratory systems 06/15/2019 N17.9 Acute kidney failure, unspecified Aga Hopson M.D. 06/15/2019 M86.671 Other chronic osteomyelitis, right Aga Hopson M.D. ankle and foot 06/15/2019 B95.62 Methicillin resistant Staphylococcus Aga Hopson M.D. aureus infection as the cause of diseases classified elsewhere 06/15/2019 E11.69 Type 2 diabetes mellitus with other Aga Hopson M.D. specified complication 06/15/2019 N18.3 Chronic kidney disease, stage 3 Aga Hopson M.D. (moderate) 06/15/2019 D63.1 Anemia in chronic kidney disease Aga Hopson M.D. 06/15/2019 E11.21 Type 2 diabetes mellitus with Aga Hopson M.D. diabetic nephropathy 06/14/2019 I70.261 Atherosclerosis of [place] arteries Jorge Taylor M.D. of extremities with gangrene, right leg 06/14/2019 I96 Gangrene, not elsewhere classified Reshma Adame M.D. 06/14/2019 E11.621 Type 2 diabetes mellitus with foot JACQUI Guerrero ulcer 06/14/2019 N18.4 Chronic kidney disease, stage 4 Reshma Adame M.D. (severe) 06/14/2019 E11.621 Type 2 diabetes mellitus with foot Good Hunt MD ulcer 06/14/2019 E11.22 Type 2 diabetes mellitus with Reshma Adame M.D. diabetic chronic kidney disease 06/14/2019 L03.115 Cellulitis of right lower limb JACQUI Guerrero 06/14/2019 E11.40 Type 2 diabetes mellitus with Reshma Adame M.D. diabetic neuropathy, unspecified 06/14/2019 L03.115 Cellulitis of right lower limb Good Hunt MD 06/14/2019 S91.301A Unspecified open wound, right foot, JACQUI Guerrero initial encounter 06/14/2019 S91.301A Unspecified open wound, right foot, Good Hunt MD initial encounter 06/13/2019 I96 Gangrene, not elsewhere classified Reshma Adame M.D. 06/13/2019 E11.22 Type 2 diabetes mellitus with Reshma Adame M.D. diabetic chronic kidney disease 06/13/2019 E11.40 Type 2 diabetes mellitus with Reshma Adame M.D. diabetic neuropathy, unspecified 06/12/2019 E11.69 Type 2 diabetes mellitus with other Monica Porter NP specified complication 06/12/2019 I96 Gangrene, not elsewhere classified Reshma Adame M.D. 06/12/2019 M86.671 Other chronic osteomyelitis, right Monica Porter NP ankle and foot 06/12/2019 E11.621 Type 2 diabetes mellitus with foot Good Hunt MD ulcer 06/12/2019 B95.62 Methicillin resistant Staphylococcus Monica Porter NP aureus infection as the cause of diseases classified elsewhere 06/12/2019 N18.4 Chronic kidney disease, stage 4 Reshma Adame M.D. (severe) 06/12/2019 E11.40 Type 2 diabetes mellitus with Good Hunt MD diabetic neuropathy, unspecified 06/12/2019 E11.40 Type 2 diabetes mellitus with Reshma Adame M.D. diabetic neuropathy, unspecified 06/12/2019 E11.22 Type 2 diabetes mellitus with Reshma Adame M.D. diabetic chronic kidney disease 06/11/2019 E11.69 Type 2 diabetes mellitus with other Monica Porter NP specified complication 06/11/2019 I96 Gangrene, not elsewhere classified Franklin Arreola MD 06/11/2019 M86.671 Other chronic osteomyelitis, right Monica Porter NP ankle and foot 06/11/2019 I12.9 Hypertensive chronic kidney disease Franklin Arreola MD with stage 1 through stage 4 chronic kidney disease, or unspecified chronic kidney disease 06/11/2019 E11.22 Type 2 diabetes mellitus with Monica Porter NP diabetic chronic kidney disease 06/11/2019 N18.4 Chronic kidney disease, stage 4 Franklin Arreola MD (severe) 06/11/2019 N18.3 Chronic kidney disease, stage 3 Monica Porter NP (moderate) 06/11/2019 E11.22 Type 2 diabetes mellitus with Franklin Arreola MD diabetic chronic kidney disease 06/11/2019 E11.40 Type 2 diabetes mellitus with Monica Porter NP diabetic neuropathy, unspecified 06/11/2019 E11.40 Type 2 diabetes mellitus with Franklin Arreola MD diabetic neuropathy, unspecified 06/11/2019 R94.39 Abnormal result of other Monica Porter NP cardiovascular function study 06/10/2019 I96 Gangrene, not elsewhere classified Franklin Arreola MD 06/10/2019 N18.4 Chronic kidney disease, stage 4 Franklin Arreola MD (severe) 06/10/2019 D64.9 Anemia, unspecified Franklin Arreola MD 06/10/2019 E11.40 Type 2 diabetes mellitus with Franklin Arreola MD diabetic neuropathy, unspecified 06/10/2019 A41.9 Sepsis, unspecified organism Franklin Arreola MD 06/10/2019 E11.22 Type 2 diabetes mellitus with Franklin Arreola MD diabetic chronic kidney disease 06/09/2019 E11.621 Type 2 diabetes mellitus with foot Malick Watkins M.D. 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 toe(s) 06/09/2019 I12.9 Hypertensive chronic kidney disease Franklin Arreola MD with stage 1 through stage 4 chronic kidney disease, or unspecified chronic kidney disease 06/09/2019 N18.4 Chronic kidney disease, stage 4 Franklin Arreola MD (severe) 06/09/2019 A41.9 Sepsis, unspecified organism Franklin Arreola MD 06/09/2019 E11.22 Type 2 diabetes mellitus with Franklin Arreola MD diabetic chronic kidney disease 06/09/2019 E11.40 Type 2 diabetes mellitus with Franklin Arreola MD diabetic neuropathy, unspecified 06/08/2019 I96 Gangrene, not elsewhere classified Reshma Adame M.D. 06/08/2019 M79.672 Pain in left foot Reshma Adame M.D. 06/08/2019 E11.40 Type 2 diabetes mellitus with Reshma Adame M.D. diabetic neuropathy, unspecified 06/06/2019 L97.512 Non-pressure chronic ulcer of other Mo Dejesus M.D. part of right foot with fat layer exposed 06/06/2019 E11.621 Type 2 diabetes mellitus with foot Mo Dejesus M.D. ulcer 06/06/2019 B95.61 Methicillin susceptible Mo Dejesus M.D. Staphylococcus aureus infection as the cause of diseases classified elsewhere 06/06/2019 E11.40 Type 2 diabetes mellitus with Mo Dejesus M.D. diabetic neuropathy, unspecified 06/06/2019 R09.89 Other specified symptoms and signs Mo Dejesus M.D. involving the circulatory and respiratory systems 05/30/2019 L97.515 Non-pressure chronic ulcer of other Mo Dejesus M.D. part of right foot with muscle involvement without evidence of necrosis 05/30/2019 E11.621 Type 2 diabetes mellitus with foot Mo Dejesus M.D. ulcer 05/30/2019 B95.61 Methicillin susceptible Mo Dejesus M.D. Staphylococcus aureus infection as the cause of diseases classified elsewhere 05/30/2019 E11.40 Type 2 diabetes mellitus with Mo Dejesus M.D. diabetic neuropathy, unspecified 05/30/2019 Z79.4 watermelon inspector (current) use of insulin Mo Dejesus M.D. 05/23/2019 L97.515 Non-pressure chronic ulcer of other Mo Dejesus M.D. part of right foot with muscle involvement without evidence of necrosis 05/23/2019 E11.621 Type 2 diabetes mellitus with foot Mo Dejesus M.D. ulcer 05/23/2019 B95.61 Methicillin susceptible Mo Dejesus M.D. Staphylococcus aureus infection as the cause of diseases classified elsewhere 05/23/2019 R09.89 Other specified symptoms and signs Mo Dejesus M.D. involving the circulatory and respiratory systems 05/23/2019 E11.40 Type 2 diabetes mellitus with Mo Dejesus M.D. diabetic neuropathy, unspecified 05/16/2019 L97.512 Non-pressure chronic ulcer of other Mo Dejesus M.D. part of right foot with fat layer exposed 05/16/2019 E11.621 Type 2 diabetes mellitus with foot Mo Dejesus M.D. ulcer 05/16/2019 B95.61 Methicillin susceptible Mo Dejesus M.D. Staphylococcus aureus infection as the cause of diseases classified elsewhere 05/09/2019 L97.512 Non-pressure chronic ulcer of other Mo Dejesus M.D. part of right foot with fat layer exposed 05/09/2019 E11.621 Type 2 diabetes mellitus with foot Mo Dejesus M.D. ulcer 05/09/2019 B95.61 Methicillin susceptible Mo Dejesus M.D. Staphylococcus aureus infection as the cause of diseases classified elsewhere 05/09/2019 E11.40 Type 2 diabetes mellitus with Mo Dejesus M.D. diabetic neuropathy, unspecified 05/09/2019 Z79.4 half-way (current) use of insulin Mo Dejesus M.D. 05/03/2019 E11.621 Type 2 diabetes mellitus with foot Yousif Perrin MD ulcer 05/02/2019 L97.512 Non-pressure chronic ulcer of other Mo Dejesus M.D. part of right foot with fat layer exposed 05/02/2019 E11.621 Type 2 diabetes mellitus with foot Mo Dejesus M.D. ulcer 05/02/2019 B95.61 Methicillin susceptible Mo Dejesus M.D. Staphylococcus aureus infection as the cause of diseases classified elsewhere 05/02/2019 E11.40 Type 2 diabetes mellitus with Mo Dejesus M.D. diabetic neuropathy, unspecified 05/02/2019 Z79.4 watermelon inspector (current) use of insulin Mo Dejesus M.D. 04/25/2019 L97.511 Non-pressure chronic ulcer of other Mo Dejesus M.D. part of right foot limited to breakdown of skin 04/25/2019 L97.521 Non-pressure chronic ulcer of other Mo Dejesus M.D. part of left foot limited to breakdown of skin 04/25/2019 E11.621 Type 2 diabetes mellitus with foot Mo Dejesus M.D. ulcer 04/25/2019 B95.61 Methicillin susceptible Mo Dejesus M.D. Staphylococcus aureus infection as the cause of diseases classified elsewhere 04/25/2019 R09.89 Other specified symptoms and signs Mo Dejesus M.D. involving the circulatory and respiratory systems 04/18/2019 L97.512 Non-pressure chronic ulcer of other Mo Dejesus M.D. part of right foot with fat layer exposed 04/18/2019 L97.521 Non-pressure chronic ulcer of other Mo Dejesus M.D. part of left foot limited to breakdown of skin 04/18/2019 E11.621 Type 2 diabetes mellitus with foot Mo Dejesus M.D. ulcer 04/18/2019 B95.61 Methicillin susceptible Mo Dejesus M.D. Staphylococcus aureus infection as the cause of diseases classified elsewhere 04/18/2019 E11.40 Type 2 diabetes mellitus with Mo Dejesus M.D. diabetic neuropathy, unspecified 04/11/2019 L97.512 Non-pressure chronic ulcer of other Mo Dejesus M.D. part of right foot with fat layer exposed 04/11/2019 L97.521 Non-pressure chronic ulcer of other Mo Dejesus M.D. part of left foot limited to breakdown of skin 04/11/2019 E11.621 Type 2 diabetes mellitus with foot Mo Dejesus M.D. ulcer 04/11/2019 E11.40 Type 2 diabetes mellitus with Mo Dejesus M.D. diabetic neuropathy, unspecified 04/11/2019 Z79.4 half-way (current) use of insulin Mo Dejesus M.D. 04/04/2019 E11.621 Type 2 diabetes mellitus with foot Jorge Taylor M.D. ulcer 04/04/2019 L97.529 Non-pressure chronic ulcer of other Jorge Taylor M.D. part of left foot with unspecified severity 04/04/2019 L97.519 Non-pressure chronic ulcer of other Jorge Taylor M.D. part of right foot with unspecified severity 03/28/2019 E11.621 Type 2 diabetes mellitus with foot Mo Dejesus M.D. ulcer 03/28/2019 E11.40 Type 2 diabetes mellitus with Mo Dejesus M.D. diabetic neuropathy, unspecified 03/28/2019 L97.519 Non-pressure chronic ulcer of other Mo Dejesus M.D. part of right foot with unspecified severity 03/21/2019 L97.529 Non-pressure chronic ulcer oth prt Mo Dejesus M.D. left foot w unsp severity 03/21/2019 L97.519 Non-prs chronic ulcer oth prt right Mo Dejesus M.D. foot w unsp severity 03/21/2019 E11.621 Type 2 diabetes mellitus with foot Mo Dejesus M.D. ulcer 03/21/2019 R09.89 Other specified symptoms and signs Mo Dejesus M.D. involving the circulatory 03/21/2019 E78.5 Hyperlipidemia, unspecified Mo Dejesus M.D. 03/21/2019 I10 Essential (primary) hypertension Mo Dejesus M.D. 03/13/2019 S91.301A Unspecified open wound, right foot, Monica Porter NP initial encounter 03/13/2019 N17.9 Acute kidney failure, unspecified Kyleigh Chandler, COAL PIPELINE OPERATOR 03/13/2019 S91.302A Unspecified open wound, left foot, Monica Porter NP initial encounter 03/13/2019 N39.0 Urinary tract infection, site not Kyleigh Chandler, COAL PIPELINE OPERATOR specified 03/13/2019 L03.116 Cellulitis of left lower limb Kyleigh Chandler, COAL PIPELINE OPERATOR 03/13/2019 L03.115 Cellulitis of right lower limb Kyleigh Chandler, COAL PIPELINE OPERATOR 03/13/2019 E11.40 Type 2 diabetes mellitus with Kyleigh Chandler, COAL PIPELINE OPERATOR diabetic neuropathy, unsp 03/13/2019 N18.3 Chronic kidney disease, stage 3 Kyleigh Chandler, COAL PIPELINE OPERATOR (moderate) 03/12/2019 N17.9 Acute kidney failure, unspecified Kyleigh Chandler, COAL PIPELINE OPERATOR 03/12/2019 N39.0 Urinary tract infection, site not Kyleigh Chandler, COAL PIPELINE OPERATOR specified 03/12/2019 E11.40 Type 2 diabetes mellitus with Kyleigh Chandler, COAL PIPELINE OPERATOR diabetic neuropathy, unsp 03/12/2019 L03.115 Cellulitis of right lower limb Kyleigh Chandler, COAL PIPELINE OPERATOR 03/12/2019 L03.116 Cellulitis of left lower limb Kyleigh Chandler, COAL PIPELINE OPERATOR 03/11/2019 N17.9 Acute kidney failure, unspecified Kyleigh Chandler, COAL PIPELINE OPERATOR 03/11/2019 N39.0 Urinary tract infection, site not Kyleigh Chandler, COAL PIPELINE OPERATOR specified 03/11/2019 D64.9 Anemia, unspecified Kyleigh Chandler, COAL PIPELINE OPERATOR 03/10/2019 N17.9 Acute kidney failure, unspecified Reshma Adame M.D. 03/10/2019 N39.0 Urinary tract infection, site not Reshma Adame M.D. specified 03/10/2019 E11.9 Type 2 diabetes mellitus without Reshma Adame M.D. complications Plan of Treatment Future Appointment(s):07/26/2019 8:30 am - Monica Porter NP at [facility]04/18/2019 8:45 am - Good Hunt MD at [facility] at Yxiqph5707/11/2019 - Monica Porter, NPM86.671 Other chronic osteomyelitis, right ankle and footFollow up:2-3 zojdtK33.621 Type 2 diabetes mellitus with foot ulcer Functional Status Description No Information Available Mental Status Description No Information Available Referrals Description No Information Available
--- OUTSIDE RECORDS SUMMARY | 2019-08-07 15:52 | XMS REPORT | Continuity of Care Document ---
:1955 External Reference #:[id number] Author Name Albino Gonzalez M.D. Address [address] [place] [address] Care Team Providers Name Role Phone Nacho Duncan D.O. - Internal Medicine Care Team Information Private Equity Analyst Kareem Johnston M.D. - Ophthalmology Care Team Information Private Equity Analyst [phone] Mo Dejesus M.D. 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 Onset: 11/08/2017 Herpesviral keratitis Albino Gonzalez [...] Use Denies Drug Use Smoking Status Reviewed: 07/24/19 Patient is a former smoker Allergies, Adverse [...] as needed Unknown 0.1-0.3% Solution Basaglar Kwikpen [place], Nacho D.O 100Unit/ML Solution Pen-Inject Victoza 2 units daily Unknown 18mg/3ML Solution Pen-Inject Montelukast Sodium [place], Nacho D.O 10mg Tablets Dorzolamide HCL 1 drop right eye 10units Albino 2% twice a day Viviane Gonzalez Solution Timolol Maleate Instill 1 Drop Into Unknown 0.5% Each Eye Twice Solution Daily as Directed Medications Administered in Office Medication SIG Qnty Indications Ordering Provider Date Avastin Bevacizumab Albino Gonzalez M.D. 11/10/2017 Injection Avastin Bevacizumab Albino Gonzalez M.D. 03/30/2017 Injection Avastin Pat Gonzalez M.D. 03/09/2017 Injection Avastin Bevacizumab Albino Gonzalez M.D. 02/23/2017 Injection Avastin Pat Gonzalez M.D. 02/16/2017 Injection Avastin Pat Gonzalez M.D. 02/02/2017 Injection Avastin Bevacizumab Albino Gonzalez M.D. 12/01/2016 Injection Avastin Bevacizumab Albino Gonzalez M.D. 11/03/2016 Injection Avastin Pat Gonzalez M.D. 09/22/2016 Injection Avastin Pat Gonzalez M.D. 08/18/2016 Injection Avastin Bevacizumab Albino Gonzalez M.D. 08/11/2016 Injection Avastin Bevacizumab Albino Gonzalez M.D. 07/21/2016 Injection Avastin Pat Gonzalez M.D. 07/14/2016 Injection Avastin Bevacizumab Albino Gonzalez M.D. 06/16/2016 Injection Avastin Pat Gonzalez M.D. 06/09/2016 Injection Immunizations Description No Information Available Vital Signs Date Vital Result Comment 11/10/2017 8:01am BP Systolic 132 mmHg BP Diastolic 70 mmHg Heart Rate 65 /min Respiratory Rate 15 /min 03/30/2017 1:59pm BP Systolic 120 mmHg BP Diastolic 70 mmHg Heart Rate 64 /min Respiratory Rate 14 /min Results Description No Information Available Procedures Date Code Description Status 04/12/2019 73778 Est Patient Intermediate Exam Completed Medical Devices Description No Information Available Encounters Description No Information Available Assessments Date Code Description Provider 07/24/2019 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 right eye, severe stage 07/24/2019 E11.3593 Type 2 diabetes mellitus with Albino Gonzalez M.D. proliferative diabetic retinopathy without macular edema, bilateral 04/12/2019 H04.123 Dry eye syndrome of bilateral lacrimal Albino Gonzalez M.D. glands 04/12/2019 E11.3513 Type 2 diabetes mellitus with Albino Gonzalez M.D. 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 right eye, severe stage Plan of Treatment 07/24/2019 - Albino Gonzalez M.D.H40.51x3 Glaucoma secondary to other eye disorders, right eye, severe stageComments:Smoking can increase the risk of developing or worsening any eye related disease, as well as affect your overall health. If you are a smoker, we strongly recommend that you quit.If you are not a smoker, we strongly recommend that you do not start. Your eyes look stable at this time. Continue taking drops as directed.BRING ALL EYEDROPS YOU ARE USING TO YOUR NEXT APPOINTMENT.Follow up:6 Month Follow Up DFE You can expect to have your eyes dilated at your next visit. If Dr. Gonzalez orders any additional testing, it may require extra time. We recommend that you bring sunglasses, as dilation drops often make you light sensitive until they wear off. We always recommend you bring someone to drive you home if you are uncomfortable driving with your eyes dilated. If you have any questions before your next visit, feel free to call our office at .E11.3593 Type 2 diabetes mellitus with proliferative diabetic retinopathy without macular edema , bilateralComments:Smoking can increase the risk of developing or worsening any eye related disease, as well as affect your overall health. If you are a smoker, we strongly recommend that you quit.If you are not a smoker, we strongly recommend that you do not start. Functional Status Description No Information Available Mental Status Description No Information Available Referrals Description No Information Available
--- OUTSIDE RECORDS SUMMARY | 2019-08-07 15:52 | XMS REPORT | Continuity of Care Document ---
:1955 External Reference #:[id number] Author Name Good Hunt MD (transmitted by agent of provider Cherie Benavidez) Address [address] [place] [address] Care Team Providers Name Role Phone Jorge Duncan D.O. - Internal Care Team Information Bottom Steep Tender Medicine Problems Active Problems Provider Date Ulcer [...] Tablets day Nystatin topically twice a Unknown 238540Gaxn/GM day as needed Cream Tramadol HCL 1-2 tablets by Unknown 50mg Tablets mouth every 6 hours as needed pain Mupirocin Unknown Bisacodyl 5 mg daily in Unknown Powder juice or water, g tube or by mouth Lorazepam Unknown Sodium Bicarbonate 1 tab by mouth Unknown 650mg twice a day Tablets Immunizations Description No Information Available Vital Signs Date Vital Result Comment 07/09/2019 8:48am Height 63 inches 5'3" Weight 180.00 lb Heart Rate 84 /min BP Systolic 138 mmHg BP Diastolic 84 mmHg Respiratory Rate 16 /min Body Temperature 97.4 F Pain Level 0 BMI (Body Mass Index) 31.9 kg/m2 06/25/2019 2:33pm Height 63 inches 5'3" Weight 180.00 lb Heart Rate 66 /min BP Systolic 122 mmHg BP Diastolic 90 mmHg Body Temperature 97.5 F Pain Level 5 BMI (Body Mass Index) 31.9 kg/m2 Results Description No Information Available Procedures Date Code Description Status 06/14/2019 96909 Secondary Closure Of Surgical Wound Or Dehiscence Completed Extensive Or Co 06/14/2019 17492 Secondary Closure Of Surgical Wound Or Dehiscence Completed Extensive Or Co 06/06/2019 38611 Debridement Skin,& sq Tissue Completed 05/30/2019 72254 Debridement Skin, Subcutaneous Tissue & Muscle Completed 05/23/2019 45001 Debridement Skin, Subcutaneous Tissue & Muscle Completed 05/16/2019 09957 Debridement Muscle/Fascia,Epidermis/Dermis/Tissue,1St 20 Completed SQ CM 05/16/2019 01476 Debridement Skin,& sq Tissue Completed 05/09/2019 02284 Debridement Skin,& sq Tissue Completed 05/09/2019 71786 Debridement Muscle/Fascia,Epidermis/Dermis/Tissue,1St 20 Completed SQ CM 05/02/2019 24158 Debridement Muscle/Fascia,Epidermis/Dermis/Tissue,1St 20 Completed SQ CM 05/02/2019 03066 Debridement Skin,& sq Tissue Completed 04/25/2019 47980 Removal Devitalized Tissue Wound Greater Than 20 Square CM Completed 04/25/2019 60147 Removal Devitalization Tissue Wound Less Than Equal 20 Completed Square CM 04/18/2019 07016 Debridement Muscle/Fascia,Epidermis/Dermis/Tissue,1St 20 Completed SQ CM 04/18/2019 73089 Debridement Skin,& sq Tissue Completed 04/11/2019 04809 Debridement Muscle/Fascia,Epidermis/Dermis/Tissue,1St 20 Completed SQ CM 04/11/2019 99900 Debridement Skin,& sq Tissue Completed Medical Devices Description No Information Available Encounters Type Date Location Provider Dx Diagnosis Office Visit 06/20/2019 [facility] Mo Dejesus, L97.511 Non-prs chronic 11:00a DeannTommy Pan ulcer oth prt r Anjelica foot limited to brkdwn skin E11.621 Type 2 diabetes mellitus with foot ulcer B95.61 Methicillin suscep staph infct causing dis classd elswhr E11.40 Type 2 diabetes mellitus with diabetic neuropathy, unsp R09.89 Oth symptoms and signs involving the circ and resp systems Office Visit 06/15/2019 10:43a [facility] Aga N17.9 Acute kidney Assocjuan M.D. 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 arteries of extremities w gangrene, right leg Office Visit 06/14/2019 [facility] Reshma Adame, I96 Gangrene, not 10:43a juan Pollard M.D. elsewhere Hospitalists classified N18.4 Chronic kidney disease, stage 4 (severe) E11.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 E11.40 Type 2 diabetes mellitus with diabetic neuropathy, unsp Office Visit 06/13/2019 10:43a [facility] Reshma Adame, I96 Gangrene , not juan Pollard M.D. elsewhere Hospitalists classified E11.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 E11.40 Type 2 diabetes mellitus with diabetic neuropathy, unsp Office Visit 06/12/2019 [facility] Monica Cheung E11.69 Type 2 diabetes 12:45p For Infectious Porter, SOUNDING DEVICE OPERATOR mellitus with Diseases other specified complication M86.671 Other chronic osteomyelitis, right ankle and foot B95.62 Methicillin resis staph infct causing diseases classd elswhr Office Visit 06/12/2019 10:42a [facility] Reshma Adame, I96 Gangrene , not Assoc,pc M.D. 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 N18.3 Chronic kidney disease, stage 3 (moderate) E11.40 Type 2 diabetes mellitus with diabetic neuropathy, unsp R94.39 Abnormal result of other cardiovascular function study Office Visit 06/11/2019 10:42a [facility] Franklin Arreola MD I96 Gangrene, not Assoc,pc elsewhere Hospitalists classified I12.9 Hypertensive chronic kidney disease w stg 1-4/unsp chr kdny N18.4 Chronic kidney disease, stage 4 (severe) E11.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 E11.40 Type 2 diabetes mellitus with diabetic neuropathy, unsp Office Visit 06/10/2019 10:42a [facility] Franklin Arreola MD I96 [place], not Assoc,pc elsewhere Hospitalists classified N18.4 Chronic kidney disease, stage 4 (severe) D64.9 Anemia, unspecified E11.40 Type 2 diabetes mellitus with diabetic neuropathy, unsp A41.9 Sepsis, unspecified organism E11.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 E11.621 Type 2 [facility] MD [place] diabetes AT [place] mellitus with foot ulcer Office Visit 04/04/2019 11:00a [facility] Jorge Taylor E11.621 Type 2 [facility] Pan diabetes mellitus with foot ulcer L97.529 Non-pressure chronic ulcer oth prt left foot w unsp severity L97.519 Non-prs chronic ulcer oth prt right foot w unsp severity Office Visit 03/28/2019 [facility] Mo Katz E11.621 Type 2 10:00a Andrés Dejesus M.D. diabetes [place] mellitus with foot ulcer L97.519 Non-prs chronic ulcer oth prt right foot w unsp severity E11.40 Type 2 diabetes mellitus with diabetic neuropathy, unsp Office Visit 03/21/2019 Wound Care Mo Katz L97.519 Non-prs 8:00a Andrés Dejesus M.D. chronic ulcer [place] oth prt right foot w unsp severity L97.529 Non-pressure chronic ulcer oth prt left foot w unsp severity E11.621 Type 2 diabetes mellitus with foot ulcer R09.89 Oth symptoms and signs involving the circ and resp systems E78.5 Hyperlipidemia, unspecified I10 Essential (primary) hypertension Office Visit 03/13/2019 10:00a [facility] Monica Cheung S91.301A Unspecified open [facility] [place] SOUNDING DEVICE OPERATOR wound, right [facility] foot, initial encounter S91.302A Unspecified open wound, left foot, initial encounter Office Visit 03/13/2019 9:23a [facility] Kyleigh Chandler, N17.9 Acute kidney Assoc,pc SOUNDING DEVICE OPERATOR failure, Hospitalists unspecified N39.0 Urinary tract infection, site not specified L03.116 Cellulitis of left lower limb L03.115 Cellulitis of right lower limb E11.40 Type 2 diabetes mellitus with diabetic neuropathy, unsp N18.3 Chronic kidney disease, stage 3 (moderate) Office Visit 03/12/2019 9:23a [facility] Kyleigh Chandler, N17.9 Acute kidney Assoc,pc SOUNDING DEVICE OPERATOR failure, Hospitalists unspecified N39.0 Urinary tract infection, site not specified E11.40 Type 2 diabetes mellitus with diabetic neuropathy, unsp L03.115 Cellulitis of right lower limb L03.116 Cellulitis of left lower limb Office Visit 03/11/2019 9:22a [facility] Kyleigh Chandler, N17.9 Acute kidney Assoc,pc SOUNDING DEVICE OPERATOR failure, Hospitalists unspecified N39.0 Urinary tract infection, site not specified D64.9 Anemia, unspecified Office Visit 03/10/2019 [facility] Reshma Deep, N17.9 Acute kidney 9:22a Assoc,pc M.D. failure, Hospitalists unspecified N39.0 Urinary tract infection, site not specified E11.9 Type 2 diabetes mellitus without complications Assessments Date Code Description Provider 07/09/2019 M86.671 Other chronic osteomyelitis, right Good [...] M.D. diabetic nephropathy 06/14/2019 I70.261 Atherosclerosis of [place] arteries Jorge Taylor M.D. of extremities with [...] Dejesus M.D. diabetic neuropathy, unspecified 05/30/2019 Z79.4 long term care social worker (current) use of insulin Mo Dejesus M.D. [...] Dejesus M.D. diabetic neuropathy, unspecified 05/09/2019 Z79.4 [facility] (current) use of insulin Mo Dejesus M.D. [...] Dejesus M.D. diabetic neuropathy, unspecified 05/02/2019 Z79.4 [facility] (current) use of insulin Mo Dejesus M.D. [...] Dejesus M.D. diabetic neuropathy, unspecified 04/11/2019 Z79.4 [facility] (current) use of insulin Mo Dejesus M.D. [...] involving the circulatory 03/21/2019 E78.5 Hyperlipidemia, unspecified oM Dejesus M.D. 03/21/2019 I10 Essential (primary) hypertension Mo Dejesus M.D. 03/13/2019 S91.301A Unspecified open wound, right foot, Monica Porter NP initial encounter 03/13/2019 N17.9 Acute kidney failure, unspecified Kyleigh Chandler, SOUNDING DEVICE OPERATOR 03/13/2019 S91.302A Unspecified open wound, left foot, Monica Porter NP initial encounter 03/13/2019 N39.0 Urinary tract infection, site not Kyleigh Chandler, SOUNDING DEVICE OPERATOR specified 03/13/2019 L03.116 Cellulitis of left lower limb Kyleigh Chandler, SOUNDING DEVICE OPERATOR 03/13/2019 L03.115 Cellulitis of right lower limb Kyleigh Chandler, SOUNDING DEVICE OPERATOR 03/13/2019 E11.40 Type 2 diabetes mellitus with Kyleigh Chandler, SOUNDING DEVICE OPERATOR diabetic neuropathy, unsp 03/13/2019 N18.3 Chronic kidney disease, stage 3 Kyleigh Chandler, SOUNDING DEVICE OPERATOR (moderate) 03/12/2019 N17.9 Acute kidney failure, unspecified Kyleigh Chandler, SOUNDING DEVICE OPERATOR 03/12/2019 N39.0 Urinary tract infection, site not Kyleigh Chandler, SOUNDING DEVICE OPERATOR specified 03/12/2019 E11.40 Type 2 diabetes mellitus with Kyleigh Chandler, SOUNDING DEVICE OPERATOR diabetic neuropathy, unsp 03/12/2019 L03.115 Cellulitis of right lower limb Kyleigh Chandler, SOUNDING DEVICE OPERATOR 03/12/2019 L03.116 Cellulitis of left lower limb Kyleigh Chandler, SOUNDING DEVICE OPERATOR 03/11/2019 N17.9 Acute kidney failure, unspecified Kyleigh Chandler, SOUNDING DEVICE OPERATOR 03/11/2019 N39.0 Urinary tract infection, site not Kyleigh Chandler, SOUNDING DEVICE OPERATOR specified 03/11/2019 D64.9 Anemia, unspecified Kyleigh Chandler, SOUNDING DEVICE OPERATOR 03/10/2019 N17.9 Acute kidney failure, unspecified Reshma Adame M.D. 03/10/2019 N39.0 Urinary tract infection, site not Reshma Adame M.D. specified 03/10/2019 E11.9 Type 2 diabetes mellitus without Reshma Adame M.D. complications Plan of Treatment Future Appointment(s):07/23/2019 8:45 am - Good Hunt MD at [facility] at Jgcrtz1307/11/2019 3:00 pm - Monica Porter NP at [facility] Lmbolrtm67/04/2019 - Good Hunt, MDM86.671 Other chronic osteomyelitis, right ankle and footFollow up:Follow Up: 3 weeks Functional Status Description No Information Available Mental Status Description No Information Available Referrals Description No Information Available
--- OUTSIDE RECORDS SUMMARY | 2019-08-07 15:52 | XMS REPORT | Continuity of Care Document ---
:1955 External Reference #:[id number] Author Name Monica Porter NP (transmitted by agent of provider Cori Franklin) Address [address] [place] [id number] Care Team Providers Name Role Phone Jorge Duncan D.O. 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 Medicine Problems Active Problems Provider Date Ulcer [...] a former smoker Unknown Smoking Status Reviewed: 07/26/19 Patient is a former smoker Exercise Type/Frequency [...] Available Vital Signs Date Vital Result Comment 07/26/2019 8:31am Height 63 inches 5'3" Weight 184.00 lb Heart Rate 74 /min BP Systolic Sitting 158 mmHg BP Diastolic Sitting 90 mmHg Respiratory Rate 14 /min Body Temperature 97.8 F BMI (Body Mass Index) 32.6 kg/m2 07/23/2019 8:20am Height 63 inches 5'3" Weight 170.00 lb Heart Rate 88 /min BP Systolic 144 mmHg BP Diastolic 84 mmHg BMI (Body Mass Index) 30.1 kg/m2 Results Description No Information Available Procedures Date Code Description Status 06/14/2019 36768 Secondary Closure Of Surgical Wound Or Dehiscence Completed Extensive Or Co 06/14/2019 92614 Secondary Closure Of Surgical Wound Or Dehiscence Completed Extensive Or Co 06/06/2019 91194 Debridement Skin,& sq Tissue Completed 05/30/2019 42895 Debridement Skin, Subcutaneous Tissue & Muscle Completed 05/23/2019 92711 Debridement Skin, Subcutaneous Tissue & Muscle Completed 05/16/2019 83012 Debridement Muscle/Fascia,Epidermis/Dermis/Tissue, 20 Completed SQ CM 05/16/2019 55993 Debridement Skin,& sq Tissue Completed 05/09/2019 30059 Debridement Skin,& sq Tissue Completed 05/09/2019 99648 Debridement Muscle/Fascia,Epidermis/Dermis/Tissue, 20 Completed SQ CM 05/02/2019 83436 Debridement Muscle/Fascia,Epidermis/Dermis/Tissue, 20 Completed SQ CM 05/02/2019 97951 Debridement Skin,& sq Tissue Completed 04/25/2019 50007 Removal Devitalized Tissue Wound Greater Than 20 Square CM Completed 04/25/2019 90043 Removal Devitalization Tissue Wound Less Than Equal 20 Completed Square CM 04/18/2019 46229 Debridement Muscle/Fascia,Epidermis/Dermis/Tissue, 20 Completed SQ CM 04/18/2019 70617 Debridement Skin,& sq Tissue Completed 04/11/2019 22710 Debridement Muscle/Fascia,Epidermis/Dermis/Tissue, 20 Completed SQ CM 04/11/2019 09990 Debridement Skin,& sq Tissue Completed Medical Devices Description No Information Available Encounters Type Date Location Provider Dx Diagnosis Office Visit 07/11/2019 [facility] Monica Cheung M86.671 Other chronic 3:00p Infectious Porter, LEAD WELDER osteomyelitis, Diseases right ankle and foot E11.69 Type 2 diabetes mellitus with other specified complication Z79.2 skilled nursing (current) use of antibiotics Office Visit 06/20/2019 [facility] Mo Katz L97.511 Non-prs 11:00a MellottBrian Dejesus M.D. chronic ulcer Anjelica ot prt r foot limited to brkdwn skin E11.621 Type 2 diabetes mellitus with foot ulcer B95.61 Methicillin suscep staph infct causing dis classd elswhr E11.40 Type 2 diabetes mellitus with diabetic neuropathy, unsp R09.89 Oth symptoms and signs involving the circ and resp systems Office Visit 06/15/2019 10:43a [facility] Aga N17.9 Acute kidney Assjuan glass M.D. 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 arteries of extremities w gangrene, right leg Office Visit 06/14/2019 [facility] Reshma Adame, I96 Gangrene, not 10:43a juan Pollard M.D. elsewhere Hospitalists classified N18.4 Chronic kidney disease, stage 4 (severe) E11.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 E11.40 Type 2 diabetes mellitus with diabetic neuropathy, unsp Office Visit 06/13/2019 10:43a [facility] Reshma Adame, I96 Gangrene , not juan Pollard M.D. elsewhere Hospitalists classified E11.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 E11.40 Type 2 diabetes mellitus with diabetic neuropathy, unsp Office Visit 06/12/2019 [facility] E11.69 Type 2 diabetes 12:45p For Infectious [place], [employer] mellitus with Diseases other specified complication M86.671 Other chronic osteomyelitis, right ankle and foot B95.62 Methicillin resis staph infct causing diseases classd elswhr Office Visit 06/12/2019 10:42a [facility] Reshma Adame, I96 Gangrene , not Assoc,pc Viviane 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 Office Visit 06/11/2019 [facility] E11.69 Type 2 diabetes 12:43p For Infect[facility] [place], [employer] mellitus with Diseases other specified complication M86.671 Other chronic osteomyelitis, right ankle and foot E11.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 N18.3 Chronic kidney disease, stage 3 (moderate) E11.40 Type 2 diabetes mellitus with diabetic neuropathy, unsp R94.39 Abnormal result of other cardiovascular function study Office Visit 06/11/2019 10:42a [facility] Franklin Arreola MD I96 Gangrene, not Assoc,pc elsewhere Hospitalists classified I12.9 Hypertensive chronic kidney disease w stg 1-4/unsp chr kdny N18.4 Chronic kidney disease, stage 4 (severe) E11.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 E11.40 Type 2 diabetes mellitus with diabetic neuropathy, unsp Office Visit 06/10/2019 10:42a [facility] Franklin Arreola MD I96 Gangrene, not Assoc,pc elsewhere Hospitalists classified N18.4 Chronic kidney disease, stage 4 (severe) D64.9 Anemia, unspecified E11.40 Type 2 diabetes mellitus with diabetic neuropathy, unsp A41.9 Sepsis, unspecified organism E11.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) Office Visit 06/09/2019 10:41a [facility] Franklin Arreola MD I96 Gangrene, not Assoc,pc elsewhere Hospitalists classified I12.9 Hypertensive chronic kidney disease w stg 1-4/unsp chr kdny N18.4 Chronic kidney disease, stage 4 (severe) A41.9 Sepsis, unspecified organism E11.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 E11.40 Type 2 diabetes mellitus with diabetic neuropathy, unsp Office Visit 06/08/2019 10:38a [facility] Reshma Adame, I96 Gangrene , not Assoc,pc Viviane elsewhere Hospitalists classified M79.672 Pain in left foot E11.40 Type 2 diabetes mellitus with diabetic neuropathy, unsp Office Visit 05/03/2019 12:30p Surgical Yousif S. E11.621 Type 2 [facility] diabetes AT [place] mellitus with foot ulcer Office Visit 04/04/2019 11:00a [facility] Jorge Taylor, E11.621 Type 2 [facility] diabetes mellitus with foot ulcer L97.529 Non-pressure chronic ulcer oth prt left foot w unsp severity L97.519 Non-prs chronic ulcer oth prt right foot w unsp severity Office Visit 03/28/2019 [facility] Mo Katz E11.621 Type 2 10:00a Andrés Dejesus M.D. diabetes [place] mellitus with foot ulcer L97.519 Non-prs chronic [...] foot, initial encounter Office Visit 03/13/2019 9:23a [facility] Kyleigh Chandler, N17.9 Acute kidney Assoc,pc [employer] failure, Hospitalists unspecified N39.0 Urinary tract infection, site not specified L03.116 Cellulitis of left lower limb L03.115 Cellulitis of right lower limb E11.40 Type 2 diabetes mellitus with diabetic neuropathy, unsp N18.3 Chronic kidney disease, stage 3 (moderate) Office Visit 03/12/2019 9:23a [facility] Kyleigh Chandler, N17.9 Acute kidney Assoc,pc [employer] failure, Hospitalists unspecified N39.0 Urinary tract infection, site not specified E11.40 Type 2 diabetes mellitus with diabetic neuropathy, unsp L03.115 Cellulitis of right lower limb L03.116 Cellulitis of left lower limb Office Visit 03/11/2019 9:22a [facility] Kyleigh Chandler, N17.9 Acute kidney Assoc,pc [employer] failure, Hospitalists unspecified N39.0 Urinary tract infection, site not specified D64.9 Anemia, unspecified Office Visit 03/10/2019 [facility] Reshma Deep, N17.9 Acute kidney 9:22a Assoc,pc M.D. failure, Hospitalists unspecified N39.0 Urinary tract infection, site not specified E11.9 Type 2 diabetes mellitus without complications Assessments Date Code Description Provider 07/26/2019 M86.671 Other chronic osteomyelitis, right Monica Porter NP ankle and foot 07/26/2019 E11.40 Type 2 diabetes mellitus with Monica Porter NP diabetic neuropathy, unspecified 07/26/2019 R19.7 Diarrhea, unspecified Monica Porter NP 07/23/2019 M86.671 Other chronic osteomyelitis, right Good Hunt MD ankle and foot 07/23/2019 E11.40 Type 2 diabetes mellitus with Good Hunt MD diabetic neuropathy, unspecified 07/11/2019 E11.621 Type 2 diabetes mellitus with foot Mo Dejesus M.D. ulcer 07/11/2019 Z89.421 Acquired absence of other right Mo Dejesus M.D. toe(s) 07/11/2019 M86.671 Other chronic osteomyelitis, right Monica Porter NP ankle and foot 07/11/2019 L97.519 Non-pressure chronic ulcer of other Mo Dejesus M.D. part of right foot with unspecified severity 07/11/2019 E11.69 Type 2 diabetes mellitus with other Monica Porter NP specified complication 07/11/2019 E11.40 Type 2 diabetes mellitus with Mo Dejesus M.D. diabetic neuropathy, unspecified 07/11/2019 Z79.2 long term care social worker (current) use of Monica Porter NP antibiotics 07/11/2019 B95.61 Methicillin susceptible Mo Dejesus M.D. Staphylococcus aureus infection as the cause of diseases classified elsewhere 07/09/2019 M86.671 Other chronic osteomyelitis, right Good [...] N18.3 Chronic kidney disease, stage 3 Aga oHpson M.D. (moderate) 06/15/2019 D63.1 Anemia in chronic kidney disease Aga Hopson M.D. 06/15/2019 E11.21 Type 2 diabetes mellitus with Aga Hopson M.D. diabetic nephropathy 06/14/2019 I70.261 Atherosclerosis of inaja arteries Jorge Taylor M.D. of extremities with [...] Other specified symptoms and signs Mo F. Vance, M.D. involving the circulatory and respiratory systems [...] Dejesus M.D. diabetic neuropathy, unspecified 05/09/2019 Z79.4 skilled nursing (current) use of insulin Mo Dejesus M.D. [...] Dejesus M.D. diabetic neuropathy, unspecified 05/02/2019 Z79.4 long term care social worker (current) [...] Dejesus M.D. diabetic neuropathy, unspecified 04/11/2019 Z79.4 long term care social worker (current) [...] with foot Mo Dejesus M.D. ulcer 03/28/2019 L97.519 Non-pressure chronic ulcer of other Mo Dejesus M.D. part of right foot with unspecified severity 03/28/2019 E11.40 Type 2 diabetes mellitus with Mo Dejesus M.D. diabetic neuropathy, unspecified 03/21/2019 L97.529 Non-pressure chronic ulcer oth prt [...] N17.9 Acute kidney failure, unspecified Kyleigh Chandler, LEAD WELDER 03/13/2019 S91.302A Unspecified open wound, left foot, Monica Porter NP initial encounter 03/13/2019 N39.0 Urinary tract infection, site not Ykleigh Chandler, LEAD WELDER specified 03/13/2019 L03.116 Cellulitis of left lower limb Kyleigh Chandler, LEAD WELDER 03/13/2019 L03.115 Cellulitis of right lower limb Kyleigh Chandler, LEAD WELDER 03/13/2019 E11.40 Type 2 diabetes mellitus with Kyleigh Chandler, LEAD WELDER diabetic neuropathy, [facility] 03/13/2019 N18.3 Chronic kidney disease, stage 3 Kyleigh Chandler, LEAD WELDER (moderate) 03/12/2019 N17.9 Acute kidney failure, unspecified Kyleigh Chandler, LEAD WELDER 03/12/2019 N39.0 Urinary tract infection, site not Kyleigh Chandler, LEAD WELDER specified 03/12/2019 E11.40 Type 2 diabetes mellitus with Kyleigh Chandler, LEAD WELDER diabetic neuropathy, [facility] 03/12/2019 L03.115 Cellulitis of right lower limb Kyleigh Chandler, LEAD WELDER 03/12/2019 L03.116 Cellulitis of left lower limb Kyleigh Chandler, LEAD WELDER 03/11/2019 N17.9 Acute kidney failure, unspecified Kyleigh Chandler, LEAD WELDER 03/11/2019 N39.0 Urinary tract infection, site not Kyleigh Chandler, LEAD WELDER specified 03/11/2019 D64.9 Anemia, unspecified Kyleigh Chandler, LEAD WELDER 03/10/2019 N17.9 Acute kidney failure, unspecified Reshma Adame M.D. 03/10/2019 N39.0 Urinary tract infection, site not Reshma Adame M.D. specified 03/10/2019 E11.9 Type 2 diabetes mellitus without Reshma Adame M.D. complications Plan of Treatment Future Appointment(s):08/23/2019 8:30 am - Monica Porter NP at [facility]/20/2019 8:45 am - Good Hunt MD at [facility] at [facility]/26/2019 - Monica Porter, NPM86.671 Other chronic osteomyelitis, right ankle and footComments:Please call the office for any increased redness, swelling, fevers, new wounds or drainage from the foot.Follow up:3-4 giguiX50.40 Type 2 diabetes mellitus with diabetic neuropathy, unspR19.7 Diarrhea, unspecified Functional Status Description No Information Available Mental Status Description No Information Available Referrals Refer to Dr Reason for Referral Status Appt Date [facility] Bilateral custom diabetic shoes Created [address] [place] [address] [address] [place] [address] [phone]
--- OUTSIDE RECORDS SUMMARY | 2019-08-07 15:52 | XMS REPORT | Continuity of Care Document ---
:1955 External Reference #:[id number] Author Name Good Hunt MD (transmitted by agent of provider Esperanza Gaines) Address [address] [place] [address] Care Team Providers Name Role Phone Jorge Duncan D.O. 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 Problems Active Problems Provider Date Ulcer [...] Tablets day Nystatin topically twice a Unknown [id number]/GM day as needed Cream Vancomycin HCL 500 mg iv every 12 Unknown 1gm hrs at [facility] Rec (swing status) Tramadol HCL 1-2 tablets by Unknown 50mg Tablets mouth every 6 hours as needed pain Cefepime HCL 1 gm iv every 12 Unknown 1gm Solution hours x 10 days Rec Mupirocin Unknown Bisacodyl 5 mg daily in Unknown Powder juice or water, g tube or by mouth Lorazepam Unknown Sodium Bicarbonate 1 tab by mouth Unknown 650mg twice a day Tablets Immunizations Description No Information Available Vital Signs Date Vital Result Comment 06/25/2019 2:33pm Height 63 inches 5'3" Weight 180.00 lb Heart Rate 66 /min BP Systolic 122 mmHg BP Diastolic 90 mmHg Body Temperature 97.5 F Pain Level 5 BMI (Body Mass Index) 31.9 kg/m2 04/04/2019 11:24am Height 63 inches 5'3" Weight 178.00 lb with shoes Heart Rate 84 /min right radial BP Systolic Sitting 112 mmHg ule BP Diastolic Sitting 74 mmHg ule BMI (Body Mass Index) 31.5 kg/m2 Results Description No Information Available Procedures Date Code Description Status 06/14/2019 00571 Secondary Closure Of Surgical Wound Or Dehiscence Completed Extensive Or Co 06/14/2019 15522 Secondary Closure Of Surgical Wound Or Dehiscence Completed Extensive Or Co 06/06/2019 91151 Debridement Skin,& sq Tissue Completed 05/30/2019 05365 Debridement Skin, Subcutaneous Tissue & Muscle Completed 05/23/2019 37564 Debridement Skin, Subcutaneous Tissue & Muscle Completed 05/16/2019 85585 Debridement Muscle/Fascia,Epidermis/Dermis/Tissue, Completed SQ CM 05/16/2019 63225 Debridement Skin,& sq Tissue Completed 05/09/2019 67330 Debridement Skin,& sq Tissue Completed 05/09/2019 39125 Debridement Muscle/Fascia,Epidermis/Dermis/Tissue, Completed SQ CM 05/02/2019 09766 Debridement Muscle/Fascia,Epidermis/Dermis/Tissue, Completed SQ CM 05/02/2019 30829 Debridement Skin,& sq Tissue Completed 04/25/2019 90229 Removal Devitalized Tissue Wound Greater Than 20 Square CM Completed 04/25/2019 50325 Removal Devitalization Tissue Wound Less Than Equal 20 Completed Square CM 04/18/2019 03400 Debridement Muscle/Fascia,Epidermis/Dermis/Tissue, Completed SQ CM 04/18/2019 45902 Debridement Skin,& sq Tissue Completed 04/11/2019 45439 Debridement Muscle/Fascia,Epidermis/Dermis/Tissue, Completed SQ CM 04/11/2019 64588 Debridement Skin,& sq Tissue Completed Medical Devices [...] Type 2 diabetes mellitus with diabetic neuropathy, [facility] R09.89 Oth symptoms and signs involving the circ and resp systems Office Visit 06/14/2019 10:43a [facility] Reshma Adame, [place] , not Assoc,pc M.D. elsewhere Hospitalists classified N18.4 Chronic kidney disease, stage 4 (severe) E11.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 E11.40 Type 2 [facility] mellitus [facility] 06/13/2019 10:43a [facility] Reshma Adame, I[place] , not Assoc,pc M.D. elsewhere Hospitalists classified E11.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 E11.40 Type 2 diabetes mellitus with diabetic [facility] 06/12/2019 10:42a [facility] Reshma Adame, [place] , not Assoc,pc M.D. 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 Office Visit 06/11/2019 10:42a [facility] Franklin Arreola MD I[address] [place], not Assoc,pc elsewhere Hospitalists classified I12.9 Hypertensive chronic kidney disease w stg 1-4/unsp chr kdny N18.4 Chronic kidney disease, stage 4 (severe) E11.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 E11.40 Type 2 diabetes mellitus with diabetic neuropathy, unsp Office Visit 06/10/2019 10:42a [facility] Franklin Arreola MD [place], not Assoc,pc elsewhere Hospitalists classified N18.4 Chronic kidney disease, stage 4 (severe) D64.9 Anemia, unspecified E11.40 Type 2 diabetes mellitus with diabetic neuropathy, unsp A41.9 Sepsis, unspecified organism E11.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 Office Visit 06/09/2019 10:41a [facility] Franklin Arreola MD [place] [place], not Assoc,pc elsewhere Hospitalists classified I12.9 Hypertensive chronic kidney disease w stg 1-4/unsp chr kdny N18.4 Chronic kidney disease, stage 4 (severe) A41.9 Sepsis, unspecified organism E11.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 E11.40 Type 2 diabetes mellitus with diabetic neuropathy, unsp Office Visit 06/09/2019 11:23a [facility] [place] E11.621 Type 2 diabetes at Andrea Watkins M.D. 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) Office Visit 06/08/2019 10:38a [facility] Reshma Adame [place] [place] , not Assoc,pc Viviane elsewhere Hospitalists classified M79.672 Pain in left foot E11.40 Type 2 diabetes mellitus with diabetic neuropathy, unsp Office Visit 05/03/2019 12:30p Surgical Yousif Mcbride E11.621 Type 2 [facility] diabetes [facility] mellitus with foot ulcer Office Visit 04/04/2019 11:00a [facility] E11.621 Type 2 [facility] diabetes mellitus with foot ulcer L97.529 Non-pressure chronic ulcer oth prt left foot w unsp severity L97.519 Non-prs chronic ulcer oth prt right foot w unsp severity Office Visit 03/28/2019 Wound Care Mo Katz E11.621 Type 2 10:[facility]a [facility] mellitus with foot ulcer L97.519 Non-prs chronic ulcer oth prt right foot w unsp severity E11.40 Type 2 diabetes mellitus with diabetic neuropathy, unsp Office Visit 03/21/2019 Wound Care Mo Katz L97.519 Non-prs 8:00a Andrés Dejesus M.D. chronic ulcer Anjelica ot prt right foot w unsp severity L97.529 Non-pressure chronic ulcer oth prt left foot w unsp severity E11.621 Type 2 diabetes mellitus with foot ulcer R09.89 Oth symptoms and signs involving the circ and resp systems E78.5 Hyperlipidemia, unspecified I10 Essential (primary) hypertension Office Visit 03/13/2019 10:00a Wound Care Monica Cheung S91.301A Unspecified open Center AT [facility], [employer] wound, right [facility] foot, initial encounter S91.302A Unspecified open wound, left foot, initial encounter Office Visit 03/13/2019 9:23a [facility] Kyleigh Chandler, N17.9 Acute kidney Assoc,pc [employer] failure, Hospitalists unspecified N39.0 Urinary tract infection, site not specified L03.116 Cellulitis of left lower limb L03.115 Cellulitis of right lower limb E11.40 Type 2 diabetes mellitus with diabetic neuropathy, unsp N18.3 Chronic kidney disease, stage 3 (moderate) Office Visit 03/12/2019 9:23a [facility] Kyleigh Chandler, N17.9 Acute kidney Assoc,pc [employer] failure, Hospitalists unspecified N39.0 Urinary tract infection, site not specified E11.40 Type 2 diabetes mellitus with diabetic neuropathy, unsp L03.115 Cellulitis of right lower limb L03.116 Cellulitis of left lower limb Office Visit 03/11/2019 9:22a [facility] Kyleigh Chandler, N17.9 Acute kidney Assoc,pc [employer] failure, Hospitalists unspecified N39.0 Urinary tract infection, site not specified D64.9 Anemia, unspecified Office Visit 03/10/2019 [facility] Reshma Adame, N17.9 Acute kidney 9:22a Assoc,pc M.DSascha failure, Hospitalists unspecified N39.0 Urinary tract infection, site not specified E11.9 Type 2 diabetes mellitus without complications Assessments Date Code Description Provider 06/25/2019 M86.671 Other chronic osteomyelitis, right Good Gilbert, MD ankle and foot 06/20/2019 L97.511 Non-pressure [...] M.D. involving the circulatory and respiratory systems 06/14/2019 I96 [place], not elsewhere classified Reshma Adame M.D. 06/14/2019 E11.621 Type 2 diabetes mellitus with foot Adelina H[facility] ulcer 06/14/2019 N18.4 Chronic kidney disease, stage 4 Reshma Adame M.D. (severe) 06/14/2019 E11.621 Type 2 diabetes mellitus with foot Good Hunt MD ulcer 06/14/2019 E11.22 Type 2 diabetes mellitus with Reshma Adame M.D. diabetic chronic kidney disease 06/14/2019 L03.115 Cellulitis of right lower limb CASEY GuerreroC 06/14/2019 E11.40 Type 2 diabetes mellitus with [...] Reshma Adame M.D. diabetic neuropathy, unspecified 06/12/2019 I96 [place], not elsewhere classified Reshma Adame M.D. 06/12/2019 E11.621 Type 2 diabetes mellitus with foot Good Hunt MD ulcer 06/12/2019 N18.4 Chronic kidney disease, stage 4 Reshma Adame M.D. (severe) 06/12/2019 E11.40 Type 2 diabetes mellitus with Good Hunt MD diabetic neuropathy, unspecified 06/12/2019 E11.40 Type 2 diabetes mellitus with Reshma Adame M.D. diabetic neuropathy, unspecified 06/12/2019 E11.22 Type 2 diabetes mellitus with Reshma Adame M.D. diabetic chronic kidney disease 06/11/2019 I[place], not elsewhere classified Franklin Arreola MD 06/11/2019 I12.9 Hypertensive chronic kidney disease Franklin Arreola MD with stage 1 through stage 4 chronic kidney disease, or unspecified chronic kidney disease 06/11/2019 N18.4 Chronic kidney disease, stage 4 Franklin Arreola MD (severe) 06/11/2019 E11.22 Type 2 diabetes mellitus with Franklin Arreola MD diabetic chronic kidney disease 06/11/2019 E11.40 Type 2 diabetes mellitus with Franklin Arreola MD diabetic neuropathy, unspecified 06/10/2019 I96 [place], not elsewhere classified Franklin Arreola MD 06/10/2019 N18.4 Chronic kidney disease, stage 4 Franklin Arreola MD (severe) 06/10/2019 D64.9 Anemia, unspecified Franklin Arreola MD 06/10/2019 E11.40 Type 2 diabetes mellitus with Franklin Arreloa MD diabetic neuropathy, unspecified 06/10/2019 A41.9 Sepsis, [...] Dejesus M.D. diabetic neuropathy, unspecified 05/30/2019 Z79.4 care home (current) use of insulin Mo Dejesus M.D. [...] Dejesus M.D. 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 [...] Dejesus M.D. 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 [...] Dejesus M.D. diabetic neuropathy, unspecified 04/11/2019 Z79.4 care home (current) use of insulin Mo Dejesus M.D. [...] N17.9 Acute kidney failure, unspecified Kyleigh Chandler, [employer] 03/13/2019 S91.302A Unspecified open wound, left foot, Monica Porter NP initial encounter 03/13/2019 N39.0 Urinary tract infection, site not Kyleigh Chandler, [employer] specified 03/13/2019 L03.116 Cellulitis of left lower limb Kyleigh Chandler, [employer]ATER 03/13/2019 L03.115 Cellulitis of right lower limb Kyleigh Chandler, [employer] 03/13/2019 E11.40 Type 2 diabetes mellitus with Kyleigh Chandler, [employer]ATER diabetic neuropathy, unsp 03/13/2019 N18.3 Chronic kidney disease, stage 3 Kyleigh Chandler, [employer]ATER (moderate) 03/12/2019 N17.9 Acute kidney failure, unspecified Kyleigh Chandler, [employer] 03/12/2019 N39.0 Urinary tract infection, site not Kyleigh Chandler, [employer]ATER specified 03/12/2019 E11.40 Type 2 diabetes mellitus with Kyleigh Chandler, [employer]ATER diabetic neuropathy, unsp 03/12/2019 L03.115 Cellulitis of right lower limb Kyleigh Chandler, [employer] 03/12/2019 L03.116 Cellulitis of left lower limb Kyleigh Chandler, [employer]ATER 03/11/2019 N17.9 Acute kidney failure, unspecified Kyleigh Chandler, [employer] 03/11/2019 N39.0 Urinary tract infection, site not Kyleigh Chandler, [employer]ATER specified 03/11/2019 D64.9 Anemia, unspecified Kyleigh Chandler, [employer]ATER 03/10/2019 N17.9 Acute kidney failure, unspecified Reshma Adame M.D. 03/10/2019 N39.0 Urinary tract infection, site not Reshma Adame M.D. specified 03/10/2019 E11.9 Type 2 diabetes mellitus without Reshma Adame M.D. complications Plan of Treatment Future Appointment(s):07/09/2019 9:15 am - Good Hunt MD at [facility] [id number]/25/2019 - Good Hunt, MDM86.671 Other chronic osteomyelitis, right ankle and footFollow up:Follow Up: 2 weeks Functional Status Description No Information Available Mental Status Description No Information Available Referrals Description No Information Available
--- OUTSIDE RECORDS SUMMARY | 2019-08-07 15:52 | XMS REPORT | Continuity of Care Document ---
:1955 External Reference #:[id number] Author Name Good Hunt MD (transmitted by agent of provider Hoda Estrada) Address [address] [place] [address] Care Team Providers Name Role Phone Jorge Duncan D.O. 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 Medicine Problems Active Problems Provider Date Ulcer [...] a former smoker Unknown Smoking Status Reviewed: 07/23/19 Patient is a former smoker Exercise Type/Frequency [...] Available Vital Signs Date Vital Result Comment 07/23/2019 8:20am Height 63 inches 5'3" Weight 170.00 lb Heart Rate 88 /min BP Systolic 144 mmHg BP Diastolic 84 mmHg BMI (Body Mass Index) 30.1 kg/m2 07/11/2019 2:21pm Height 63 inches 5'3" Weight 188.00 lb Heart Rate 84 /min BP Systolic Sitting 134 mmHg BP Diastolic Sitting 80 mmHg Respiratory Rate 14 /min Body Temperature 98.1 F BMI (Body Mass Index) 33.3 kg/m2 Results Description No Information Available Procedures Date Code Description Status 06/14/2019 30955 Secondary Closure Of Surgical Wound Or Dehiscence Completed Extensive Or Co 06/14/2019 78150 Secondary Closure Of Surgical Wound Or Dehiscence Completed Extensive Or Co 06/06/2019 36773 Debridement Skin,& sq Tissue Completed 05/30/2019 48901 Debridement Skin, Subcutaneous Tissue & Muscle Completed 05/23/2019 21262 Debridement Skin, Subcutaneous Tissue & Muscle Completed 05/16/2019 39524 Debridement Muscle/Fascia,Epidermis/Dermis/Tissue, 20 Completed SQ CM 05/16/2019 97472 Debridement Skin,& sq Tissue Completed 05/09/2019 58996 Debridement Skin,& sq Tissue Completed 05/09/2019 34015 Debridement Muscle/Fascia,Epidermis/Dermis/Tissue, 20 Completed SQ CM 05/02/2019 80793 Debridement Muscle/Fascia,Epidermis/Dermis/Tissue, 20 Completed SQ CM 05/02/2019 95192 Debridement Skin,& sq Tissue Completed 04/25/2019 13324 Removal Devitalized Tissue Wound Greater Than 20 Square CM Completed 04/25/2019 73524 Removal Devitalization Tissue Wound Less Than Equal 20 Completed Square CM 04/18/2019 62286 Debridement Muscle/Fascia,Epidermis/Dermis/Tissue, 20 Completed SQ CM 04/18/2019 03218 Debridement Skin,& sq Tissue Completed 04/11/2019 29059 Debridement Muscle/Fascia,Epidermis/Dermis/Tissue, 20 Completed SQ CM 04/11/2019 47515 Debridement Skin,& sq Tissue Completed Medical Devices Description No Information Available Encounters Type Date Location Provider Dx Diagnosis Office Visit 07/11/2019 [facility] Monica Gonzalezkleverkassyholgermick M86.671 Other chronic 3:00p Infectious Porter, ACID BLOWER osteomyelitis, Diseases right ankle and foot E11.69 Type 2 diabetes mellitus with other specified complication Z79.2 care home (current) use of antibiotics Office Visit 06/20/2019 [facility] Mo Katz L97.511 Non-prs 11:00a [place]-Tommy Dejesus M.D. chronic ulcer Anjelica ot prt r foot limited to brkdwn skin E11.621 Type 2 diabetes mellitus with foot ulcer B95.61 Methicillin suscep staph infct causing dis classd elswhr E11.40 Type 2 diabetes mellitus with diabetic neuropathy, unsp R09.89 Oth symptoms and signs involving the circ and resp systems Office Visit 06/15/2019 10:43a [facility] Aga N17.9 Acute kidney Assocjuan M.D. 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 arteries of extremities w gangrene, right leg Office Visit 06/14/2019 [facility] Reshma Adame, I96 Gangrene, not 10:43a juan Pollard M.D. 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 elsewhere Hospitalists classified E11.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 E11.40 Type 2 diabetes mellitus with diabetic neuropathy, unsp Office Visit 06/12/[address] 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 E11.69 Type 2 diabetes 12:43p For Infectious [place], ACID BLOWER mellitus with Diseases other specified complication M86.671 Other chronic osteomyelitis, right ankle and foot E11.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 N18.3 Chronic kidney disease, stage 3 (moderate) E11.40 Type 2 diabetes mellitus with diabetic neuropathy, unsp R94.39 Abnormal result of other cardiovascular function study Office Visit 06/11/2019 10:42a [facility] Franklin Arreola MD I96 Gangrene, not Assoc,pc elsewhere Hospitalists classified I12.9 Hypertensive chronic kidney disease w stg 1-4/unsp chr kdny N18.4 Chronic kidney disease, stage 4 (severe) E11.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 E11.40 Type 2 diabetes mellitus with diabetic neuropathy, unsp Office Visit 06/10/2019 10:42a [facility] Franklin Arreola MD I96 Gang[place], not Assoc,pc elsewhere Hospitalists classified N18.4 Chronic kidney disease, stage 4 (severe) D64.9 Anemia, unspecified E11.40 Type 2 diabetes mellitus with diabetic neuropathy, unsp A41.9 Sepsis, unspecified organism E11.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) Office Visit 06/09/2019 10:41a [facility] Franklin Arreola MD I96 Gangrene, not Assoc,pc elsewhere Hospitalists classified I12.9 Hypertensive chronic kidney disease w stg 1-4/unsp chr kdny N18.4 Chronic kidney disease, stage 4 (severe) A41.9 Sepsis, unspecified organism E11.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 E11.40 Type 2 diabetes mellitus with diabetic neuropathy, unsp Office Visit 06/08/2019 10:38a [facility] Reshma Adame, I96 Gangrene , not Assoc,pc Viviane elsewhere Hospitalists classified M79.672 Pain in left foot E11.40 Type 2 diabetes mellitus with diabetic neuropathy, unsp Office Visit 05/03/2019 12:30p Surgical Yousif S. E11.621 Type 2 [facility] diabetes AT [place] mellitus with foot ulcer Office Visit 04/04/2019 11:00a [facility] Jorge Taylor, E11.621 Type 2 [facility] diabetes mellitus with foot ulcer L97.529 Non-pressure chronic ulcer oth prt left foot w unsp severity L97.519 Non-prs chronic ulcer oth prt right foot w unsp severity Office Visit 03/28/2019 [facility] Mo Katz E11.621 Type 2 10:00a Andrés Dejesus M.D. diabetes Anjelica mellitus with foot ulcer L97.519 Non-prs chronic ulcer oth prt right foot w unsp severity E11.40 Type 2 diabetes mellitus with diabetic neuropathy, unsp Office Visit 03/21/2019 [facility] Mo Katz L97.519 Non-prs 8:00a Andrés Dejesus M.D. chronic ulcer Ritchie oth prt right foot w unsp severity [...] foot, initial encounter Office Visit 03/13/2019 9:23a [facility] Kyleigh Chandler, N17.9 Acute kidney Assoc,pc ACID BLOWER failure, Hospitalists unspecified N39.0 Urinary tract infection, site not specified L03.116 Cellulitis of left lower limb L03.115 Cellulitis of right lower limb E11.40 Type 2 diabetes mellitus with diabetic neuropathy, unsp N18.3 Chronic kidney disease, stage 3 (moderate) Office Visit 03/12/2019 9:23a [facility] Kyleigh Chandler, N17.9 Acute kidney Assoc,pc ACID BLOWER failure, Hospitalists unspecified N39.0 Urinary tract infection, site not specified E11.40 Type 2 diabetes mellitus with diabetic neuropathy, unsp L03.115 Cellulitis of right lower limb L03.116 Cellulitis of left lower limb Office Visit 03/11/2019 9:22a [facility] Kyleigh Chandler, N17.9 Acute kidney Assoc,pc ACID BLOWER failure, Hospitalists unspecified N39.0 Urinary tract infection, site not specified D64.9 Anemia, unspecified Office Visit 03/10/2019 [facility] Reshma Shirleyhn, N17.9 Acute kidney 9:22a Assoc,pc M.D. failure, Hospitalists unspecified N39.0 Urinary tract infection, site not specified E11.9 Type 2 diabetes mellitus without complications Assessments Date Code Description Provider 07/23/2019 M86.671 Other chronic osteomyelitis, right Good [...] Dejesus M.D. diabetic neuropathy, unspecified 07/11/2019 Z79.2 care home (current) use of Monica Porter NP antibiotics [...] M.D. diabetic nephropathy 06/14/2019 I70.261 Atherosclerosis of [place] arteries Jorge Taylor M.D. of extremities with gangrene, right leg 06/14/2019 I96 Gangrene, not elsewhere classified Reshma Adame M.D. 06/14/2019 E11.621 Type 2 diabetes mellitus with foot Adelina Hdz RPA-C ulcer 06/14/2019 N18.4 Chronic kidney disease, stage [...] Dejesus M.D. 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 [...] Dejesus M.D. diabetic neuropathy, unspecified 05/02/2019 Z79.4 care home (current) use of insulin [...] E11.621 Type 2 diabetes mellitus with foot oM Dejesus M.D. ulcer 04/18/2019 B95.61 Methicillin susceptible [...] Dejesus M.D. 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 [...] 03/13/2019 S91.301A Unspecified open wound, right foot, Monicamarine Porter, ACID BLOWER initial encounter 03/13/2019 N17.9 Acute kidney failure, unspecified Kyleigh Chandler, ACID BLOWER 03/13/2019 S91.302A Unspecified open wound, left foot, Monica Porter, ACID BLOWER initial encounter 03/13/2019 N39.0 Urinary tract infection, site not Kyleigh Chandler, ACID BLOWER specified 03/13/2019 L03.116 Cellulitis of left lower limb Kyleigh Chandler, ACID BLOWER 03/13/2019 L03.115 Cellulitis of right lower limb Kyleigh Chandler, ACID BLOWER 03/13/2019 E11.40 Type 2 diabetes mellitus with Kyleigh Chandler, ACID BLOWER diabetic neuropathy, [facility] 03/13/2019 N18.3 Chronic kidney disease, stage 3 Kyleigh Chandler, ACID BLOWER (moderate) 03/12/2019 N17.9 Acute kidney failure, unspecified Kyleigh Chandler, ACID BLOWER 03/12/2019 N39.0 Urinary tract infection, site not Kyleigh Chandler, ACID BLOWER specified 03/12/2019 E11.40 Type 2 diabetes mellitus with Kyleigh Chandler, ACID BLOWER diabetic neuropathy, [facility] 03/12/2019 L03.115 Cellulitis of right lower limb Kyleigh Chandler, ACID BLOWER 03/12/2019 L03.116 Cellulitis of left lower limb Kyleigh Chandler, ACID BLOWER 03/11/2019 N17.9 Acute kidney failure, unspecified Kyleigh Chandler, ACID BLOWER 03/11/2019 N39.0 Urinary tract infection, site not Kyleigh Chandler, ACID BLOWER specified 03/11/2019 D64.9 Anemia, unspecified Kyleigh Chandler, ACID BLOWER 03/10/2019 N17.9 Acute kidney failure, unspecified Reshma Adame M.D. 03/10/2019 N39.0 Urinary tract infection, site not Reshma Adame M.D. specified 03/10/2019 E11.9 Type 2 diabetes mellitus without Reshma Adame M.D. complications Plan of Treatment Future Appointment(s):08/24/2019 8:45 am - Good Hunt MD at [facility] at Rnzhfh1307/26/2019 8:30 am - Monica Porter NP at [facility] For Infectious Qnjgehmp17/18/2019 - Good Hunt, MDM86.671 Other chronic osteomyelitis, right ankle and footE11.40 Type 2 diabetes mellitus with diabetic neuropathy, unspecifiedReferral:[facility],Follow up:Follow Up: 4 weeks Functional Status Description No Information Available Mental Status Description No Information Available Referrals Refer to Reason for Referral Status Appt Date [facility] Bilateral custom diabetic shoes Created [address] [place] [address] [address] [place] [address] [phone]
== END 2019-08-05 02:05 | disposition home or self-care (01) ==
LOC: ED 22:31
DX: K52.9 Noninfective gastroenteritis and colitis, unspecified (principal); N39.0 Urinary tract infection, site not specified; E11.9 Type 2 diabetes mellitus without complications; Z79.4 Long term (current) use of insulin; E78.00 Pure hypercholesterolemia, unspecified; I10 Essential (primary) hypertension; Z88.6 Allergy status to analgesic agent; Z88.1 Allergy status to other antibiotic agents; Z88.0 Allergy status to penicillin; Z88.2 Allergy status to sulfonamides; Z91.018 Allergy to other foods; Z87.891 Personal history of nicotine dependence
CPT/HCPCS: 36415; 80053; 81003; 81015; 83605; 85025; 87086; 96361; 96374; 99284; A9270-GY; J2405

== ENCOUNTER 2019-12-01 21:22 | Inpatient (IN) | payer MEDICARE ==
--- NOTE | 2019-12-01 21:30 | ED ---
Neurological HPI - HPI Summary HPI Summary: LEVEL 5 CAVEAT SECONDARY TO ALTERED MENTAL STATUS. Patient is a 64 year-old female who has history of stroke arriving via ambulance to [facility] from [place] with concerns for stroke. Per EMS, call was placed for left arm shaking. The fire department arrived before EMS, and they witness the patient shaking with seizure-like activity. EMS administered Versed to stop seizing. They state left upper extremity weakness. Blood glucose en route out of range. In the ED, patient moves right lower extremity occasionally self but doesnt verbally respond much, otherwise uncooperative. Patient arrived at 2119. LEI MENESES CALLED AT 2120. Patient immediately to CT. Medical records reviewed. Records indicate history of type II diabetes, anemia, TIA, hypercholesterolemia, hypertension, sleep apnea, GERD, renal insufficiency , nephrectomy, MILVIA, chronic kidney disease stage IV, diabetic neuropathy, glaucoma, legally blind secondary to diabetes, two toe amputation left foot, T&A , right rotator cuff repair, bilateral carpal tunnel release, , laser eye surgery, tubal ligation. Former smoker, no EtOH, no substance use. Medications reviewed, no blood thinners on most current list in records 2018. Allergies noted - Aspirin, Penicillins, tomato, Levaquin, sulfas. [2325] Nurse Fung spoke with the patient's family. Around [id number], the patient stated her eyes started going black, although she is legally blind but able to see shadows at baseline that were not present at this time. She had surgery on her right eye, different pupil size normal for her. Patient's LAST WELL KNOWN IS BEFORE 1400 TODAY. She had shaking in the left arm four hours before EMS was called. Also noted to have high sugar. She has not taken her insulin in 2-3 days, but she did have some tonight. She has been fighting her with taking her daily medications. During the seizure-activity, she was unable to speak or respond, body and arms convulsing. PATIENT IS ON PLAVIX, awaiting rest of current med list from family. - History of Current Complaint Stated Complaint: POSSIBLE STROKE PER EMS Hx Obtained From: EMS, Medical Records Hx From Patient Unobtainable Due To: Altered Mental Status - LEVEL 5 CAVEAT Hx Last Menstrual Period: N/A Onset/Duration: Still Present Neurological Deficit Location: LUE Pain Intensity: 0 Pain Scale Used: 0-10 Numeric Character: Weak Seizure Character: Generalized - witnessed per fire department/EMS Alleviating: Other - Versed for seizure Associated Signs and Symptoms: Positive: AMS TPA Considered: No - last well known at 1330, patient on Plavix Related Hx: Anticoagulants - Plavix - Additional Pertinent History Primary Care Physician: KEL - Allergy/Home Medications Allergies/Adverse Reactions: Allergies Allergy/AdvReac Type Severity Reaction Status Date / Time aspirin Allergy Severe Hives/Diff. Verified 03/17/19 11:24 Breathing/I tching Penicillins Allergy Severe Hives/Diff. Verified 03/17/19 11:24 Breathing/I tching tomato Allergy Severe Hives/Diff. Verified 03/17/19 11:24 Breathing/I tching levofloxacin [From Levaquin] Allergy Intermediate Itching Verified 03/17/19 11: 24 Sulfa (Sulfonamide Allergy See Comment Verified 06/08/19 17:53 Antibiotics) Home Medications: Home Medications Clopidogrel TAB* [Plavix TAB*] 75 mg PO QAM 03/31/17 [History Confirmed 12/02/19 ] Gabapentin CAP(*) [Neurontin 300 CAP(*)] 300 mg PO BID 05/17/17 [History Confirmed 12/02/19] Montelukast Sodium TAB* [Singulair 10 MG TAB*] 10 mg PO BEDTIME 01/02/18 [ History Confirmed 12/02/19] Insulin Glargine,Hum.rec.anlog [Basaglar Kwikpen 100 inuts/ml 3 ml x 5 Pens] 20 units SUBCUT BEDTIME 03/10/19 [History Confirmed 12/02/19] Latanoprost 0.005%* [Xalatan 0.005%*] 1 drop RIGHT EYE 1700 03/10/19 [History Confirmed 12/02/19] Liraglutide (NF) [Victoza (NF)] 1.8 mg SUBCUT QAM 03/10/19 [History Confirmed ] Timolol 0.5% OPTH.LEIA* [Timoptic 0.5% Opth*] 1 drop BOTH EYES BID 03/10/19 [ History Confirmed 12/02/19] Brimonidine P 0.1%(NF) [Alphagan P 0.1% (NF)] 1 drop RIGHT EYE TID 06/08/19 [ History Confirmed 12/02/19] Chlorthalidone TAB* [Hygroton TAB*] 25 mg PO DAILY 06/08/19 [History Confirmed 12/02/19] Dorzolamide 2% OPTH (NF) [Trusopt 2% OPTH (NF)] 1 drop RIGHT EYE TID 06/08/19 [ History Confirmed 12/02/19] Insulin Aspart Prot/Insuln Asp [Novolog Mix 70/30 Prefill] 1 inj SC TID [History Confirmed 12/02/19] Lisinopril TAB* [Prinivil TAB 10 MG*] 40 mg PO QAM 08/04/19 [History Confirmed 12/02/19] PMH/Surg Hx/FS Hx/Imm Hx Endocrine/Hematology History: Reports: Hx Diabetes - type 2 Cardiovascular History: Reports: Hx Hypercholesterolemia, Hx Hypertension, Other Cardiovascular Problems/Disorders - dyslipidemia Denies: Hx Pacemaker/ICD Respiratory History: Reports: Hx Sleep Apnea - diagnosed but no machine (pt can' t afford) Denies: Other Respiratory Problems/Disorders GI History: Reports: Hx Gastroesophageal Reflux Disease - no meds Denies: Other GI Disorders History: Reports: Hx Kidney Infection - reports x12 - last one 4 months ago, Hx Renal Disease - MILVIA, chronic stage IV Denies: Hx Kidney Stones, Other Problems/Disorders Musculoskeletal History: Reports: Hx Arthritis Denies: Other Musculoskeletal History Sensory History: Reports: Hx Cataracts - bilateral, left not fixed yet, Hx Contacts or Glasses - tinted f/protection, Hx Glaucoma - right eye, Hx Legally Blind, Other Sensory Impairments - neuropathy Denies: Hx Hearing Aid Opthamlomology History: Reports: Hx Cataracts - bilateral, left not fixed yet, Hx Contacts or Glasses - tinted f/protection, Hx Glaucoma - right eye, Hx Legally Blind, Other Sensory Impairments - neuropathy Neurological History: Reports: Hx Nerve Disease - DM neuropathy, Hx Transient Ischemic Attacks (TIA) Denies: Hx Migraine, Other Neuro Impairments/Disorders Psychiatric History: Reports: Hx Anxiety - panic attacks Denies: Hx Panic Disorder - Cancer History Hx Chemotherapy: No - Surgical History Surgical History: Yes Surgery Procedure, Year, and Place: right rotator cuff repair 2012 -[facility]. tonsillectomy and adenoidectomy at age 19 - [facility]. bilateral carpal tunnel release - [facility]. 1977. laser eye surgery x3, 2 on right eye and 2 left eye in [facility]. tubal ligation 1977. nephrectomy Hx Anesthesia Reactions: No - Immunization History Date of Tetanus Vaccine: utd Date of Influenza Vaccine: none - Family History Known Family History: Positive: Hypertension, Diabetes Negative: Cardiac Disease - Social History Alcohol Use: None Hx Substance Use: No Substance Use Type: Reports: None Hx Tobacco Use: Yes Smoking Status (MU): Former Smoker Amount Used/How Often: 1 pack every 2 weeks for only 1 year - Additional Comments History Additional Comments: type II diabetes, anemia, TIA, hypercholesterolemia, hypertension, sleep apnea, GERD, renal insufficiency, nephrectomy, MILVIA, chronic kidney disease stage IV, diabetic neuropathy, glaucoma, legally blind secondary to diabetes, two toe amputation left foot, T&A, right rotator cuff repair, bilateral carpal tunnel release, , laser eye surgery, tubal ligation Review of Systems - ROS Summary Review of Systems Summary: Home Medications Medication Instructions Recorded Confirmed Type Clopidogrel TAB* [Plavix TAB*] 75 mg PO QAM 03/31/17 08/04/19 History Gabapentin CAP(*) [Neurontin 300 300 mg PO BID 05/17/17 08/04/19 History CAP(*)] Montelukast Sodium TAB* [Singulair 10 mg PO BEDTIME 01/02/18 08/04/19 History 10 MG TAB*] Insulin Glargine,Hum.rec.anlog 20 units SUBCUT BEDTIME 03/10/19 08/04/19 History [Basaglar Kwikpen 100 inuts/ml 3 ml x 5 Pens] Latanoprost 0.005%* [Xalatan 1 drop RIGHT EYE 1700 03/10/19 08/04/19 History 0.005%*] Liraglutide (NF) [Victoza (NF)] 1.8 mg SUBCUT QAM 03/10/19 08/04/19 History Timolol 0.5% OPTH.LEIA* [Timoptic 1 drop BOTH EYES BID 03/10/19 08/04/19 History 0.5% Opth*] Brimonidine P 0.1%(NF) [Alphagan P 1 drop RIGHT EYE TID 06/08/19 08/04/19 History 0.1% (NF)] Chlorthalidone TAB* [Hygroton TAB*] 25 mg PO DAILY 06/08/19 08/04/19 History Dorzolamide 2% OPTH (NF) [Trusopt 1 drop RIGHT EYE TID 06/08/19 08/04/19 History 2% OPTH (NF)] Acetaminophen TAB* [Tylenol TAB*] 650 mg PO Q4H PRN tab 06/15/19 08/04/19 Rx Ferrous Gluconate TAB* [Fergon 324 mg PO BID tab 06/15/19 08/04/19 Rx TAB*] Atorvastatin Calcium [Lipitor] 40 mg PO DAILY 08/04/19 08/04/19 History Insulin Aspart Prot/Insuln Asp 1 inj SC TID 08/04/19 08/04/19 History [Novolog Mix 70 Prefill] Lisinopril TAB* [Prinivil TAB 10 40 mg PO QAM 08/04/19 08/04/19 History MG*] Tamsulosin HCl [Flomax] 0.4 mg PO DAILY 08/04/19 08/04/19 History lisinopriL [Lisinopril] 20 mg PO QPM 08/04/19 08/04/19 History Nitrofurantoin Macrocrystal 100 mg PO BID #14 capsule 08/05/19 Rx [Nitrofurantoin] Ondansetron ODT TAB* [Zofran 4 MG 8 mg PO Q6H PRN #12 tab.odt 08/05/19 Rx Odt TAB*] Neurological/Mental Status: Other - seizure activity Positive: Weakness - left upper extremity All Other Systems Reviewed And Are Negative: No - Comments Additional Review of Systems Comments: LEVEL 5 CAVEAT SECONDARY TO AMS. Physical Exam - Summary Physical Exam Summary: General: Well-developed, Well-nourished female. Lethargic. No acute distress. HEENT: Normocephalic, Atraumatic. Eyes: Patient is legally blind, 3mm left pupil, 5mm on right Oropharynx: Clear, mucous membranes moist, (-) exudates. Neck: Soft, FROM, (-) lymphadenopathy, (-) thyromegaly, (-) JVD. Cardiovascular: Normal sinus rhythm, (-) murmur. Lungs: Clear to auscultation bilaterally (-) wheezes, (-) rales, (-) rhonchi. Abdomen: Soft, non-tender, non-distended, (-) organomegaly, normal bowel sounds. Back: (-) CVA tenderness Extremities: No edema. Skin: Warm, dry, (-) rash. Neuro: Some shaking of the right leg intermittently, Localizes to pain, Status- post Versed on route. Psychiatric: Unable to assess. GCS: 9 (see scale). Triage Information Reviewed: Yes Vital Signs Reviewed: Yes Completion Of Physical Exam Limited Due To: Altered Mental Status, Level 5 - [place] Coma Scale Best Eye Response: 2 - To Pain Best Motor Response: 5 - Purposeful Movement Best Verbal Response: 2 - Incomprehensible Words Coma Scale Total: 9 Procedures - Sedation Patient Received Moderate/Deep Sedation with Procedure: No Diagnostics - Laboratory Result Diagrams: 12/01/19 21:44 12/02/19 01:50 Lab Statement: Any lab studies that have been ordered have been reviewed, and results considered in the medical decision making process. - Radiology CXR Radiology Interpretation Completed By: ED Physician Summary of Radiographic Findings: No infiltrate. No pleural effusion. This imaging scan was reviewed and interpreted by Dr. Agustin, pending official read. - CT Brain CT CT Interpretation Completed By: Radiologist Summary of CT Findings: Impression: No acute intracranial abnormality. No interval change. This report was reviewed by Dr. Agustin. Head/Neck CTA CT Interpretation Completed By: Radiologist Summary of CT Findings: Head Impression: No large vessel stenosis or occlusion given limitation of motion artifact. Neck Impression: No stenosis or occlusion given limitation of motion artifact. This report was reviewed by Dr. Agustin. - EKG 214 Cardiac Rate: NL - 88 BPM EKG Rhythm: Sinus Rhythm Summary of EKG Findings: EKG at 2142 reveals normal sinus rhythm with rate of 88 BPM, no acute changes, no ischemic changes. This EKG was reviewed and interpreted by Dr. Agustin. NIH Scale - NIH Scale Level of Consciousness: Alert/Keenly Responsive Ask Patient the Month and His/Her Age: Both Correct Ask Pt to Open/Close Eyes and Billet Driller/Release Non-Paretic Hand: Both Correctly Best Gaze (Only Horizontal Eye Movement): Normal Visual Field Testing: No Visual Loss Facial Paresis-Pt to Smile & Close Eyes or [place]im[place] Symmetry: Normal/Symmetrical Motor Function - Right Arm: No Drift-Holds 10 Seconds Motor Function - Left Arm: No Effort Against [place] Motor Function - Right Leg: No Drift-Holds 10 Seconds Motor Function - Left Leg: No Drift-Holds 10 Seconds Limb Ataxia-Must be out of Proportion to Weakness Present: Absent Sensory (Use Pinprick to Test Arms/Legs/Trunk/Face): Normal Best Language (Describe Picture, Name Items): No Aphasia Dysarthria (Read Several Words): Slurs Some Words Extinction and Inattention: No Abnormality Total Score: 4 NIH Stroke Scale Comment: done at 2322 Re-Evaluation - Re-Evaluation First Eval Re-Evaluation Time: 23:22 Comment: Re-evaluation and second phsyical for the patient (improved from initial arrival): left arm has no movement against gravity, able to lift left and right legs, able to tell name and , follows commands, wouldn't smile, has slurred speech but unsure of baseline. Last known well to be determined by nurse speaking with family. NIH done, see note. Second Eval Re-Evaluation Time: 23:25 Comment: Nurse Antonieta spoke with the patient's family. Patient on Plavix, waiting for rest of current med list. Last well known before 1400. Patient not taking insuling for last 2-3 days, fighting with about taking daily meds, did have some insulin tonight. Convulsions witnessed of body and arms. Third Eval Re-Evaluation Time: 02:00 Comment: Examination with hospitalist. Patient has deviated gaze to the right. Still unable to assess visual lay. Decreased movement of the left arm. Patient is more alert and oriented now. Able to follow commands. NIH at this time 6. Kinga Casarez spoke with Dr. Samuels who felt patient was possible LVO despite her last known well over 12 hours. Accepting doctor is aware patient is on Plavix with sig elevated blood pressure and hyperglycemia which has resolved. CTAs will be deferred at this time. Patient will be flown directly to [facility]. Accepting doctor declined any further blood pressure medications or CTA head/neck here prior to transferring. Course/Dx - Course Course Of Treatment: 64-year-old female presents from home by ambulance for a possible stroke. Patient obtained later through family. They state the patient 's vision changed about 1:00 today. She went from being able to see shadows to not being able to see anything. Later her arm started shaking and 911 was called. By the time fire department got there they state she was convulsing. EMS gave 5 of Versed. Upon arrival patient is lethargic. Unable to do neurological testing. Lei hensley was called and patient sent immediately to CT. As patient's kidney function is poor CTAs were held. Patient also found to have a blood glucose to high to read. Patient started on IV fluids. From history obtained by the family patient is on Plavix. She has not been taking her insulin for the last 2-3 days. She actually hasn't been taking any of her medicines. She did take some tonight after the convinced her. She is allergic to aspirin. Patient is not a candidate for TPA secondary to her last known well and eating on Plavix. After the Versed wore off and patient woke up. An NIH was done. Found to be 4. Significant left arm weakness. Some dysarthria although normal speech pattern is unknown. Patient's potassium slightly elevated so an insulin drip was started with normal saline. Blood sugar decreased significantly to 250. Insulin drip was stopped. Anion gap normal. Patient referred to hospitalist for admission. Discussed possibility of LVO with hospitalist. Patient does have decreased movement of the left arm. However she is already on a blood thinner. Her NIH is only 4. Hospitalist accepted the patient for admission. They will continue with stroke workup. After hospitalist examine the patient they consulted with telemetry neuro at [facility] regarding any further recommendations they might have. Stroke attending recommended patient be transferred by helicopter for possible LVO. However after checking whether the helicopter was not flying. At that time patient transferred ahead to be changed to the closest hospital by ground. [facility] was consulted. Dr. Hayes recommended CTA prior to accepting the patient. Patient treated for elevated blood pressure with labetalol. CTA of head and neck were negative for any occlusion. [facility] and [facility] were notified that there would be no transfer at that time. Patient had some increased movement of her left arm. Patient referred back to hospitalist for admission. - Diagnoses Provider Diagnoses: CVA (cerebral vascular accident) During the Visit The Following Alert/Code Occurred: Lei Meneses - called at 2121 - Physician Notifications Discussed Care Of Patient With: Erwin Negron - hospitalist Time Discussed With Above Provider: 23:55 Instructed by Provider To: Other - I discussed the patients case with Dr. Negron, who accepts the patient for admission. [0200] Kingamelo Casarez states Dr. Samuels at [facility] requests transfer via helicopter for possible LVO. Accepting doctor not requiring additional imaging or BP mediations at this time. Helicopter transport unavailable at this time, plan for transfer to [facility]. [0300] Dr. Hayes at [facility] requests head/neck CTA prior to transfer. [0500] CTA head/neck to determine LVO. Results negative. Informed [facility] and [facility] because there is no LVO. Kinga Casarez will admit here. Reason For Transfer: [place] [facility] [place] - Critical Care Time Critical Care Time: 75-104 min - 80 minutes Discharge ED - Sign-Out/Discharge Documenting (check all that apply): Patient Departure - Patient accepted for admission by Dr. Negron. - Discharge Plan Condition: Stable Disposition: ADMITTED TO [facility] - Billing Disposition and Condition Condition: STABLE Disposition: Admitted to [facility] - Attestation Statements Document Initiated by Scribe: Yes Documenting Scribe: Vita Johnson Provider For Whom [facility] is Documenting (Include Credential): Heena Agustin MD Scribe Attestation: IVita, scribed for Heena Agustin MD on 12/02/19 at 0626. Scribe Documentation Reviewed: Yes Provider Attestation: The documentation as recorded by the Vita kuo accurately reflects the service I personally performed and the decisions made by me, Heena Agustin MD Status of Scribe Document: Viewed
[2019-12-01 21:53] LABS: ABS Basophils 0.1 10^3/ul (0-0.2); ABS Eosinophils 0.2 10^3/ul (0-0.6); ABS Lymphocytes 2.2 10^3/ul (1.0-4.8); ABS Monocytes 0.7 10^3/ul (0-0.8); ABS Neutrophils 4.3 10^3/ul (1.5-7.7); Eosinophil % 2.5 %; Hematocrit 34 % (35-47); Hemoglobin 11.6 g/dL (12.0-16.0); Lymphocyte % 29.6 %; Mean Corpuscular HGB Conc 34 g/dL (31-36); Mean Corpuscular Hemoglobin 27 pg (27-31); Mean Corpuscular Volume 80 fL (80-97); Mean Platelet Volume 8.2 fL (7.4-10.4); Nucleated Red Blood Cells % 0.1; Platelet Count 235 10^3/uL (150-450); Red Blood Count 4.26 10^6 /uL (3.70-4.87); Red Cell Distribution Width 14 % (10-15); White Blood Count 7.4 10^3/uL (3.5-10.8)
[2019-12-01] MEDS ORDERED: NS 0.9% 1000 ML** 1,000 ML IV ONE ×2 (21:53→22:16)
[2019-12-01 22:00] LABS: Activated Partial Thrombo Time 32.5 seconds (26.0-38.0); INR 1.02 (0.82-1.09)
[2019-12-01 22:10] LABS: Albumin 3.3 g/dL (3.2-5.2); Albumin/Globulin Ratio 0.9 (1-3); BUN/Creatinine Ratio 21.8 (8-20); Calcium 9.6 mg/dL (8.6-10.3); EGFR African American 27.9 (>60); Globulin 3.7 g/dL (2-4); HDL Cholesterol 37.6 mg/dL; Total Bilirubin 0.7 mg/dL (0.2-1.0)
[2019-12-01 22:11] LABS: Potassium 5.9 mmol/L (3.5-5.0); Troponin I 0.01 ng/mL (<0.03)
[2019-12-01] MEDS ORDERED: Insulin REGULAR(*) 1 UNITS UNIT IV PUSH ONE (22:15)
[2019-12-01] MEDS ORDERED: Insulin Infusion 100unit/100mL 100 UNIT/100 ML BAG IV ONE (22:30)
--- OUTSIDE RECORDS SUMMARY | 2019-12-01 22:34 | XMS REPORT | Continuity of Care Document ---
:1955 External Reference #:[id number] Author Name Monica Porter NP (transmitted by agent of provider Cori Franklin) Address [address] [place] [phone] Care Team Providers Name Role Phone Jorge Duncan D.O. 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 Problems Active Problems Provider Date Ulcer [...] a former smoker Unknown Smoking Status Reviewed: 10/03/19 Patient is a former smoker Exercise Type/Frequency [...] Available Vital Signs Date Vital Result Comment 10/03/2019 3:10pm Height 63 inches 5'3" Weight 161.00 lb Heart Rate 84 /min BP Systolic Sitting 126 mmHg BP Diastolic Sitting 80 mmHg Respiratory Rate 14 /min Body Temperature 98.1 F BMI (Body Mass Index) 28.5 kg/m2 09/28/2019 9:25am Height 63 inches 5'3" Weight 161.00 lb Heart Rate 80 /min BP Systolic 162 mmHg BP Diastolic 100 mmHg Respiratory Rate 18 /min Pain Level 0 BMI (Body Mass Index) 28.5 kg/m2 Results Description No Information Available Procedures Date Code Description Status 10/03/2019 556635187 Diabetic Retinal Eye Exam Completed 07/25/2019 11127 Removal Devitalization Tissue Wound Less Than Equal 20 Completed Square CM 06/14/2019 71685 Secondary Closure Of Surgical Wound Or Dehiscence Completed Extensive Or Co 06/14/2019 11492 Secondary Closure Of Surgical Wound Or Dehiscence Completed Extensive Or Co 06/09/2019 45316 EKG, Interpretation Only Completed 06/06/2019 55687 Debridement Skin,& sq Tissue Completed 05/30/2019 18212 Debridement Skin, Subcutaneous Tissue & Muscle Completed 05/23/2019 61980 Debridement Skin, Subcutaneous Tissue & Muscle Completed 05/16/2019 58946 Debridement Muscle/Fascia,Epidermis/Dermis/Tissue,1St Completed 20 SQ CM 05/16/2019 94833 Debridement Skin,& sq Tissue Completed 05/09/2019 11877 Debridement Muscle/Fascia,Epidermis/Dermis/Tissue,1St Completed 20 SQ CM 05/09/2019 54827 Debridement Skin,& sq Tissue Completed 05/02/2019 40193 Debridement Muscle/Fascia,Epidermis/Dermis/Tissue,1St Completed 20 SQ CM 05/02/2019 29848 Debridement Skin,& sq Tissue Completed 04/25/2019 31086 Removal Devitalized Tissue Wound Greater Than 20 Completed Square CM 04/25/2019 63521 Removal Devitalization Tissue Wound Less Than Equal 20 Completed Square CM 04/18/2019 02917 Debridement Muscle/Fascia,Epidermis/Dermis/Tissue,1St Completed 20 SQ CM 04/18/2019 68523 Debridement Skin,& sq Tissue Completed 04/11/2019 09087 Debridement Muscle/Fascia,Epidermis/Dermis/Tissue,1St Completed 20 SQ CM 04/11/2019 51223 Debridement Skin,& sq Tissue Completed Medical Devices Description No Information Available Encounters Type Date Location Provider Dx Diagnosis Office Visit 08/08/2019 Wound Care Mo Dejesus, E11.621 Type 2 diabetes 2:00p Andrés Pan mellitus with [place] foot ulcer 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 chronic ulcer Anjelica oth prt r foot limited to brkdwn skin E11.621 Type 2 diabetes mellitus with foot ulcer B95.61 Methicillin suscep staph infct causing dis classd elswhr E11.40 Type 2 diabetes mellitus with diabetic neuropathy, unsp R09.89 Ot symptoms and signs involving the circ and resp systems Office Visit 06/15/2019 10:43a [facility] Aga N17.9 Acute kidney Assoc,juan Hopson M.D. failure, Hospitalists unspecified M86.671 Other chronic osteomyelitis, right ankle and foot B95.62 Methicillin resis staph infct causing diseases classd elsr E11.69 Type 2 diabetes mellitus with other specified complication N18.3 Chronic kidney disease, stage 3 (moderate) D63.1 Anemia in chronic kidney disease E11.21 Type 2 diabetes mellitus with diabetic nephropathy Office Visit 06/14/2019 10:43a [facility] Reshma Adame, I96 [place] , not Assocjuan M.D. elsewhere Hospitalists classified N18.4 Chronic kidney disease, stage 4 (severe) E11.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 E11.40 Type 2 diabetes mellitus with diabetic neuropathy, [facility] 06/14/2019 [facility] Jorge Saini I70.261 [facility] [place] 12:24p [facility] M.D. arteries of extremities w gangrene, right leg [facility] [place], not 10:43a juan Pollard M.D. elsewhere Hospitalists classified E11.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 E11.40 Type 2 diabetes mellitus with diabetic neuropathy, unsp Office Visit 06/12/2019 [facility] E11.69 Type 2 diabetes 12:45p For Infectious [place] [employer] mellitus with Diseases other specified complication M86.671 Other chronic osteomyelitis, right ankle and foot B95.62 Methicillin resis staph infct causing diseases classd elswhr Office Visit 06/12/2019 10:42[facility], I96 [place] , not Assjuan glass M.D. 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 Office Visit 06/11/2019 [facility] E11.69 Type 2 diabetes 12:43p For Infectious Porter, [employer] mellitus with Diseases other specified complication M86.671 Other chronic osteomyelitis, right ankle and foot E11.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 N18.3 Chronic kidney disease, stage 3 (moderate) E11.40 Type 2 diabetes mellitus with diabetic neuropathy, unsp R94.39 Abnormal result of other cardiovascular function study Office Visit 06/11/2019 10:42a [facility] Franklin Arreola MD I96 [place], not Assoc,pc elsewhere Hospitalists classified I12.9 Hypertensive chronic kidney disease w stg 1-4/unsp chr kdny N18.4 Chronic kidney disease, stage 4 (severe) E11.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 E11.40 Type 2 diabetes mellitus with diabetic neuropathy, unsp Office Visit 06/10/2019 10:42a [facility] Franklin Arreola MD I96 [place], not Assoc,pc elsewhere Hospitalists classified N18.4 Chronic kidney disease, stage 4 (severe) D64.9 Anemia, unspecified E11.40 Type 2 diabetes mellitus with diabetic neuropathy, unsp A41.9 Sepsis, unspecified organism E11.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 Office Visit 06/09/2019 10:41a [facility] Franklin Arreola MD I96 [place], not Assoc,pc elsewhere Hospitalists classified I12.9 Hypertensive chronic kidney disease w stg 1-4/unsp chr kdny N18.4 Chronic kidney disease, stage 4 (severe) A41.9 Sepsis, unspecified organism E11.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 E11.40 Type 2 diabetes mellitus with diabetic neuropathy, unsp Office Visit 06/09/2019 11:23a [facility] Malick E11.621 Type 2 diabetes at Andrea Watkins M.D. 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) Office Visit 06/08/2019 10:38a [facility] Reshma Adame I96 [place] , not Assoc,pc Viviane elsewhere Hospitalists classified M79.672 Pain in left foot E11.40 Type 2 diabetes mellitus with diabetic neuropathy, unsp Office Visit 05/03/2019 12:30p Surgical Yousif Mcbride E11.621 Type 2 [facility] diabetes AT [facility] with foot ulcer Office Visit 04/04/2019 11:00a [facility] Jorge Taylor, E11.621 Type 2 [facility] diabetes mellitus with foot ulcer L97.529 Non-pressure chronic ulcer oth prt left foot w unsp severity L97.519 Non-prs chronic ulcer oth prt right foot w unsp severity Assessments Date Code Description Provider 10/03/2019 M86.671 Other chronic osteomyelitis, right Monica Porter NP ankle and foot 10/03/2019 E11.40 Type 2 diabetes mellitus with Monica Porter NP diabetic neuropathy, unspecified 09/28/2019 Z89.421 Acquired absence of other right Good Hunt MD toe(s) 08/08/2019 E11.621 Type 2 diabetes mellitus with foot Mo Dejesus M.D. ulcer 08/08/2019 Z89.421 Acquired absence of other right Mo Dejesus M.D. toe(s) 08/08/2019 E11.40 Type 2 diabetes mellitus with Mo Dejesus M.D. diabetic neuropathy, unspecified 08/08/2019 S91.301D Unspecified open wound, right foot, Mo Dejesus M.D. subsequent encounter 07/26/2019 M86.671 Other chronic osteomyelitis, right Monica Porter NP ankle and foot 07/26/2019 E11.40 Type 2 diabetes mellitus with Monica Porter NP diabetic neuropathy, unspecified 07/26/2019 R19.7 Diarrhea, unspecified Monica Porter NP 07/26/2019 E11.69 Type 2 diabetes mellitus with other Monica Porter NP specified complication 07/25/2019 E11.621 Type 2 diabetes mellitus with foot Mo Dejesus M.D. ulcer 07/25/2019 Z89.421 Acquired absence of other right Mo Dejesus M.D. toe(s) 07/25/2019 E11.40 Type 2 diabetes mellitus with Mo Dejesus M.D. diabetic neuropathy, unspecified 07/25/2019 B95.61 Methicillin susceptible Mo Dejesus M.D. Staphylococcus aureus infection as the cause of diseases classified elsewhere 07/25/2019 L97.511 Non-pressure chronic ulcer of other Mo Dejesus M.D. part of right foot limited to breakdown of skin 07/23/2019 M86.671 Other chronic osteomyelitis, right Good Hunt MD ankle and foot 07/23/2019 E11.40 Type 2 diabetes mellitus with Good Hunt MD diabetic neuropathy, unspecified 07/11/2019 L97.511 Non-pressure chronic ulcer of other Mo Dejesus M.D. part of right foot limited to breakdown of skin 07/11/2019 E11.621 Type 2 diabetes mellitus with foot Mo Dejesus M.D. ulcer 07/11/2019 Z89.421 Acquired absence of other right Mo Dejesus M.D. toe(s) 07/11/2019 E11.40 Type 2 diabetes mellitus with Mo Dejesus M.D. diabetic neuropathy, unspecified 07/11/2019 M86.671 Other chronic osteomyelitis, right Monica Porter NP ankle and foot 07/11/2019 B95.61 Methicillin susceptible Mo Dejesus M.D. Staphylococcus aureus infection as the cause of diseases classified elsewhere 07/11/2019 E11.69 Type 2 diabetes mellitus with other Monica Porter NP specified complication 07/11/2019 Z79.2 [facility] (current) use of Monica Porter NP antibiotics 07/09/2019 M86.671 Other chronic osteomyelitis, right Good uHnt MD ankle and foot 06/25/2019 M86.671 Other [...] ankle and foot 06/15/2019 B95.62 Methicillin resistant Aga Hopson M.D. Staphylococcus aureus infection as the cause of diseases classified elsewhere 06/15/2019 E11.69 Type 2 diabetes mellitus with other Aga Hopson M.D. specified complication 06/15/2019 N18.3 Chronic kidney disease, stage 3 Aga Hopson M.D. (moderate) 06/15/2019 D63.1 Anemia in chronic kidney disease Aga Hopson M.D. 06/15/2019 E11.21 Type 2 diabetes mellitus with Aga Hopson M.D. diabetic nephropathy 06/14/2019 I70.261 Atherosclerosis of [place] arteries Jorge Taylor M.D. of extremities with [...] Hunt MD ulcer 06/12/2019 B95.62 Methicillin resistant Monica Porter NP Staphylococcus aureus infection as the cause of [...] Arreola MD diabetic chronic kidney disease 06/09/2019 Z13.6 Encounter for screening for Adam Wright M.D., [facility], cardiovascular disorders [facility] 06/09/2019 E11.621 Type 2 diabetes mellitus with foot Malick Watkins M.D. ulcer 06/09/2019 I96 [place], not elsewhere classified Franklin Arreola MD 06/09/2019 M87.077 Idiopathic aseptic necrosis of Malick Watkins M.D. right toe(s) 06/09/2019 I12.9 Hypertensive chronic kidney disease [...] Dejesus M.D. diabetic neuropathy, unspecified 05/30/2019 Z79.4 [facility] (current) use of insulin Mo Dejesus M.D. [...] Dejesus M.D. diabetic neuropathy, unspecified 05/09/2019 Z79.4 [facility] (current) use of insulin Mo Dejesus M.D. [...] Dejesus M.D. diabetic neuropathy, unspecified 05/02/2019 Z79.4 [facility] (current) use of insulin Mo Dejesus M.D. 04/25/2019 L97.521 Non-pressure chronic ulcer of other Mo Dejesus M.D. part of left foot limited to breakdown of skin 04/25/2019 L97.511 Non-pressure chronic ulcer of other [...] involving the circulatory and respiratory systems 04/18/2019 L97.521 Non-pressure chronic ulcer of other Mo Dejesus M.D. part of left foot limited to breakdown of skin 04/18/2019 L97.512 Non-pressure chronic ulcer of other Mo Dejesus M.D. part of right foot with fat layer exposed 04/18/2019 E11.621 Type 2 diabetes mellitus with foot Mo Dejesus M.D. ulcer 04/18/2019 B95.61 Methicillin susceptible Mo Dejesus M.D. Staphylococcus aureus infection as the cause of diseases classified elsewhere 04/18/2019 E11.40 Type 2 diabetes mellitus with Mo Dejesus M.D. diabetic neuropathy, unspecified 04/11/2019 L97.521 Non-pressure chronic ulcer of other Mo Dejesus M.D. part of left foot limited to breakdown of skin 04/11/2019 L97.512 Non-pressure chronic ulcer of other Mo Dejesus M.D. part of right foot with fat layer exposed 04/11/2019 E11.621 Type 2 diabetes mellitus with foot Mo Dejesus M.D. ulcer 04/11/2019 E11.40 Type 2 diabetes mellitus with Mo Dejesus M.D. diabetic neuropathy, unspecified 04/11/2019 Z79.4 [facility] (current) use of insulin Mo Dejesus M.D. 04/04/2019 E11.621 Type 2 diabetes mellitus with foot Jorge Taylor M.D. ulcer 04/04/2019 L97.529 Non-pressure chronic ulcer of other Jorge Taylor M.D. part of left foot with unspecified severity 04/04/2019 L97.519 Non-pressure chronic ulcer of other Jorge Taylor M.D. part of right foot with unspecified severity Plan of Treatment Future Appointment(s):10/29/2019 9:45 am - Good Hunt MD at [facility] [id number]/03/2019 - Monica Porter, NPM86.671 Other chronic osteomyelitis, right ankle and footComments:Please call the office for any increased redness, swelling, fevers, new wounds or drainage from the foot.Follow up:as [id number] Type 2 diabetes mellitus with diabetic neuropathy , unsp Functional Status Description No Information Available Mental Status Description No Information Available Referrals Refer to Reason for Referral Status Appt Date [facility] Bilateral custom diabetic shoes Closed [address] [facility] [address] [place] [address] [phone]
[2019-12-01 23:00] LABS: Calcium 9.1 mg/dL (8.6-10.3)
[2019-12-01 23:04] LABS: Potassium 5.7 mmol/L (3.5-5.0)
[2019-12-01 23:05] LABS: BUN/Creatinine Ratio 21.2 (8-20); EGFR African American 28.5 (>60); EGFR Non-African American 23.5 (>60)
[2019-12-02 01:07] LABS: Urine Appearance Cloudy; Urine Bilirubin Negative (Negative); Urine Blood 1+ (Negative); Urine Color Yellow; Urine Glucose 3+(>=500 mg/dL) (Negative); Urine Ketones Negative (Negative); Urine Nitrite Negative (Negative); Urine Protein 2+(100 mg/dL) (Negative); Urine Specific Gravity 1.013 (1.010-1.030); Urine Urobilinogen Negative (Negative)
[2019-12-02 01:12] LABS: Urine Bacteria Absent (Absent); Urine Red Blood Cell 3+(>10/hpf) (Absent); Urine Squamous Epithelial Cell Present (Absent); Urine White Blood Cell 3+(>20/hpf) (Absent)
[2019-12-02] MEDS ORDERED: hydrALAZINE IV* 20 MG/ML VIAL IV SLOW PU ONE (01:20)
[2019-12-02 02:50] LABS: Calcium 9.2 mg/dL (8.6-10.3); Potassium 4.6 mmol/L (3.5-5.0)
[2019-12-02 02:56] LABS: BUN/Creatinine Ratio 22.2 (8-20); EGFR African American 33.3 (>60); EGFR Non-African American 27.5 (>60)
[2019-12-02] MEDS ORDERED: Labetalol IV* 5 MG/ML 20 ML VIAL IV PUSH ONE ×3 (03:24→21:40)
[2019-12-02] MEDS ORDERED: Iodixanol* (CONTRAST) 320 MG/ML 100 ML SDV IV ONE (03:53)
[2019-12-02] MEDS ORDERED: Dextrose 50% Syringe 50 ML* 25 GM/50 ML SYRINGE IV PUSH PRN (05:15)
[2019-12-02] MEDS ORDERED: Insulin LISPRO* 1 UNITS UNIT SUBCUT ONE (05:38)
[2019-12-02] MEDS ORDERED: NS 0.9% 1000 ML** 1,000 ML IV SCH (05:45)
[2019-12-02] MEDS ORDERED: Heparin VIAL(*) 5000 UNITS/ML VIAL (FIVE THOUSAND) SUBCUT SCH (06:00)
--- NOTE | 2019-12-02 06:01 | HP ---
CC: Dr. Duncan * HISTORY AND PHYSICAL: DATE OF CONSULT: 12/02/19 ATTENDING PHYSICIAN: Dr. Erwin Negron* (dictated by Kinga Casarez NP). REASON FOR CONSULT: Left arm weakness, hyperglycemia. HISTORY OF PRESENT ILLNESS: Ms. Fonseca is a 64-year-old female with a past medical history significant for insulin-dependent diabetes; chronic kidney disease, stage 3; hyperlipidemia; diabetic retinopathy with legally blind and neuropathy; hypertension; glaucoma; history of TIA x2, first one with visual disturbance, second one with left arm weakness and numbness that resolved in 20 minutes; obstructive sleep apnea, who presented to the emergency room from home with initial code hensley. The patient's last known well time was between 1:30 and 2 p.m. per the family. The history was obtained from her daughter as the patient is a poor historian. Spoke to the daughter by phone who reports that at approximately 2 p.m. the patient's hands were shaking really bad. She was unable to control them. The shaking progressed to her arms and then her whole body was shaking. The patient was turning her head towards the left, unable to control this. She reports that the episode then subsided and the patient was able to go about her day. She was able to eat dinner with no issues. About 8 p.m., again arms were shaking and progressed to full body shaking, and EMS was called to bring the patient to the emergency room for further evaluation. The daughter does report that at 11:30 this morning her mother's blood sugar read high on the meter. She does report that her mother stopped taking her medications 2 to 3 days ago and has had diarrhea for the past 2 days. The daughter does report that at baseline the patient does have mild right of way clearer deficit on the left but can use her arms and could open up the door if she needed to with the left hand. The patient does deny fever, chest pain, edema, cough, hemoptysis, or shortness of breath. No nausea, no vomiting. She denies any abdominal pain. She does complain of pain with urination, no weakness or sensory loss. She is legally blind and only sees shadows at baseline. No rashes, lesions, open source. While in the emergency room, the patient had routine lab work drawn. She initially had a CT of the brain, which showed no acute intracranial pathology. She was noted to have a blood sugar of 690 on arrival to the emergency room. She was given insulin, and her blood sugar came down to 215. She was given IV fluids 2000 cc total and 8 units of regular insulin IV. It was noted that the patient's initial NIH scale was 4. Upon my evaluation in the emergency room, the patient was noted to have left arm neglect, unable to raise her left arm against gravity. NIH was repeated and 13. I spoke with Dr. Negron, and consulted [facility] who has recommended transfer for CT perfusion study and evaluation of possible LVO. PAST MEDICAL HISTORY: 1. Type 2 diabetes with diabetic neuropathy, retinopathy. 2. Hypertension. 3. History of right eye surgery. 4. History of TIA x2, residual minor slurred speech at baseline and some mild handgrip weakness on the left. 5. Legally blind. 6. Chronic kidney disease, stage 3. 7. Glaucoma. PAST SURGICAL HISTORY: 1. Retinal laser for retinopathy. 2. Rotator cuff repair in 2012. 3. Tonsillectomy. 4. Bilateral carpal tunnel release. 5. section with tubal ligation in 1977. 6. Laser eye surgery x4. 7. Peripheral retinopathy with 2 surgeries on the right eye and 2 surgeries on the left eye, cataract surgery on both eyes, glaucoma drain on the right eye.. HOME MEDICATIONS: List was obtained from the daughter and previous medical record: 1. Timoptic 1 drop to both eyes b.i.d. 2. Singulair 10 mg p.o. at bedtime. 3. Lisinopril 40 mg p.o. q.a.m. 4. Victoza 1.8 mg subcu q.a.m. 5. Xalatan 1 drop to the right eye at 1700. 6. NovoLog 70/30, unknown dose. 7. Glargine, unknown dose at bedtime. 8. Gabapentin 300 mg p.o. b.i.d. 9. Trusopt 1 drop to the right eye t.i.d. 10. Clopidogrel 75 mg p.o. daily. 11. Chlorthalidone 25 mg p.o. daily. 12. Alphagan 0.1% 1 drop to the right eye t.i.d. ALLERGIES: ASPIRIN - severe difficulty breathing and hives. PENICILLIN - difficulty breathing and hives. TOMATOES - difficulty breathing and hives. LEVOFLOXACIN - itching. SULFA. FAMILY HISTORY: Mother at the age of 35 due to ovarian cancer and had a stroke before she . Father at the age of 48 from heart attack. He had CHF, emphysema, and a history of smoking 3 packs per day. SOCIAL HISTORY: The patient lives at home with her , daughter, and granddaughter. She quit smoking at the age of 22. She does report occasional alcohol use, no illicit drug use. She is a full code. Surrogate decision maker in the event she is unable to make her own decisions is her Brent Fonseca. REVIEW OF SYSTEMS: A 14-point of review of systems was completed. All pertinent positives as mentioned in the HPI. PHYSICAL EXAM: General: At this time, Ms. Fonseca is alert and oriented x3. She is resting on the stretcher. Vital Signs: Blood pressure 161/133, heart rate is 90, respirations are 21, O2 saturation 98% on 2 liters, temperature was 97.6. HEENT: Head is atraumatic, normocephalic. Eyes: Pupils are equal at baseline. She has a gaze to the right. Mucous membranes are moist. Neck is supple. Lungs are clear to auscultation bilaterally. No wheezes, rales, or rhonchi. Cardiac: S1, S2. Regular rate and rhythm. No murmurs, rubs, or gallops. Abdomen: Soft and nontender. Bowel sounds are present x4. Extremities: She is unable to move her left arm, falls against gravity. Sensation is intact to all 3 extremities. Reports decreased sensation in the left arm and left face. Pedal pulses are 1+ bilaterally. Neurologic: She is awake, alert. She is oriented x3. Her speech is slightly slurred (question if this is her baseline). The patient does have a eye gaze to the right. She does have some numbness noted to the left face, left arm. Handgrip is strong on the right. No right of way clearer on the left. [id number] is intact on both legs. Sensation is intact to both legs. Unable to complete [id number]. On my evaluation, NIH score was 13. Scoring for best gaze was 2, forced deviation to the right. Visual: She is blind. She scored a 3. Facial palsy, minor paralysis, mild left lip droop. Motor for left arm is at 3. Limb ataxia is 1. Sensory is 1 giving a total of 13 points. Skin is intact. DIAGNOSTIC STUDIES/LAB DATA: WBCs are 7.4, RBCs 4.26, hemoglobin 11.6, hematocrit 34, platelet count is 235. INR is 1.02. APTT was 32.5. Venous pH was 7.30. Venous PCO2 was 57. PO2 was 38. HCO3 was 24.5. Venous O2 saturation 70.3. Initial BMP, sodium was 129, potassium 5.9, chloride 96, carbon dioxide was 26, anion gap of 7, BUN was 47, creatinine 2.16 . Glucose was 690. Calcium was 9.6. Total bilirubin 0.70, alkaline phosphatase was 111, troponin 0.01. AST was 13, ALT was 11, T. bili was 0.70. Triglycerides were 558, cholesterol 297, LDL not reported, LDL direct was 128. Repeat BMP at 1:50 , sodium was 136, potassium 4.6, chloride 104, carbon dioxide was 21, anion gap of 11, BUN was 41, creatinine 1.85, and blood sugar was 280. Urine was cloudy, pH was 7.0, specific gravity 1.013, urine protein was 2+, ketones were negative , blood was 1+. Urine nitrites, bilirubin, urobilinogen were all negative. Leukocyte esterase was 3+, wbc's were 3+, rbc's were 3+, squamous epithelial cells were preset, bacteria was absent, glucose was 3+. She had a CT of the brain, radiologist impression: No acute intracranial abnormality. ASSESSMENT AND PLAN: Ms. Fonseca is a 64-year-old female with a past medical history significant for type 2 diabetes, hypertension, history of transient ischemic attack with mild slurred speech and mild left handgrip deficit at baseline, who presented to the emergency room initially as a code hensley due to shaking episodes at home and altered in mentation. Our recommendations are as follows: Left arm flaccid. This was likely related to a cerebrovascular accident versus a large vessel occlusion. I did contact [facility] for recommendations and reviewed the case with them. They have recommended that the patient be transferred to rule out large vessel occlusion and possible clot retrieval if needed and to have CT perfusion study. I spoke to Dr. Ortiz at [facility], who has accepted the patient for transfer. I did discuss this with Dr. Agustin in the emergency room who will facilitate the transfer of this patient to [facility]. At this time, I agree with [facility] and the patient will be transferred to [place] for further evaluation of left-sided weakness, concern for cerebrovascular accident versus a large vessel occlusion and need for clot retrieval. I have discussed this with Dr. Agustin in the emergency room who will facilitate the transfer. I have also discussed with my attending Dr. Negron who is in agreement with this plan. ADDENDUM: Received a call from the emergency room, unable to fly the patient at this time. They are contacting [facility] for transfer as the patient must go by ground and the concern for LVO. ADDENDUM TO HISTORY AND PHYSICAL: DATE OF ADMISSION: 12/02/19 ATTENDING PROVIDER: Dr. Negron (DICTATED BY KINGA CASAREZ NP) Received a call from the emergency room. The patient is unable to fly to [facility] due to weather. The patient was going to be transferred to [facility] via ground transportation. Requested CTA of the head and neck prior to transfer. Dr. Agustin reports that the [facility] is not going to accept the patient due to no LVO, so the patient will be admitted here for: 1. Left arm weakness/ eyes with right gaze. I suspect this is related to CVA, versus possible seizure. The patient's family did report that her last known well time was approximately between 1330 and 1400 this afternoon and that she has had 2 episodes of bilateral arm shaking, progressing to full body shaking, for which she was brought to the emergency room and noted to have left arm weakness, which is not the patient's baseline. Patient was also noted to have twitching of bilat lower legs. The patient is currently on Plavix. She has an allergy to ASPIRIN, so aspirin was not given. We will continue her Plavix. I will add atorvastatin 40 mg p.o. daily. We will allow for permissive hypertension and will treat systolic blood pressure over 210. She had a transthoracic echocardiogram in 2017, which had a negative bubble study. At this time, I do not feel the need to repeat this exam. I will discuss this with Dr. Kulkarni in the a.m. She will be monitored on telemetry. She will have neuro checks every 2 hours. Her lipid profile did show an LDL of 128, will continue atorvastatin. 2. Hyperglycemia. The patient did have hyperglycemia on admission to the emergency room with a blood sugar of 690. She was given 8 units of regular insulin, placed on an insulin drip and received 2 L of normal saline. Her blood sugar did correct to 212 and her BMP did correct as well. At this time, I will continue her on hourly Accu-Chek, lispro sliding scale every 4 hours. 3. Chronic kidney disease. Creatinine is close to her baseline, Will continue to monitor. Urine is concerning for UTI but given the patient is afebrile and has no white count at this time, will monitor and wait for urine culture. Should the patient become symptomatic or febrile will treat at that time. 4. Hypertension. The patient takes lisinopril at home. I will continue her lisinopril 40 mg p.o. daily. 5. Glaucoma. The patient will continue on home eyedrops as previously prescribed. 6. FEN: She will have a consistent carb diet. 7. Code status: She is a full code. 8. DVT prophylaxis: I will place her on heparin subcu. TIME SPENT: Time spent on this admission was 60 minutes. Greater than half that time was spent at the bedside reviewing events leading thus far to her hospitalization, performing physical exam, and contacting specialists. I have discussed this with my attending Dr. Negron, he is in agreement with my plan. I spoke to Dr. Kulkarni at 640 AM who will see this patient in consultation. Has recommended repeat ECHO. Continue statin and Plavix as prescribed. KINGA CASAREZ NP [id number]/CPS #: [id number]/CPS #: [id number] MANDI
[2019-12-02 06:37] LABS: BUN/Creatinine Ratio 21.8 (8-20); Calcium 9.5 mg/dL (8.6-10.3); EGFR African American 32.7 (>60); Magnesium 1.3 mg/dL (1.9-2.7); Potassium 4.7 mmol/L (3.5-5.0)
--- NOTE | 2019-12-02 06:50 | HP ---
HISTORY AND PHYSICAL: ADDENDUM: DATE OF ADMISSION: 12/02/19 ATTENDING PROVIDER: Dr. Negron * (DICTATED BY PAT CLAYTON, TOREY) Received a call from the emergency room. The patient is unable to fly to [place] due to weather. The patient was going to be transferred to [facility] via ground transportation. Requested CTA of the head and neck prior to transfer. Dr. Agustin reports that the [facility] is not going to accept the patient due to no LVO, so the patient will be admitted here for: 1. Left arm weakness/ eyes with right gaze. I suspect this is related to CVA, versus possible seizure. The patient's family did report that her last known well time was approximately between 1330 and 1400 this afternoon and that she has had 2 episodes of bilateral arm shaking, progressing to full body shaking, for which she was brought to the emergency room and noted to have left arm weakness, which is not the patient's baseline. Patient was also noted to have twitching of bilat lower legs. The patient is currently on Plavix. She has an allergy to ASPIRIN, so aspirin was not given. We will continue her Plavix. I will add atorvastatin 40 mg p.o. daily. We will allow for permissive hypertension and will treat systolic blood pressure over 210. She had a transthoracic echocardiogram in 2017, which had a negative bubble study. At this time, I do not feel the need to repeat this exam. I will discuss this with Dr. Kulkarni in the a.m. She will be monitored on telemetry. She will have neuro checks every 2 hours. Her lipid profile did show an LDL of 128, will continue atorvastatin. 2. Hyperglycemia. The patient did have hyperglycemia on admission to the emergency room with a blood sugar of 690. She was given 8 units of regular insulin, placed on an insulin drip and received 2 L of normal saline. Her blood sugar did correct to 212 and her BMP did correct as well. At this time, I will continue her on hourly Accu-Chek, lispro sliding scale every 4 hours. 3. Chronic kidney disease. Creatinine is close to her baseline, Will continue to monitor. Urine is concerning for UTI but given the patient is afebrile and has no white count at this time, will monitor and wait for urine culture. Should the patient become symptomatic or febrile will treat at that time. 4. Hypertension. The patient takes lisinopril at home. I will continue her lisinopril 40 mg p.o. daily. 5. Glaucoma. The patient will continue on home eyedrops as previously prescribed. 6. FEN: She will have a consistent carb diet. 7. Code status: She is a full code. 8. DVT prophylaxis: I will place her on heparin subcu. TIME SPENT: Time spent on this admission was 60 minutes. Greater than half that time was spent at the bedside reviewing events leading thus far to her hospitalization, performing physical exam, and contacting specialists. I have discussed this with my attending Dr. Negron, he is in agreement with my plan. I spoke to Dr. Kulkarni at 640 AM who will see this patient in consultation. Has recommended repeat ECHO. Continue statin and Plavix as prescribed. PAT CLAYTON, TOREY [id number]/CPS #: [id number] MANDI
[2019-12-02] MEDS ORDERED: Magnesium Sulf 4 GM/100 ML IV* 4,000 MG/100 ML BAG IVPB ONE (06:53)
[2019-12-02] MEDS: Lactated Ringers 1000 ML Bag* 1,000 ML IV SCH ×3 (07:26→23:51)
[2019-12-02] MEDS ORDERED: Acetaminophen IV 1GM/100ML * 100 ML IVPB ONE ×2 (07:59→20:30)
[2019-12-02] MEDS ORDERED: Levofloxacin 500 MG IVPREMIX(* 500 MG/100 ML BAG IVPB ONE (08:00)
[2019-12-02] MEDS ORDERED: cefTRIAXone(*) 1 GM in NS 0.9% 50 ML* 50 ML IVPB SCH (08:00)
[2019-12-02] MEDS ORDERED: Clopidogrel TAB* 75 MG PO SCH (09:00)
[2019-12-02] MEDS ORDERED: Chlorthalidone TAB* 50 MG PO SCH (09:00)
[2019-12-02] MEDS ORDERED: Lisinopril TAB* 10 MG PO SCH (09:00)
[2019-12-02] MEDS: Insulin LISPRO* 1 UNITS UNIT SUBCUT SCH ×5 (09:30→21:17)
[2019-12-02] MEDS ORDERED: NS 0.9% 1000 ML** 1,000 ML IV ONE (09:35)
[2019-12-02] MEDS ORDERED: Insulin REGULAR(*) 1 UNITS UNIT IV PUSH ONE (09:38)
[2019-12-02 10:00] LABS: Glucose Confirmatory 422 mg/dL (70-100)
[2019-12-02] MEDS ORDERED: Insulin Infusion 100unit/100mL 100 UNIT/100 ML BAG IV SCH (10:00)
[2019-12-02] MEDS: Timolol 0.5% OPTH.SOL* BTL BOTH EYES SCH ×2 (10:16→20:58)
[2019-12-02] MEDS: CMCS:Dorzolamide 2% OPTH (NF) 10 ML BTL RIGHT EYE SCH ×3 (10:16→20:59)
[2019-12-02] MEDS: Brimonidine P 0.1%(NF) 1 DROP BTL RIGHT EYE SCH ×3 (10:17→21:01)
--- NOTE | 2019-12-02 10:43 | PN ---
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 Patient noted to have large emesis this AM. Mentation depressed thereafter. Does open eyes and say one word at times. Persistent right gaze deviation, left upper extremity weakness, and generalized twitching. Patient noted to be febrile and hyperglycemic, SBP 160-200, DBP 90-110. Vital Signs: Temp Pulse Resp BP SpO2 FiO2 101 F 102 26 130/87 99 12/02/19 06:49 12/02/19 10:01 12/02/19 10:01 12/02/19 10:12/02/19 10:01 Physical Exam: General: Alert, NAD HEENT: Normocephalic, atraumatic, right gaze deviation, left pupil larger than right Neck: soft, supple, no JVD CV: Regular rate and rhythm, no murmurs or rubs Pulm/Chest: Good bilateral air entry, no rhonchi or rales, no wheeze Abdomen/GI: soft, nontender, nondistended, +BS noted MSK/Skin: warm, dry, intact, +2 pulses+, no edema or cyanosis Neuro: Opens eyes to voice, says one word answers, lethargic. Right gaze deviation. Left upper extremity flaccid. Right upper extremity spastic. Bilateral LE spontaneous twitching noted. Fluid Balance (Past 24 Hours): I= O= Net Intake & Output 11/30/19 12/01/19 12/02/19 12/03/19 06:59 06:59 06:59 06:59 Intake Total 2000 Output Total 1200 1250 Balance 800 -1250 Weight 171 lb 15.369 oz 177 lb 12.8 oz Intake: IV Fluids 1999 Output: Urine 200 Moss 1000 1250 Labs: Laboratory Results - last 24 hr 12/01/19 12/01/19 12/01/19 21:38 21:44 21:44 WBC 7.4 RBC 4.26 Hgb 11.6 L Hct 34 L MCV 80 MCH 27 MCHC 34 RDW 14 Plt Count 235 MPV 8.2 Neut % (Auto) 58.2 Lymph % (Auto) 29.6 [place] % (Auto) 9.0 Eos % (Auto) 2.5 Baso % (Auto) 0.7 Absolute Neuts (auto) 4.3 Absolute Lymphs (auto) 2.2 Absolute Monos (auto) 0.7 Absolute Eos (auto) 0.2 Absolute Basos (auto) 0.1 Absolute Nucleated RBC 0.0 Nucleated RBC % 0.1 INR (Anticoag Therapy) 1.02 APTT 32.5 VBG pH VBG pCO2 VBG pO2 VBG HCO3 VBG O2 Saturation VBG Base Excess Sodium Potassium Chloride Carbon Dioxide Anion Gap BUN Creatinine Est GFR ( Amer) Est GFR (Non-Af Amer) BUN/Creatinine Ratio Glucose POC Glucose (mg/dL) > 444 H* Glucose Meter Confirm Calcium Magnesium Total Bilirubin AST ALT Alkaline Phosphatase Troponin I Total Protein Albumin Globulin Albumin/Globulin Ratio Triglycerides Cholesterol LDL Cholesterol LDL Cholesterol Direct HDL Cholesterol Urine Color Urine Appearance Urine pH Ur Specific Temple Urine Protein Urine Ketones Urine Blood Urine Nitrate Urine Bilirubin Urine Urobilinogen Ur Leukocyte Esterase Urine WBC (Auto) Urine RBC (Auto) Ur Squamous Epith Cells Urine Bacteria Urine Glucose 12/01/19 12/01/19 12/01/19 21:44 22:40 22:40 WBC RBC Hgb Hct MCV MCH MCHC RDW Plt Count MPV Neut % (Auto) Lymph % (Auto) [place] % (Auto) Eos % (Auto) Baso % (Auto) Absolute Neuts (auto) Absolute Lymphs (auto) Absolute Monos (auto) Absolute Eos (auto) Absolute Basos (auto) Absolute Nucleated RBC Nucleated RBC % INR (Anticoag Therapy) APTT VBG pH 7.30 L VBG pCO2 57 H VBG pO2 38.0 VBG HCO3 24.5 VBG O2 Saturation 70.3 VBG Base Excess 0.4 Sodium 129 L 130 L Potassium 5.9 H 5.7 H Chloride 96 L 99 L Carbon Dioxide 26 24 Anion Gap 7 7 BUN 47 H 45 H Creatinine 2.16 H 2.12 H Est GFR ( Amer) 27.9 28.5 Est GFR (Non-Af Amer) 23.0 23.5 BUN/Creatinine Ratio 21.8 H 21.2 H Glucose 690 H* 636 H* POC Glucose (mg/dL) Glucose Meter Confirm 690 H* Calcium 9.6 9.1 Magnesium Total Bilirubin 0.70 AST 13 ALT 11 Alkaline Phosphatase 111 H Troponin I 0.01 Total Protein 7.0 Albumin 3.3 Globulin 3.7 Albumin/Globulin Ratio 0.9 L Triglycerides 558 Cholesterol 297 LDL Cholesterol LDL Cholesterol Direct 128 HDL Cholesterol 37.6 Urine Color Urine Appearance Urine pH Ur Specific Temple Urine Protein Urine Ketones Urine Blood Urine Nitrate Urine Bilirubin Urine Urobilinogen Ur Leukocyte Esterase Urine WBC (Auto) Urine RBC (Auto) Ur Squamous Epith Cells Urine Bacteria Urine Glucose 12/01/19 12/01/19 12/02/19 23:19 23:49 00:48 WBC RBC Hgb Hct MCV MCH MCHC RDW Plt Count MPV Neut % (Auto) Lymph % (Auto) [place] % (Auto) Eos % (Auto) Baso % (Auto) Absolute Neuts (auto) Absolute Lymphs (auto) Absolute Monos (auto) Absolute Eos (auto) Absolute Basos (auto) Absolute Nucleated RBC Nucleated RBC % INR (Anticoag Therapy) APTT VBG pH VBG pCO2 VBG pO2 VBG HCO3 VBG O2 Saturation VBG Base Excess Sodium Potassium Chloride Carbon Dioxide Anion Gap BUN Creatinine Est GFR ( Amer) Est GFR (Non-Af Amer) BUN/Creatinine Ratio Glucose POC Glucose (mg/dL) 250 H 212 H Glucose Meter Confirm Calcium Magnesium Total Bilirubin AST ALT Alkaline Phosphatase Troponin I Total Protein Albumin Globulin Albumin/Globulin Ratio Triglycerides Cholesterol LDL Cholesterol LDL Cholesterol Direct HDL Cholesterol Urine Color Yellow Urine Appearance Cloudy Urine pH 7.0 Ur Specific Temple 1.013 Urine Protein 2+(100 mg/dl) A Urine Ketones Negative Urine Blood 1+ A Urine Nitrate Negative Urine Bilirubin Negative Urine Urobilinogen Negative Ur Leukocyte Esterase 3+ A Urine WBC (Auto) 3+(>20/hpf) A Urine RBC (Auto) 3+(>10/hpf) A Ur Squamous Epith Cells Present A Urine Bacteria Absent Urine Glucose 3+(>=500 mg/dl) A 12/02/19 12/02/19 12/02/19 01:50 06:00 09:39 WBC RBC Hgb Hct MCV MCH MCHC RDW Plt Count MPV Neut % (Auto) Lymph % (Auto) [place] % (Auto) Eos % (Auto) Baso % (Auto) Absolute Neuts (auto) Absolute Lymphs (auto) Absolute Monos (auto) Absolute Eos (auto) Absolute Basos (auto) Absolute Nucleated RBC Nucleated RBC % INR (Anticoag Therapy) APTT VBG pH VBG pCO2 VBG pO2 VBG HCO3 VBG O2 Saturation VBG Base Excess Sodium 136 135 Potassium 4.6 4.7 Chloride 104 99 L Carbon Dioxide 21 L 26 Anion Gap 11 10 BUN 41 H 41 H Creatinine 1.85 H 1.88 H Est GFR ( Amer) 33.3 32.7 Est GFR (Non-Af Amer) 27.5 27.0 BUN/Creatinine Ratio 22.2 H 21.8 H Glucose 280 H 445 H POC Glucose (mg/dL) Glucose Meter Confirm 445 H 422 H Calcium 9.2 9.5 Magnesium 1.3 L Total Bilirubin AST ALT Alkaline Phosphatase Troponin I Total Protein Albumin Globulin Albumin/Globulin Ratio Triglycerides Cholesterol LDL Cholesterol LDL Cholesterol Direct HDL Cholesterol Urine Color Urine Appearance Urine pH Ur Specific Temple Urine Protein Urine Ketones Urine Blood Urine Nitrate Urine Bilirubin Urine Urobilinogen Ur Leukocyte Esterase Urine WBC (Auto) Urine RBC (Auto) Ur Squamous Epith Cells Urine Bacteria Urine Glucose Studies: CT brain 12/01/19: IMPRESSION: No acute intracranial abnormality. No interval change. Cxray 12/01/19: IMPRESSION: NO ACTIVE CARDIOPULMONARY DISEASE IS NOTED. CTA head 12/01/19: IMPRESSION: No large vessel stenosis or occlusion given limitation of motion artifact. CTA neck 12/01/19: IMPRESSION: No stenosis or occlusion given limitation of motion artifact. Impression: Ms. Fonseca is a 64 yo F with a PMH of diabetes, CKD who was admitted on 12/02/19 with a left sided weakness, right gaze deviation and CVA vs metabolic encephalopathy Diagnoses: * CVA vs metabolic encephalopathy * Fever ? UTI, possible aspiration * Diabetes with hyperglycemia * Acute on chronic kidney disease Plan: Neuro: - Mentation worsened, persistent left sided weakness and right gaze deviation - Continue to aggressively treat fever - cooling blanket applied, chilled IVF infusing, acetaminophen given IV - Continue to aggressively treat hyperglycemia, see below - Goal SBP 160-180 - Neurology consult appreciated, suspect AMS and worsening left sided weakness is metabolic encephalopathy superimposed on previous CVA, EEG pending - Allergy to aspirin noted - CT brain and CTA head and neck negative CVS: - Allow permissive hypertension - mag repleted Resp: - Concern for aspiration during emesis but no overt respiratory change since - Currently on 2L NC, not tachycardic ID: - Persistent fever - UA concerning, levaquin started due to strong PCN allergy - May have aspirated, monitor - Blood cultures pending, chest xray negative on admission GI: - Nutrition: NPO - GI prophylaxis: pantoprazole Renal: - Creatinine improving, near baseline - Continue moss with temp monitoring Heme: - Mild anemia, likely due to chronic disease, monitor Endo: - Insulin gtt started, BG now ~ 200, will discontinue - Maintain BG<200, insulin protocol as needed - HgbA1c 10.5 Musculsk: - Pressure ulcer prophylaxis. Bedrest. Wounds: - none DVT prophylaxis: SCDs GI prophylaxis: Pantoprazole Moss Catheter: Needed for temperature and hemodynamic monitoring Disposition: Patient requires Critical Care/ICU for acute CVA with fever and hyperglycemia Patient clinical status: Critical Code Status: Full Code Total Critical Care time is 60 minutes, excluding procedures/teaching
[2019-12-02] MEDS: Pantoprazole IV* 40 MG IV SCH (12:30)
--- NOTE | 2019-12-02 13:37 | CONS ---
NEUROLOGY CONSULTATION: DATE OF CONSULT: 12/02/19 REFERRING PROVIDER: Vane Fonseca NP LOCATION: She is in the intensive care unit, bed 5. CHIEF COMPLAINT: Left-sided weakness, seizure, encephalopathy. HISTORY OF PRESENT ILLNESS: Yue Fonseca is a 64-year-old woman who presented to the emergency room via an ambulance after observed seizure at home. She is a diabetic and was not taking medications and her blood sugar in the emergency room was over 600. She had a left hemiparesis and was minimally unresponsive and attempt was made to transfer her to a derwent for a potential stroke. However, she had a negative CT angiogram of the brain and so, transfer was ultimately not carried out. Since hospitalization, she has been treated for severe hyperglycemia and developed a fever. According to admission records, she was refusing to take her medications at home. She apparently had an observed convulsion at home according to the admission records. She was given Versed in the field by behavioral health professional, who found her seizing at that time. In the emergency room, she was initially unresponsive, but later after treatment and time, she exhibited some minimal responsiveness. She was noted to have a right gaze deviation and a flaccid left arm. Her past medical history is notable for cerebrovascular disease with a prior left- sided weakness when she was evaluated at [facility] and then ultimately here at [facility] by Dr. Romero in October 2016. She had left-sided weakness, which apparently resolved by the time she was transferred here. She was hypoglycemic prior to that evaluation. She had an MRI scan of the brain in October 2016 with that hospitalization has revealed chronic ischemic changes, but no acute infarctions. I saw her subsequently in March 2017 , when she developed bilateral visual loss. She had an MRI scan of the brain at that time, which also revealed chronic ischemic changes, but no acute infarctions. She was ultimately diagnosed as having severe diabetic retinopathy. PAST MEDICAL HISTORY: Notable for diabetes including noncompliance with medical therapy, diabetic retinopathy, diabetic neuropathy, peripheral vascular disease, chronic kidney disease, hyperlipidemia, hypertension, obstructive sleep apnea not on treatment, multiple eye surgeries. MEDICATIONS: Medications at home consists of: 1. Insulin. 2. Gabapentin 300 mg p.o. b.i.d. 3. Plavix 75 mg p.o. daily. 4. Chlorthalidone 25 mg p.o. daily. 5. Multiple eye drops. 6. Lisinopril 40 mg p.o. q. a.m. 7. Victoza 1.8 mg subcutaneous q. a.m. ALLERGIES: She is allergic to ASPIRIN, PENICILLIN, SULFA DRUGS, and LEVOFLOXACIN. REVIEW OF SYSTEMS: Review of systems from the patient is unproductive. She is too encephalopathic. There are no family members present due to COVID restrictions. PHYSICAL EXAM: She appears chronically ill. Temperature most recently is 100.8 by Carter probe, blood pressure 180/106, heart rates in the 90s and in sinus. Oxygen saturation is 100% with a respiratory rate of 23 on 4 L of nasal cannula oxygen. Skin is pale. 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 Heart tones are distant, but I do not hear any murmurs. Neck is supple. Carotid pulses are present and there are no cervical bruits. On neurological exam, the right pupil is irregular at about 7 mm and reacts minimally to light. Left pupil is about 5 mm and reacts minimally to light. Funduscopic exam reveals extensive chronic retinal scars. I do not see any hemorrhages or papilledema. There is no response to visual threat. Eye movements are random, but generally she has full right and left gaze. Facial musculature appears symmetric. Facial sensation and nasal tickle is brisk on the right side and barely present on the left side. Motor exam reveals a slight increase in muscle tone of the left arm. She withdraws it to pain. The right arm and both legs move randomly and restlessly. There is some tremulousness of the right arm as well. She is areflexic. Both plantar responses are extensor. She responds to pain fairly readily in the upper extremities and fairly symmetrically. She does not respond to pain with deep nail bed pressure in both feet. DIAGNOSTIC STUDIES/LAB DATA: Laboratory data includes a CT scan of the brain interpreted as showing no abnormalities. I reviewed it and I agree. A CT angiogram of the brain is interpreted as showing no large vessel occlusions or stenosis. I was not able to pull up the images to review personally. Additional laboratory data is notable for a CBC notable for mild anemia with a hemoglobin of 11.6 from yesterday. White blood cell count is normal. Chemistries notable for a glucose of 445 this morning. Hemoglobin A1c this morning is 10.5%. Her magnesium was low this morning at 1.3, calcium is normal at 9.5. Liver enzymes from yesterday are normal Urinalysis is notable for 3+ white blood cells, 3+ red blood cells, 3+ leukocyte esterase. ADDITIONAL MEDICATIONS HERE IN THE HOSPITAL: Include: 1. Sliding scale insulin. 2. Levaquin 250 mg IV q.24 hours. 3. Protonix 40 mg IV q.24 hours. IMPRESSION AND PLAN: Impression is that of metabolic encephalopathy secondary to severe hyperglycemia. She also has evidence of a urinary tract infection. Her focal neurological deficits may be secondary to severe hyperglycemia superimposed on prior cerebrovascular disease. Given her reported seizures, I recommend starting levetiracetam 1000 mg twice per day. I have discussed this with Vane Fonseca, who is putting in the order. I recommend an MRI scan of the brain and an EEG tomorrow. The MRI should be without contrast given her chronic kidney disease and urinary tract infection. Currently, she does not appear to be actively seizing and does not appear to have a central nervous system infection in the sense that a cause for her fever has been identified with her urinary tract infection. We will continue to follow her along with you. [id number]/[facility] #: [id number] [facility]
[2019-12-02] MEDS: Latanoprost 0.005%* 2.5 ml BTL RIGHT EYE SCH (17:06)
[2019-12-02] MEDS ORDERED: levETIRAcetam 1000MG IVPREMIX* 1,000 MG/100 ML BAG IVPB SCH (18:00)
[2019-12-02] MEDS: levETIRAcetam 500 MG IVPREMIX* 500 MG/100 ML BAG IV SCH (18:08)
[2019-12-02 18:15] LABS: Creatine Kinase 73 U/L (10-223)
[2019-12-02] MEDS: Labetalol IV* 5 MG/ML 20 ML VIAL IV PUSH PRN (18:43)
[2019-12-02] MEDS ORDERED: Atorvastatin* 40 MG TAB PO SCH (21:00)
[2019-12-02] MEDS ORDERED: Insulin GLARGINE(*) 1 UNITS UNIT SUBCUT SCH (21:00)
[2019-12-02] MEDS ORDERED: Montelukast Sodium TAB* 10 MG PO SCH (21:00)
[2019-12-03] MEDS: Insulin LISPRO* 1 UNITS UNIT SUBCUT SCH ×6 (01:20→23:53)
[2019-12-03] MEDS: Labetalol IV* 5 MG/ML 20 ML VIAL IV PUSH PRN ×2 (01:28→07:38)
[2019-12-03 04:22] LABS: ABS Basophils 0.1 10^3/ul (0-0.2); ABS Lymphocytes 2.3 10^3/ul (1.0-4.8); ABS Neutrophils 9.4 10^3/ul (1.5-7.7); Hematocrit 33 % (35-47); Hemoglobin 11.2 g/dL (12.0-16.0); Lymphocyte % 18.1 %; Mean Corpuscular HGB Conc 34 g/dL (31-36); Mean Corpuscular Hemoglobin 27 pg (27-31); Mean Corpuscular Volume 79 fL (80-97); Mean Platelet Volume 7.8 fL (7.4-10.4); Platelet Count 228 10^3/uL (150-450); Red Blood Count 4.15 10^6 /uL (3.70-4.87); Red Cell Distribution Width 14 % (10-15); White Blood Count 12.8 10^3/uL (3.5-10.8)
[2019-12-03 04:35] LABS: BUN/Creatinine Ratio 18.9 (8-20); Calcium 8.9 mg/dL (8.6-10.3); EGFR African American 33.3 (>60); EGFR Non-African American 27.5 (>60); Magnesium 1.6 mg/dL (1.9-2.7); Potassium 3.8 mmol/L (3.5-5.0)
[2019-12-03] MEDS: levETIRAcetam 500 MG IVPREMIX* 500 MG/100 ML BAG IV SCH ×2 (06:13→17:20)
[2019-12-03] MEDS ORDERED: Magnesium Sulfate 2 GM IV* 2 GM/50 ML BAG IVPB ONE (07:07)
[2019-12-03] MEDS: Levofloxacin 250 MG IVPREMX(*) 250 MG/50 ML BAG IVPB SCH (07:18)
[2019-12-03] MEDS: CMCS:Dorzolamide 2% OPTH (NF) 10 ML BTL RIGHT EYE SCH ×3 (07:20→21:52)
[2019-12-03] MEDS: Timolol 0.5% OPTH.SOL* BTL BOTH EYES SCH ×2 (07:21→21:53)
[2019-12-03] MEDS: Brimonidine P 0.1%(NF) 1 DROP BTL RIGHT EYE SCH ×3 (07:23→21:50)
[2019-12-03] MEDS ORDERED: Insulin GLARGINE(*) 1 UNITS UNIT SUBCUT ONE (07:41)
[2019-12-03 07:50] LABS: C Reactive Protein 45.44 mg/L (<8.01)
[2019-12-03] MEDS: Lactated Ringers 1000 ML Bag* 1,000 ML IV SCH ×3 (08:00→23:53)
[2019-12-03 09:47] LABS: Erythrocyte Sed Rate 90 mm/Hr (0-29)
[2019-12-03] MEDS: Pantoprazole IV* 40 MG IV SCH (09:55)
--- NOTE | 2019-12-03 11:02 | PN ---
Date of Service: 12/03/19 Critical Care Services: Ms. Fonseca is lethargic and minimally responsive. She does awaken to voice and state yes or no. She denies pain. Nursing staff have noted no new concerns. Vital Signs: Temp Pulse Resp BP SpO2 FiO2 100.8 F 87 25 175/83 94 12/03/19 10:00 12/03/19 10:00 12/03/19 10:00 12/03/19 09:30 12/03/19 10:00 Fluid Balance (Past 24 Hours): I/Os incorrect, NS noted at 10L is error Intake & Output 12/01/19 12/02/19 12/03/19 12/04/19 06:59 06:59 06:59 06:59 Intake Total 1999 11192.8 Output Total 1200 3130 405 Balance 800 9979.8 -405 Weight 171 lb 15.369 oz 171 lb 11.841 oz 171 lb 11.841 oz Intake: IV Fluids 2000 1849 LR 1723 NS 126 IVPB 84916 LR 814 [place] [address] abx 217 acetaminophen 211 Medicated IV 15.8 insulin 15.8 Output: Urine 200 Moss 1000 3055 405 Straight Cath 75 Labs: Laboratory Results - last 24 hr 12/02/19 12/02/19 12/02/19 05:31 09:11 09:39 WBC RBC Hgb Hct MCV MCH MCHC RDW Plt Count MPV Neut % (Auto) Lymph % (Auto) [place] % (Auto) Eos % (Auto) Baso % (Auto) Absolute Neuts (auto) Absolute Lymphs (auto) Absolute Monos (auto) Absolute Eos (auto) Absolute Basos (auto) Absolute Nucleated RBC Nucleated RBC % ESR Sodium Potassium Chloride Carbon Dioxide Anion Gap BUN Creatinine Est GFR ( Amer) Est GFR (Non-Af Amer) BUN/Creatinine Ratio Glucose POC Glucose (mg/dL) 412 H* 401 H* Glucose Meter Confirm 422 H Hemoglobin A1c Calcium Magnesium Total Creatine Kinase 73 C-Reactive Protein 12/02/19 12/02/19 12/02/19 10:47 11:27 12:02 WBC RBC Hgb Hct MCV MCH MCHC RDW Plt Count MPV Neut % (Auto) Lymph % (Auto) [place] % (Auto) Eos % (Auto) Baso % (Auto) Absolute Neuts (auto) Absolute Lymphs (auto) Absolute Monos (auto) Absolute Eos (auto) Absolute Basos (auto) Absolute Nucleated RBC Nucleated RBC % ESR Sodium Potassium Chloride Carbon Dioxide Anion Gap BUN Creatinine Est GFR ( Amer) Est GFR (Non-Af Amer) BUN/Creatinine Ratio Glucose POC Glucose (mg/dL) 342 H 325 H 303 H Glucose Meter Confirm Hemoglobin A1c Calcium Magnesium Total Creatine Kinase C-Reactive Protein 12/02/19 12/02/19 12/02/19 13:12 13:59 15:07 WBC RBC Hgb Hct MCV MCH MCHC RDW Plt Count MPV Neut % (Auto) Lymph % (Auto) [place] % (Auto) Eos % (Auto) Baso % (Auto) Absolute Neuts (auto) Absolute Lymphs (auto) Absolute Monos (auto) Absolute Eos (auto) Absolute Basos (auto) Absolute Nucleated RBC Nucleated RBC % ESR Sodium Potassium Chloride Carbon Dioxide Anion Gap BUN Creatinine Est GFR ( Amer) Est GFR (Non-Af Amer) BUN/Creatinine Ratio Glucose POC Glucose (mg/dL) 264 H 248 H 206 H Glucose Meter Confirm Hemoglobin A1c Calcium Magnesium Total Creatine Kinase C-Reactive Protein 12/02/19 12/02/19 12/02/19 16:38 21:07 21:44 WBC RBC Hgb Hct MCV MCH MCHC RDW Plt Count MPV Neut % (Auto) Lymph % (Auto) [place] % (Auto) Eos % (Auto) Baso % (Auto) Absolute Neuts (auto) Absolute Lymphs (auto) Absolute Monos (auto) Absolute Eos (auto) Absolute Basos (auto) Absolute Nucleated RBC Nucleated RBC % ESR Sodium Potassium Chloride Carbon Dioxide Anion Gap BUN Creatinine Est GFR ( Amer) Est GFR (Non-Af Amer) BUN/Creatinine Ratio Glucose POC Glucose (mg/dL) 203 H 324 H Glucose Meter Confirm Hemoglobin A1c 10.5 H Calcium Magnesium Total Creatine Kinase C-Reactive Protein 12/03/19 12/03/19 12/03/19 01:10 04:04 04:04 WBC 12.8 H RBC 4.15 Hgb 11.2 L Hct 33 L MCV 79 L MCH 27 MCHC 34 RDW 14 Plt Count 228 MPV 7.8 Neut % (Auto) 73.4 Lymph % (Auto) 18.1 [place] % (Auto) 7.7 Eos % (Auto) 0.0 Baso % (Auto) 0.8 Absolute Neuts (auto) 9.4 H Absolute Lymphs (auto) 2.3 Absolute Monos (auto) 1.0 H Absolute Eos (auto) 0.0 Absolute Basos (auto) 0.1 Absolute Nucleated RBC 0.0 Nucleated RBC % 0.0 ESR 90 H Sodium 137 Potassium 3.8 Chloride 105 Carbon Dioxide 24 Anion Gap 8 BUN 35 H Creatinine 1.85 H Est GFR ( Amer) 33.3 Est GFR (Non-Af Amer) 27.5 BUN/Creatinine Ratio 18.9 Glucose 291 H POC Glucose (mg/dL) 275 H Glucose Meter Confirm Hemoglobin A1c Calcium 8.9 Magnesium 1.6 L Total Creatine Kinase C-Reactive Protein 45.44 H 12/03/19 12/03/19 06:01 09:49 WBC RBC Hgb Hct MCV MCH MCHC RDW Plt Count MPV Neut % (Auto) Lymph % (Auto) [place] % (Auto) Eos % (Auto) Baso % (Auto) Absolute Neuts (auto) Absolute Lymphs (auto) Absolute Monos (auto) Absolute Eos (auto) Absolute Basos (auto) Absolute Nucleated RBC Nucleated RBC % ESR Sodium Potassium Chloride Carbon Dioxide Anion Gap BUN Creatinine Est GFR ( Amer) Est GFR (Non-Af Amer) BUN/Creatinine Ratio Glucose POC Glucose (mg/dL) 278 H 254 H Glucose Meter Confirm Hemoglobin A1c Calcium Magnesium Total Creatine Kinase C-Reactive Protein Studies: CT brain 12/01/19: IMPRESSION: No acute intracranial abnormality. No interval change. Cxray 12/01/19: IMPRESSION: NO ACTIVE CARDIOPULMONARY DISEASE IS NOTED. CTA head 12/01/19: IMPRESSION: No large vessel stenosis or occlusion given limitation of motion artifact. CTA neck 12/01/19: IMPRESSION: No stenosis or occlusion given limitation of motion artifact. Impression: Ms. Fonseca is a 64 yo F with a PMH of diabetes, CKD who was admitted on 12/02/19 with a left sided weakness, right gaze deviation and CVA vs metabolic encephalopathy Diagnoses: CVA vs metabolic encephalopathy Fever ? UTI, possible aspiration Diabetes with hyperglycemia Acute on chronic kidney disease Plan: Neuro: - Mentation unchanged, answers yes/no questions, persistent left sided weakness (acute on chronic) - Appreciate neurology consult, suspected metabolic encephalopathy in setting of hx of ischemia (TIA vs CVA) - However, MRI brain found subacute punctate ischemic infarcts (suspected embolic) - CT head/neck negative. - Concern for seizure at home, started keppra, EEG pending - Had echo with negative bubble study in 2017, repeat echo pending - Continue telemetry - Has aspirin allergy, will resume plavix when able to take po - Treat hyperglycemia as per below - Treat fever if > 103 - Goal SBP 160-180 CVS: - SBP 170-180s - Labetaol IV prn SBP > 185 Resp: - Concern for aspiration during emesis but no overt respiratory change since - Currently on 2L NC, not tachycardic ID: - Persistent fever, WBC only 12, ESR 90, CRP 44 - UA concerning, levaquin started due to strong PCN allergy - Blood cultures pending, chest xray negative on admission GI: - Nutrition: NPO with IVF - GI prophylaxis: pantoprazole Renal: - Creatinine improving, near baseline - Continue omss - Continue IVF while NPO - Avoid nephrotoxins and renally dose all medications Heme: - Mild anemia, likely due to chronic disease, monitor Endo: - Increased lantus to home dose, continue SSI q6H - Maintain BG<200, - HgbA1c 10.5 Musculsk: - Pressure ulcer prophylaxis. Bedrest. Wounds: - none DVT prophylaxis: SCDs with lovenox GI prophylaxis: Pantoprazole Disposition: Patient stabilized, transfer to telemetry Patient clinical status: Critical Code Status: Full Code Total Critical Care time is 40 minutes, excluding procedures/teaching
[2019-12-03] MEDS: Enoxaparin(*) 40 MG/0.4 ML SYR SUBCUT SCH (11:51)
--- NOTE | 2019-12-03 13:43 | EEG ---
ELECTROENCEPHALOGRAPHY: DATE OF STUDY: 12/03/19 - ROOM #438 DATE READ: 12/03/19 ORDERED BY: Vane Fonseca NP CLINICAL PROBLEM: Ms. Yue Fonseca is a 64-year-old female who presented with severe hyperglycemia and was discovered to have a urinary tract infection, who has confusion and questionable seizure-like activity. This EEG was obtained to evaluate for epileptiform abnormalities or electrographic seizures. MEDICATIONS: 1. Humalog. 2. Lantus. 3. Keppra. 4. Levofloxacin. 5. Protonix. 6. Labetalol. CLINICAL STATE: Encephalopathic. REPORT: The most notable feature of this recording was nearly continuous intermittent, paroxysmal delta slowing over the right frontotemporal region. This was maximal at F4 and C4. There were embedded triphasic waves intermittently seen in the right frontal region. Otherwise, the background lacked organization or clearly defined anterior-posterior voltage and frequency gradients. There was no discernible posterior dominant rhythm. Instead, the background consisted of diffuse medium amplitude polymorphic 2-7 Hz theta and delta range slowing. There was emergence of faster frequency with verbal and tactile stimulation. Hyperventilation and photic stimulation were not performed. EKG showed sinus tachycardia with a rate of 100 beats per minute. CLINICAL IMPRESSION: This is an abnormal EEG due to the presence of diffuse slowing of the background and nearly continuous slowing over the right frontocentral region. These findings are suggestive of diffuse mild-to- moderate nonspecific encephalopathy with superimposed focal neuronal dysfunction involving the frontocentral region. [id number]/[facility] #: [id number] [facility]
--- NOTE | 2019-12-03 13:44 | ECHO ---
*[facility]* [place] [address] Fax #: [phone] Transthoracic Echocardiogram Patient: Yue Fonseca : 1955 Study Date: 12/03/2019 Age: 64 Gender: F HR: 84 bpm Height: 63 in /160 cm BSA: 1.81 m^2 Weight: 170.6 lb /77.6 kg BMI: 30.3 kg/m^2 *Butt Sawyer: * Rosa Pavon [facility] *Referring Physician: * Vane FonsecaReading Physician: * Skip Delaney MD Indications: CVA. History: PVD, CKD. Risk factors: Hypertension. Diabetes mellitus. Dyslipidemia. Conclusions Summary: - Left ventricle: The cavity size is normal. Wall thickness is mildly to moderately increased. Systolic function is normal. The estimated ejection fraction is 55-60%. Wall motion is normal; there are no regional wall motion abnormalities. - Right ventricle: Systolic function is normal. - Mitral valve: There is no significant regurgitation. - Aortic valve: There is no evidence of stenosis. - Tricuspid valve: There is no significant regurgitation. - Pericardium, extracardiac: There is no significant pericardial effusion. - Pulmonary arteries: Systolic pressure can not be accurately estimated. - Impressions: The study is unchanged since the study of 10/18/2016. Study data: Transthoracic echocardiogram. Procedure: Transthoracic echocardiography was performed. Image quality was good. Complete 2D, spectral Doppler, and color flow Doppler. Location: ICU Patient status: Inpatient. Patient room number: 5. Comparison is made to the study of 10/18/2016. Rhythm: Normal sinus rhythm. Findings Left ventricle: The cavity size is normal. Wall thickness is mildly to moderately increased. Systolic function is normal. The estimated ejection fraction is 55-60%. Wall motion is normal; there are no regional wall motion abnormalities. Doppler parameters are consistent with abnormal left ventricular relaxation (grade 1 diastolic dysfunction). Right ventricle: The cavity size is normal. Systolic function is normal. Left atrium: The atrium is mildly dilated. Right atrium: The atrium is normal in size. Mitral valve: The Mitral valve annulus appears calcified. The leaflets are mildly calcified. There is no evidence of stenosis. There is no significant regurgitation. Aortic valve: The valve is trileaflet. The leaflets are normal thickness. There is no evidence of stenosis. There is no significant regurgitation. Tricuspid valve: The leaflets are normal thickness. There is no evidence of stenosis. There is no significant regurgitation. Pulmonic valve: The leaflets are normal thickness. There is no evidence of stenosis. There is trace regurgitation. Aorta: The aortic root appears normal. The aortic arch appears normal. Pericardium: There is no significant pericardial effusion. Pulmonary arteries: Systolic pressure can not be accurately estimated. Systemic veins: Inferior vena cava: The vessel is normal in size. There is (< 50%) respiratory change in the IVC dimension. Measurements Left ventricle Value Ref Aortic valve continued Value Ref NAVIN, LAX 4.0 cm 3.8 - 5.2 Mean grad, S 6.0 mm Hg --------- ESD, LAX 2.3 cm 2.2 - 3.5 Peak grad, S 9.0 mm Hg --------- FS, LAX 43 % 27 - 45 PW, ED, LAX (H) 1.2 cm 0.6 - 0.9 Mitral valve Value Ref E', lat fuad, TDI (L) 6.0 cm/sec >=10.0 Peak E 0.92 m/sec - -------- E/e', lat fuad, 15 Peak A 1.08 m/sec ---- ----- TDI Decel time 148 ms --------- E', med fuad, TDI (L) 4.6 cm/sec >=7.0 Peak grad, D 3.3 mm Hg - -------- E/e', med fuad, 20 Peak E/A ratio 0.8 ---- ----- TDI E', avg, TDI 5.3 cm/sec Pulmonic valve Value Ref E/e', avg, TDI (H) 17 <=14 Peak v, S 0.83 m/sec - -------- Peak grad, S 3.0 mm Hg --------- LVOT Value Ref Peak porfirio, S 1.29 m/sec Aortic root Value Ref Peak grad, S 7 mm Hg Root diam 2.9 cm <4.0 Mean grad, S 3 mm Hg Root max 1.6 cm/m^2 1.4 - 2.2 diam/bsa, ED Ventricular septum Value Ref IVS, ED (H) 1.3 cm 0.6 - 0.9 Ascending aorta Value Ref AAo AP diam, S 3.0 cm --------- Right ventricle Value Ref AAo AP 1.7 cm/m^2 --------- NAVIN, LAX 2.2 cm diam/bsa, S NAVIN minor ax, A4C 2.5 cm 1.9 - 3.5 mid Aortic arch Value Ref Arch diam 2.9 cm --------- Left atrium Value Ref Arch diam/bsa 1.6 cm/m^2 --------- AP dim, ES 3.00 cm 2.70 - 3.80 Decending aorta Value Ref ML dim, A4C 3.8 cm Keena peak porfirio 0.7 m/sec --------- SI dim, A4C 5.6 cm Vol/bsa, ES, A/L (H) 35 ml/m^2 16 - 34 Inferior vena cava Value Ref Diam 1.6 cm --------- Right atrium Value Ref SI dim, ES 4.0 cm 3.4 - 5.3 Pulmonary veins Value Ref ML dim, ES, A4C 3.2 cm 2.6 - 4.4 Peak v, S 0.55 m/sec --------- Estimated RAP 8 mm Hg Peak v, D 0.41 m/sec --------- Peak S/D ratio 1.3 --------- Aortic valve Value Ref A rev duration 124 ms --------- Fuad diam, ED 1.9 cm Peak v, S 1.5 m/sec VTI, S 32.0 cm Legend: (L) and (H) reshma values outside specified reference range. Prepared and electronically signed by Skip Delaney MD 12/03/2019 13:43
--- NOTE | 2019-12-03 15:46 | PN ---
Subjective Date of Service: 12/03/19 Length of Stay: 1 Days Neurology is following for stroke and encephalopathy. Interval History: The patient was transferred from the ICU to . She is awake, but has her eyes closed. She is drowsy and minimally confused. She knew her name and where she was. She is requesting for water. She drank without difficulty and cleared her throat with a dry cough. She has abnormal movements of the left upper extremity. She cannot control the arm. She is using the right hand to control the left. Review of Systems: Denied CP, SOB, or palpitations. Objective Active Medications: Brimonidine Tartrate (Alphagan P 0.1% (Nf)) 1 drop RIGHT EYE TID [facility] Last Admin: 12/03/19 14:52 Dose: Not Given Clopidogrel Bisulfate (Plavix Tab*) 75 mg PO DAILY [facility] Dextrose (D50w Syringe 50 Ml*) 12.5 gm IV PUSH .FOR FS < 60 - SS PRN PRN Reason: FS < 60 Dorzolamide HCl (Trusopt 2% Opth (Nf)) 1 drop RIGHT EYE TID [facility]; Protocol Last Admin: 12/03/19 14:52 Dose: 1 drop Enoxaparin Sodium (Lovenox(*)) 40 mg SUBCUT Q24H [facility] Last Admin: 12/03/19 11:51 Dose: 40 mg Lactated Ringer's (Lactated Ringers 1000 Ml Bag*) 1,000 mls @ 125 mls/hr IV PER RATE [facility] Last Admin: 12/03/19 14:50 Dose: 125 mls/hr Levofloxacin/Dextrose (Levaquin 250 Mg Ivpremx(*)) 250 mg in 50 mls @ 50 mls/ hr IVPB Q24H [facility] Last Admin: 12/03/19 07:18 Dose: 50 mls/hr Levetiracetam (Keppra Iv Premix*) 500 mg in 100 mls @ 400 mls/hr IV Q12H [facility] Last Admin: 12/03/19 06:13 Dose: 400 mls/hr Insulin Glargine (Lantus(*)) 20 units SUBCUT BEDTIME [facility] Insulin Human Lispro (Humalog*) 0 units SUBCUT Q6HR [facility]; Protocol Labetalol HCl (Trandate Iv*) 10 mg IV PUSH Q6H PRN PRN Reason: SBP > 185 Last Admin: 12/03/19 07:38 Dose: 10 mg Latanoprost (Xalatan 0.005%*) 1 drop RIGHT EYE 1700 [facility] Last Admin: 12/02/19 17:06 Dose: 1 drop Pantoprazole Sodium (Protonix Iv*) 40 mg IV Q24H [facility] Last Admin: 12/03/19 09:55 Dose: 40 mg Timolol Maleate (Timoptic 0.5% Opth*) 1 drop BOTH EYES BID [facility] Last Admin: 12/03/19 07:21 Dose: 1 drop Vital Signs 12/02/19 12/02/19 12/02/19 16:00 16:02 16:31 Temperature 101.5 F Pulse Rate 98 97 99 Respiratory 26 26 32 Rate Blood Pressure 176/95 173/95 (mmHg) O2 Sat by Pulse 97 98 96 Oximetry 12/02/19 12/02/19 12/02/19 17:00 17:01 18:00 Temperature 101.5 F 101.7 F Pulse Rate 102 101 100 Respiratory 26 25 22 Rate Blood Pressure 145/90 (mmHg) O2 Sat by Pulse 96 98 98 Oximetry 12/02/19 12/02/19 12/02/19 18:01 18:30 18:46 Temperature 101.7 F 101.7 F 101.7 F Pulse Rate 98 100 89 Respiratory 21 31 25 Rate Blood Pressure 188/89 194/97 167/76 (mmHg) O2 Sat by Pulse 98 100 98 Oximetry 12/02/19 12/02/19 12/02/19 19:00 19:30 19:46 Temperature 101.8 F 101.8 F Pulse Rate 94 95 Respiratory 24 24 26 Rate Blood Pressure 158/104 180/89 (mmHg) O2 Sat by Pulse 97 97 Oximetry 12/02/19 12/02/19 12/02/19 19:48 20:00 20:01 Temperature 102.1 F 102.0 F 102.0 F Pulse Rate 99 99 Respiratory 28 28 Rate Blood Pressure 180/85 (mmHg) O2 Sat by Pulse 95 95 Oximetry 12/02/19 12/02/19 12/02/19 20:31 21:00 21:01 Temperature 102.0 F 102.0 F 102.0 F Pulse Rate 100 101 96 Respiratory 25 21 26 Rate Blood Pressure 185/97 180/96 (mmHg) O2 Sat by Pulse 96 96 95 Oximetry 12/02/19 12/02/19 12/02/19 21:31 21:33 21:37 Temperature 102.0 F 102.0 F 102.0 F Pulse Rate 96 95 96 Respiratory 26 23 25 Rate Blood Pressure 201/97 188/97 188/96 (mmHg) O2 Sat by Pulse 99 96 96 Oximetry 12/02/19 12/02/19 12/02/19 21:56 22:00 22:01 Temperature 102.0 F 102.0 F Pulse Rate 88 88 Respiratory 25 24 26 Rate Blood Pressure 187/89 (mmHg) O2 Sat by Pulse 95 95 Oximetry 12/02/19 12/02/19 12/02/19 22:31 23:00 23:30 Temperature 102.0 F 102.0 F 101.8 F Pulse Rate 91 87 90 Respiratory 27 22 21 Rate Blood Pressure 154/112 180/86 181/93 (mmHg) O2 Sat by Pulse 97 96 96 Oximetry 12/02/19 12/02/19 12/03/19 23:37 23:46 00:00 Temperature 101.8 F 101.8 F Pulse Rate 90 88 Respiratory 26 23 22 Rate Blood Pressure (mmHg) O2 Sat by Pulse 97 97 Oximetry 12/03/19 12/03/19 12/03/19 00:01 00:31 01:00 Temperature 101.8 F 101.7 F 101.7 F Pulse Rate 85 86 88 Respiratory 25 20 20 Rate Blood Pressure 183/84 181/83 183/90 (mmHg) O2 Sat by Pulse 94 95 97 Oximetry 12/03/19 12/03/19 12/03/19 01:23 01:30 02:00 Temperature 101.5 F 101.5 F 101.3 F Pulse Rate 87 86 81 Respiratory 16 19 20 Rate Blood Pressure 182/90 176/94 173/78 (mmHg) O2 Sat by Pulse 96 97 96 Oximetry 12/03/19 12/03/19 12/03/19 02:30 03:00 03:30 Temperature 101.1 F 101.1 F 101.1 F Pulse Rate 84 82 84 Respiratory 17 20 21 Rate Blood Pressure 174/78 162/87 168/87 (mmHg) O2 Sat by Pulse 92 96 96 Oximetry 12/03/19 12/03/19 12/03/19 03:48 04:00 04:20 Temperature 100.9 F Pulse Rate 86 Respiratory 14 24 22 Rate Blood Pressure 178/86 (mmHg) O2 Sat by Pulse 94 Oximetry 12/03/19 12/03/19 12/03/19 04:30 05:00 05:15 Temperature 100.8 F 100.8 F Pulse Rate 83 87 Respiratory 19 21 22 Rate Blood Pressure 174/87 180/89 (mmHg) O2 Sat by Pulse 96 96 Oximetry 12/03/19 12/03/19 12/03/19 05:31 06:00 06:01 Temperature 100.8 F Pulse Rate 93 96 96 Respiratory 22 20 21 Rate Blood Pressure 176/106 180/108 (mmHg) O2 Sat by Pulse 96 97 97 Oximetry 12/03/19 12/03/19 12/03/19 06:31 07:00 07:01 Temperature 100.9 F 100.8 F 100.8 F Pulse Rate 98 91 91 Respiratory 26 20 18 Rate Blood Pressure 188/98 167/81 (mmHg) O2 Sat by Pulse 95 94 95 Oximetry 12/03/19 12/03/19 12/03/19 07:31 08:00 08:31 Temperature 100.8 F 100.8 F 100.8 F Pulse Rate 94 85 83 Respiratory 24 19 Rate Blood Pressure 197/90 170/82 167/77 (mmHg) O2 Sat by Pulse 96 94 95 Oximetry 12/03/19 12/03/19 12/03/19 09:00 09:30 10:00 Temperature 100.6 F 100.6 F 100.8 F Pulse Rate 84 84 87 Respiratory 20 21 25 Rate Blood Pressure 178/83 175/83 (mmHg) O2 Sat by Pulse 93 94 94 Oximetry 12/03/19 12/03/19 12/03/19 10:30 11:00 11:32 Temperature 100.8 F Pulse Rate 87 90 Respiratory 22 20 21 Rate Blood Pressure 172/83 (mmHg) O2 Sat by Pulse 93 95 Oximetry 12/03/19 12/03/19 12/03/19 11:33 12:00 12:30 Temperature 101.1 F 97.5 F 99.9 F Pulse Rate 89 85 85 Respiratory 18 18 18 Rate Blood Pressure 141/86 166/80 166/75 (mmHg) O2 Sat by Pulse 95 94 95 Oximetry 12/03/19 12/03/19 12/03/19 13:00 13:01 13:51 Temperature 97.7 F Pulse Rate 85 85 80 Respiratory 20 20 18 Rate Blood Pressure 164/70 155/74 (mmHg) O2 Sat by Pulse 95 95 100 Oximetry Intake and Output Last 24 Hours 12/01/19 12/02/19 12/03/19 12/04/19 06:59 06:59 06:59 06:59 Intake Total 1999 44857.8 1025.8 Output Total 1200 3130 640 Balance 800 9979.8 385.8 Weight 171 lb 15.369 oz 171 lb 11.841 oz 171 lb 11.841 oz Intake: IV Fluids 1999 1849 917.8 LR 1723 893 NS 126 24.8 IVPB 84820 108 LR 814 [place] [address] abx 217 50 acetaminophen 211 magnesium 58 Medicated IV 15.8 insulin 15.8 Output: Urine 200 Carter 1000 3055 640 Straight Cath 75 Oxygen Devices in Use Now: None Neurology Exam: General: Ill appearing obese female in no distress. She is requesting water. 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 She is alert and oriented to self and place. Speech: Mild-moderate dysarthria Cranial Nerve: PERRL, EOM intact, VFF, no nystagmus, mild left facial droop. Motor: 4/5 weakness on the left arm. Sensation: intact to LT/PP bilaterally upper and lower extremities Deep Tendon Reflex: Finger to nose dysmetria on the left. Gait: deferred Result Diagrams: 12/03/19 04:04 12/03/19 04:04 Additional Lab and Data: Labs, imaging, and other diagnostic testing: Glucose on presentation: 690. Current glucose: 291. Creatinine: 1.85. BUN: 35. Sodium: 130 to now at 137. CRP: 45.44. ESR: 90 Urinalysis: UR Leukocyte Esterase: 3, Urine WBC: 3 Microbiology and Other Data: Microbiology 12/01/19 23:19 Urine Culture - Preliminary Urine Klebsiella Pneumoniae Diagnostic Imaging: - MRI Brain without contrast: limited study. There are punctate foci of restricted diffusion within the right cerebral hemispheres, suggestive of subacute embolic infarcts. Diffuse involutional change. Stable nonspecific white matter changes. - CTA head and neck without contrast 12/02/19: No stenosis or occlusion. No large vessel stenosis or occlusion. - TTE: EF 55-60%. cavity size is normal. The atrium is mildly dilated. - EEG: This is an abnormal EEG due to the presence of diffuse slowing of the background and nearly continuous intermittent slowing over the right frontocentral region. Assessment/Plan Ms. Yue Fonseca is a 64-year-old female with a past medical history significant for uncontrolled insulin-dependent DMII with a hemoglobin A1C of 10 , CKD stage 3, hyperlipidemia, diabetic retinopathy who is legally blind, diabetic neuropathy, reported history of TIA with symptoms of visual disturbance and transient left arm weakness, obstructive sleep apnea, who [place] [facility] [place] due to episodes of shaking that was thought to be related to seizures. The shaking was described as initially upper extremity shakes that evolved to "whole body shaking." There was head deviation towards the left. She had recurrence of the shaking later on that day. She checked her blood glucose and was reported to be high. In the ED, her blood glucose was over 600. She was admitted to the ICU for: 1. Acute metabolic encephalopathy secondary to hyperglycemia. 2. Provoked seizures secondary to severe hyperglycemia and stroke. The semiology of head deviation towards the left and left arm shaking suggests localized related complex motor seizure, with secondary generalization. 3. Acute multiple punctate ischemic infarction in the right middle cerebral artery vascular distribution. Most likely secondary to her morbidities increasing her risk for atherosclerotic disease (eg, severe hyperglycemia). 4. UTI- on Levofloxacin. Monitor for neurotoxici side effects. Recommendations: - Stroke education provided - Neuro checks every 4 hours - Continue Plavix 75 mg daily. She is allergic to aspirin. Please note that she is also reporting allergy to levofloxacin which she is now getting for her UTI. - Diabetic control will reduce her stroke risk. No need for more antiplatelet therapy. - Levetirecetam 500 mg IV twice daily. Check a level tomorrow morning (order placed). Switch to oral levetirecetam when she is able to swallow. If she has increase in confusion or seizure like activity, give her Lorazepam 2 mg IV x 1 and a bolus of levetirecetam 1,000 mg IV x 1. - Agree with IV fluids - Ordered PT/OT/[employer]ILY [employer]GER to evaluate and treat - Fall precautions - DVT prophylaxis: Enoxaprin - There is no indication for anticoagulation therapy I will continue to follow.
[2019-12-03] MEDS: Clopidogrel TAB* 75 MG PO SCH ×2 (16:14→16:20)
[2019-12-03] MEDS: Latanoprost 0.005%* 2.5 ml BTL RIGHT EYE SCH (17:19)
[2019-12-03] MEDS: Insulin GLARGINE(*) 1 UNITS UNIT SUBCUT SCH (21:51)
--- NOTE | 2019-12-04 00:19 | PN ---
Hospitalist Progress Note Date of Service: 12/04/19 Patient required straight cath for urine retention of over 300mls. Nurse reported that while cathing her, she saw copious amounts of somewhat thick greenish, foul smelling vaginal discharge. Pelvic exam performed, swab taken and sent to lab. Vaginal wall bled easily, was painful to touch. Started on IV flagyl as patient was unable to take PO.
[2019-12-04] MEDS: metroNIDAZOLE IV 500 MG/100ML* 500 MG/100 ML BAG IVPB SCH ×2 (00:53→12:36)
[2019-12-04] MEDS ORDERED: metroNIDAZOLE TAB* 250 MG PO SCH (01:00)
[2019-12-04] MEDS: Insulin LISPRO* 1 UNITS UNIT SUBCUT SCH ×5 (05:43→21:24)
[2019-12-04] MEDS ORDERED: Morphine INJ* 2 MG/ML 1 ML SYRINGE (TWO MG - NEW SYRINGE VERSION) IV ONE (05:46)
[2019-12-04] MEDS: levETIRAcetam 500 MG IVPREMIX* 500 MG/100 ML BAG IV SCH ×2 (05:50→18:20)
[2019-12-04] MEDS: Lactated Ringers 1000 ML Bag* 1,000 ML IV SCH (08:28)
[2019-12-04] MEDS: Levofloxacin 250 MG IVPREMX(*) 250 MG/50 ML BAG IVPB SCH (08:58)
--- NOTE | 2019-12-04 10:11 | PN ---
Subjective Date of Service: 12/04/19 Length of Stay: 2 Days Neurology is following for stroke. Interval History: She is complaining of trouble seeing. She has history of blindness in both eyes. She is able to communicate with her eyes closed. She denied any worsening weakness. She still has weakness involving the left hand. Review of Systems: Denied CP, SOB, or palpitations. Objective Active Medications: Brimonidine Tartrate (Alphagan P 0.1% (Nf)) 1 drop RIGHT EYE TID [facility] Last Admin: 12/03/19 21:50 Dose: Not Given Clopidogrel Bisulfate (Plavix Tab*) 75 mg PO DAILY [facility] Last Admin: 12/03/19 16:20 Dose: Not Given Dextrose (D50w Syringe 50 Ml*) 12.5 gm IV PUSH .FOR FS < 60 - SS PRN PRN Reason: FS < 60 Dorzolamide HCl (Trusopt 2% Opth (Nf)) 1 drop RIGHT EYE TID [facility]; Protocol Last Admin: 12/03/19 21:52 Dose: 1 drop Enoxaparin Sodium (Lovenox(*)) 40 mg SUBCUT Q24H [facility] Last Admin: 12/03/19 11:51 Dose: 40 mg Lactated Ringer's (Lactated Ringers 1000 Ml Bag*) 1,000 mls @ 125 mls/hr IV PER RATE [facility] Last Admin: 12/04/19 08:28 Dose: 125 mls/hr Levofloxacin/Dextrose (Levaquin 250 Mg Ivpremx(*)) 250 mg in 50 mls @ 50 mls/ hr IVPB Q24H [facility] Last Admin: 12/04/19 08:58 Dose: 50 mls/hr Levetiracetam (Keppra Iv Premix*) 500 mg in 100 mls @ 400 mls/hr IV Q12H [facility] Last Admin: 12/04/19 05:50 Dose: 400 mls/hr Metronidazole/Sodium Chloride (Flagyl 500 Mg Ivpb*) 500 mg in 100 mls @ 100 mls /hr IVPB Q12H [facility] Stop: 12/11/19 00:59 Last Admin: 12/04/19 00:53 Dose: 100 mls/hr Insulin Glargine (Lantus(*)) 20 units SUBCUT BEDTIME [facility] Last Admin: 03/30/20 21:51 Dose: 20 units Insulin Human Lispro (Humalog*) 0 units SUBCUT Q6HR [facility]; Protocol Last Admin: 12/04/19 05:43 Dose: Not Given Labetalol HCl (Trandate Iv*) 10 mg IV PUSH Q6H PRN PRN Reason: SBP > 185 Last Admin: 12/03/19 07:38 Dose: 10 mg Latanoprost (Xalatan 0.005%*) 1 drop RIGHT EYE 1700 [facility] Last Admin: 12/03/19 17:19 Dose: 1 drop Pantoprazole Sodium (Protonix Iv*) 40 mg IV Q24H [facility] Last Admin: 12/03/19 09:55 Dose: 40 mg Timolol Maleate (Timoptic 0.5% Opth*) 1 drop BOTH EYES BID [facility] Last Admin: 12/03/19 21:53 Dose: 1 drop Vital Signs 12/03/19 12/03/19 12/03/19 10:30 11:00 11:32 Temperature 100.8 F Pulse Rate 87 90 Respiratory 22 20 21 Rate Blood Pressure 172/83 (mmHg) O2 Sat by Pulse 93 95 Oximetry 12/03/19 12/03/19 12/03/19 11:33 12:00 12:30 Temperature 101.1 F 97.5 F 99.9 F Pulse Rate 89 85 85 Respiratory 18 18 18 Rate Blood Pressure 141/86 166/80 166/75 (mmHg) O2 Sat by Pulse 95 94 95 Oximetry 12/03/19 12/03/19 12/03/19 13:00 13:01 13:51 Temperature 97.7 F Pulse Rate 85 85 80 Respiratory 20 20 18 Rate Blood Pressure 164/70 155/74 (mmHg) O2 Sat by Pulse 95 95 100 Oximetry 12/03/19 12/03/19 12/03/19 16:40 20:00 20:40 Temperature 99.5 F 99.5 F Pulse Rate 83 80 Respiratory 22 18 20 Rate Blood Pressure 181/83 152/66 (mmHg) O2 Sat by Pulse 97 99 Oximetry 12/03/19 12/04/19 12/04/19 23:12 04:00 05:55 Temperature 98.4 F 97.6 F Pulse Rate 70 79 Respiratory 18 16 18 Rate Blood Pressure 141/74 125/60 (mmHg) O2 Sat by Pulse 100 97 Oximetry 12/04/19 08:10 Temperature 97.7 F Pulse Rate 75 Respiratory 20 Rate Blood Pressure 137/70 (mmHg) O2 Sat by Pulse 100 Oximetry Intake and Output Last 24 Hours 12/02/19 12/03/19 12/04/19 12/05/19 06:59 06:59 06:59 06:59 Intake Total 1999 64962.8 1025.8 1852 Output Total 1200 3130 1040 Balance 800 9979.8 -14.2 1852 Weight 171 lb 15.369 oz 171 lb 11.841 oz 171 lb 11.841 oz Intake: IV Fluids 1999 1849 917.8 1852 LR 5177 209 2641 NS 126 24.8 IVPB 48940 108 [place] 814 [place] [address] abx 217 50 acetaminophen 211 magnesium 58 Medicated IV 15.8 insulin 15.8 Oral 0 Output: Urine 200 400 Carter 1000 3055 640 Straight Cath 75 Other: # Bowel Movements 0 # Voids 1 Oxygen Devices in Use Now: None Neurology Exam: General: Ill appearing obese female in no distress. She is requesting water. 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 She is alert and oriented to self and place. Speech: Mild-moderate dysarthria Cranial Nerve: PERRL, EOM intact, VFF, no nystagmus, mild left facial droop. Motor: 4/5 weakness on the left arm. Sensation: intact to LT/PP bilaterally upper and lower extremities Deep Tendon Reflex: Finger to nose dysmetria on the left. Gait: deferred Result Diagrams: 12/03/19 04:04 12/03/19 04:04 Additional Lab and Data: Labs, imaging, and other diagnostic testing: Glucose on presentation: 690. Current glucose: 291. Creatinine: 1.85. BUN: 35. Sodium: 130 to now at 137. CRP: 45.44. ESR: 90 Urinalysis: UR Leukocyte Esterase: 3, Urine WBC: 3 Urine culture: positive for Klebsiella Pneumoniae. Microbiology and Other Data: Microbiology 12/01/19 23:19 Urine Culture - Preliminary Urine Klebsiella Pneumoniae Diagnostic Imaging: - MRI Brain without contrast: limited study. There are punctate foci of restricted diffusion within the right cerebral hemispheres, suggestive of subacute embolic infarcts. Diffuse involutional change. Stable nonspecific white matter changes. - CTA head and neck without contrast 12/02/19: No stenosis or occlusion. No large vessel stenosis or occlusion. - TTE: EF 55-60%. cavity size is normal. The atrium is mildly dilated. - EEG: This is an abnormal EEG due to the presence of diffuse slowing of the background and nearly continuous intermittent slowing over the right frontocentral region. Assessment/Plan Ms. Yue Fonseca is a 64-year-old female with a past medical history significant for uncontrolled insulin-dependent DMII with a recent hemoglobin A1C of 10, CKD stage 3, hyperlipidemia, diabetic retinopathy who is legally blind, diabetic neuropathy, reported history of TIA with symptoms of visual disturbance and transient left arm weakness, obstructive sleep apnea, who [place] [facility] [place] with an episode of shaking that was thought to be related to seizures. She was found to have an ischemic stroke in the right hemisphere and severe hyperglycemia. 1. Acute metabolic encephalopathy secondary to hyperglycemia. Improving. 2. Provoked seizures secondary to severe hyperglycemia and stroke. The semiology of head deviation towards the left and left arm shaking localizes to the right hemisphere. 3. Acute multiple punctate ischemic infarction in the right middle cerebral artery vascular distribution. Most likely secondary to her morbidities increasing her risk for atherosclerotic disease (eg, severe hyperglycemia). 4. K. Pneumoniae UTI- on Levofloxacin and metronidazole. Monitor for neurotoxici side effects. Recommendations: - Please reconsult [facility] and make sure she takes Plavix today as she has been off Plavix for the past two days. If she fails the swallowing evaluation, please insert an NG tube for feeding and for medications. - Stroke education provided - Neuro checks every 4 hours - Continue Plavix 75 mg daily. She is allergic to aspirin. Please note that she is also reporting allergy to levofloxacin which she is now getting for her UTI. - Diabetic control will reduce her stroke risk. No need for more antiplatelet therapy. - Levetirecetam 500 mg IV twice daily. Pending levetirecetam level. Switch to oral levetirecetam when she is able to swallow. If she has increase in confusion or seizure like activity, give her Lorazepam 2 mg IV x 1 and a bolus of levetirecetam 1,000 mg IV x 1. - Agree with IV fluids - PT/OT/[facility] to evaluate and treat. Advance diet per [facility] recommendations. - Fall precautions - DVT prophylaxis: Enoxaprin - There is no indication for anticoagulation therapy. She will need a loop recorder as an outpatient. She will need rehabilitation. I will continue to follow.
[2019-12-04] MEDS: Clopidogrel TAB* 75 MG PO SCH ×2 (10:25→15:53)
[2019-12-04 10:29] LABS: ABS Basophils 0.1 10^3/ul (0-0.2); ABS Eosinophils 0.1 10^3/ul (0-0.6); ABS Lymphocytes 2.2 10^3/ul (1.0-4.8); ABS Monocytes 0.6 10^3/ul (0-0.8); ABS Neutrophils 5.4 10^3/ul (1.5-7.7); Eosinophil % 1.4 %; Hematocrit 31 % (35-47); Hemoglobin 10.4 g/dL (12.0-16.0); Lymphocyte % 26.6 %; Mean Corpuscular HGB Conc 34 g/dL (31-36); Mean Corpuscular Hemoglobin 27 pg (27-31); Mean Corpuscular Volume 80 fL (80-97); Mean Platelet Volume 7.8 fL (7.4-10.4); Platelet Count 182 10^3/uL (150-450); Red Blood Count 3.81 10^6 /uL (3.70-4.87); Red Cell Distribution Width 14 % (10-15); White Blood Count 8.4 10^3/uL (3.5-10.8)
--- NOTE | 2019-12-04 10:51 | PN ---
Subjective Date of Service: 12/04/19 Interval History: HOSPITALIST PROGRESS NOTE Patient seen and examined at bedside. Care reviewed and d/w Viridiana Everett RN. She offers no complaints at this time. Curious to know what happened to her, as she doesn't remember much of her hospital stay. Family History: Unchanged from Admission Social History: Unchanged from Admission Past Medical History: Unchanged from Admission Objective Active Medications: Brimonidine Tartrate (Alphagan P 0.1% (Nf)) 1 drop RIGHT EYE TID [facility] Last Admin: 12/03/19 21:50 Dose: Not Given Clopidogrel Bisulfate (Plavix Tab*) 75 mg PO DAILY [facility] Last Admin: 12/04/19 10:25 Dose: Not Given Dextrose (D50w Syringe 50 Ml*) 12.5 gm IV PUSH .FOR FS < 60 - SS PRN PRN Reason: FS < 60 Dorzolamide HCl (Trusopt 2% Opth (Nf)) 1 drop RIGHT EYE TID [facility]; Protocol Last Admin: 12/03/19 21:52 Dose: 1 drop Enoxaparin Sodium (Lovenox(*)) 40 mg SUBCUT Q24H [facility] Last Admin: 12/03/19 11:51 Dose: 40 mg Lactated Ringer's (Lactated Ringers 1000 Ml Bag*) 1,000 mls @ 125 mls/hr IV PER RATE [facility] Last Admin: 12/04/19 08:28 Dose: 125 mls/hr Levofloxacin/Dextrose (Levaquin 250 Mg Ivpremx(*)) 250 mg in 50 mls @ 50 mls/ hr IVPB Q24H [facility] Last Admin: 12/04/19 08:58 Dose: 50 mls/hr Levetiracetam (Keppra Iv Premix*) 500 mg in 100 mls @ 400 mls/hr IV Q12H [facility] Last Admin: 12/04/19 05:50 Dose: 400 mls/hr Metronidazole/Sodium Chloride (Flagyl 500 Mg Ivpb*) 500 mg in 100 mls @ 100 mls /hr IVPB Q12H [facility] Stop: 12/11/19 00:59 Last Admin: 12/04/19 00:53 Dose: 100 mls/hr Insulin Glargine (Lantus(*)) 20 units SUBCUT BEDTIME [facility] Last Admin: 12/03/19 21:51 Dose: 20 units Insulin Human Lispro (Humalog*) 0 units SUBCUT Q6HR [facility]; Protocol Last Admin: 12/04/19 05:43 Dose: Not Given Labetalol HCl (Trandate Iv*) 10 mg IV PUSH Q6H PRN PRN Reason: SBP > 185 Last Admin: 12/03/19 07:38 Dose: 10 mg Latanoprost (Xalatan 0.005%*) 1 drop RIGHT EYE 1700 [facility] Last Admin: 12/03/19 17:19 Dose: 1 drop Pantoprazole Sodium (Protonix Iv*) 40 mg IV Q24H [facility] Last Admin: 12/03/19 09:55 Dose: 40 mg Timolol Maleate (Timoptic 0.5% Opth*) 1 drop BOTH EYES BID [facility] Last Admin: 12/03/19 21:53 Dose: 1 drop Vital Signs - 8 hr 12/04/19 12/04/19 12/04/19 04:00 05:55 08:10 Temperature 97.6 F 97.7 F Pulse Rate 79 75 Respiratory 16 18 20 Rate Blood Pressure 125/60 137/70 (mmHg) O2 Sat by Pulse 97 100 Oximetry Oxygen Devices in Use Now: None Appearance: Elderly lady, appears older than stated age, sitting up in recliner in NAD Eyes: No Scleral Icterus Ears/Nose/Mouth/Throat: Mucous Membranes Moist Neck: Trachea Midline Respiratory: Symmetrical Chest Expansion and Respiratory Effort, Clear to Auscultation Cardiovascular: RRR - Normal S1 and S2 Neurological: - - AAOx2 (self and place), mild left facial weakness, mild dysarthria, strength 4/5 left arm, finger to nose dysmetria on the left Result Diagrams: 12/04/19 10:17 12/04/19 10:17 Microbiology and Other Data: Microbiology 12/01/19 23:19 Urine Culture - Preliminary Urine Klebsiella Pneumoniae Diagnostic Imaging: - MRI Brain without contrast: limited study. There are punctate foci of restricted diffusion within the right cerebral hemispheres, suggestive of subacute embolic infarcts. Diffuse involutional change. Stable nonspecific white matter changes. - CTA head and neck without contrast 12/02/19: No stenosis or occlusion. No large vessel stenosis or occlusion. - TTE: EF 55-60%. cavity size is normal. The atrium is mildly dilated. - EEG: This is an abnormal EEG due to the presence of diffuse slowing of the background and nearly continuous intermittent slowing over the right frontocentral region. Assess/Plan/Problems-Billing Assessment: Mrs Fonseca is a 64yo F with PMH of type 2 DM, diabetic retinopathy, glaucoma ( legally blind), diabetic neuropathy, diabetic nephropathy with CKD stage 3, TIA , glaucoma, who presented to ED with left arm weakness, found to have CVA, seizures, UTI, and uncontrolled diabetes. - Patient Problems (1) Metabolic encephalopathy Comment: - Multifactorial in the setting of uncontrolled DM, UTI, CVA, and seizures. - Improving, more alert and awake today. (2) Uncontrolled diabetes mellitus Comment: - Glucose 690 on admission. - A1c 10.5. - Continue Lantus, add prandial Lispro, and continue corrective Lispro (3) CVA (cerebral vascular accident) Comment: - MRI Brain without contrast "limited study. There are punctate foci of restricted diffusion within the right cerebral hemispheres, suggestive of subacute embolic infarcts. Diffuse involutional change. Stable nonspecific white matter changes." - Neurology input appreciated. - Echo reviewed - will ask Neuro if bubble study necessary. - Telemetry discontinued as per discussion with Neurology. - More awake today, passed Swallow evaluation. - Continue Plavix. - PT input appreciated. (4) Seizures Comment: - Secondary to stroke and uncontrolled DM. - Continue Levetiracetam. (5) UTI due to Klebsiella species Comment: - Will d/c levofloxacin and start Ceftriaxone. - Started on metronidazole overnight for possible BV. (6) DVT prophylaxis Comment: - Lovenox. (7) Full code status Comment: Status and Disposition: Inpatient. Will need STR.
[2019-12-04] MEDS: Brimonidine P 0.1%(NF) 1 DROP BTL RIGHT EYE SCH ×3 (11:04→21:43)
[2019-12-04] MEDS: Timolol 0.5% OPTH.SOL* BTL BOTH EYES SCH ×2 (11:12→21:35)
[2019-12-04] MEDS: Pantoprazole IV* 40 MG IV SCH (11:12)
[2019-12-04] MEDS: CMCS:Dorzolamide 2% OPTH (NF) 10 ML BTL RIGHT EYE SCH ×3 (11:13→21:35)
[2019-12-04 11:17] LABS: TSH (Thyroid Stimulating Horm) 2.5 mcIU/mL (0.34-5.60)
[2019-12-04 11:42] LABS: Calcium 8.7 mg/dL (8.6-10.3); Potassium 3.7 mmol/L (3.5-5.0)
[2019-12-04 11:48] LABS: BUN/Creatinine Ratio 20.1 (8-20); EGFR African American 34.6 (>60); EGFR Non-African American 28.6 (>60)
[2019-12-04] MEDS: Enoxaparin(*) 40 MG/0.4 ML SYR SUBCUT SCH (12:36)
[2019-12-04] MEDS ORDERED: Lactated Ringers 1000 ML Bag* 1,000 ML IV SCH (15:38)
--- NOTE | 2019-12-04 16:09 | CONSULT ---
Consult Consult: [facility] Inpatient Consult Note Date of Consult: 12/04/19 Reason for Consult: HHS with encephalopathy and seizure Reason for Admission: RMCA stroke ASSESSMENT: 64 yo F with complicated T2DM, now admitted for acute RMCA stroke and HHS. Her presentation suggests chronic hyperglycemia with microvascular disease that recently progressed to severe hyperglycemia and acute macrovascular disease. She is responding well to insulin this admission, however , with an estimated insulin requirement of 30-40 units/day. Vision loss is a significant barrier to care, although she is able to operate insulin pens on her own. PLAN: - increase Lantus insulin to 26 units QHS and continue this dose at discharge - continue Humalog sliding scale while inpatient - resume Victoza at discharge or change consider combination insulin + Victoza ( Xultophy or Soliqua) to avoid dosing errors at home - follow-up with Dr. Duncan SUBJECTIVE: History of Present Illness: 64 yo F with long-standing, insulin-deficient T2DM ( A1c >10% with retinopathy and neuropathy) CKD-3, DL, and GLENDY, now admitted for severe hyperglycemia and RMCA territory stroke with LUE weakness. See admission note for details. Patient has no recollection of the events leading up to admission and is an inadequate historian. She denies recent or provoking illness. This is her first admission for severe hyperglycemia. A1c has been generally <9 % for several years, most recently 6.5% in June 2019. She is followed closely by PCP ([place]) and reports adherence to current insulin regimen + Victoza. She was not aware of hyperglycemia and does not check BG at home. Past Medical History: 1. T2DM with neuropathy, retinopathy, nephropathy 2. Vision loss 3. PVD 4. CKD-3 Medications Prior to Admission: Clopidogrel TAB* [Plavix TAB*] 75 mg PO QAM 03/31/17 [History Confirmed 12/02/19 ] Gabapentin CAP(*) [Neurontin 300 CAP(*)] 300 mg PO BID 05/17/17 [History Confirmed 12/02/19] Montelukast Sodium TAB* [Singulair 10 MG TAB*] 10 mg PO BEDTIME 01/02/18 [ History Confirmed 12/02/19] Insulin Glargine,Hum.rec.anlog [Basaglar Kwikpen 100 inuts/ml 3 ml x 5 Pens] 20 units SUBCUT BEDTIME 03/10/19 [History Confirmed 12/02/19] Latanoprost 0.005%* [Xalatan 0.005%*] 1 drop RIGHT EYE 1700 03/10/19 [History Confirmed 12/02/19] Liraglutide (NF) [Victoza (NF)] 1.8 mg SUBCUT QAM 03/10/19 [History Confirmed ] Timolol 0.5% OPTH.LEIA* [Timoptic 0.5% Opth*] 1 drop BOTH EYES BID 03/10/19 [ History Confirmed 12/02/19] Brimonidine P 0.1%(NF) [Alphagan P 0.1% (NF)] 1 drop RIGHT EYE TID 06/08/19 [ History Confirmed 12/02/19] Chlorthalidone TAB* [Hygroton TAB*] 25 mg PO DAILY 06/08/19 [History Confirmed 12/02/19] Dorzolamide 2% OPTH (NF) [Trusopt 2% OPTH (NF)] 1 drop RIGHT EYE TID 06/08/19 [ History Confirmed 12/02/19] Insulin Aspart Prot/Insuln Asp [Novolog Mix 70/30 Prefill] 1 inj SC TID [History Confirmed 12/02/19] Lisinopril TAB* [Prinivil TAB 10 MG*] 40 mg PO QAM 08/04/19 [History Confirmed 12/02/19] Inpatient Medications: Brimonidine Tartrate (Alphagan P 0.1% (Nf)) 1 drop RIGHT EYE TID [facility] Last Admin: 12/04/19 15:28 Dose: Not Given Clopidogrel Bisulfate (Plavix Tab*) 75 mg PO DAILY [facility] Last Admin: 12/04/19 15:53 Dose: 75 mg Dextrose (D50w Syringe 50 Ml*) 12.5 gm IV PUSH .FOR FS < 60 - SS PRN PRN Reason: FS < 60 Dorzolamide HCl (Trusopt 2% Opth (Nf)) 1 drop RIGHT EYE TID [facility]; Protocol Last Admin: 12/04/19 15:29 Dose: 1 drop Enoxaparin Sodium (Lovenox(*)) 40 mg SUBCUT Q24H [facility] Last Admin: 12/04/19 12:36 Dose: 40 mg Levetiracetam (Keppra Iv Premix*) 500 mg in 100 mls @ 400 mls/hr IV Q12H [facility] Last Admin: 12/04/19 05:50 Dose: 400 mls/hr Ceftriaxone Sodium 1 gm/ (Sodium Chloride) 50 mls @ 100 mls/hr IVPB Q24H [facility] Sodium Chloride (Ns 0.9% 1000 Ml) 1,000 mls @ 75 mls/hr IV PER RATE [facility] Insulin Glargine (Lantus(*)) 20 units SUBCUT BEDTIME [facility] Last Admin: 12/03/19 21:51 Dose: 20 units Insulin Human Lispro (Humalog*) 5 units SUBCUT AC [facility] Insulin Human Lispro (Humalog*) 0 units SUBCUT ACHS [facility]; Protocol Labetalol HCl (Trandate Iv*) 10 mg IV PUSH Q6H PRN PRN Reason: SBP > 185 Last Admin: 12/03/19 07:38 Dose: 10 mg Latanoprost (Xalatan 0.005%*) 1 drop RIGHT EYE 1700 [facility] Last Admin: 12/03/19 17:19 Dose: 1 drop Metronidazole (Metronidazole Vaginal 0.75%*) 1 applic VAGINAL BEDTIME [facility] Stop: 12/10/19 21:01 Pantoprazole Sodium (Protonix Iv*) 40 mg IV Q24H [facility] Last Admin: 12/04/19 11:12 Dose: 40 mg Timolol Maleate (Timoptic 0.5% Opth*) 1 drop BOTH EYES BID [facility] Last Admin: 12/04/19 11:12 Dose: 1 drop Allergies/Intolerances: aspirin Allergy (Severe, Verified 03/17/19 11:24) Hives/Diff.Breathing/Itching Penicillins Allergy (Severe, Verified 03/17/19 11:24) Hives/Diff.Breathing/Itching tomato Allergy (Severe, Verified 03/17/19 11:24) Hives/Diff.Breathing/Itching levofloxacin [From Levaquin] Allergy (Intermediate, Verified 03/17/19 11:24) Itching Sulfa (Sulfonamide Antibiotics) Allergy (Verified 06/08/19 17:53) See Comment Renal failure Social History: Lives with and children. Not working due to illness. Denies alcohol and drugs. Distant smoking. Family History: Macrovascular disease, cervical cancer. Review of Systems: Vision loss. Abdominal bloating. 10 system review is otherwise negative. OBJECTIVE: Temp Pulse Resp BP Pulse Ox 97.0 F 80 20 160/98 96 12/04/19 15:45 12/04/19 15:45 12/04/19 15:45 12/04/19 15:45 12/04/19 15:45 General: alert, pleasant, oriented, no distress Ophth: Severe vision loss ENT: neck supple, no thyromegaly, no bruit is heard Chest: CTAB, no wheezing or crackles CV: RRR, no murmur Abdomen: soft, lower quadrant tenderness Extremities: no edema, distal pulses intact Skin: warm, dry, no rash Neuro: impaired light-touch sensation in extremities Psych: restricted affect, pleasant Labs: Glucose Results 12/02/19 21:00 324 20G 12/03/19 01:12 275 12/03/19 06:00 278 6L 12/03/19 11:52 231 6L 12/03/19 18:00 205 4L 12/03/19 21:00 174 20G + 2L 12/04/19 06:00 119 12/04/19 12:00 193 2L 12/04/19 16:55 176 WBC 8.4 10^3/uL (3.5-10.8) 12/04/19 10:17 RBC 3.81 10^6 /uL (3.70-4.87) 12/04/19 10:17 Hgb 10.4 g/dL (12.0-16.0) L 12/04/19 10:17 Hct 31 % (35-47) L 12/04/19 10:17 MCV 80 fL (80-97) 12/04/19 10:17 MCH 27 pg (27-31) 12/04/19 10:17 MCHC 34 g/dL (31-36) 12/04/19 10:17 RDW 14 % (10-15) 12/04/19 10:17 Plt Count 182 10^3/uL (150-450) 12/04/19 10:17 MPV 7.8 fL (7.4-10.4) 12/04/19 10:17 Neut % (Auto) 63.9 % 12/04/19 10:17 Lymph % (Auto) 26.6 % 12/04/19 10:17 [place] % (Auto) 7.2 % 12/04/19 10:17 Eos % (Auto) 1.4 % 12/04/19 10:17 Baso % (Auto) 0.9 % 12/04/19 10:17 Absolute Neuts (auto) 5.4 10^3/ul (1.5-7.7) 12/04/19 10:17 Absolute Lymphs (auto) 2.2 10^3/ul (1.0-4.8) 12/04/19 10:17 Absolute Monos (auto) 0.6 10^3/ul (0-0.8) 12/04/19 10:17 Absolute Eos (auto) 0.1 10^3/ul (0-0.6) 12/04/19 10:17 Absolute Basos (auto) 0.1 10^3/ul (0-0.2) 12/04/19 10:17 Absolute Nucleated RBC 0.0 10^3/ul 12/04/19 10:17 Nucleated RBC % 0.0 12/04/19 10:17 ESR 90 mm/Hr (0-29) H 12/03/19 04:04 INR (Anticoag Therapy) 1.02 (0.82-1.09) 12/01/19 21:44 APTT 32.5 seconds (26.0-38.0) 12/01/19 21:44 VBG pH 7.30 (7.32-7.43) L 12/01/19 22:40 VBG pCO2 57 mmHg (41-51) H 12/01/19 22:40 VBG pO2 38.0 mmHg (35-45) 12/01/19 22:40 VBG HCO3 24.5 mmol/L (24-28) 12/01/19 22:40 VBG O2 Saturation 70.3 % (70-80) 12/01/19 22:40 VBG Base Excess 0.4 mmol/L (0.0-4.0) 12/01/19 22:40 Sodium 141 mmol/L (135-145) 12/04/19 10:17 Potassium 3.7 mmol/L (3.5-5.0) 12/04/19 10:17 Chloride 108 mmol/L (101-111) 12/04/19 10:17 Carbon Dioxide 27 mmol/L (22-32) 12/04/19 10:17 Anion Gap 6 mmol/L (2-11) 12/04/19 10:17 BUN 36 mg/dL (6-24) H 12/04/19 10:17 Creatinine 1.79 mg/dL (0.51-0.95) H 12/04/19 10:17 Est GFR ( Amer) 34.6 (>60) 12/04/19 10:17 Est GFR (Non-Af Amer) 28.6 (>60) 12/04/19 10:17 BUN/Creatinine Ratio 20.1 (8-20) H 12/04/19 10:17 Glucose 185 mg/dL (70-100) H 12/04/19 10:17 POC Glucose (mg/dL) 176 mg/dL (70-100) H 12/04/19 16:52 Glucose Meter Confirm 422 mg/dL (70-100) H 12/02/19 09:39 Hemoglobin A1c 10.5 % (4.0-5.6) H 12/02/19 21:44 Calcium 8.7 mg/dL (8.6-10.3) 12/04/19 10:17 Magnesium 1.6 mg/dL (1.9-2.7) L 12/03/19 04:04 Total Bilirubin 0.70 mg/dL (0.2-1.0) 12/01/19 21:44 AST 13 U/L (13-39) 12/01/19 21:44 ALT 11 U/L (7-52) 12/01/19 21:44 Alkaline Phosphatase 111 U/L (34-104) H 12/01/19 21:44 Total Creatine Kinase 73 U/L (10-223) 12/02/19 09:39 Troponin I 0.01 ng/mL (<0.03) 12/01/19 21:44 C-Reactive Protein 45.44 mg/L (<8.01) H 12/03/19 04:04 Total Protein 7.0 g/dL (6.4-8.9) 12/01/19 21:44 Albumin 3.3 g/dL (3.2-5.2) 12/01/19 21:44 Globulin 3.7 g/dL (2-4) 12/01/19 21:44 Albumin/Globulin Ratio 0.9 (1-3) L 12/01/19 21:44 Triglycerides 558 mg/dL 12/01/19 21:44 Cholesterol 297 mg/dL 12/01/19 21:44 LDL Cholesterol mg/dL 12/01/19 21:44 LDL Cholesterol Direct 128 mg/dL 12/01/19 21:44 HDL Cholesterol 37.6 mg/dL 12/01/19 21:44 Vitamin B12 508 pg/mL (180-914) 12/04/19 10:17 TSH 2.50 mcIU/mL (0.34-5.60) 12/04/19 10:17 Urine Color Yellow 12/01/19 23:19 Urine Appearance Cloudy 12/01/19 23:19 Urine pH 7.0 (5-9) 12/01/19 23:19 Ur Specific [place] 1.013 (1.010-1.030) 12/01/19 23:19 Urine Protein 2+(100 mg/dl) (Negative) A 12/01/19 23:19 Urine Ketones Negative (Negative) 12/01/19 23:19 Urine Blood 1+ (Negative) A 12/01/19 23:19 Urine Nitrate Negative (Negative) 12/01/19 23:19 Urine Bilirubin Negative (Negative) 12/01/19 23:19 Urine Urobilinogen Negative (Negative) 12/01/19 23:19 Ur Leukocyte Esterase 3+ (Negative) A 12/01/19 23:19 Urine WBC (Auto) 3+(>20/hpf) (Absent) A 12/01/19 23:19 Urine RBC (Auto) 3+(>10/hpf) (Absent) A 12/01/19 23:19 Ur Squamous Epith Cells Present (Absent) A 12/01/19 23:19 Urine Bacteria Absent (Absent) 12/01/19 23:19 Urine Glucose 3+(>=500 mg/dl) (Negative) A 12/01/19 23:19
[2019-12-04] MEDS ORDERED: cefTRIAXone(*) 1 GM in NS 0.9% 50 ML* 50 ML IVPB SCH (17:00)
[2019-12-04] MEDS: NS 0.9% 1000 ML** 1,000 ML IV SCH (17:33)
[2019-12-04] MEDS: Latanoprost 0.005%* 2.5 ml BTL RIGHT EYE SCH (17:33)
[2019-12-04] MEDS: metroNIDAZOLE VAGINAL 0.75%* 70 GM VAGINAL SCH (21:36)
[2019-12-04] MEDS: Insulin GLARGINE(*) 1 UNITS UNIT SUBCUT SCH (22:39)
[2019-12-05] MEDS: levETIRAcetam 500 MG IVPREMIX* 500 MG/100 ML BAG IV SCH (05:09)
[2019-12-05 06:23] LABS: ABS Eosinophils 0.1 10^3/ul (0-0.6); ABS Lymphocytes 1.5 10^3/ul (1.0-4.8); ABS Monocytes 0.5 10^3/ul (0-0.8); ABS Neutrophils 4.7 10^3/ul (1.5-7.7); Eosinophil % 1.5 %; Hematocrit 29 % (35-47); Hemoglobin 10.2 g/dL (12.0-16.0); Lymphocyte % 22.2 %; Mean Corpuscular HGB Conc 35 g/dL (31-36); Mean Corpuscular Hemoglobin 28 pg (27-31); Mean Corpuscular Volume 79 fL (80-97); Mean Platelet Volume 7.8 fL (7.4-10.4); Platelet Count 177 10^3/uL (150-450); Red Blood Count 3.71 10^6 /uL (3.70-4.87); Red Cell Distribution Width 14 % (10-15)
[2019-12-05 06:44] LABS: BUN/Creatinine Ratio 19.5 (8-20); C Reactive Protein 23.41 mg/L (<8.01); Calcium 8.7 mg/dL (8.6-10.3); EGFR Non-African American 30.6 (>60); Potassium 3.3 mmol/L (3.5-5.0)
[2019-12-05 07:30] LABS: Erythrocyte Sed Rate 95 mm/Hr (0-29)
[2019-12-05] MEDS: Clopidogrel TAB* 75 MG PO SCH (08:32)
[2019-12-05] MEDS: Insulin LISPRO* 1 UNITS UNIT SUBCUT SCH ×7 (08:32→21:27)
[2019-12-05] MEDS: Timolol 0.5% OPTH.SOL* BTL BOTH EYES SCH ×2 (08:32→20:53)
[2019-12-05] MEDS: CMCS:Dorzolamide 2% OPTH (NF) 10 ML BTL RIGHT EYE SCH ×3 (08:32→20:53)
[2019-12-05] MEDS: Brimonidine P 0.1%(NF) 1 DROP BTL RIGHT EYE SCH ×3 (08:33→21:28)
[2019-12-05] MEDS: NS 0.9% 1000 ML** 1,000 ML IV SCH (11:36)
--- NOTE | 2019-12-05 12:03 | PN ---
Subjective Date of Service: 12/05/19 Interval History: HOSPITALIST PROGRESS NOTE Patient seen and examined at bedside. Case reviewed and d/w Rory Chappell RN. She offers no new complaints today. States her vision is much improved. Family History: Unchanged from Admission Social History: Unchanged from Admission Past Medical History: Unchanged from Admission Objective Active Medications: Brimonidine Tartrate (Alphagan P 0.1% (Nf)) 1 drop RIGHT EYE TID [facility] Last Admin: 12/05/19 08:33 Dose: Not Given Clopidogrel Bisulfate (Plavix Tab*) 75 mg PO DAILY [facility] Last Admin: 12/05/19 08:32 Dose: 75 mg Dextrose (D50w Syringe 50 Ml*) 12.5 gm IV PUSH .FOR FS < 60 - SS PRN PRN Reason: FS < 60 Dorzolamide HCl (Trusopt 2% Opth (Nf)) 1 drop RIGHT EYE TID [facility]; Protocol Last Admin: 12/05/19 08:32 Dose: 1 drop Enoxaparin Sodium (Lovenox(*)) 40 mg SUBCUT Q24H [facility] Last Admin: 12/04/19 12:36 Dose: 40 mg Levetiracetam (Keppra Iv Premix*) 500 mg in 100 mls @ 400 mls/hr IV Q12H [facility] Last Admin: 12/05/19 05:09 Dose: 400 mls/hr Ceftriaxone Sodium 1 gm/ (Sodium Chloride) 50 mls @ 100 mls/hr IVPB Q24H [facility] Last Admin: 12/04/19 17:33 Dose: 100 mls/hr Sodium Chloride (Ns 0.9% 1000 Ml) 1,000 mls @ 75 mls/hr IV PER RATE [facility] Last Admin: 12/05/19 11:36 Dose: 75 mls/hr Insulin Glargine (Lantus(*)) 20 units SUBCUT BEDTIME [facility] Last Admin: 12/04/19 22:39 Dose: 20 units Insulin Human Lispro (Humalog*) 5 units SUBCUT AC [facility] Last Admin: 12/05/19 08:32 Dose: 5 units Insulin Human Lispro (Humalog*) 0 units SUBCUT ACHS [facility]; Protocol Last Admin: 12/05/19 08:33 Dose: 2 units Labetalol HCl (Trandate Iv*) 10 mg IV PUSH Q6H PRN PRN Reason: SBP > 185 Last Admin: 12/03/19 07:38 Dose: 10 mg Latanoprost (Xalatan 0.005%*) 1 drop RIGHT EYE 1700 [facility] Last Admin: 12/04/19 17:33 Dose: 1 drop Metronidazole (Metronidazole Vaginal 0.75%*) 1 applic VAGINAL BEDTIME [facility] Stop: 12/10/19 21:01 Last Admin: 12/04/19 21:36 Dose: 1 applic Pantoprazole Sodium (Protonix Iv*) 40 mg IV Q24H [facility] Last Admin: 12/04/19 11:12 Dose: 40 mg Timolol Maleate (Timoptic 0.5% Opth*) 1 drop BOTH EYES BID [facility] Last Admin: 12/05/19 08:32 Dose: 1 drop Vital Signs - 8 hr 12/05/19 12/05/19 12/05/19 04:00 07:46 08:00 Temperature 97.7 F 98.8 F Pulse Rate 89 80 Respiratory 16 18 18 Rate Blood Pressure 131/59 137/56 (mmHg) O2 Sat by Pulse 99 97 Oximetry 12/05/19 11:38 Temperature 97.7 F Pulse Rate 76 Respiratory 20 Rate Blood Pressure 142/60 (mmHg) O2 Sat by Pulse 100 Oximetry Oxygen Devices in Use Now: None Appearance: Pleasant lady sitting up in recliner in NAD Eyes: No Scleral Icterus Ears/Nose/Mouth/Throat: Mucous Membranes Moist Neck: Trachea Midline Respiratory: Symmetrical Chest Expansion and Respiratory Effort, Clear to Auscultation Cardiovascular: RRR - Normal S1 and S2 Abdominal: NL Sounds; No Tenderness; No Distention Neurological: - - AAOx2(self and place), mild left hemiparesis, mild dysarthria Result Diagrams: 12/05/19 06:10 12/05/19 06:10 Microbiology and Other Data: Microbiology 12/01/19 23:19 Urine Culture - Preliminary Urine Klebsiella Pneumoniae Diagnostic Imaging: - MRI Brain without contrast: limited study. There are punctate foci of restricted diffusion within the right cerebral hemispheres, suggestive of subacute embolic infarcts. Diffuse involutional change. Stable nonspecific white matter changes. - CTA head and neck without contrast 12/02/19: No stenosis or occlusion. No large vessel stenosis or occlusion. - TTE: EF 55-60%. cavity size is normal. The atrium is mildly dilated. - EEG: This is an abnormal EEG due to the presence of diffuse slowing of the background and nearly continuous intermittent slowing over the right frontocentral region. Assess/Plan/Problems-Billing Assessment: Mrs Fonseca is a 64yo F with PMH of type 2 DM, diabetic retinopathy, glaucoma ( legally blind), diabetic neuropathy, diabetic nephropathy with CKD stage 3, TIA , glaucoma, who presented to ED with left arm weakness, found to have CVA, seizures, UTI, and uncontrolled diabetes. - Patient Problems (1) Metabolic encephalopathy Comment: - Multifactorial in the setting of uncontrolled DM, UTI, CVA, and seizures. - Improving. (2) Uncontrolled diabetes mellitus Comment: - Glucose 690 on admission. - A1c 10.5. - Endocrinology consult appreciated - increase Lantus to 26 units, continue Lispro (3) CVA (cerebral vascular accident) Comment: - MRI Brain without contrast "limited study. There are punctate foci of restricted diffusion within the right cerebral hemispheres, suggestive of subacute embolic infarcts. Diffuse involutional change. Stable nonspecific white matter changes." - Neurology input appreciated. - Echo reviewed - will ask Neuro if bubble study necessary. - Telemetry discontinued as per discussion with Neurology. - More awake today, passed Swallow evaluation. - Continue Plavix. - PT input appreciated. (4) Seizures Comment: - Secondary to stroke and uncontrolled DM. - Change Levetiracetam to PO. Plan to continue it as outpatient with Neuro f/u to discontinue it in 1-2 months. (5) Bacteremia due to Gram-positive bacteria Comment: - 1 bottle BC growing Gram positive - continue Ceftriaxone and consult ID. (6) UTI due to Klebsiella species Comment: - Continue Ceftriaxone. - Started on metronidazole for possible BV. (7) Elevated sed rate Comment: - May be elevated in the setting of acute infection. CRP elevated on admission as well, now trending down. - If ESR remains elevated, will need w/u for other etiologies - malignancy, auto immune process. Should have it repeated as outpatient. (8) DVT prophylaxis Comment: - Lovenox. (9) Full code status Comment: Status and Disposition: Inpatient. Will need STR.
[2019-12-05] MEDS: Potassium Chlor TAB* 20 MEQ TAB.ER PO SCH ×2 (12:30→17:03)
[2019-12-05] MEDS: Pantoprazole IV* 40 MG IV SCH (12:30)
[2019-12-05] MEDS: Enoxaparin(*) 40 MG/0.4 ML SYR SUBCUT SCH (12:30)
[2019-12-05 13:36] LABS: Trichomonas vag NAA Female Positive (Negative)
[2019-12-05 13:46] LABS: Chlamydia trachomatis NAA Negative (Negative); Neisseria gonorrhoeae (GC) NAA Negative (Negative)
--- NOTE | 2019-12-05 14:10 | CONS ---
CONSULTATION REPORT: DATE OF CONSULT: 12/05/19 REQUESTING PHYSICIAN: Dr. Cobb. CONSULTING SERVICE: Infectious Disease. REASON FOR CONSULTATION: Cystitis. IMPRESSION: 1. Klebsiella cystitis, no flank or abdominal pain to suggest pyelonephritis. 2. PENICILLIN allergy caused hives. SULFA and LEVAQUIN, unknown reaction. 3. Her fevers resolved. 4. Her cystitis symptoms are resolved. 5. One of 3 bottles growing Staphylococcus epidermidis, which is a contaminant. 6. Seizure and cerebrovascular accident. 7. Diabetes mellitus. RECOMMENDATION: Cephalexin 500 mg by mouth twice a day for 3 more days to complete 7 days of treatment. HISTORY OF PRESENT ILLNESS: This is a 64-year-old diabetic woman brought to the hospital with change in mental status and convulsive episode, been treated for seizure, imaging suggesting embolic stroke. Blood cultures 1 of 3 bottles gram- positive cocci in clusters, Staph aureus negative by PCR and growing Staph epidermidis. She endorses a few days of dysuria and frequency before this episode occurred. Urinalysis showed leukocyte esterase, white cells, red cells. Blood culture growing Klebsiella pneumoniae. Fevers resolved on initially Levaquin and ceftriaxone, which she is tolerating well. She did have speech and swallow evaluation and is taking oral medications. Does not recall recent urinary tract infection last few months, but has had them from time to time last year. No prosthetic material present including the urinary tract. She has had no cough or trouble breathing, and her chest x-ray here is unremarkable. PAST MEDICAL HISTORY: 1. Type 2 diabetes mellitus 2. Diabetic retinopathy. 3. Chronic kidney disease. 4. Subacute stroke with left arm weakness. 5. Glaucoma. 6. Peripheral vascular disease. 7. Hyperlipidemia. 8. Hypertension. 9. Obstructive sleep apnea. MEDICATIONS: 1. Brimonidine right eye. 2. Plavix. 3. Dorzolamide drops right eye. 4. Enoxaparin. 5. Insulin glargine. 6. Insulin lispro. 7. Latanoprost right eye. 8. Keppra. 9. Flagyl intravaginal dosing. 10. Pantoprazole. 11. Ceftriaxone 1 g a day. ALLERGIES: ASPIRIN, PENICILLIN, SULFA, and LEVAQUIN. FAMILY HISTORY: No recurrent infections. SOCIAL HISTORY: She lives in [place] with her family. No sick contacts. No travel. REVIEW OF SYSTEMS: All negative except as noted above to 12-point review. PHYSICAL EXAM: Vital Signs: Temperature 36.5, heart rate 70, respiratory rate 20, blood pressure 140/60, oxygen saturation 100% on room air. General: She is awake, not in distress. Neurologic: She is oriented x3. Follows commands. Moves all extremities. HEENT: There is no conjunctival hemorrhage. Oropharynx without lesions. Neck: Neck is supple without mass. Heart is regular rate and rhythm without murmurs, rubs, or gallops. Abdomen: Soft, nontender, nondistended. There is no flank tenderness to palpation. Skin: There is no rash or splinter hemorrhage. LAB DATA: White blood cell count 7, hemoglobin 10, platelets 177. Creatinine 1.7. CRP 23, down from 45. Please see impression and recommendations outlined above. Thank you for asking me to see Ms. Fonseca in consultation. [id number]/[facility] [place] #: [id number] MTDSumit
--- NOTE | 2019-12-05 14:14 | PN ---
Subjective Date of Service: 12/05/19 Length of Stay: 3 Days Neurology is following for stroke and seizures. Interval History: She is happy this morning that she can see better. She denied any left arm weakness. She has recovered well. She stood up with one person assist. Review of Systems: Denied CP, SOB, or palpitations. Family History: Unchanged from Admission Social History: Unchanged from Admission Past Medical History: Unchanged from Admission Objective Active Medications: Brimonidine Tartrate (Alphagan P 0.1% (Nf)) 1 drop RIGHT EYE TID [facility] Last Admin: 12/05/19 13:39 Dose: Not Given Cephalexin HCl (Keflex Cap*) 500 mg PO BID [facility] Clopidogrel Bisulfate (Plavix Tab*) 75 mg PO DAILY [facility] Last Admin: 12/05/19 08:32 Dose: 75 mg Dextrose (D50w Syringe 50 Ml*) 12.5 gm IV PUSH .FOR FS < 60 - SS PRN PRN Reason: FS < 60 Dorzolamide HCl (Trusopt 2% Opth (Nf)) 1 drop RIGHT EYE TID [facility]; Protocol Last Admin: 12/05/19 14:00 Dose: 1 drop Enoxaparin Sodium (Lovenox(*)) 40 mg SUBCUT Q24H [facility] Last Admin: 12/05/19 12:30 Dose: 40 mg Insulin Glargine (Lantus(*)) 26 units SUBCUT BEDTIME [facility] Insulin Human Lispro (Humalog*) 5 units SUBCUT AC [facility] Last Admin: 12/05/19 12:30 Dose: 5 units Insulin Human Lispro (Humalog*) 0 units SUBCUT ACHS [facility]; Protocol Last Admin: 12/05/19 12:31 Dose: 1 units Latanoprost (Xalatan 0.005%*) 1 drop RIGHT EYE 1700 [facility] Last Admin: 12/04/19 17:33 Dose: 1 drop Levetiracetam (Keppra Tab*) 500 mg PO 0500,1700 [facility] Metronidazole (Metronidazole Vaginal 0.75%*) 1 applic VAGINAL BEDTIME [facility] Stop: 12/10/19 21:01 Last Admin: 12/04/19 21:36 Dose: 1 applic Pantoprazole Sodium (Protonix Iv*) 40 mg IV Q24H [facility] Last Admin: 12/05/19 12:30 Dose: 40 mg Potassium Chloride (Klor Con Er Tab*) 40 meq PO Q4H [facility] Stop: 12/05/19 17:01 Last Admin: 12/05/19 12:30 Dose: 40 meq Timolol Maleate (Timoptic 0.5% Opth*) 1 drop BOTH EYES BID [facility] Last Admin: 12/05/19 08:32 Dose: 1 drop Vital Signs 12/04/19 12/04/19 12/05/19 15:45 20:00 00:00 Temperature 97.0 F 97.9 F 97.6 F Pulse Rate 80 79 73 Respiratory 20 20 16 Rate Blood Pressure 160/98 169/74 144/62 (mmHg) O2 Sat by Pulse 96 100 99 Oximetry 12/05/19 12/05/19 12/05/19 04:00 07:46 08:00 Temperature 97.7 F 98.8 F Pulse Rate 89 80 Respiratory 16 18 18 Rate Blood Pressure 131/59 137/56 (mmHg) O2 Sat by Pulse 99 97 Oximetry 12/05/19 11:38 Temperature 97.7 F Pulse Rate 76 Respiratory 20 Rate Blood Pressure 142/60 (mmHg) O2 Sat by Pulse 100 Oximetry Intake and Output Last 24 Hours 12/03/19 12/04/19 12/05/19 12/06/19 06:59 06:59 06:59 06:59 Intake Total 65241.8 1025.8 2752 620 Output Total 3130 1040 2025 300 Balance 9979.8 -14.2 727 320 Weight 171 lb 11.841 oz 171 lb 11.841 oz Intake: IV Fluids 1849 917.8 2552 LR 0346 929 5479 NS 126 24.8 IVPB 37377 108 200 ABX - CEFTRIAXONE 50 ABX - FLAGYL 100 ABX - LEVOFLOXACIN 50 [place] 814 [place] [address] abx 217 50 acetaminophen 211 magnesium 58 Medicated IV 15.8 insulin 15.8 Oral 0 0 620 Output: Urine 400 2025 300 Carter 3055 640 Straight Cath 75 Other: Estimated Void Large # Bowel Movements 0 1 Estimated Stool Amount Medium # Voids 1 1 Oxygen Devices in Use Now: None Neurology Exam: General: Ill appearing obese female in no distress. She is requesting water. 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 She is alert and oriented to self and place. Speech: Mild-moderate dysarthria Cranial Nerve: PERRL, EOM intact, VFF, no nystagmus, mild left facial droop. Motor: 5/5 throughout. Normal tone. Sensation: intact to LT/PP bilaterally upper and lower extremities Finger to nose dysmetria on the left. Gait: deferred Result Diagrams: 12/05/19 06:10 12/05/19 06:10 Additional Lab and Data: Labs, imaging, and other diagnostic testing: Glucose on presentation: 690. Current glucose: 291. Creatinine: 1.85. BUN: 35. Sodium: 130 to now at 137. CRP: 45.44. ESR: 90 Urinalysis: UR Leukocyte Esterase: 3, Urine WBC: 3 Urine culture: positive for Klebsiella Pneumoniae. Microbiology and Other Data: Microbiology 12/01/19 23:19 Urine Culture - Preliminary Urine Klebsiella Pneumoniae Diagnostic Imaging: - MRI Brain without contrast: limited study. There are punctate foci of restricted diffusion within the right cerebral hemispheres, suggestive of subacute embolic infarcts. Diffuse involutional change. Stable nonspecific white matter changes. - CTA head and neck without contrast 12/02/19: No stenosis or occlusion. No large vessel stenosis or occlusion. - TTE: EF 55-60%. cavity size is normal. The atrium is mildly dilated. - EEG: This is an abnormal EEG due to the presence of diffuse slowing of the background and nearly continuous intermittent slowing over the right frontocentral region. Assessment/Plan Ms. Yue Fonseca is a 64-year-old female with a past medical history significant for uncontrolled insulin-dependent DMII with a recent hemoglobin A1C of 10, CKD stage 3, hyperlipidemia, diabetic retinopathy who is legally blind, diabetic neuropathy, reported history of TIA with symptoms of visual disturbance and transient left arm weakness, obstructive sleep apnea, who presented to [facility] on 12/02/2019 with an episode of shaking that was thought to be related to seizures. She was found to have an ischemic stroke in the right hemisphere and severe hyperglycemia. 1. Acute metabolic encephalopathy secondary to hyperglycemia (HHS). Resolved. 2. Provoked seizures secondary to severe hyperglycemia and stroke. The semiology of head deviation towards the left and left arm shaking localizes to the right hemisphere. 3. Acute multiple punctate ischemic infarction in the right middle cerebral artery vascular distribution. Most likely secondary to her morbidities increasing her risk for atherosclerotic disease (eg, severe hyperglycemia). 4. K. Pneumoniae UTI 5. Suspected bacteremia. Recommendations: - Continue Plavix. - Stroke education provided - Neuro checks every 4 hours - Continue Plavix 75 mg daily. - Defer antibiotics control to the primary team. - Diabetic control will reduce her stroke risk. No need for more antiplatelet therapy. - On levetirecetam 500 mg twice daily. Continue this for one month. - Agree with IV fluids - PT/OT/ASSISTANT PROFESSOR OF ART to evaluate and treat. Advance diet per ASSISTANT PROFESSOR OF ART recommendations. - Fall precautions - DVT prophylaxis: Enoxaprin - There is no indication for anticoagulation therapy. She will need a loop recorder as an outpatient. She will need rehabilitation. I will sign off. Follow-up with neurology in one month.
[2019-12-05] MEDS ORDERED: levETIRAcetam TAB* 500 MG PO SCH (17:00)
[2019-12-05] MEDS: Latanoprost 0.005%* 2.5 ml BTL RIGHT EYE SCH (17:03)
[2019-12-05] MEDS: LORazepam TAB(*) 0.5 MG PO PRN ×2 (18:45→18:50)
[2019-12-05] MEDS ORDERED: LORazepam INJ* 2 MG/ML 1 ML VIAL IV PUSH ONE (19:33)
[2019-12-05] MEDS ORDERED: Lorazepam PYXIS KEY PRN (19:33)
[2019-12-05] MEDS ORDERED: Lorazepam PYXIS KEY ONE (19:41)
[2019-12-05] MEDS ORDERED: Haloperidol INJ IV/IM* 5 MG/ML AMP IM ONE (20:06)
[2019-12-05] MEDS ORDERED: Valproic Acid IV(*) 500 MG in NS 0.9% 100 ML* 100 ML IVPB ONE (20:21)
--- NOTE | 2019-12-05 20:26 | PN ---
Hospitalist Progress Note Date of Service: 12/05/19 Called for increasing agitation. One time dose of iv ativan given. Noted that patient is on keppra ? if this is causing increasing agitation she was given keppra at 1700. discussed with neurology d/c keppra started depakote one time dose 500 mg if tolerates well can consider continuing in am.
[2019-12-05] MEDS: Cephalexin CAP* 500 MG PO SCH (20:50)
[2019-12-05] MEDS ORDERED: Insulin GLARGINE(*) 1 UNITS UNIT SUBCUT SCH (21:00)
[2019-12-06] MEDS: LORazepam TAB(*) 0.5 MG PO PRN (02:27)
[2019-12-06] MEDS ORDERED: Haloperidol INJ IV/IM* 5 MG/ML AMP IM ONE ×2 (02:53→03:14)
[2019-12-06] MEDS: metroNIDAZOLE VAGINAL 0.75%* 70 GM VAGINAL SCH ×2 (03:57→22:12)
[2019-12-06 07:06] LABS: BUN/Creatinine Ratio 15.6 (8-20); Calcium 8.4 mg/dL (8.6-10.3); EGFR African American 34.4 (>60); EGFR Non-African American 28.4 (>60); Potassium 3.9 mmol/L (3.5-5.0)
[2019-12-06] MEDS: Insulin LISPRO* 1 UNITS UNIT SUBCUT SCH ×7 (07:59→22:01)
[2019-12-06 08:06] LABS: Hematocrit 27 % (35-47); Hemoglobin 9.1 g/dL (12.0-16.0); Mean Corpuscular HGB Conc 34 g/dL (31-36); Mean Corpuscular Hemoglobin 27 pg (27-31); Mean Corpuscular Volume 81 fL (80-97); Red Blood Count 3.33 10^6 /uL (3.70-4.87); Red Cell Distribution Width 14 % (10-15); White Blood Count 5.9 10^3/uL (3.5-10.8)
[2019-12-06 08:09] LABS: ABS Basophils 0.1 10^3/ul (0-0.2); ABS Eosinophils 0.1 10^3/ul (0-0.6); ABS Lymphocytes 2.1 10^3/ul (1.0-4.8); ABS Monocytes 0.5 10^3/ul (0-0.8); ABS Neutrophils 3.1 10^3/ul (1.5-7.7); Eosinophil % 2.2 %; Lymphocyte % 36.2 %
[2019-12-06 08:10] LABS: Platelet Count Platelets clumped. 10^3/uL (150-450)
[2019-12-06] MEDS: Cephalexin CAP* 500 MG PO SCH ×2 (08:10→22:04)
[2019-12-06] MEDS: Clopidogrel TAB* 75 MG PO SCH (08:10)
[2019-12-06] MEDS: CMCS:Dorzolamide 2% OPTH (NF) 10 ML BTL RIGHT EYE SCH ×3 (08:12→22:04)
[2019-12-06] MEDS: Timolol 0.5% OPTH.SOL* BTL BOTH EYES SCH ×2 (08:12→22:04)
[2019-12-06] MEDS: Brimonidine P 0.1%(NF) 1 DROP BTL RIGHT EYE SCH ×3 (08:14→22:04)
[2019-12-06] MEDS ORDERED: NS 0.45% 1000 ML BAG* 1,000 ML IV SCH (10:00)
[2019-12-06] MEDS: Pantoprazole IV* 40 MG IV SCH (11:14)
[2019-12-06] MEDS: Enoxaparin(*) 40 MG/0.4 ML SYR SUBCUT SCH (11:14)
--- NOTE | 2019-12-06 13:53 | PN ---
Progress Note - Progress Note Date of Service: 12/06/19 SOAP: Subjective: CC: Cystitis HPI: Ms. Fonseca is a 64 yo female DM2, diabetic retinopathy, diabetic neuropathy, arthritis, CKD, CVA, glaucoma, PVD, HLD, HTN, and GLENDY who presented to the hospital with concern for AMS and convulsive episode. Denies any urinary symptoms, fever, chills, nausea, vomiting, or diarrhea. She has no concerns with the right foot. Objective: Vital Signs - 8 hr 12/06/19 12/06/19 07:52 08:00 Temperature 98.4 F Pulse Rate 70 Respiratory 16 16 Rate Blood Pressure 151/64 (mmHg) O2 Sat by Pulse 98 Oximetry Physical Exam: General: NAD, laying in bed Neurological: Alert and Oriented HEENT: Moist MM Cardiovascular: Heart rate regular Respiratory: Lung sounds clear Abdominal: Bowel sounds present; ABD soft, non tender and non distended MSK: No tenderness with palpation of the back Skin: No rash. There is dry skin over the right 5th ray healed incision site Laboratory Results - last 24 hr 12/04/19 12/04/19 12/05/19 00:03 10:17 16:30 POC Glucose (mg/dL) 75 Levetiracetam 23.6 C.trachomatis (Amp Det) Negative N.gonorrhoeae (Amp Det) Negative T.vaginalis (Amp Det) Positive A 12/05/19 12/06/19 12/06/19 21:20 06:40 06:40 WBC 5.9 RBC 3.33 L Hgb 9.1 L Hct 27 L MCV 81 MCH 27 MCHC 34 RDW 14 Plt Count Platelets clumped. H MPV Not Reportable Neut % (Auto) 52.2 Lymph % (Auto) 36.2 [place] % (Auto) 8.3 Eos % (Auto) 2.2 Baso % (Auto) 1.1 Absolute Neuts (auto) 3.1 Absolute Lymphs (auto) 2.1 Absolute Monos (auto) 0.5 Absolute Eos (auto) 0.1 Absolute Basos (auto) 0.1 Absolute Nucleated RBC 0.0 Neutrophils % 58.0 Lymphocytes % 32.0 Monocytes % 8.0 Eosinophils % 2.0 Nucleated RBC % 0.0 Normal RBC Morphology Normal Sodium 146 H Potassium 3.9 Chloride 116 H Carbon Dioxide 24 Anion Gap 6 BUN 28 H Creatinine 1.80 H Est GFR ( Amer) 34.4 Est GFR (Non-Af Amer) 28.4 BUN/Creatinine Ratio 15.6 Glucose 112 H POC Glucose (mg/dL) 249 H Calcium 8.4 L Microbiology 12/03/19 04:46 Aerobic Blood Culture - Final Blood Venous Not Reportable Anaerobic Blood Culture - Final Not Reportable Blood Culture - Final Staphylococcus Epidermidis Blood MRSA/MSSA (PCR) - Final Mrsa Negative S.aureus Negative 12/02/19 17:23 Blood Culture - Preliminary Blood Venous No Growth Day 3 12/01/19 23:19 Urine Culture - Final Urine Klebsiella Pneumoniae Assessment: 1. UTI. Urine culture with klebsiella. Blood cultures with 1/3 positive for staph epi, suspect this represents a contaminant. Afebrile and no leukocytosis. 2. DM2 with CKD, diabetic retinopathy, and peripheral neuropathy. 3. CVA. 4. PCN, sulfa, and Levaquin allergies. 5. History of right 5th toe chronic osteomyelitis. S/P partial right foot amputation in June 2019. Wound cultures at that time with MRSA. surgical site has healed well. Plan: Continue cephalexin 500 mg BID for 2 more days to complete a 7 day course of ABX.
--- NOTE | 2019-12-06 14:36 | PN ---
Subjective Date of Service: 12/06/19 Interval History: Pt was agitated last night, received Haldol and Keppra was substituted with Depakote. today in late AM, doing well, ate breakfast and is cooperative Family History: Unchanged from Admission Social History: Unchanged from Admission Past Medical History: Unchanged from Admission Objective Active Medications: Brimonidine Tartrate (Alphagan P 0.1% (Nf)) 1 drop RIGHT EYE TID [facility] Last Admin: 12/06/19 08:14 Dose: Not Given Cephalexin HCl (Keflex Cap*) 500 mg PO BID [facility] Stop: 12/07/19 23:59 Last Admin: 12/06/19 08:10 Dose: 500 mg Clopidogrel Bisulfate (Plavix Tab*) 75 mg PO DAILY [facility] Last Admin: 12/06/19 08:10 Dose: 75 mg Dextrose (D50w Syringe 50 Ml*) 12.5 gm IV PUSH .FOR FS < 60 - SS PRN PRN Reason: FS < 60 Last Admin: 12/06/19 11:26 Dose: 12.5 gm Divalproex Sodium (Depakote Er Tab(*)) 500 mg PO BEDTIME [facility] Dorzolamide HCl (Trusopt 2% Opth (Nf)) 1 drop RIGHT EYE TID [facility]; Protocol Last Admin: 12/06/19 08:12 Dose: 1 drop Enoxaparin Sodium (Lovenox(*)) 40 mg SUBCUT Q24H [facility] Last Admin: 12/06/19 11:14 Dose: 40 mg Sodium Chloride (Ns 0.45% 1000 Ml Bag*) 1,000 mls @ 75 mls/hr IV PER RATE [facility] Stop: 12/06/19 23:19 Last Admin: 12/06/19 11:14 Dose: 75 mls/hr Insulin Glargine (Lantus(*)) 26 units SUBCUT BEDTIME [facility] Last Admin: 12/05/19 21:25 Dose: 26 units Insulin Human Lispro (Humalog*) 5 units SUBCUT AC [facility] Last Admin: 12/06/19 11:41 Dose: Not Given Insulin Human Lispro (Humalog*) 0 units SUBCUT ACHS [facility]; Protocol Last Admin: 12/06/19 11:42 Dose: Not Given Latanoprost (Xalatan 0.005%*) 1 drop RIGHT EYE 1700 [facility] Last Admin: 12/05/19 17:03 Dose: 1 drop Lorazepam (Ativan Tab(*)) 0.5 mg PO Q6H PRN PRN Reason: AGITATION Last Admin: 12/06/19 02:27 Dose: 0.5 mg Metronidazole (Metronidazole Vaginal 0.75%*) 1 applic VAGINAL BEDTIME [facility] Stop: 12/10/19 21:01 Last Admin: 12/06/19 03:57 Dose: Not Given Miscellaneous (Ativan Pyxis Robbins) 1 ea N/A .ATIVAN IV ROBBINS PRN PRN Reason: PYXIS ROBBINS Pantoprazole Sodium (Protonix Iv*) 40 mg IV Q24H [facility] Last Admin: 12/06/19 11:14 Dose: 40 mg Timolol Maleate (Timoptic 0.5% Opth*) 1 drop BOTH EYES BID [facility] Last Admin: 12/06/19 08:12 Dose: 1 drop Vital Signs - 8 hr 12/06/19 12/06/19 07:52 08:00 Temperature 98.4 F Pulse Rate 70 Respiratory 16 16 Rate Blood Pressure 151/64 (mmHg) O2 Sat by Pulse 98 Oximetry Oxygen Devices in Use Now: None Result Diagrams: 12/06/19 06:40 12/06/19 06:40 Additional Lab and Data: Labs, imaging, and other diagnostic testing: Glucose on presentation: 690. Current glucose: 291. Creatinine: 1.85. BUN: 35. Sodium: 130 to now at 137. CRP: 45.44. ESR: 90 Urinalysis: UR Leukocyte Esterase: 3, Urine WBC: 3 Urine culture: positive for Klebsiella Pneumoniae. Microbiology and Other Data: Microbiology 12/01/19 23:19 Urine Culture - Preliminary Urine Klebsiella Pneumoniae Diagnostic Imaging: - MRI Brain without contrast: limited study. There are punctate foci of restricted diffusion within the right cerebral hemispheres, suggestive of subacute embolic infarcts. Diffuse involutional change. Stable nonspecific white matter changes. - CTA head and neck without contrast 12/02/19: No stenosis or occlusion. No large vessel stenosis or occlusion. - TTE: EF 55-60%. cavity size is normal. The atrium is mildly dilated. - EEG: This is an abnormal EEG due to the presence of diffuse slowing of the background and nearly continuous intermittent slowing over the right frontocentral region. Assess/Plan/Problems-Billing Assessment: Mrs Fonseca is a 64yo F with PMH of type 2 DM, diabetic retinopathy, glaucoma ( legally blind), diabetic neuropathy, diabetic nephropathy with CKD stage 3, TIA , glaucoma, who presented to ED with left arm weakness, found to have CVA, seizures, UTI, and uncontrolled diabetes. - Patient Problems (1) Metabolic encephalopathy Comment: - Multifactorial in the setting of uncontrolled DM, UTI, CVA, and seizures. - Improving, but had sundowning last night, now improved (2) Seizures Comment: - Secondary to stroke and uncontrolled DM. - due to behavioral changes change Levetiracetam to Depakote. D/w Dr. Mohan-pt to be on Depakote ER for approx 1-2 weeks (3) Bacteremia due to Gram-positive bacteria Comment: - 1 bottle BC growing Gram positive - Staph epi-appreciate ID consult: likely contaminant (4) CVA (cerebral vascular accident) Comment: - MRI Brain without contrast "limited study. There are punctate foci of restricted diffusion within the right cerebral hemispheres, suggestive of subacute embolic infarcts. Diffuse involutional change. Stable nonspecific white matter changes." - Neurology input appreciated. - Echo reviewed - Telemetry discontinued as per discussion with Neurology 12/05/19. - Continue Plavix. - PT input appreciated OK to [place] [facility] once medically ready (5) Elevated sed rate Comment: - May be elevated in the setting of acute infection. CRP elevated on admission as well, now trending down. - If ESR remains elevated, will need w/u for other etiologies - malignancy, auto immune process. Should have it repeated as outpatient. (6) UTI due to Klebsiella species Comment: - appreciate ID consult-cephalexin x 2 days (7) Chronic kidney disease, stage IV (severe) Comment: [employer] improved from admission ACEI held given sepsis. had acute renal failure in April after bactrim with [employer] up to 4.5, K8.1 cont to monitor Gentle OVF today due to hypernatremia (8) Diabetes Comment: cont ISS Pt was hypoglycemic this aM, will lower Lantus to 15 U nightly (9) DVT prophylaxis Comment: - Lovenox. Status and Disposition: Inpatient. Likely d/c to STR tomorrow
--- NOTE | 2019-12-06 16:22 | PN ---
Subjective Date of Service: 12/06/19 Length of Stay: 4 Days Neurology is following for seizures, stroke, and confusion. Interval History: The patient became delirious overnight. She was hitting staff. She recognizes her delirium and stated that she will try not to become confused tonight. This occurred after Keppra. Keppra was discontinued last night and she was loaded with a dose of Depacon 500 mg IV x 1. She also received Haldol and did well thereafter. She is now resting in chair with no complaints. Review of Systems: Denied CP, SOB, or palpitations. Family History: Unchanged from Admission Social History: Unchanged from Admission Past Medical History: Unchanged from Admission Objective Active Medications: Brimonidine Tartrate (Alphagan P 0.1% (Nf)) 1 drop RIGHT EYE TID [facility] Last Admin: 12/06/19 14:54 Dose: Not Given Cephalexin HCl (Keflex Cap*) 500 mg PO BID [facility] Stop: 12/07/19 23:59 Last Admin: 12/06/19 08:10 Dose: 500 mg Clopidogrel Bisulfate (Plavix Tab*) 75 mg PO DAILY [facility] Last Admin: 12/06/19 08:10 Dose: 75 mg Dextrose (D50w Syringe 50 Ml*) 12.5 gm IV PUSH .FOR FS < 60 - SS PRN PRN Reason: FS < 60 Last Admin: 12/06/19 11:26 Dose: 12.5 gm Divalproex Sodium (Depakote Er Tab(*)) 500 mg PO BEDTIME [facility] Dorzolamide HCl (Trusopt 2% Opth (Nf)) 1 drop RIGHT EYE TID [facility]; Protocol Last Admin: 12/06/19 14:54 Dose: 1 drop Enoxaparin Sodium (Lovenox(*)) 40 mg SUBCUT Q24H [facility] Last Admin: 12/06/19 11:14 Dose: 40 mg Sodium Chloride (Ns 0.45% 1000 Ml Bag*) 1,000 mls @ 75 mls/hr IV PER RATE [facility] Stop: 12/06/19 23:19 Last Admin: 12/06/19 11:14 Dose: 75 mls/hr Insulin Glargine (Lantus(*)) 15 units SUBCUT BEDTIME KIET Insulin Human Lispro (Humalog*) 5 units SUBCUT AC [facility] Last Admin: 12/06/19 11:41 Dose: Not Given Insulin Human Lispro (Humalog*) 0 units SUBCUT ACHS [facility]; Protocol Last Admin: 12/06/19 11:42 Dose: Not Given Latanoprost (Xalatan 0.005%*) 1 drop RIGHT EYE 1700 KIET Last Admin: 12/05/19 17:03 Dose: 1 drop Lorazepam (Ativan Tab(*)) 0.5 mg PO Q6H PRN PRN Reason: AGITATION Last Admin: 12/06/19 02:27 Dose: 0.5 mg Metronidazole (Metronidazole Vaginal 0.75%*) 1 applic VAGINAL BEDTIME [facility] Stop: 12/10/19 21:01 Last Admin: 12/06/19 03:57 Dose: Not Given Miscellaneous (Ativan Pyxis Robbins) 1 ea N/A .ATIVAN IV ROBBINS PRN PRN Reason: PYXIS ROBBINS Timolol Maleate (Timoptic 0.5% Opth*) 1 drop BOTH EYES BID [facility] Last Admin: 12/06/19 08:12 Dose: 1 drop Vital Signs 12/05/19 12/05/19 12/05/19 18:50 19:45 20:00 Temperature Pulse Rate Respiratory 20 20 20 Rate Blood Pressure (mmHg) O2 Sat by Pulse Oximetry 12/05/19 12/06/19 12/06/19 22:57 00:45 00:46 Temperature 98.2 F Pulse Rate 79 Respiratory 23 16 16 Rate Blood Pressure 161/73 (mmHg) O2 Sat by Pulse 100 Oximetry 12/06/19 12/06/19 12/06/19 02:27 04:48 07:52 Temperature 97.9 F Pulse Rate 72 Respiratory 20 19 16 Rate Blood Pressure 120/52 (mmHg) O2 Sat by Pulse 97 Oximetry 12/06/19 12/06/19 08:00 13:22 Temperature 98.4 F 98.1 F Pulse Rate 70 82 Respiratory 16 20 Rate Blood Pressure 151/64 141/64 (mmHg) O2 Sat by Pulse 98 100 Oximetry Intake and Output Last 24 Hours 12/04/19 12/05/19 12/06/19 12/07/19 06:59 06:59 06:59 06:59 Intake Total 1025.8 2752 740 960 Output Total 1040 2025 300 Balance -14.2 727 440 960 Weight 171 lb 11.841 oz Intake: IV Fluids 917.8 2552 LR 893 2552 NS 24.8 IVPB 108 200 ABX - CEFTRIAXONE 50 ABX - FLAGYL 100 ABX - LEVOFLOXACIN 50 abx 50 magnesium 58 Oral 0 0 740 960 Output: Urine 400 2025 300 Carter 640 Other: Estimated Void Large Large # Bowel Movements 0 1 1 Estimated Stool Amount Medium Medium # Voids 1 1 1 Oxygen Devices in Use Now: None Neurology Exam: General: Ill appearing obese female in no distress. She is requesting water. HEENT: Normocephelic/atraumatic, sclera anicteric, mucous membranes moist Neck: Supple Extremities: amputated digits 4 and 5 on the right. 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 She is alert and oriented to self and place. Speech: Mild-moderate dysarthria Cranial Nerve: PERRL, EOM intact, VFF, legally blind, mild left facial droop. Motor: 5/5 throughout. Normal tone. Sensation: intact to LT/PP bilaterally upper and lower extremities Finger to nose dysmetria on the left. Gait: deferred Result Diagrams: 12/06/19 06:40 12/06/19 06:40 Additional Lab and Data: Labs, imaging, and other diagnostic testing: Glucose on presentation: 690. Current glucose: 291. Creatinine: 1.85. BUN: 35. Sodium: 130 to now at 137. CRP: 45.44. ESR: 90 Urinalysis: UR Leukocyte Esterase: 3, Urine WBC: 3 Urine culture: positive for Klebsiella Pneumoniae. Microbiology and Other Data: Microbiology 12/01/19 23:19 Urine Culture - Preliminary Urine Klebsiella Pneumoniae Diagnostic Imaging: - MRI Brain without contrast: limited study. There are punctate foci of restricted diffusion within the right cerebral hemispheres, suggestive of subacute embolic infarcts. Diffuse involutional change. Stable nonspecific white matter changes. - CTA head and neck without contrast 12/02/19: No stenosis or occlusion. No large vessel stenosis or occlusion. - TTE: EF 55-60%. cavity size is normal. The atrium is mildly dilated. - EEG: This is an abnormal EEG due to the presence of diffuse slowing of the background and nearly continuous intermittent slowing over the right frontocentral region. Assessment/Plan Ms. Yue Fonseca is a 64-year-old female with a past medical history significant for uncontrolled insulin-dependent DMII with a recent hemoglobin A1C of 10, CKD stage 3, hyperlipidemia, diabetic retinopathy who is legally blind, diabetic neuropathy, reported history of TIA with symptoms of visual disturbance and transient left arm weakness, obstructive sleep apnea, who presented to [facility] on 12/02/2019 with an episode of shaking that was thought to be related to seizures. She was found to have an ischemic stroke in the right hemisphere and severe hyperglycemia. She developed hyperactive delirium on the night of 12/05/2019. 1. Acute metabolic encephalopathy secondary to hyperglycemia (HHS). She developed hyperactive delirium last night and required Haldol and Depakote. 2. Provoked seizures secondary to severe hyperglycemia and stroke. The semiology of head deviation towards the left and left arm shaking localizes to the right hemisphere. 3. Acute multiple punctate ischemic infarction in the right middle cerebral artery vascular distribution. Most likely secondary to her morbidities increasing her risk for atherosclerotic disease (eg, severe hyperglycemia). 4. K. Pneumoniae UTI 5. Suspected bacteremia. Recommendations: - Continue Plavix. - Discontinue levetirecetam to minimize any further agitation. - Continue valproic acid 500 mg at night for a total of 6 more days. Since her seizure was most likely provoked due to HHS and stroke, no need for nut chopper anti-seizure medications. - Stroke education provided - Neuro checks every 4 hours - Continue Plavix 75 mg daily. - Defer antibiotics control to the primary team. - Diabetic control will reduce her stroke risk. No need for more antiplatelet therapy. - Discussed fall precautions - DVT prophylaxis: Enoxaprin - There is no indication for anticoagulation therapy. She will need a loop recorder as an outpatient. She will need rehabilitation. I will sign off. Follow-up with neurology in one month.
[2019-12-06] MEDS: Latanoprost 0.005%* 2.5 ml BTL RIGHT EYE SCH (17:20)
[2019-12-06] MEDS ORDERED: Insulin GLARGINE(*) 1 UNITS UNIT SUBCUT SCH (21:00)
[2019-12-06] MEDS ORDERED: Divalproex ER TAB(*) 500 MG PO SCH (21:00)
[2019-12-07] MEDS ORDERED: Acetaminophen TAB* 325 MG PO PRN (02:07)
[2019-12-07 07:21] LABS: ABS Eosinophils 0.2 10^3/ul (0-0.6); ABS Lymphocytes 2.2 10^3/ul (1.0-4.8); ABS Monocytes 0.5 10^3/ul (0-0.8); ABS Neutrophils 2.8 10^3/ul (1.5-7.7); Eosinophil % 3.5 %; Hematocrit 30 % (35-47); Hemoglobin 10.2 g/dL (12.0-16.0); Lymphocyte % 37.8 %; Mean Corpuscular HGB Conc 34 g/dL (31-36); Mean Corpuscular Hemoglobin 27 pg (27-31); Mean Corpuscular Volume 80 fL (80-97); Mean Platelet Volume 7.6 fL (7.4-10.4); Platelet Count 192 10^3/uL (150-450); Red Blood Count 3.73 10^6 /uL (3.70-4.87); Red Cell Distribution Width 14 % (10-15); White Blood Count 5.8 10^3/uL (3.5-10.8)
[2019-12-07 07:40] LABS: BUN/Creatinine Ratio 12.9 (8-20); Calcium 8.4 mg/dL (8.6-10.3); EGFR African American 40.9 (>60); EGFR Non-African American 33.8 (>60); Potassium 3.6 mmol/L (3.5-5.0)
[2019-12-07] MEDS: Insulin LISPRO* 1 UNITS UNIT SUBCUT SCH ×4 (07:42→12:13)
[2019-12-07] MEDS: Cephalexin CAP* 500 MG PO SCH (09:39)
[2019-12-07] MEDS: CMCS:Dorzolamide 2% OPTH (NF) 10 ML BTL RIGHT EYE SCH (09:39)
[2019-12-07] MEDS: Clopidogrel TAB* 75 MG PO SCH (09:39)
[2019-12-07] MEDS: Timolol 0.5% OPTH.SOL* BTL BOTH EYES SCH (09:40)
[2019-12-07 12:12] VITALS: BP 148/82
[2019-12-07] MEDS: Enoxaparin(*) 40 MG/0.4 ML SYR SUBCUT SCH (12:13)
--- NOTE | 2019-12-07 14:31 | DS ---
CC: Dr. Duncan; Dr. Kulkarni; Dr. Mohan; Dr. Hand; Dr. Savage * DISCHARGE SUMMARY: DATE OF ADMISSION: 12/02/19 DATE OF DISCHARGE: 12/07/19 PRIMARY CARE PROVIDER: Dr. Duncan. ACIDIZER: Dr. Savage. DISPOSITION AT DISCHARGE: To assisted facility at [facility]. CONDITION AT DISCHARGE: Stable. DISCHARGE DIAGNOSES: 1. Seizure, likely a consequence of acute cerebrovascular accident as well as marked hyperglycemia. 2. 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 3. Klebsiella pneumoniae urinary tract infection. 4. Transient left-sided weakness due to CVA that resolved. 5. Blood cultures positive for Staphylococcus epidermidis, likely contamination. 6. Episode of acute encephalopathy/sundowning 2 days prior to the discharge that resolved. 7. Acute renal failure at admission that resolved. SECONDARY DIAGNOSES: 1. Uncontrolled diabetes, insulin-dependent. 2. Chronic kidney disease stage III due to diabetes. 3. The patient has diabetic retinopathy. 4. Hypertension. 5. History of transient ischemic attack in the past with residual mild weakness on the left that was prior to the current event. 6. The patient is legally blind. 7. History of glaucoma. 8. History of peripheral neuropathy. MEDICATIONS AT DISCHARGE: Include: 1. Alphagan eye drops 1 drop to the right eye 3 times a day. 2. Trusopt eye drops 2% 1 drop to the right eye t.i.d. 3. Neurontin 300 mg b.i.d. 4. Insulin glargine 20 units subcutaneously every night. 5. Xalatan eye drops 1 drop to the right eye at 1700. 6. Victoza 1.8 mg subcutaneously q.a.m. 7. Singulair 10 mg at bedtime. 8. Timolol ophthalmic solution 1 drop both eyes b.i.d. 9. Keflex 500 mg b.i.d., last dose being on 12/07/19 in p.m. 10. Plavix 75 mg daily. 11. Depakote ER 500 mg at bedtime for total of 5 days, then stop. 12. Metronidazole vaginal cream 1 application vaginally for the next 4 days nightly, then stop. 13. Lisinopril 20 mg daily. CONSULTATIONS DURING THE HOSPITAL STAY: Included Dr. Kulkarni and Dr. Mohan from Neurology, and Dr. Savage, Endocrinology, and Dr. Hand. LABORATORY DATA AND STUDIES PERFORMED DURING THE HOSPITAL STAY: Included , sodium of 143, potassium 3.6, chloride 112, carbon dioxide 26, BUN 20, creatinine 1.55. Liver function tests at admission were unremarkable apart from alkaline phosphatase elevation of 111. Please note that the patient's glucose level on admission was 690. The patient's creatinine at admission was 2.16. Hematology results on the day of discharge, white blood cell count 5.8, hemoglobin 10.2, hematocrit 13, platelets 192. The patient's vaginal swab was positive for Trichomonas vaginalis. Microbiology test, blood positive for Staph epidermidis 1 out of 3 bottles. Urine culture is positive for Klebsiella pneumoniae. Transthoracic echocardiogram on 12/03/19: EF of 55% to 60% with the left cavity size and systolic function normal and no change comparing from 2017. EEG obtained on 12/03/19, impression: "There is an abnormal EEG due to the presence of diffuse slowing of the background and nearly continuous slowing over the right frontocentral region. These findings are suggestive of diffuse mild-to- moderate nonspecific encephalopathy with superimposed focal neuronal dysfunction involving the frontocentral region." Brain MRI obtained on 12/03/19, impression: "Limited study. There are punctate foci of restricted diffusion within the right cerebral hemispheres suggestive of subacute embolic infarcts. Diffuse involutional change. Stable nonspecific white matter change." CT angiogram of the head obtained on 12/02/19, impression: "No large vessel stenosis or occlusions given limitation of motion artifact." Chest x-ray obtained at admission on 12/01/19, impression: "No active cardiopulmonary disease is noted." HOSPITALIZATION COURSE: Yue Fonseca is a 64-year-old female with a history of diabetes, chronic kidney disease, legally blind due to diabetic retinopathy, who was brought into the hospital on 12/02/19 after an episode of seizure-like activity. She was also noted to have left arm weakness, mild and gaze deviation. Initially, the plan was to transfer the patient to [place], but there were issues with transfer from the ED due to weather. The patient was admitted to the intensive care unit. Her blood sugar was noted to be 690 and she was also in acute renal failure with creatinine of 2.16. She was placed on Keppra by Dr. Kulkarni from Neurology, later on Dr. Mohan continued to follow. She was initially encephalopathic at admission due to seizure and CVA. Later on, it was discovered that on the MRI of the brain, she had acute embolic CVAs of the right hemisphere. Neurology was consulted and noted that the patient likely had CVA due to uncontrolled diabetes. She was recommended to be continued on her Plavix that she already took at home. She is allergic to ASPIRIN. Dr. Mohan's recommendation was that her CVA was likely provoked to do uncontrolled medical problems. Dr. Savage saw the patient from Endocrinology consultation recommending increasing the patient's Lantus insulin to 26 nightly. Unfortunately, couple of days later, the patient was sundowning and hypoglycemic in the morning and her Lantus level was lowered to 20 units at discharge. Also when started ing, her Keppra was discontinued and the patient was placed on Depakote. As per Dr. Mohan's recommendation, the patient is to continue Depakote for another 5 days after discharge and then to stop. They thought that the decision was precipitated by the CVA and hyperglycemia, and the patient does not have a seizure disorder per se. In regards of the patient's infectious workup, she was noted to have Trichomonas vaginalis and metronidazole was being used for treatment. She also was noted to have 1 bottle of positive blood culture with Staphylococcus epidermidis, which is likely contamination as per Dr. Hand's consult. Dr. Hand also recommended for the patient to continue cephalosporins to complete 7 days treatment for the patient's klebsiella UTI. She received ceftriaxone initially and then she is to complete cephalexin with the 7th day dose being administered on 12/07/19 at night, which likely will occur at residential. Throughout the patient's hospital stay, her left-sided weakness improved and was noted to be at her baseline by the time of discharge. Her physical therapy and occupational therapy deemed the patient a good candidate for short-term rehabilitation and she was accepted to [facility] for further rehabilitation. PHYSICAL EXAM AT TIME OF DISCHARGE: Blood pressure 151/96, heart rate of 80 and regular, respiratory rate 20, oxygen saturation 100% on room air, temperature 97.5. General: The patient is a very pleasant 64-year-old female, who is in no acute distress. The patient is alert and oriented x3. HEENT: Head: Atraumatic, normocephalic. Eyes: Right pupil was postsurgically uneven shape, but both reactive to light. Oropharynx is clear. Mucosa moist. Neck: Supple. No JVD. No bruits bilaterally. Cardiovascular: Regular rate and rhythm. No murmur. Respiratory: Clear to auscultation bilaterally. Abdomen is soft, nontender. Bowel sounds present in all 4 quadrants. Extremities: There is no edema. Pulses are 2+ bilaterally. There is no clubbing, no cyanosis. On neuro evaluation, cranial nerves II through XII grossly intact. Motor strength is 5/5 bilaterally. There is peripheral sensation deficit due to the diabetic neuropathy. Please note that due to the patient's acute renal failure, initially her lisinopril was held. Her blood pressure normalized and currently is in the 150s and at this point her lisinopril is going to be started at half the dose at 20 mg daily. Please note that this is a short summary of the patient's long and complicated hospitalization. Please refer to further medical records for details. TIME SPENT: Approximately 50 minutes was spent on the patient's discharge. [id number]/[facility] #: [id number] MTDD
== END 2019-12-07 12:00 | disposition swing bed (61) | DRG 64 ==
LOC: ED 21:22 → ICU 12-02 05:30 → MEDTELE 12-03 13:46
PROVIDERS: ADMIT Nurse Practitioner; ATTEND Internal Medicine
PROC: 4A00X4Z Measurement of Central Nervous Electrical Activity, External Approach (ICD-10-PCS; principal; 2019-12-03)
DX: I63.89 Other cerebral infarction (principal); G93.41 Metabolic encephalopathy; R40.2123 Coma scale, eyes open, to pain, at hospital admission; R40.2223 Coma scale, best verbal response, incomprehensible words, at hospital admission; G81.94 Hemiplegia, unspecified affecting left nondominant side; N17.9 Acute kidney failure, unspecified; F05 Delirium due to known physiological condition; E11.22 Type 2 diabetes mellitus with diabetic chronic kidney disease; E11.65 Type 2 diabetes mellitus with hyperglycemia; N18.3 Chronic kidney disease, stage 3 (moderate); E78.5 Hyperlipidemia, unspecified; E11.319 Type 2 diabetes mellitus with unspecified diabetic retinopathy without macular edema; H54.8 Legal blindness, as defined in USA; H40.9 Unspecified glaucoma; G47.33 Obstructive sleep apnea (adult) (pediatric); R29.704 NIHSS score 4; E11.51 Type 2 diabetes mellitus with diabetic peripheral angiopathy without gangrene; N30.90 Cystitis, unspecified without hematuria; B96.1 Klebsiella pneumoniae [K. pneumoniae] as the cause of diseases classified elsewhere; R56.9 Unspecified convulsions; D63.1 Anemia in chronic kidney disease; R33.9 Retention of urine, unspecified; N93.9 Abnormal uterine and vaginal bleeding, unspecified; E78.00 Pure hypercholesterolemia, unspecified; K21.9 Gastro-esophageal reflux disease without esophagitis; M19.90 Unspecified osteoarthritis, unspecified site; F41.9 Anxiety disorder, unspecified; R40.2353 Coma scale, best motor response, localizes pain, at hospital admission; I10 Essential (primary) hypertension; E11.42 Type 2 diabetes mellitus with diabetic polyneuropathy; Z79.899 Other long term (current) drug therapy; Z79.4 Long term (current) use of insulin; Z79.02 Long term (current) use of antithrombotics/antiplatelets; Z86.73 Personal history of transient ischemic attack (TIA), and cerebral infarction without residual deficits; Z88.6 Allergy status to analgesic agent; Z87.891 Personal history of nicotine dependence; Z91.19 Patient's noncompliance with other medical treatment and regimen; Z88.0 Allergy status to penicillin; Z88.1 Allergy status to other antibiotic agents; Z91.018 Allergy to other foods; Z88.2 Allergy status to sulfonamides; Z89.422 Acquired absence of other left toe(s)
CPT/HCPCS: 36415; 70450; 70496; 70498; 70551; 71045; 80048; 80053; 80061; 80177; 81003; 81015; 82550; 82607; 82803; 82947; 83036; 83721; 83735; 84443; 84484; 85025; 85060; 85610; 85652; 85730; 86140; 87040; 87077; 87086; 87150; 87186; 87205; 87491; 87591; 87661; 93306; 95819; 99285; A9270-GY; J0360; J0696; J1630; J1650; J1956; J2060; J2270; J3475; Q9967

== ENCOUNTER 2020-03-04 15:02 | Inpatient (IN) ==
[2020-03-04 15:59] LABS: ABS Basophils 0.1 10^3/ul (0-0.2); ABS Eosinophils 0.1 10^3/ul (0-0.6); ABS Lymphocytes 2.1 10^3/ul (1.0-4.8); ABS Monocytes 0.8 10^3/ul (0-0.8); Hematocrit 37 % (35-47); Hemoglobin 12.6 g/dL (12.0-16.0); Lymphocyte % 22.8 %; Mean Corpuscular HGB Conc 34 g/dL (31-36); Mean Corpuscular Hemoglobin 27 pg (27-31); Mean Corpuscular Volume 78 fL (80-97); Mean Platelet Volume 7.8 fL (7.4-10.4); Platelet Count 291 10^3/uL (150-450); Red Blood Count 4.71 10^6 /uL (3.70-4.87); Red Cell Distribution Width 14 % (10-15); White Blood Count 9.3 10^3/uL (3.5-10.8)
[2020-03-04 16:23] LABS: Troponin I 0.01 ng/mL (<0.03)
[2020-03-04 16:37] LABS: Albumin 3.8 g/dL (3.2-5.2); Anion Gap 10 mmol/L (2-11); CO2 Carbon Dioxide 27 mmol/L (22-32); Calcium 10.2 mg/dL (8.6-10.3); Chloride 103 mmol/L (101-111); Potassium 4.5 mmol/L (3.5-5.0); Sodium 140 mmol/L (135-145)
[2020-03-04] MEDS ORDERED: Labetalol IV 5 MG/ML 20 ml VIAL IV PUSH ONE (16:37)
[2020-03-04 16:39] LABS: TSH (Thyroid Stimulating Horm) 1.73 mcIU/mL (0.34-5.60)
[2020-03-04 16:42] LABS: ALT 9 U/L (7-52); AST 17 U/L (13-39); Albumin/Globulin Ratio 0.9 (1-3); Alkaline Phosphatase 97 U/L (34-104); BUN/Creatinine Ratio 15.6 (8-20); Blood Urea Nitrogen 35 mg/dL (6-24); EGFR African American 26.5 (>60); EGFR Non-African American 21.9 (>60); Globulin 4.1 g/dL (2-4); Glucose 146 mg/dL (70-100); Total Protein 7.9 g/dL (6.4-8.9)
[2020-03-04] MEDS ORDERED: Ondansetron 4 mg VIAL 2 MG/ML 2 ml VIAL IV PRN (16:54)
[2020-03-04 17:01] LABS: Cholesterol 300 mg/dL; HDL Cholesterol 40.4 mg/dL; LDL Cholesterol 201 mg/dL; Triglycerides 295 mg/dL
[2020-03-04] MEDS ORDERED: Labetalol IV 5 MG/ML 20 ml VIAL IV PUSH PRN (17:08)
[2020-03-04 17:19] LABS: Acetaminophen < 15 mcg/mL; Alcohol, S < 10 mg/dL (<10); Salicylate < 2.50 mg/dL (<30)
[2020-03-04 18:10] LABS: Urine Appearance Clear; Urine Bilirubin Negative (Negative); Urine Blood 1+ (Negative); Urine Color Yellow; Urine Glucose 1+(50 mg/dL) (Negative); Urine Ketones Trace (Negative); Urine Nitrite Negative (Negative); Urine Protein 3+(>=500 mg/dL) (Negative); Urine Specific Gravity 1.015 (1.010-1.030); Urine Urobilinogen Negative (Negative)
[2020-03-04 18:12] LABS: Urine Bacteria Absent (Absent); Urine Red Blood Cell 2+(6-10/hpf) (Absent); Urine Squamous Epithelial Cell Present (Absent); Urine White Blood Cell Trace(0-5/hpf) (Absent)
[2020-03-04] MEDS: NS 0.9% 1000 ml BAG 1,000 ML IV SCH (19:39)
[2020-03-04] MEDS: Latanoprost 0.005% 2.5 ml BTL RIGHT EYE SCH (20:57)
[2020-03-04] MEDS: Insulin LISPRO 100 units/ml(*) SUBCUT SCH (20:59)
[2020-03-04] MEDS: Dorzolamide 2% OPTH (NF) 10 ML BTL RIGHT EYE SCH (20:59)
[2020-03-04] MEDS: Brimonidine P 0.1%(NF) 1 DROP BTL RIGHT EYE SCH (20:59)
[2020-03-04] MEDS: Timolol 0.5% OPTH.SOL BTL BOTH EYES SCH (21:00)
[2020-03-04] MEDS: Insulin GLARGINE 100 un/ml (*) 10 ml VIAL SUBCUT SCH (21:46)
[2020-03-04] MEDS ORDERED: oxyCODONE/Acetamin 5/325 mg TAB PO PRN (23:09)
[2020-03-05] MEDS: NS 0.9% 1000 ml BAG 1,000 ML IV SCH (02:17)
[2020-03-05 07:16] LABS: ABS Eosinophils 0.2 10^3/ul (0-0.6); ABS Lymphocytes 2.6 10^3/ul (1.0-4.8); ABS Monocytes 0.6 10^3/ul (0-0.8); Eosinophil % 2.4 %; Hematocrit 30 % (35-47); Hemoglobin 10.1 g/dL (12.0-16.0); Lymphocyte % 33.6 %; Mean Corpuscular HGB Conc 34 g/dL (31-36); Mean Corpuscular Hemoglobin 27 pg (27-31); Mean Corpuscular Volume 78 fL (80-97); Platelet Count 211 10^3/uL (150-450); Red Blood Count 3.77 10^6 /uL (3.70-4.87); Red Cell Distribution Width 14 % (10-15); White Blood Count 7.6 10^3/uL (3.5-10.8)
[2020-03-05 07:43] LABS: BUN/Creatinine Ratio 18.5 (8-20); Calcium 8.2 mg/dL (8.6-10.3); EGFR African American 30.4 (>60); EGFR Non-African American 25.1 (>60); Potassium 3.8 mmol/L (3.5-5.0)
[2020-03-05] MEDS: Insulin LISPRO 100 units/ml(*) SUBCUT SCH ×4 (08:26→20:26)
[2020-03-05] MEDS: Brimonidine P 0.1%(NF) 1 DROP BTL RIGHT EYE SCH ×3 (09:07→20:24)
[2020-03-05] MEDS: Dorzolamide 2% OPTH (NF) 10 ML BTL RIGHT EYE SCH ×3 (09:07→20:24)
[2020-03-05] MEDS: Timolol 0.5% OPTH.SOL BTL BOTH EYES SCH ×2 (09:08→20:26)
[2020-03-05] MEDS ORDERED: Lorazepam PYXIS KEY PRN ×2 (10:05→11:08)
[2020-03-05] MEDS ORDERED: LORazepam 2 mg VIAL 1 ml IV PUSH ONE (10:06)
[2020-03-05] MEDS ORDERED: Valproic Acid IV(*) 100 MG/ML 5 ML VIAL (500 MG) IVPB ONE (10:07)
[2020-03-05] MEDS ORDERED: LORazepam 2 mg VIAL 1 ml ONE (10:08)
[2020-03-05] MEDS ORDERED: Valproic Acid IV(*) 500 MG in NS 0.9% 100 ml BAG 100 ML IVPB ONE (11:00)
[2020-03-05] MEDS ORDERED: LORazepam 2 mg VIAL 1 ml IV PUSH PRN (11:08)
[2020-03-05 16:57] LABS: C Reactive Protein 6.37 mg/L (<8.01)
[2020-03-05] MEDS: Latanoprost 0.005% 2.5 ml BTL RIGHT EYE SCH (17:24)
[2020-03-05] MEDS: LORazepam 2 mg VIAL 1 ml IV PUSH PRN (20:19)
[2020-03-05] MEDS: Divalproex ER 500 mg TAB (*) PO SCH ×2 (20:24→22:19)
[2020-03-05] MEDS: Insulin GLARGINE 100 un/ml (*) 10 ml VIAL SUBCUT SCH (20:25)
[2020-03-05 23:51] LABS: Erythrocyte Sed Rate 67 mm/Hr (0-29)
[2020-03-06 05:26] LABS: ABS Eosinophils 0.2 10^3/ul (0-0.6); ABS Lymphocytes 2.7 10^3/ul (1.0-4.8); ABS Monocytes 0.5 10^3/ul (0-0.8); Eosinophil % 2.9 %; Hematocrit 32 % (35-47); Lymphocyte % 35.1 %; Mean Corpuscular HGB Conc 34 g/dL (31-36); Mean Corpuscular Hemoglobin 27 pg (27-31); Mean Corpuscular Volume 78 fL (80-97); Mean Platelet Volume 7.9 fL (7.4-10.4); Platelet Count 238 10^3/uL (150-450); Red Blood Count 4.13 10^6 /uL (3.70-4.87); Red Cell Distribution Width 14 % (10-15); White Blood Count 7.6 10^3/uL (3.5-10.8)
[2020-03-06 05:37] LABS: BUN/Creatinine Ratio 19.3 (8-20); Calcium 8.9 mg/dL (8.6-10.3); EGFR African American 34.1 (>60); EGFR Non-African American 28.1 (>60); Potassium 3.7 mmol/L (3.5-5.0)
[2020-03-06] MEDS: Insulin LISPRO 100 units/ml(*) SUBCUT SCH ×4 (10:25→20:51)
[2020-03-06] MEDS: Divalproex ER 500 mg TAB (*) PO SCH (10:40)
[2020-03-06] MEDS: Dorzolamide 2% OPTH (NF) 10 ML BTL RIGHT EYE SCH ×3 (10:53→20:49)
[2020-03-06] MEDS: Timolol 0.5% OPTH.SOL BTL BOTH EYES SCH ×2 (10:53→20:50)
[2020-03-06] MEDS: Brimonidine P 0.1%(NF) 1 DROP BTL RIGHT EYE SCH ×3 (10:53→20:50)
[2020-03-06] MEDS: LORazepam 2 mg VIAL 1 ml IV PUSH PRN (11:17)
[2020-03-06] MEDS ORDERED: Haloperidol 5 mg/ml SDV IV/IM 5 MG/ML AMP IV SLOW PU ONE (12:54)
[2020-03-06] MEDS ORDERED: Lorazepam PYXIS KEY PRN (13:01)
[2020-03-06] MEDS ORDERED: LORazepam 2 mg VIAL 1 ml IV PUSH ONE ×2 (13:01→13:30)
[2020-03-06] MEDS ORDERED: LORazepam 2 mg VIAL 1 ml ONE (13:34)
[2020-03-06] MEDS: ACYCLOVIR IVPB SCH (16:52)
[2020-03-06] MEDS: NS 0.9% IVPB SCH (16:52)
[2020-03-06] MEDS: Meropenem 1 GM PREMIX(*) 1 GM/50 ML BAG IV SCH (18:19)
[2020-03-06] MEDS: Latanoprost 0.005% 2.5 ml BTL RIGHT EYE SCH (18:23)
[2020-03-06] MEDS: Insulin GLARGINE 100 un/ml (*) 10 ml VIAL SUBCUT SCH (20:51)
[2020-03-07] MEDS: ACYCLOVIR IVPB SCH ×2 (03:53→15:59)
[2020-03-07] MEDS: NS 0.9% IVPB SCH ×2 (03:53→15:59)
[2020-03-07] MEDS: Meropenem 1 GM PREMIX(*) 1 GM/50 ML BAG IV SCH (04:52)
[2020-03-07] MEDS: Insulin LISPRO 100 units/ml(*) SUBCUT SCH ×4 (07:12→20:20)
[2020-03-07] MEDS: Timolol 0.5% OPTH.SOL BTL BOTH EYES SCH ×2 (07:34→21:56)
[2020-03-07] MEDS: Dorzolamide 2% OPTH (NF) 10 ML BTL RIGHT EYE SCH ×3 (07:34→19:48)
[2020-03-07] MEDS: Divalproex ER 500 mg TAB (*) PO SCH (07:34)
[2020-03-07] MEDS: Brimonidine P 0.1%(NF) 1 DROP BTL RIGHT EYE SCH ×3 (07:35→19:48)
[2020-03-07 12:28] LABS: ABS Basophils 0.1 10^3/ul (0-0.2); ABS Eosinophils 0.1 10^3/ul (0-0.6); ABS Lymphocytes 1.9 10^3/ul (1.0-4.8); ABS Monocytes 0.5 10^3/ul (0-0.8); Eosinophil % 2.3 %; Hematocrit 37 % (35-47); Hemoglobin 12.4 g/dL (12.0-16.0); Lymphocyte % 30.7 %; Mean Corpuscular HGB Conc 33 g/dL (31-36); Mean Corpuscular Hemoglobin 26 pg (27-31); Mean Corpuscular Volume 79 fL (80-97); Nucleated Red Blood Cells % 0.1; Platelet Count 263 10^3/uL (150-450); Red Blood Count 4.73 10^6 /uL (3.70-4.87); Red Cell Distribution Width 14 % (10-15); White Blood Count 6.3 10^3/uL (3.5-10.8)
[2020-03-07 12:44] LABS: BUN/Creatinine Ratio 18.9 (8-20); Calcium 9.2 mg/dL (8.6-10.3); EGFR African American 32.2 (>60); EGFR Non-African American 26.6 (>60)
[2020-03-07 12:45] LABS: Activated Partial Thrombo Time 30.9 seconds (26.0-38.0); INR 1.03 (0.82-1.09)
[2020-03-07] MEDS: Heparin 5000 UNITS/ML VIAL(*) 1 ml vial SUBCUT SCH ×2 (13:01→20:24)
[2020-03-07] MEDS: Latanoprost 0.005% 2.5 ml BTL RIGHT EYE SCH (17:07)
[2020-03-07] MEDS: cefTRIAXone 1 gm/50 mL NS BAG 1 GM/50 ML BAG IVPB SCH (17:08)
[2020-03-07] MEDS ORDERED: Divalproex ER 500 mg TAB (*) PO ONE (20:45)
[2020-03-07] MEDS: Insulin GLARGINE 100 un/ml (*) 10 ml VIAL SUBCUT SCH ×2 (20:58→21:02)
[2020-03-08] MEDS: NS 0.9% IVPB SCH ×2 (02:47→15:07)
[2020-03-08] MEDS: ACYCLOVIR IVPB SCH ×2 (02:47→15:07)
[2020-03-08] MEDS: cefTRIAXone 1 gm/50 mL NS BAG 1 GM/50 ML BAG IVPB SCH ×2 (04:20→16:38)
[2020-03-08] MEDS: Heparin 5000 UNITS/ML VIAL(*) 1 ml vial SUBCUT SCH ×3 (04:57→20:39)
[2020-03-08] MEDS: Insulin LISPRO 100 units/ml(*) SUBCUT SCH ×4 (07:14→20:36)
[2020-03-08] MEDS: Timolol 0.5% OPTH.SOL BTL BOTH EYES SCH ×2 (08:43→19:54)
[2020-03-08] MEDS: Dorzolamide 2% OPTH (NF) 10 ML BTL RIGHT EYE SCH ×3 (08:44→19:52)
[2020-03-08] MEDS: Brimonidine P 0.1%(NF) 1 DROP BTL RIGHT EYE SCH ×3 (08:44→19:52)
[2020-03-08] MEDS ORDERED: DIVALPROEX 250 MG PO SCH (09:00)
[2020-03-08] MEDS: Latanoprost 0.005% 2.5 ml BTL RIGHT EYE SCH (16:38)
[2020-03-09] MEDS: ACYCLOVIR IVPB SCH ×2 (03:01→15:26)
[2020-03-09] MEDS: NS 0.9% IVPB SCH ×2 (03:01→15:26)
[2020-03-09] MEDS: cefTRIAXone 1 gm/50 mL NS BAG 1 GM/50 ML BAG IVPB SCH ×2 (05:15→17:58)
[2020-03-09] MEDS: Heparin 5000 UNITS/ML VIAL(*) 1 ml vial SUBCUT SCH ×3 (05:16→21:58)
[2020-03-09 06:50] LABS: ABS Eosinophils 0.1 10^3/ul (0-0.6); ABS Lymphocytes 2.4 10^3/ul (1.0-4.8); ABS Monocytes 0.5 10^3/ul (0-0.8); Eosinophil % 2.1 %; Hematocrit 29 % (35-47); Hemoglobin 10.1 g/dL (12.0-16.0); Lymphocyte % 42.2 %; Mean Corpuscular HGB Conc 35 g/dL (31-36); Mean Corpuscular Hemoglobin 27 pg (27-31); Mean Corpuscular Volume 78 fL (80-97); Nucleated Red Blood Cells % 0.1; Platelet Count 212 10^3/uL (150-450); Red Blood Count 3.72 10^6 /uL (3.70-4.87); Red Cell Distribution Width 14 % (10-15); White Blood Count 5.7 10^3/uL (3.5-10.8)
[2020-03-09 07:50] LABS: Calcium 8.7 mg/dL (8.6-10.3); Potassium 3.8 mmol/L (3.5-5.0)
[2020-03-09 07:55] LABS: BUN/Creatinine Ratio 18.2 (8-20); EGFR African American 31.8 (>60); EGFR Non-African American 26.3 (>60)
[2020-03-09] MEDS: Insulin LISPRO 100 units/ml(*) SUBCUT SCH ×4 (08:44→21:26)
[2020-03-09] MEDS: Nystatin SUSPENSION 100,000 UNITS/ML UDC PO SCH ×4 (09:28→22:02)
[2020-03-09] MEDS: Brimonidine P 0.1%(NF) 1 DROP BTL RIGHT EYE SCH ×3 (09:29→22:03)
[2020-03-09] MEDS: Dorzolamide 2% OPTH (NF) 10 ML BTL RIGHT EYE SCH ×3 (09:30→21:59)
[2020-03-09] MEDS: Timolol 0.5% OPTH.SOL BTL BOTH EYES SCH ×2 (09:30→22:04)
[2020-03-09] MEDS: Divalproex ER 500 mg TAB (*) PO SCH (09:33)
[2020-03-09] MEDS: Latanoprost 0.005% 2.5 ml BTL RIGHT EYE SCH (17:59)
[2020-03-09] MEDS ORDERED: Insulin GLARGINE 100 un/ml (*) 10 ml VIAL SUBCUT SCH (21:00)
[2020-03-10] MEDS: NS 0.9% IVPB SCH (04:04)
[2020-03-10] MEDS: ACYCLOVIR IVPB SCH (04:04)
[2020-03-10] MEDS: Heparin 5000 UNITS/ML VIAL(*) 1 ml vial SUBCUT SCH ×2 (05:14→12:26)
[2020-03-10 05:18] LABS: ABS Basophils 0.1 10^3/ul (0-0.2); ABS Eosinophils 0.2 10^3/ul (0-0.6); ABS Lymphocytes 2.2 10^3/ul (1.0-4.8); ABS Monocytes 0.5 10^3/ul (0-0.8); Hematocrit 34 % (35-47); Hemoglobin 11.5 g/dL (12.0-16.0); Mean Corpuscular HGB Conc 34 g/dL (31-36); Mean Corpuscular Hemoglobin 27 pg (27-31); Mean Corpuscular Volume 79 fL (80-97); Mean Platelet Volume 8.3 fL (7.4-10.4); Nucleated Red Blood Cells % 0.1; Platelet Count 221 10^3/uL (150-450); Red Blood Count 4.33 10^6 /uL (3.70-4.87); Red Cell Distribution Width 14 % (10-15); White Blood Count 6.2 10^3/uL (3.5-10.8)
[2020-03-10 05:35] LABS: BUN/Creatinine Ratio 16.8 (8-20); Calcium 9.2 mg/dL (8.6-10.3); EGFR African American 37.4 (>60); EGFR Non-African American 30.9 (>60)
[2020-03-10] MEDS: cefTRIAXone 1 gm/50 mL NS BAG 1 GM/50 ML BAG IVPB SCH (06:27)
[2020-03-10] MEDS: Insulin LISPRO 100 units/ml(*) SUBCUT SCH ×2 (07:30→11:53)
[2020-03-10] MEDS: Brimonidine P 0.1%(NF) 1 DROP BTL RIGHT EYE SCH ×2 (08:39→12:57)
[2020-03-10] MEDS: Dorzolamide 2% OPTH (NF) 10 ML BTL RIGHT EYE SCH ×2 (08:40→12:57)
[2020-03-10] MEDS: Divalproex ER 500 mg TAB (*) PO SCH (08:40)
[2020-03-10] MEDS: Nystatin SUSPENSION 100,000 UNITS/ML UDC PO SCH ×2 (08:40→11:53)
[2020-03-10] MEDS: Timolol 0.5% OPTH.SOL BTL BOTH EYES SCH (08:41)
[2020-03-10] MEDS ORDERED: NS 0.9% IVPB SCH ×2 (14:06→16:00)
[2020-03-10] MEDS ORDERED: ACYCLOVIR IVPB SCH ×2 (14:06→16:00)
[2020-03-10 15:56] VITALS: BP 146/70
[2020-03-11 19:58] LABS: Arsenic 1 ng/mL (0-12); Cadmium 0.2 ng/mL (0.0-4.9); Mercury <1 ng/mL (0-9); Submitting Laboratory Phone 6072744474; Venous/Capillary Heavy Metals Venous
[2020-03-11 22:18] LABS: Complement C3 148 mg/dL (75 - 175)
== END 2020-03-10 16:19 | disposition home or self-care (01) | DRG 884 ==
LOC: ED 15:02 → MEDTELE 16:54
PROVIDERS: ADMIT Hospitalist; ATTEND Hospitalist

== ENCOUNTER 2020-04-02 12:38 | Inpatient (IN) ==
[2020-04-02 14:30] LABS: ABS Basophils 0.1 10^3/ul (0-0.2); ABS Eosinophils 0.1 10^3/ul (0-0.6); ABS Lymphocytes 2.8 10^3/ul (1.0-4.8); ABS Monocytes 0.9 10^3/ul (0-0.8); ABS Neutrophils 3.9 10^3/ul (1.5-7.7); Eosinophil % 1.6 %; Hematocrit 32 % (35-47); Lymphocyte % 35.7 %; Mean Corpuscular HGB Conc 34 g/dL (31-36); Mean Corpuscular Hemoglobin 27 pg (27-31); Mean Corpuscular Volume 79 fL (80-97); Mean Platelet Volume 7.9 fL (7.4-10.4); Nucleated Red Blood Cells % 0.1; Platelet Count 171 10^3/uL (150-450); Red Blood Count 4.07 10^6 /uL (3.70-4.87); Red Cell Distribution Width 15 % (10-15); White Blood Count 7.8 10^3/uL (3.5-10.8)
[2020-04-02 14:43] LABS: Urine Appearance Clear; Urine Bilirubin Negative (Negative); Urine Blood 1+ (Negative); Urine Color Straw; Urine Glucose Negative (Negative); Urine Ketones Negative (Negative); Urine Nitrite Negative (Negative); Urine Protein 2+(100 mg/dL) (Negative); Urine Urobilinogen Negative (Negative)
[2020-04-02 14:53] LABS: Urine Bacteria Absent (Absent); Urine Red Blood Cell 1+(3-5/hpf) (Absent); Urine Squamous Epithelial Cell Present (Absent); Urine White Blood Cell Trace(0-5/hpf) (Absent)
[2020-04-02 14:59] LABS: ALT 10 U/L (7-52); AST 18 U/L (13-39); Albumin 3.5 g/dL (3.2-5.2); Albumin/Globulin Ratio 1.2 (1-3); Alkaline Phosphatase 61 U/L (34-104); Anion Gap 10 mmol/L (2-11); BUN/Creatinine Ratio 20.5 (8-20); Blood Urea Nitrogen 49 mg/dL (6-24); CO2 Carbon Dioxide 26 mmol/L (22-32); Chloride 109 mmol/L (101-111); EGFR African American 24.7 (>60); EGFR Non-African American 20.4 (>60); Glucose 93 mg/dL (70-100); Potassium 4.4 mmol/L (3.5-5.0); Sodium 145 mmol/L (135-145); Total Protein 6.5 g/dL (6.4-8.9)
[2020-04-02 15:06] LABS: Acetaminophen < 15 mcg/mL; Alcohol, S < 10 mg/dL (<10); Salicylate < 2.50 mg/dL (<30)
[2020-04-02 15:23] LABS: TSH Ultra Thyroid Stim Horm 3.86 mcIU/mL (0.34-5.60)
[2020-04-02] MEDS ORDERED: Al Hydrox/Mg Hydrox/Simet LIQ 30 ML UDC PO PRN (19:02)
[2020-04-02] MEDS ORDERED: Albuterol/Ipratropium NEB.SOL (2.5/0.5 MG) 3 ML NEB.SOLN INH PRN (19:03)
[2020-04-02] MEDS ORDERED: Insulin GLARGINE 100 un/ml 10 ml VIAL SUBCUT SCH (21:00)
[2020-04-03] MEDS: Heparin 5000 UNITS/ML 1 mL VIAL SUBCUT SCH ×4 (05:31→22:04)
[2020-04-03 05:55] LABS: HDL Cholesterol 38.5 mg/dL
[2020-04-03] MEDS ORDERED: Liraglutide (NF) 18 MG/3 ML SUBCUT SCH (09:00)
[2020-04-03] MEDS ORDERED: Vitamin THERAPEUTIC TAB PO SCH (09:00)
[2020-04-03] MEDS ORDERED: LIRAGLUTIDE 18 MG/3 ML SUBCUT SCH (09:00)
[2020-04-03] MEDS ORDERED: Lactated Ringers 1000 ml BAG 1,000 ML IV ONE (11:08)
[2020-04-03 20:42] LABS: Urine Creatinine Concentration 58.41 mg/dL
[2020-04-03] MEDS ORDERED: Insulin GLARGINE 100 un/ml 10 ml VIAL SUBCUT SCH (21:00)
[2020-04-03] MEDS: Insulin GLARGINE 100 un/ml 10 ml VIAL SUBCUT SCH (21:54)
[2020-04-03] MEDS ORDERED: Haloperidol 5 mg/ml SDV IV/IM 5 MG/ML AMP IM ONE ×2 (23:08)
[2020-04-04] MEDS: Heparin 5000 UNITS/ML 1 mL VIAL SUBCUT SCH ×3 (05:46→20:23)
[2020-04-04 06:10] LABS: Hematocrit 32 % (35-47); Hemoglobin 10.7 g/dL (12.0-16.0); Mean Corpuscular HGB Conc 34 g/dL (31-36); Mean Corpuscular Hemoglobin 27 pg (27-31); Mean Corpuscular Volume 81 fL (80-97); Mean Platelet Volume 7.8 fL (7.4-10.4); Platelet Count 137 10^3/uL (150-450); Red Blood Count 3.95 10^6 /uL (3.70-4.87); Red Cell Distribution Width 15 % (10-15); White Blood Count 5.5 10^3/uL (3.5-10.8)
[2020-04-04 06:28] LABS: Calcium 8.3 mg/dL (8.6-10.3); Potassium 3.8 mmol/L (3.5-5.0)
[2020-04-04 06:34] LABS: BUN/Creatinine Ratio 22.6 (8-20); EGFR African American 32.2 (>60); EGFR Non-African American 26.6 (>60)
[2020-04-04] MEDS: Insulin GLARGINE 100 un/ml 10 ml VIAL SUBCUT SCH (20:23)
[2020-04-05] MEDS: Heparin 5000 UNITS/ML 1 mL VIAL SUBCUT SCH ×3 (06:07→21:04)
[2020-04-05] MEDS: Insulin GLARGINE 100 un/ml 10 ml VIAL SUBCUT SCH (19:46)
[2020-04-06] MEDS: Heparin 5000 UNITS/ML 1 mL VIAL SUBCUT SCH ×3 (06:11→22:22)
[2020-04-06 08:44] LABS: Hematocrit 27 % (35-47); Hemoglobin 9.4 g/dL (12.0-16.0); Mean Corpuscular HGB Conc 35 g/dL (31-36); Mean Corpuscular Hemoglobin 28 pg (27-31); Mean Corpuscular Volume 80 fL (80-97); Mean Platelet Volume 7.8 fL (7.4-10.4); Platelet Count 158 10^3/uL (150-450); Red Blood Count 3.42 10^6 /uL (3.70-4.87); Red Cell Distribution Width 15 % (10-15); White Blood Count 6.5 10^3/uL (3.5-10.8)
[2020-04-06 08:59] LABS: BUN/Creatinine Ratio 22.1 (8-20); Calcium 8.3 mg/dL (8.6-10.3); EGFR African American 25.7 (>60); EGFR Non-African American 21.2 (>60); Potassium 4.1 mmol/L (3.5-5.0)
[2020-04-06] MEDS: Insulin GLARGINE 100 un/ml 10 ml VIAL SUBCUT SCH (22:22)
[2020-04-07] MEDS: Heparin 5000 UNITS/ML 1 mL VIAL SUBCUT SCH ×3 (06:10→21:21)
[2020-04-07 17:16] LABS: Urine Appearance Cloudy; Urine Bilirubin Negative (Negative); Urine Blood Negative (Negative); Urine Color Yellow; Urine Glucose Negative (Negative); Urine Ketones Negative (Negative); Urine Nitrite Negative (Negative); Urine Protein 2+(100 mg/dL) (Negative); Urine Specific Gravity 1.013 (1.010-1.030); Urine Urobilinogen Negative (Negative)
[2020-04-07 17:32] LABS: Urine Bacteria Absent (Absent); Urine Red Blood Cell Absent (Absent); Urine Squamous Epithelial Cell Present (Absent); Urine White Blood Cell 1+(6-10/hpf) (Absent)
[2020-04-07] MEDS: Insulin GLARGINE 100 un/ml 10 ml VIAL SUBCUT SCH (21:21)
[2020-04-08] MEDS: Heparin 5000 UNITS/ML 1 mL VIAL SUBCUT SCH ×3 (05:31→22:06)
[2020-04-08 06:40] LABS: ABS Basophils 0.1 10^3/ul (0-0.2); ABS Eosinophils 0.2 10^3/ul (0-0.6); ABS Lymphocytes 3.9 10^3/ul (1.0-4.8); ABS Monocytes 0.8 10^3/ul (0-0.8); ABS Neutrophils 3.9 10^3/ul (1.5-7.7); BUN/Creatinine Ratio 26.8 (8-20); Calcium 8.9 mg/dL (8.6-10.3); EGFR African American 26.6 (>60); Eosinophil % 2.4 %; Hematocrit 32 % (35-47); Hemoglobin 11.1 g/dL (12.0-16.0); Mean Corpuscular HGB Conc 35 g/dL (31-36); Mean Corpuscular Hemoglobin 28 pg (27-31); Mean Corpuscular Volume 79 fL (80-97); Nucleated Red Blood Cells % 0.1; Potassium 4.4 mmol/L (3.5-5.0); Red Blood Count 4.03 10^6 /uL (3.70-4.87); Red Cell Distribution Width 16 % (10-15)
[2020-04-08 08:30] LABS: Mean Platelet Volume 8.3 fL (7.4-10.4); Platelet Count 179 10^3/uL (150-450)
[2020-04-08 08:46] LABS: % Iron Saturation 19 % (15-55); Iron 57 ug/dL (50-212); Total Iron Binding Capacity 305 mcg/dL (250-450); Transferrin 218 mg/dL (203-362); Unsaturated Iron Binding < 290 ug/dL
[2020-04-08] MEDS: Haloperidol 5 mg/ml SDV IV/IM 5 MG/ML AMP IV SLOW PU PRN (19:21)
[2020-04-08] MEDS: Insulin GLARGINE 100 un/ml 10 ml VIAL SUBCUT SCH (20:05)
[2020-04-08] MEDS ORDERED: Ziprasidone IM 20 mg VIAL 1 ml VIAL IM ONE (23:54)
[2020-04-09] MEDS: Heparin 5000 UNITS/ML 1 mL VIAL SUBCUT SCH ×3 (07:26→21:19)
[2020-04-09] MEDS: Insulin GLARGINE 100 un/ml 10 ml VIAL SUBCUT SCH (20:56)
[2020-04-10] MEDS: Heparin 5000 UNITS/ML 1 mL VIAL SUBCUT SCH ×3 (05:59→21:08)
[2020-04-10] MEDS: Cosyntropin 0.25 MG VIAL IV ONE ×2 (10:57→12:01)
[2020-04-10] MEDS ORDERED: Cosyntropin 0.25 MG VIAL IM ONE (11:51)
[2020-04-10] MEDS: Insulin GLARGINE 100 un/ml 10 ml VIAL SUBCUT SCH (21:03)
[2020-04-11] MEDS: Heparin 5000 UNITS/ML 1 mL VIAL SUBCUT SCH ×3 (05:50→21:57)
[2020-04-11] MEDS: Insulin GLARGINE 100 un/ml 10 ml VIAL SUBCUT SCH (21:54)
[2020-04-12] MEDS: Haloperidol 5 mg/ml SDV IV/IM 5 MG/ML AMP IV SLOW PU PRN (00:08)
[2020-04-12] MEDS: Heparin 5000 UNITS/ML 1 mL VIAL SUBCUT SCH ×3 (06:11→22:00)
[2020-04-12 06:55] LABS: ABS Basophils 0.1 10^3/ul (0-0.2); ABS Eosinophils 0.2 10^3/ul (0-0.6); ABS Lymphocytes 2.7 10^3/ul (1.0-4.8); ABS Monocytes 0.6 10^3/ul (0-0.8); Eosinophil % 2.6 %; Hematocrit 30 % (35-47); Hemoglobin 10.3 g/dL (12.0-16.0); Lymphocyte % 41.7 %; Mean Corpuscular HGB Conc 35 g/dL (31-36); Mean Corpuscular Hemoglobin 28 pg (27-31); Mean Corpuscular Volume 80 fL (80-97); Mean Platelet Volume 8.2 fL (7.4-10.4); Nucleated Red Blood Cells % 0.1; Platelet Count 164 10^3/uL (150-450); Red Blood Count 3.68 10^6 /uL (3.70-4.87); Red Cell Distribution Width 17 % (10-15); White Blood Count 6.6 10^3/uL (3.5-10.8)
[2020-04-12 07:10] LABS: BUN/Creatinine Ratio 23.3 (8-20); Calcium 9.3 mg/dL (8.6-10.3); EGFR African American 23.6 (>60); EGFR Non-African American 19.5 (>60)
[2020-04-12 07:17] LABS: Potassium 5.3 mmol/L (3.5-5.0)
[2020-04-12] MEDS: Insulin GLARGINE 100 un/ml 10 ml VIAL SUBCUT SCH (19:57)
[2020-04-13] MEDS: Heparin 5000 UNITS/ML 1 mL VIAL SUBCUT SCH ×3 (05:36→21:04)
[2020-04-13 06:38] LABS: BUN/Creatinine Ratio 20.8 (8-20); Calcium 9.1 mg/dL (8.6-10.3); EGFR African American 23.5 (>60); EGFR Non-African American 19.4 (>60); Potassium 4.9 mmol/L (3.5-5.0)
[2020-04-13] MEDS: Polyethylene Glycol 3350 17 GM PACKET PO SCH ×2 (17:30→21:10)
[2020-04-13] MEDS ORDERED: Sodium Phosphate ADULT ENEMA 133 ML BTL PR ONE (18:26)
[2020-04-13] MEDS: Insulin GLARGINE 100 un/ml 10 ml VIAL SUBCUT SCH (21:04)
[2020-04-13] MEDS: Haloperidol 5 mg/ml SDV IV/IM 5 MG/ML AMP IV SLOW PU PRN (23:53)
[2020-04-14] MEDS: Heparin 5000 UNITS/ML 1 mL VIAL SUBCUT SCH ×3 (05:33→20:48)
[2020-04-14] MEDS: Polyethylene Glycol 3350 17 GM PACKET PO SCH ×2 (08:43→20:48)
[2020-04-14] MEDS: Insulin GLARGINE 100 un/ml 10 ml VIAL SUBCUT SCH (20:48)
[2020-04-15] MEDS: Heparin 5000 UNITS/ML 1 mL VIAL SUBCUT SCH ×3 (05:58→20:19)
[2020-04-15] MEDS: Polyethylene Glycol 3350 17 GM PACKET PO SCH ×2 (08:47→20:20)
[2020-04-15] MEDS: Insulin GLARGINE 100 un/ml 10 ml VIAL SUBCUT SCH (20:18)
[2020-04-16] MEDS: Heparin 5000 UNITS/ML 1 mL VIAL SUBCUT SCH ×3 (04:54→21:04)
[2020-04-16] MEDS: Polyethylene Glycol 3350 17 GM PACKET PO SCH ×2 (08:35→21:30)
[2020-04-16] MEDS: Insulin GLARGINE 100 un/ml 10 ml VIAL SUBCUT SCH (21:04)
[2020-04-17] MEDS: Polyethylene Glycol 3350 17 GM PACKET PO SCH ×2 (08:30→23:56)
[2020-04-17] MEDS: Heparin 5000 UNITS/ML 1 mL VIAL SUBCUT SCH ×3 (08:31→21:44)
[2020-04-17] MEDS: Insulin GLARGINE 100 un/ml 10 ml VIAL SUBCUT SCH (21:44)
[2020-04-18] MEDS: Heparin 5000 UNITS/ML 1 mL VIAL SUBCUT SCH (07:58)
[2020-04-18 08:37] VITALS: BP 108/61
[2020-04-18] MEDS: Polyethylene Glycol 3350 17 GM PACKET PO SCH (09:39)
== END 2020-04-18 15:30 | DRG 884 ==
LOC: ED 12:38 → MED 12:38 → BSU 20:22 → MED 04-03 01:38
PROVIDERS: ADMIT Pediatrics; ATTEND Internal Medicine